=== PATIENT | male | born 1950 | race Caucasian/White ===

== ENCOUNTER 2020-10-22 18:45 | Emergency (ER) | payer MEDICARE, SELFPAY ==
--- NOTE | ~2020-10-22 | XR_ITS ---
EXAMINATION: XR chest 1V portable DATE: 10/22/2020 21:32 INDICATION: Cough. Midsternal and epigastric pain. TECHNIQUE: A single frontal view of the chest was obtained. COMPARISON: None. FINDINGS: Calcified lung nodules are consistent with old granulomatous disease. No pleural effusion o r pneumothorax. The heart size is normal. IMPRESSION: 1. No acute cardiopulmonary disease. Reviewed, dictated and finalized at location A.
[2020-10-22 19:21] VITALS: BP 140/96; PULSE 71; RESP 18; TEMP 36.8; O2SAT 95
--- NOTE | 2020-10-22 21:27 | ED.GENADULT ---
HPI - General Adult General Chief complaint: Upper Respiratory Infection Stated complaint: cold symptoms Time Seen by Provider: 10/22/20 20:55 History of Present Illness HPI narrative: Patient is a 70-year-old male who presents ER with sinus congestion and productive cough. Ongoing for 7 days. Vaccinated against Covid. Works at the [employer] and is around thousands of people a day. No loss of taste or smell. Reports night sweats. Has history of pneumonia in the past. No documented fevers or chills. Reports chest discomfort that occurs only with coughing. No pain with deep breath. Related Data Allergies Allergy/AdvReac Type Severity Reaction Status Date / Time NKDA Allergy Mild Uncoded 04/18/09 16:46 Review of Systems Review of Systems: All systems reviewed & are unremarkable except as noted in HPI and below Constitutional: Constitutional: Denies chills and Denies fever(s) Comments: Night sweats ENT: Reports nasal congestion and Reports sore throat Comments: Postnasal drip Cardiovascular: Cardiovascular: Reports chest pain (Only with coughing), Denies rapid heart rate and Denies radiating jaw, neck or arm pain Respiratory: Respiratory: Reports chest congestion, Reports cough, Reports dyspnea and Reports wheezing Gastrointestinal: Gastrointestinal: Denies abdominal pain, Denies nausea and Denies vomiting PMFSH Past Medical History Medical History (Updated 10/22/20 @ 22:54 by Geoff Barbosa MD) BPH (benign prostatic hyperplasia) Diabetes Hyperlipidemia Hypertension Surgical History Surgical History (Updated 10/22/20 @ 21:30 by Geoff Barbosa MD) History of orthopedic surgery Lower extremity repair Social History Social History (Updated 10/22/20 @ 21:31 by Geoff Barbosa MD) Smoking status: Never smoker Exam Narrative: GENERAL: Well-appearing, well-nourished, and in no acute distress. HEAD: Normocephalic, atraumatic. CHEST: Scant wheezing at the bases but otherwise clear to auscultation. No respiratory distress. HEART: Regular rate and rhythm. Normal peripheral pulses. ABDOMEN: Soft, nontender, nondistended. NEURO: Alert and oriented x3. PSYCH: Normal mood and affect. Course Course Emergency Course: Patient with mucous plugging causing wheezing. Discharged with albuterol. Will also prescribe some [id number] medications for sinus congestion. Patient may have RSV which is going through the community causing his congestion, he may also have seasonal allergies. Vital Signs Vital signs: Vital Signs Temperature 98.2 F 10/22/20 19:21 Pulse Rate 71 10/22/20 19:21 Respiratory Rate 18 10/22/20 19:21 Blood Pressure 140/96 H 10/22/20 19:21 Pulse Oximetry 95 10/22/20 19:21 Temperature 98.2 F 10/22/20 19:21 Pulse Rate 71 10/22/20 19:21 Respiratory Rate 18 10/22/20 19:21 Blood Pressure 140/96 H 10/22/20 19:21 Pulse Oximetry 95 10/22/20 19:21 Medical Decision Making Vital Signs Vital Signs: Vital Signs Temperature 98.2 F 10/22/20 19:21 Pulse Rate 71 10/22/20 19:21 Respiratory Rate 18 10/22/20 19:21 Blood Pressure 140/96 H 10/22/20 19:21 Pulse Oximetry 95 10/22/20 19:21 Temperature 98.2 F 10/22/20 19:21 Pulse Rate 71 10/22/20 19:21 Respiratory Rate 18 10/22/20 19:21 Blood Pressure 140/96 H 10/22/20 19:21 Pulse Oximetry 95 10/22/20 19:21 Lab Data Labs: Lab Results 10/22/20 Range/Units 22:22 SARS-CoV-2 IgG/IgM Ag?Rapid Negative (Negative) Imaging Data Radiologist's impression: ITS Impressions Chest X-Ray 10/22/20 21:34 IMPRESSION: 1. No acute cardiopulmonary disease. Discharge Plan Discharge Clinical Impression: Upper respiratory infection Patient Disposition: Home, Self-Care Condition: Stable Instructions: Cold Symptoms (ED) Additional Instructions: Your Covid swab was negative. Your chest x-ray did not show pneumonia. Take albuterol to help with wh
[2020-10-22 22:49] LABS: EDCOVIDSCREEN Negative (Negative)
== END 2020-10-22 23:05 | disposition home or self-care (01) ==
PROVIDERS: Emergency Provider Emergency Medicine; PCP Internal Medicine
DX: J06.9 Acute upper respiratory infection, unspecified (principal); E11.9 Type 2 diabetes mellitus without complications; E78.5 Hyperlipidemia, unspecified; I10 Essential (primary) hypertension; Z20.822 Contact with and (suspected) exposure to COVID-19
CPT/HCPCS: 36415; 71045; 87426; 99283; C9803

== ENCOUNTER 2024-09-14 20:34 | Emergency (ER) | payer MEDICARE, SELFPAY ==
[2024-09-14] VITALS (16 sets, daily range): BP systolic 107–129; BP diastolic 72–92; PULSE 70–92; RESP 13–22; TEMP 36.9; O2SAT 91–98
--- NOTE | ~2024-09-14 | CT_ITS ---
EXAMINATION: CT brain wo con DATE: 09/14/2024 21:23 INDICATION: Head injury post fall with right supraorbital hematoma TECHNIQUE: Computed tomography (CT) of the head was performed without intravenous contrast. Sagittal and coronal reconstructions were performed. The mA was adjusted according to patient size. Iterative reconstruction technique was employed. The dose-length product was 681.00 mGy-cm. COMPARISON: head CT dated FINDINGS: Anterior right frontal scalp hematoma. No fracture. No acute intracranial hemorrhage, acute infarctio n or abnormal extra axial fluid collection. 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 Ventricles are normal and symmetric. No mass/mass effect. The orbits, paranasal sinuses and mastoid air cells are normal. IMPRESSION: 1. No fracture or acute intracranial process. 2. 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 Reviewed, dictated and finalized at location A. IMPRESSION: 1. No fracture or acute intracranial process. 2. Small old lacunar infarcts at the anterior limbs of the bilateral internal c apsules and at the posterior right subinsular white matter.
--- NOTE | ~2024-09-14 | XR_ITS ---
EXAMINATION: XR chest 2V DATE: 09/14/2024 21:24 INDICATION: Syncope TECHNIQUE: PA and lateral views of the chest were obtained. COMPARISON: Chest radiograph dated 10/22/2020 FINDINGS: Calcified nodules in the left midlung zone consistent with old granulomatous disease. No other airspa ce opacities, pulmonary edema, pleural effusion or pneumothorax. The cardiomediastinal silhouette is normal. Moderate thoracic spondylosis. Chronic appearing compression fractures with 20% anterior vert ebral body height loss at T9 and 40% anterior vertebral body height loss at T12. IMPRESSION: 1. No acute cardiopulmonary disease. Reviewed, dictated and finalized at location A.
--- OUTSIDE RECORDS SUMMARY | 2024-09-14 20:36 | XMS_ITS | Data Portability ---
Author Organization [facility], [employer] Address [address] [address] Care Team Providers Care Water Resource Engineering Specialist Name Role Phone BILL PARKER Primary Care Provider [phone] Assessment Encounter Date Assessment Date Assessment LastModified by Organization Details LastModified Time 07/13/2023 07/13/2023 Patient presented for follow up. Studies ordered as below. Discussed plan with patient/careg iver, who expressed understanding . Follow up as noted below. Not available 07/13/2023 15:14:43 10/12/2023 10/12/2023 Patient presented for follow up. Studies ordered as below. Discussed plan with patient/careg iver, who expressed understanding . Follow up as noted below. Not available 10/12/2023 14:46:40 01/11/2024 01/11/2024 Patient presented for follow up. Studies ordered as below. Discussed plan with patient/careg iver, who expressed understanding . Follow up as noted below. Not available 01/11/2024 10:41:45 07/13/2024 07/13/2024 Patient presented for follow up. Studies ordered as below. Discussed plan with patient/careg iver, who expressed understanding . Follow up as noted below. Not available 07/13/2024 12:57:29 Plan of Treatment Reminders Order Date Submit Date Provider Last Modified By Organization Details Last Modified Time Details Appointments ESTABLISH ED PATIENT 15 2024 11:45A Rachell Parker MD Not available Not available Not available Lab lipid panel w/ direct LDL, serum 2024 025 [facility], [address], [place], [address], 07/20/2024 04:06:43 TSH, serum or plasma 2024 025 [facility], [address], [place], [address], 07/21/2024 12:53:54 vitamin D, 25-hydrox y, total, serum 2024 [facility], [address], [place], [address], 07/21/2024 12:53:55 magnesium , serum or plasma 2024 025 [facility], [address], [place], [address], 07/21/2024 12:53:52 CMP, serum or plasma 2024 025 [facility], [address] [place], [address], 07/20/2024 04:06:43 CBC w/ auto diff 2024 025 [facility], [address] [place], [address], 07/20/2024 04:06:43 vitamin B12, serum 2024 025 [facility], [address] [place], [address], 07/21/2024 12:53:52 hemoglobi n A1c, QN, blood 2024 025 [facility], [address], [place], [address], 07/20/2024 04:06:44 microalbu min/creat inine, mass ratio, urine 2024 [facility], [address], [place], [address], 07/21/2024 12:53:51 PSA, serum or plasma 2024 025 [facility], [address], [place], [address], 07/21/2024 12:53:53 drug screen, urine 2024 025 [facility], [address], [place], [address], 07/21/2024 12:53:56 lipid panel w/ direct LDL, serum 2023 024 [facility], [address], [place], [address], 01/18/2024 04:03:29 CMP, serum or plasma 2023 024 [facility], [address], [place], [address], 01/16/2024 21:08:38 CBC w/ auto diff 2023 024 [facility], [address], [place], [address], 01/16/2024 21:08:41 hemoglobi n A1c, QN, blood 2023 024 [facility], [address], [place], [address], 01/18/2024 04:03:29 C-peptide , serum 2023 024 [facility], [address], [place], [address], 01/11/2024 11:28:48 vitamin B12, serum 2023 024 [facility], [address], [place], [address], 01/16/2024 21:08:40 TSH, serum or plasma 2023 024 [facility], [address], [place], [address], 01/18/2024 04:03:29 vitamin D, 25-hydrox y, total, serum 2023 024 [facility], [address], [place], [address], 01/18/2024 04:03:30 drug screen, urine 2023 024 [facility], [address], [place], [address], 01/18/2024 04:03:29 hemoglobi n A1c, QN, blood 2023 024 [facility], [address], [place], [address], 10/19/2023 04:15:51 CMP, serum or plasma 2023 024 [facility], [address], [place], [address], 10/14/2023 11:14:01 lipid panel w/ direct LDL, serum 2023 024 [facility], [address], [place], [address], 07/20/2023 04:07:11 CMP, serum or plasma 2023 024 [facility], [address], [place], [address], 07/20/2023 22:51:47 CBC 2023 024 [facility], [address], [place], [address], 07/20/2023 04:07:11 hemoglobi n A1c, QN, blood 2023 024 [facility], [address], [place], [address], 07/21/2023 04:04:39 C-peptide , serum 2023 024 [facility], [address], [place], [address], 07/13/2023 19:15:27 drug screen, urine 2023 024 [facility], [address], [place], [address], 07/20/2023 04:07:11 magnesium , QN, serum or plasma 2023 024 [facility], [address], [place], [address], 04/13/2023 06:14:13 hemoglobi n A1c, QN, blood 2023 024 [facility], [address], [place], [address], 04/13/2023 06:14:13 CMP, serum or plasma 2023 024 [facility], [address], [place], [address], 04/13/2023 06:14:13 microalbu min/creat inine, mass ratio, urine 2023 024 [facility], [address], [place], [address], 04/13/2023 06:14:13 vitamin D, 25-hydrox y, total, serum 2023 024 [facility], [address], [place], [address], 04/13/2023 06:14:13 Referral None recorded. Procedures None recorded. Surgeries None recorded. Imaging XR, shoulder, 2 or more view 2023 [facility]), [address], [place], [address], 02/10/2024 13:42:05 US, bladder - pre and post voiding 2023 024 [facility] [address], [address], [place], [address], 03/09/2024 12:04:17 electroca rdiogram 2023 [facility], [address], [place], [address], 01/11/2024 13:54:35 US, groin 2023 024 [facility] [address], [address], [place], [address], 04/14/2023 11:26:37 XR, lumbosacr al spine, 2 or 3 view 2023 024 [facility]), [address], [address], [place], [address], 04/14/2023 20:51:09 Medication Orders finasteri de 5 mg tablet 2024 025 [facility] [place], [address], 07/13/2024 13:35:36 clotrimaz ole-betam ethasone 1 %-0.05 % topical cream 2024 025 [facility], [address] [place], [address], 07/13/2024 13:35:39 tamsulosi n 0.4 mg capsule 2023 024 [facility], [address] [facility], [place], [address], 01/11/2024 11:28:22 finasteri de 5 mg tablet 2023 024 [facility], [address] [facility], [place], [address], 10/12/2023 15:37:40 Xigduo XR 10 mg-1,000 mg tablet,ex tended release 2023 024 [facility], [address] [facility], [place], [address], 10/12/2023 15:37:39 hydrocodo ne 5 mg-acetam inophen 325 mg tablet 2023 024 [facility], [address] [facility], [place], [address], 03/29/2023 16:38:53 Zithromax Z-Ventura 250 mg tablet 2023 024 [facility], [address] [facility], [place], [address], 04/12/2023 21:05:23 azelastin e 137 mcg (0.1 %) nasal spray 2023 024 [facility], [address] [facility], [place], [address], 03/29/2023 16:38:49 Mucinex DM 30 mg-600 mg tablet,ex tended release 12 hr 2023 024 [facility], [address] [facility], [place], [address], 04/13/2023 09:03:31 tadalafil 20 mg tablet 2023 024 [facility], [address] [facility], [place], [address], 03/29/2023 16:38:54 Patient TargetsNo targets recorded. Patient Instructions Encounter Date Encounter Id Patient Instructions Last Modified By Organization Details Last Modified Time 03/29/2023 [id number] plantar fasciitis: care instructions mshenouda Not available 03/29/2023 16:38:41 plantar fasciitis: exercises mshenouda Not available 03/29/2023 16:38:42 managing your allergies: care instructions mshenouda Not available 03/29/2023 16:38:41 seasonal allergies: care instructions mshenouda Not available 03/29/2023 16:38:42 infection from tattoos: care instructions mshenouda Not available 03/29/2023 16:38:42 learning about healthy weight mshenouda Not available 03/29/2023 16:38:42 living will mshenouda Not available 06/2023 16:26:09 07/13/2023 [id number] learning about healthy weight mshenouda Not available 07/13/2023 16:05:12 01/11/2024 [id number] arthritis: care instructions mshenouda Not available 01/11/2024 11:28:23 learning about healthy weight mshenouda Not available 01/11/2024 11:28:22 07/13/2024 [id number] rash: care instructions mshenouda Not available 07/13/2024 13:35:28 infection from tattoos: care instructions mshenouda Not available 07/13/2024 13:35:28 learning about healthy weight mshenouda Not available 07/13/2024 13:35:28 living will mshenouda Not available 06/23 13:27:23 Reason for Referral None Reported. Results Created Date Observation Date Name Description Value Unit Range Abnormal Flag Note LastModifiedBy Organization Detail LastModifiedTime 03/29/19 24 03/29/2023 HEMOG LOBIN A1C hemoglobin A1C 6.9 % 4.8-5. 6 high CHIO L RANGE BASED ON ИРИНА COL 2 (DCCT /NGSP ): Non-D iabet ic: < 5.7% Pre-D iabet es: 5.7 - 6.4% Diabe ness: => 6.5% GLYCE MALIA CONTR OL: < 7.0% Not Available [facility] [address] [facility] [address], [place], [address], 03/30/2023 15:02:02 03/29/19 24 03/29/2023 HEMOG LOBIN A1C estimated average glucose 153 Not Available [facility] [address] [facility] [address], [place], [address], 03/30/2023 15:02:02 03/29/19 24 03/29/2023 COMPR EHENS GIOVANNA METAB OLIC PANEL sodium 144 mmol/ L 134-14 4 Not Available [facility] [address] [facility] [address], [place], [address], 03/30/2023 15:02:03 03/29/19 24 03/29/2023 COMPR EHENS GIOVANNA METAB OLIC PANEL potassium 4.4 mmol/ L 3.5-5. 2 Not Available [facility] [address] [facility] [address], [place], [address], 03/30/2023 15:02:03 03/29/19 24 03/29/2023 COMPR EHENS GIOVANNA METAB OLIC PANEL chloride 106 mmol/ L 97-108 Not Available [facility] [address] [facility] [address], [place], [address], 03/30/2023 15:02:03 03/29/19 24 03/29/2023 COMPR EHENS GIOVANNA METAB OLIC PANEL carbon dioxide (co2) 26.0 mmol/ L 18.0-2 9.0 Not Available [facility] [address] [facility] [address], [place], [address], 03/30/2023 15:02:03 03/29/19 24 03/29/2023 COMPR EHENS GIOVANNA METAB OLIC PANEL glucose 117 mg/dL 65-99 high Chio l Fasti ng: < 100 mg/dL Impai red Fasti n - 125 mg/dL Diagn ostic of Diabe ness: => 126 mg/dL [facility]abe ness [facility] i[facility] n, 2008 Not Available [facility] [address] [facility] [address], [place], [address], 03/30/2023 15:02:03 03/29/19 24 03/29/2023 COMPR EHENS GIOVANNA METAB OLIC PANEL urea nitrogen (BUN) 15 mg/dL 8-23 Not Available [facility] [address] [facility] [address], [place], [address], 03/30/2023 15:02:03 03/29/19 24 03/29/2023 COMPR EHENS GIOVANNA METAB OLIC PANEL creatinine 0.76 mg/dL 0.76-1 .27 Not Available [facility] [address] [facility] [address], [place], [address], 03/30/2023 15:02:03 03/29/19 24 03/29/2023 COMPR EHENS GIOVANNA METAB OLIC PANEL eGFR for nonafrican AM 101 mL/mi nute/ 1.73_ m2 >59 Not Available [facility] [address] [facility] [address], [place], [address], 03/30/2023 15:02:03 03/29/19 24 03/29/2023 COMPR EHENS GIOVANNA METAB OLIC PANEL eGFR for AM 123 mL/mi nute/ 1.73_ m2 >59 MDRD Study Equat ion: The calcu lated GFR is NOT appli cable for pedia tric (< 18 years old) and > 70 year old patie nts and patie nts that are NOT of stead [place] . Not Available [facility] [address] [facility] [address], [place], [address], 03/30/2023 15:02:03 03/29/19 24 03/29/2023 COMPR EHENS GIOVANNA METAB OLIC PANEL calcium 9.6 mg/dL 8.6-10 .2 Not Available [facility] [address] [facility] [address], [place], [address], 03/30/2023 15:02:03 03/29/19 24 03/29/2023 COMPR EHENS GIOVANNA METAB OLIC PANEL protein, total 6.7 gm/dL 6.4-8. 3 Not Available [facility] [address] [facility] [address], [place], [address], 03/30/2023 15:02:03 03/29/19 24 03/29/2023 COMPR EHENS GIOVANNA METAB OLIC PANEL albumin 4.4 gm/dL 3.5-5. 2 Not Available [facility] [address] [facility] [address], [place], [address], 03/30/2023 15:02:03 03/29/19 24 03/29/2023 COMPR EHENS GIOVANNA METAB OLIC PANEL bilirubin, total 0.30 mg/dL 0.00-1 .20 Not Available [facility] [address] [facility] [address], [place], [address], 03/30/2023 15:02:03 03/29/19 24 03/29/2023 COMPR EHENS GIOVANNA METAB OLIC PANEL alkaline phosphatase (ALP) 68 U/L 39-117 Not Available [facility] [address] [facility] [address], [place], [address], 03/30/2023 15:02:03 03/29/19 24 03/29/2023 COMPR EHENS GIOVANNA METAB OLIC PANEL aspartate aminotransfe rase (AST) 18 U/L 0-40 Not Available [facility] [address] [facility] [address], [place], [address], 03/30/2023 15:02:03 03/29/19 24 03/29/2023 COMPR EHENS GIOVANNA METAB OLIC PANEL alanine aminotransfe rase (ALT) 6 U/L 0-41 Not Available [facility] [address] [facility] [address], [place], [address], 03/30/2023 15:02:03 03/29/19 24 03/29/2023 COMPR EHENS GIOVANNA METAB OLIC PANEL A/G ratio (calculated) 1.9 ratio 1.0-2. 7 Not Available [facility] [address] [facility] [address], [place], [address], 03/30/2023 15:02:03 03/29/19 24 03/29/2023 COMPR EHENS GIOVANNA METAB OLIC PANEL globulin (calculated) 2.3 gm/dL 1.5-3. 8 Not Available [facility] [address] [facility] [address], [place], [address], 03/30/2023 15:02:03 03/29/19 24 03/29/2023 COMPR EHENS GIOVANNA METAB OLIC PANEL BUN/creatini ne ratio (calculated) 19.7 ratio 8.0-20 .0 Not Available [facility] [address] [facility] [address], [place], [address], 03/30/2023 15:02:03 03/29/19 24 03/29/2023 COMPR EHENS GIOVANNA METAB OLIC PANEL serum hemolysis index NORMAL index normal Not Available [facility] [address] [facility] [address], [place], [address], 03/30/2023 15:02:03 03/29/19 24 03/29/2023 MAGNE SIUM magnesium 2.1 mg/dL 1.6-2. 6 Not Available [facility] [address] [facility] [address], [place], [address], 03/30/2023 15:02:04 03/29/19 24 03/29/2023 VITAM IN D, 25-HY DROXY TOTAL vitamin D, total 33.2 NG/mL 30.0-1 00.0 The Vitam in D Assay formu latdottie n has been updat ed to offer direc t trace abili ty to ID-LC -MS/M S Refer ence Measu remen t Proce dure along with a reduc tion in bioti n inter feren ce. Defic ient: < 20 ng/mL Insuf ficie nt: 21 - 29 ng/mL Suffi cient : 30 - 100 ng/mL Poten tial Intox icati on: > 100 ng/mL Not Available [facility] [address] [facility] [address], [place], [address], 03/30/2023 15:02:04 03/29/19 24 03/29/2023 MICRO ALBUM IN:CR EATIN INE RATIO , RANDO M URINE microalbumin , urine 0.36 mcg/m L not applic able Not Available [facility] [address] [facility] [address], [place], [address], 03/30/2023 15:02:05 03/29/19 24 03/29/2023 MICRO ALBUM IN:CR EATIN INE RATIO , RANDO M URINE creatinine, urine 67.6 mg/dL not applic able Not Available [facility] [address] [facility] [address], [place], [address], 03/30/2023 15:02:05 03/29/19 24 03/29/2023 MICRO ALBUM IN:CR EATIN INE RATIO , RANDO M URINE microalbumin :creatinine ratio, random urine (calculated) 5.3 mg/gm _crea t. =< 30 Not Available [facility] [address] [facility] [address], [place], [address], 03/30/2023 15:02:05 07/14/19 24 07/14/2023 COMPR EHENS GIOVANNA DRUG PROFI LE A, URINE CONFI RMATI ON amphetamine NOT DETECT ED 250 Not Available [facility] [address] [facility] [address], [place], [address], 07/20/2023 22:51:45 07/14/19 24 07/14/2023 COMPR EHENS GIOVANNA DRUG PROFI LE A, URINE CONFI RMATI ON methamphetam ine NOT DETECT ED 250 Not Available [facility] [address] [facility] [address], [place], [address], 07/20/2023 22:51:45 07/14/19 24 07/14/2023 COMPR EHENS GIOVANNA DRUG PROFI LE A, URINE CONFI RMATI ON mda NOT DETECT ED 100 Not Available [facility] [address] [facility] [address], [place], [address], 07/20/2023 22:51:45 07/14/19 24 07/14/2023 COMPR EHENS GIOVANNA DRUG PROFI LE A, URINE CONFI RMATI ON MDMA NOT DETECT ED 100 Not Available [facility] [address] [facility] [address], [place], [address], 07/20/2023 22:51:45 07/14/19 24 07/14/2023 COMPR EHENS GIOVANNA DRUG PROFI LE A, URINE CONFI RMATI ON mdea NOT DETECT ED 100 Not Available [facility] [address] [facility] [address], [place], [address], 07/20/2023 22:51:45 07/14/19 24 07/14/2023 COMPR EHENS GIOVANNA DRUG PROFI LE A, URINE CONFI RMATI ON 7-aminoclona zepam NOT DETECT ED 100 Not Available [facility] [address] [facility] [address], [place], [address], 07/20/2023 22:51:45 07/14/19 24 07/14/2023 COMPR EHENS GIOVANNA DRUG PROFI LE A, URINE CONFI RMATI ON alprazolam NOT DETECT ED 100 Not Available [facility] [address] [facility] [address], [place], [address], 07/20/2023 22:51:45 07/14/19 24 07/14/2023 COMPR EHENS GIOVANNA DRUG PROFI LE A, URINE CONFI RMATI ON hydroxyalpra zolam NOT DETECT ED 100 Not Available [facility] [address] [facility] [address], [place], [address], 07/20/2023 22:51:45 07/14/19 24 07/14/2023 COMPR EHENS GIOVANNA DRUG PROFI LE A, URINE CONFI RMATI ON nordiazepam NOT DETECT ED 100 Not Available [facility] [address] [facility] [address], [place], [address], 07/20/2023 22:51:45 07/14/19 24 07/14/2023 COMPR EHENS GIOVANNA DRUG PROFI LE A, URINE CONFI RMATI ON temazepam NOT DETECT ED 100 Not Available [facility] [address] [facility] [address], [place], [address], 07/20/2023 22:51:45 07/14/19 24 07/14/2023 COMPR EHENS GIOVANNA DRUG PROFI LE A, URINE CONFI RMATI ON lorazepam NOT DETECT ED 100 Not Available [facility] [address] [facility] [address], [place], [address], 07/20/2023 22:51:45 07/14/19 24 07/14/2023 COMPR EHENS GIOVANNA DRUG PROFI LE A, URINE CONFI RMATI ON benzoylecgon ine NOT DETECT ED 200 Not Available [facility] [address] [facility] [address], [place], [address], 07/20/2023 22:51:45 07/14/19 24 07/14/2023 COMPR EHENS GIOVANNA DRUG PROFI LE A, URINE CONFI RMATI ON 6-monoacetyl morphine NOT DETECT ED 10 Not Available [facility] [address] [facility] [address], [place], [address], 07/20/2023 22:51:45 07/14/19 24 07/14/2023 COMPR EHENS GIOVANNA DRUG PROFI LE A, URINE CONFI RMATI ON amitriptylin e NOT DETECT ED 50 Not Available [facility] [address] [facility] [address], [place], [address], 07/20/2023 22:51:45 07/14/19 24 07/14/2023 COMPR EHENS GIOVANNA DRUG PROFI LE A, URINE CONFI RMATI ON cyclobenzapr ine NOT DETECT ED 50 Not Available [facility] [address] [place] [address] [address], [place], [address], 07/20/2023 22:51:45 07/14/19 24 07/14/2023 COMPR EHENS GIOVANNA DRUG PROFI LE A, URINE CONFI RMATI ON desipramine NOT DETECT ED 50 Not Available [facility] [address] [place] [address] [address], [place], [address], 07/20/2023 22:51:45 07/14/19 24 07/14/2023 COMPR EHENS GIOVANNA DRUG PROFI LE A, URINE CONFI RMATI ON diazepam NOT DETECT ED 100 Not Available [facility] [address] [place] [address] [address], [place], [address], 07/20/2023 22:51:45 07/14/19 24 07/14/2023 COMPR EHENS GIOVANNA DRUG PROFI LE A, URINE CONFI RMATI ON doxepin NOT DETECT ED 50 Not Available [facility] [address] [place] [address] [address], [place], [address], 07/20/2023 22:51:45 07/14/19 24 07/14/2023 COMPR EHENS GIOVANNA DRUG PROFI LE A, URINE CONFI RMATI ON imipramine NOT DETECT ED 50 Not Available [facility] [address] [place] [address] [address], [place], [address], 07/20/2023 22:51:45 07/14/19 24 07/14/2023 COMPR EHENS GIOVANNA DRUG PROFI LE A, URINE CONFI RMATI ON nortriptylin e NOT DETECT ED 100 Not Available [facility] [address] [place] [address] [address], [place], [address], 07/20/2023 22:51:45 07/14/19 24 07/14/2023 COMPR EHENS GIOVANNA DRUG PROFI LE A, URINE CONFI RMATI ON ritalinic acid NOT DETECT ED 100 Not Available [facility] [address] [facility] [address], [place], [address], 07/20/2023 22:51:45 07/14/19 24 07/14/2023 COMPR EHENS GIOVANNA DRUG PROFI LE A, URINE CONFI RMATI ON codeine NOT DETECT ED 100 Not Available [facility] [address] [place] [address] [address], [place], [address], 07/20/2023 22:51:45 07/14/19 24 07/14/2023 COMPR EHENS GIOVANNA DRUG PROFI LE A, URINE CONFI RMATI ON hydrocodone DETECT ED 100 Not Available [facility] [address] [place] [address] [address], [place], [address], 07/20/2023 22:51:45 07/14/19 24 07/14/2023 COMPR EHENS GIOVANNA DRUG PROFI LE A, URINE CONFI RMATI ON hydromorphon e NOT DETECT ED 100 abnormal Not Available [facility] [address] [place] [address] [address], [place], [address], 07/20/2023 22:51:45 07/14/19 24 07/14/2023 COMPR EHENS GIOVANNA DRUG PROFI LE A, URINE CONFI RMATI ON morphine NOT DETECT ED 100 Not Available [facility] [address] [facility] [address], [place], [address], 07/20/2023 22:51:45 07/14/19 24 07/14/2023 COMPR EHENS GIOVANNA DRUG PROFI LE A, URINE CONFI RMATI ON norhydrocodo ne DETECT ED 100 Not Available [facility] [address] [place] [address] [address], [place], [address], 07/20/2023 22:51:45 07/14/19 24 07/14/2023 COMPR EHENS GIOVANNA DRUG PROFI LE A, URINE CONFI RMATI ON noroxycodone NOT DETECT ED 100 Not Available [facility] [facility] [address] [facility] [address], [place], [address], 07/20/2023 22:51:45 07/14/19 24 07/14/2023 COMPR EHENS GIOVANNA DRUG PROFI LE A, URINE CONFI RMATI ON oxycodone NOT DETECT ED 100 Not Available [facility] [address] [place] [address] [address], [place], [address], 07/20/2023 22:51:45 07/14/19 24 07/14/2023 COMPR EHENS GIOVANNA DRUG PROFI LE A, URINE CONFI RMATI ON oxymorphone NOT DETECT ED 100 Not Available [facility] [address] [place] [address] [address], [place], [address], 07/20/2023 22:51:45 07/14/19 24 07/14/2023 COMPR EHENS GIOVANNA DRUG PROFI LE A, URINE CONFI RMATI ON buprenorphin e NOT DETECT ED 50 Not Available [facility] [address] [place] [address] [address], [place], [address], 07/20/2023 22:51:45 07/14/19 24 07/14/2023 COMPR EHENS GIOVANNA DRUG PROFI LE A, URINE CONFI RMATI ON norbuprenorp leisa NOT DETECT ED 100 Not Available [facility] [address] [place] [address] [address], [place], [address], 07/20/2023 22:51:45 07/14/19 24 07/14/2023 COMPR EHENS GIOVANNA DRUG PROFI LE A, URINE CONFI RMATI ON fentanyl NOT DETECT ED 10 Not Available [facility] [address] [place] [address] [address], [place], [address], 07/20/2023 22:51:45 07/14/19 24 07/14/2023 COMPR EHENS GIOVANNA DRUG PROFI LE A, URINE CONFI RMATI ON norfentanyl NOT DETECT ED 50 Not Available [facility] [address] [facility] [address], [place], [address], 07/20/2023 22:51:45 07/14/19 24 07/14/2023 COMPR EHENS GIOVANNA DRUG PROFI LE A, URINE CONFI RMATI ON methadone NOT DETECT ED 100 Not Available [facility] [address] [place] [address] [address], [place], [address], 07/20/2023 22:51:45 07/14/19 24 07/14/2023 COMPR EHENS GIOVANNA DRUG PROFI LE A, URINE CONFI RMATI ON EDDP NOT DETECT ED 50 Not Available [facility] [address] [place] [address] [address], [place], [address], 07/20/2023 22:51:45 07/14/19 24 07/14/2023 COMPR EHENS GIOVANNA DRUG PROFI LE A, URINE CONFI RMATI ON meperidine NOT DETECT ED 100 Not Available [facility] [address] [place] [address] [address], [place], [address], 07/20/2023 22:51:45 07/14/19 24 07/14/2023 COMPR EHENS GIOVANNA DRUG PROFI LE A, URINE CONFI RMATI ON normeperidin e NOT DETECT ED 100 Not Available [facility] [address] [place] [address] [address], [place], [address], 07/20/2023 22:51:45 07/14/19 24 07/14/2023 COMPR EHENS GIOVANNA DRUG PROFI LE A, URINE CONFI RMATI ON tramadol NOT DETECT ED 100 Not Available [facility] [address] [place] [address] [address], [place], [address], 07/20/2023 22:51:45 07/14/19 24 07/14/2023 COMPR EHENS GIOVANNA DRUG PROFI LE A, URINE CONFI RMATI ON O-desmethylt ramadol NOT DETECT ED 100 Not Available [facility] [address] [place] [address] [address], [place], [address], 07/20/2023 22:51:45 07/14/19 24 07/14/2023 COMPR EHENS GIOVANNA DRUG PROFI LE A, URINE CONFI RMATI ON tapentadol NOT DETECT ED 100 Not Available [facility] [address] [facility] [address], [place], [address], 07/20/2023 22:51:45 07/14/19 24 07/14/2023 COMPR EHENS GIOVANNA DRUG PROFI LE A, URINE CONFI RMATI ON naloxone NOT DETECT ED 100 Not Available [facility] [address] [facility] [address], [place], [address], 07/20/2023 22:51:45 07/14/19 24 07/14/2023 COMPR EHENS GIOVANNA DRUG PROFI LE A, URINE CONFI RMATI ON pregabalin NOT DETECT ED 100 Not Available [facility] [address] [facility] [address], [place], [address], 07/20/2023 22:51:45 07/14/19 24 07/14/2023 COMPR EHENS GIOVANNA DRUG PROFI LE A, URINE CONFI RMATI ON gabapentin NOT DETECT ED 500 Not Available [facility] [address] [facility] [address], [place], [address], 07/20/2023 22:51:45 07/14/19 24 07/14/2023 COMPR EHENS GIOVANNA DRUG PROFI LE A, URINE CONFI RMATI ON naltrexone NOT DETECT ED 100 Not Available [facility] [address] [facility] [address], [place], [address], 07/20/2023 22:51:45 07/14/19 24 07/14/2023 COMPR EHENS GIOVANNA DRUG PROFI LE A, URINE CONFI RMATI ON fluoxetine NOT DETECT ED 100 Not Available [facility] [address] [facility] [address], [place], [address], 07/20/2023 22:51:45 07/14/19 24 07/14/2023 COMPR EHENS GIOVANNA DRUG PROFI LE A, URINE CONFI RMATI ON sertraline NOT DETECT ED 100 Not Available [facility] [address] [facility] [address], [place], [address], 07/20/2023 22:51:45 07/14/19 24 07/14/2023 COMPR EHENS GIOVANNA DRUG PROFI LE A, URINE CONFI RMATI ON zolpidem NOT DETECT ED 100 Not Available [facility] [address] [facility] [address], [place], [address], 07/20/2023 22:51:45 07/14/19 24 07/14/2023 HEMOG LOBIN A1C hemoglobin A1C 7.1 % 4.8-5. 6 high CHIO L RANGE BASED ON ИРИНА COL 2 (DCCT /NGSP ): Non-D iabet ic: < 5.7% Pre-D iabet es: 5.7 - 6.4% Diabe ness: => 6.5% GLYCE MALIA CONTR OL: < 7.0% Not Available [facility] [address] [facility] [address], [place], [address], 07/20/2023 22:51:45 07/14/19 24 07/14/2023 HEMOG LOBIN A1C estimated average glucose 158 Not Available [facility] [address] [facility] [address], [place], [address], 07/20/2023 22:51:45 07/14/19 24 07/14/2023 *C-PE PTIDE C-peptide 3.6 NG/mL 1.1-4. 4 NOTE: REFER ENCE RANGE APPLI ES TO FASTI NG SAMPL E ONLY. Not Available [facility] [address] [facility] [address], [place], [address], 07/20/2023 22:51:46 07/14/19 24 07/14/2023 COMPR EHENS GIOVANNA METAB OLIC PANEL sodium 142 mmol/ L 134-14 4 Not Available [facility] [address] [facility] [address], [place], [address], 07/20/2023 22:51:47 07/14/19 24 07/14/2023 COMPR EHENS GIOVANNA METAB OLIC PANEL potassium 4.5 mmol/ L 3.5-5. 2 Not Available [facility] [address] [facility] [address], [place], [address], 07/20/2023 22:51:47 07/14/19 24 07/14/2023 COMPR EHENS GIOVANNA METAB OLIC PANEL chloride 106 mmol/ L 97-108 Not Available [facility] [address] [facility] [address], [place], [address], 07/20/2023 22:51:47 07/14/19 24 07/14/2023 COMPR EHENS GIOVANNA METAB OLIC PANEL carbon dioxide (co2) 24.0 mmol/ L 18.0-2 9.0 Not Available [facility] [address] [facility] [address], [place], [address], 07/20/2023 22:51:47 07/14/19 24 07/14/2023 COMPR EHENS GIOVANNA METAB OLIC PANEL glucose 147 mg/dL 65-99 high Chio l Fasti ng: < 100 mg/dL Impai red Fasti n - 125 mg/dL Diagn ostic of Diabe ness: => 126 mg/dL [facility] n[facility] i[facility] n, 2008 Not Available [facility] [address] [facility] [address], [place], [address], 07/20/2023 22:51:47 07/14/19 24 07/14/2023 COMPR EHENS GIOVANNA METAB OLIC PANEL urea nitrogen (BUN) 15 mg/dL 8-23 Not Available [facility] [address] [facility] [address], [place], [address], 07/20/2023 22:51:47 07/14/19 24 07/14/2023 COMPR EHENS GIOVANNA METAB OLIC PANEL creatinine 1.08 mg/dL 0.76-1 .27 Not Available [facility] [address], [place], [address], 07/20/2023 22:51:47 07/14/19 24 07/14/2023 COMPR EHENS GIOVANNA METAB OLIC PANEL eGFR for nonafrican AM 67 mL/mi nute/ 1.73_ m2 >59 Not Available [facility] [address], [place], [address], 07/20/2023 22:51:47 07/14/19 24 07/14/2023 COMPR EHENS GIOVANNA METAB OLIC PANEL eGFR for AM 82 mL/mi nute/ 1.73_ m2 >59 MDRD Study Equat ion: The calcu lated GFR is NOT appli cable for pedia tric (< 18 years old) and > 70 year old patie nts and patie nts that are NOT of [place] . Not Available [facility] [address], [place], [address], 07/20/2023 22:51:47 07/14/19 24 07/14/2023 COMPR EHENS GIOVANNA METAB OLIC PANEL calcium 9.0 mg/dL 8.6-10 .2 Not Available [facility] [address], [place], [address], 07/20/2023 22:51:47 07/14/19 24 07/14/2023 COMPR EHENS GIOVANNA METAB OLIC PANEL protein, total 6.7 gm/dL 6.4-8. 3 Not Available [facility] [address], [place], [address], 07/20/2023 22:51:47 07/14/19 24 07/14/2023 COMPR EHENS GIOVANNA METAB OLIC PANEL albumin 4.3 gm/dL 3.5-5. 2 Not Available [facility] [address] [facility] [address], [place], [address], 07/20/2023 22:51:47 07/14/19 24 07/14/2023 COMPR EHENS GIOVANNA METAB OLIC PANEL bilirubin, total 0.40 mg/dL 0.00-1 .20 Not Available [address], [place], [address], 07/20/2023 22:51:47 07/14/19 24 07/14/2023 COMPR EHENS GIOVANNA METAB OLIC PANEL alkaline phosphatase (ALP) 65 U/L 39-117 Not Available [facility] [address] [facility] [address], [place], [address], 07/20/2023 22:51:47 07/14/19 24 07/14/2023 COMPR EHENS GIOVANNA METAB OLIC PANEL aspartate aminotransfe rase (AST) 21 U/L 0-40 Not Available [facility] [address] [facility] [address], [place], [address], 07/20/2023 22:51:47 07/14/19 24 07/14/2023 COMPR EHENS GIOVANNA METAB OLIC PANEL alanine aminotransfe rase (ALT) 22 U/L 0-41 Not Available [address], [place], [address], 07/20/2023 22:51:47 07/14/19 24 07/14/2023 COMPR EHENS GIOVANNA METAB OLIC PANEL A/G ratio (calculated) 1.8 ratio 1.0-2. 7 Not Available [address], [place], [address], 07/20/2023 22:51:47 07/14/19 24 07/14/2023 COMPR EHENS GIOVANNA METAB OLIC PANEL globulin (calculated) 2.4 gm/dL 1.5-3. 8 Not Available [address], [place], [address], 07/20/2023 22:51:47 07/14/19 24 07/14/2023 COMPR EHENS GIOVANNA METAB OLIC PANEL BUN/creatini ne ratio (calculated) 13.9 ratio 8.0-20 .0 Not Available [facility] [address] [facility] [address], [place], [address], 07/20/2023 22:51:47 07/14/19 24 07/14/2023 COMPR EHENS GIOVANNA METAB OLIC PANEL serum hemolysis index NORMAL index normal Not Available [facility] [address] [facility] [address], [place], [address], 07/20/2023 22:51:47 07/14/19 24 07/14/2023 LIPID PANEL W/ CALC. LDL cholesterol, total 147 mg/dL 100-19 9 Not Available [facility] [address] [facility] [address], [place], [address], 07/20/2023 22:51:48 07/14/19 24 07/14/2023 LIPID PANEL W/ CALC. LDL HDL cholesterol 60 mg/dL =>40 Not Available [facility] [address] [facility] [address], [place], [address], 07/20/2023 22:51:48 07/14/19 24 07/14/2023 LIPID PANEL W/ CALC. LDL LDL cholesterol (calculated) 58 mg/dL 0-99 Not Available [facility] [address] [facility] [address], [place], [address], 07/20/2023 22:51:48 07/14/19 24 07/14/2023 LIPID PANEL W/ CALC. LDL triglyceride s 146 mg/dL 50-149 Not Available [facility] [address] [facility] [address], [place], [address], 07/20/2023 22:51:48 07/14/19 24 07/14/2023 LIPID PANEL W/ CALC. LDL chol/HDL ratio (calculated) 2.45 ratio 0.00-5 .00 Not Available [facility] [address], [place], [address], 07/20/2023 22:51:48 07/14/19 24 07/14/2023 LIPID PANEL W/ CALC. LDL VLDL cholesterol (calculated) 29 mg/dL 5-40 Not Available [facility] [address], [place], [address], 07/20/2023 22:51:48 07/14/19 24 07/14/2023 CBC WITH AUTO- DIFFE RENTI AL WBC 5.1 10*3/ uL 3.4-10 .8 Not Available [facility] [address] [facility] [address], [place], [address], 07/20/2023 22:51:49 07/14/19 24 07/14/2023 CBC WITH AUTO- DIFFE RENTI AL RBC 5.17 10*6/ uL 4.20-5 .80 Not Available [facility] [address] [facility] [address], [place], [address], 07/20/2023 22:51:49 07/14/19 24 07/14/2023 CBC WITH AUTO- DIFFE RENTI AL HGB 15.6 g/dL 12.6-1 7.7 Not Available [facility] [address] [facility] [address], [place], [address], 07/20/2023 22:51:49 07/14/19 24 07/14/2023 CBC WITH AUTO- DIFFE RENTI AL HCT 49.5 % 37.5-5 1.0 Not Available [facility] [address] [facility] [address], [place], [address], 07/20/2023 22:51:49 07/14/19 24 07/14/2023 CBC WITH AUTO- DIFFE RENTI AL MCV 96 fL 79-97 Not Available [facility] [address], [place], [address], 07/20/2023 22:51:49 07/14/19 24 07/14/2023 CBC WITH AUTO- DIFFE RENTI AL MCH 30.2 pg 26.6-3 3.0 Not Available [facility] [address] [facility], [place], [address], 07/20/2023 22:51:49 07/14/19 24 07/14/2023 CBC WITH AUTO- DIFFE RENTI AL MCHC 31.5 g/dL 31.5-3 5.7 Not Available [facility] [address], [place], [address], 07/20/2023 22:51:49 07/14/19 24 07/14/2023 CBC WITH AUTO- DIFFE RENTI AL RDW 14.7 % 11.5-1 4.5 high Not Available [facility] [address], [place], [address], 07/20/2023 22:51:49 07/14/19 24 07/14/2023 CBC WITH AUTO- DIFFE RENTI AL platelets 208 10*3/ uL 150-40 0 Not Available [facility] [address] [facility] [address], [place], [address], 07/20/2023 22:51:49 07/14/19 24 07/14/2023 CBC WITH AUTO- DIFFE RENTI AL MPV 10 fL 9-13 Not Available [facility] [address], [place], [address], 07/20/2023 22:51:49 07/14/19 24 07/14/2023 CBC WITH AUTO- DIFFE RENTI AL neutrophils 67.5 % 40.0-7 4.0 Not Available [facility] [address] [facility] [address] [facility] [address], [place], [address], 07/20/2023 22:51:49 07/14/19 24 07/14/2023 CBC WITH AUTO- DIFFE RENTI AL absolute neutrophils 3.44 10*3/ uL 1.40-7 .00 Not Available [facility] [address] [facility] [address], [place], [address], 07/20/2023 22:51:49 07/14/19 24 07/14/2023 CBC WITH AUTO- DIFFE RENTI AL lymphocytes 25.0 % 14.0-4 6.0 Not Available [facility] [address] [facility] [address], [place], [address], 07/20/2023 22:51:49 07/14/19 24 07/14/2023 CBC WITH AUTO- DIFFE RENTI AL absolute lymphocytes 1.27 10*3/ uL 0.70-3 .10 Not Available [facility] [address] [facility] [address], [place], [address], 07/20/2023 22:51:49 07/14/19 24 07/14/2023 CBC WITH AUTO- DIFFE RENTI AL monocytes 5.7 % 4.0-12 .0 Not Available [facility] [address] [facility] [address], [place], [address], 07/20/2023 22:51:49 07/14/19 24 07/14/2023 CBC WITH AUTO- DIFFE RENTI AL absolute monocytes 0.29 10*3/ uL 0.10-0 .90 Not Available [facility] [address] [facility] [address], [place], [address], 07/20/2023 22:51:49 07/14/19 24 07/14/2023 CBC WITH AUTO- DIFFE RENTI AL eosinophils 1.2 % 0.0-5. 0 Not Available [facility] [address] [facility] [address], [place], [address], 07/20/2023 22:51:49 05/22/20 24 07/14/2023 CBC WITH AUTO- DIFFE RENTI AL absolute eosinophils 0.06 10*3/ uL 0.00-0 .40 Not Available [facility] [address] [facility] [address], [place], [address], 07/20/2023 22:51:49 07/14/19 24 07/14/2023 CBC WITH AUTO- DIFFE RENTI AL basophils 0.6 % 0.0-3. 0 Not Available [facility] [address] [facility] [address], [place], [address], 07/20/2023 22:51:49 07/14/19 24 07/14/2023 CBC WITH AUTO- DIFFE RENTI AL absolute basophils 0.03 10*3/ uL 0.00-0 .20 Not Available [facility] [address] [facility] [address], [place], [address], 07/20/2023 22:51:49 07/14/19 24 07/14/2023 CBC WITH AUTO- DIFFE RENTI AL imm. gran. 0.0 % 0.0-2. 0 Not Available [facility] [address] [facility] [address], [place], [address], 07/20/2023 22:51:49 07/14/19 24 07/14/2023 CBC WITH AUTO- DIFFE RENTI AL abs. imm. gran. 0.00 10*3/ uL 0.00-0 .10 Not Available [facility] [address] [facility] [address], [place], [address], 07/20/2023 22:51:49 07/14/19 24 07/14/2023 URINE DRUG SCREE N, 6-DUONG EL W/ REFLE X TO CONF. A amphetamines NEGATI VE negati ve Amphe tamin e Cutof f=500 Not Available [facility] [address] [facility] [address], [place], [address], 07/20/2023 22:51:49 07/14/19 24 07/14/2023 URINE DRUG SCREE N, 6-DUONG EL W/ REFLE X TO CONF. A benzodiazepi rigo NEGATI VE negati ve Benzo diaze pines Cutof f=100 Not Available [facility] [address] [facility] [address], [place], [address], 07/20/2023 22:51:49 07/14/19 24 07/14/2023 URINE DRUG SCREE N, 6-DUONG EL W/ REFLE X TO CONF. A cocaine NEGATI VE negati ve Cocai ne Cutof f=300 Not Available [facility] [address] [facility] [address], [place], [address], 07/20/2023 22:51:49 07/14/19 24 07/14/2023 URINE DRUG SCREE N, 6-DUONG EL W/ REFLE X TO CONF. A opiates NEGATI VE negati ve Opiat es Cutof f=300 Not Available [facility] [address] [facility] [address], [place], [address], 07/20/2023 22:51:49 07/14/19 24 07/14/2023 URINE DRUG SCREE N, 6-DUONG EL W/ REFLE X TO CONF. A oxycodone NEGATI VE negati ve Oxyco done Cutof f=300 Not Available [facility] [address] [facility] [address], [place], [address], 07/20/2023 22:51:49 07/14/19 24 07/14/2023 URINE DRUG SCREE N, 6-DUONG EL W/ REFLE X TO CONF. A cannabinoid (THC) NEGATI VE negati ve Canna binoi d Cutof f=50 Not Available [facility] [address] [facility] [address], [place], [address], 07/20/2023 22:51:49 07/14/19 24 07/14/2023 URINE DRUG SCREE N, 6-DUONG EL W/ REFLE X TO CONF. A creatinine - uds urine 122.9 mg/dL >20.0 Not Available [facility] [address] [facility] [address], [place], [address], 07/20/2023 22:51:49 07/14/19 24 07/14/2023 URINE DRUG SCREE N, 6-DUONG EL W/ REFLE X TO CONF. A specific gravity (uds) 1.010 1.003- 1.035 Not Available [facility] [address] [place] [address] [address], [place], [address], 07/20/2023 22:51:49 07/14/19 24 07/14/2023 URINE DRUG SCREE N, 6-DUONG EL W/ REFLE X TO CONF. A pH (uds) 6.0 4.5-10 .9 Not Available [facility] [address] [place] [address] [address], [place], [address], 07/20/2023 22:51:49 07/14/19 24 07/14/2023 URINE DRUG SCREE N, 6-DUONG EL W/ REFLE X TO CONF. A amphetamines NEGATI VE negati ve Amphe tamin e Cutof f=500 Not Available [facility] [address] [facility] [address], [place], [address], 07/20/2023 22:51:49 07/14/19 24 07/14/2023 URINE DRUG SCREE N, 6-DUONG EL W/ REFLE X TO CONF. A benzodiazepi rigo NEGATI VE negati ve Benzo diaze pines Cutof f=100 Not Available [facility] [address] [place] [address] [address], [place], [address], 07/20/2023 22:51:49 07/14/19 24 07/14/2023 URINE DRUG SCREE N, 6-DUONG EL W/ REFLE X TO CONF. A cocaine NEGATI VE negati ve Cocai ne Cutof f=300 Not Available [facility] [address] [place] [address] [address], [place], [address], 07/20/2023 22:51:49 07/14/19 24 07/14/2023 URINE DRUG SCREE N, 6-DUONG EL W/ REFLE X TO CONF. A opiates NEGATI VE negati ve Opiat es Cutof f=300 Not Available [facility] [address] [facility] [address], [place], [address], 07/20/2023 22:51:49 07/14/19 24 07/14/2023 URINE DRUG SCREE N, 6-DUONG EL W/ REFLE X TO CONF. A oxycodone NEGATI VE negati ve Oxyco done Cutof f=300 Not Available [facility] [address] [facility] [address], [place], [address], 07/20/2023 22:51:49 07/14/19 24 07/14/2023 URINE DRUG SCREE N, 6-DUONG EL W/ REFLE X TO CONF. A cannabinoid (THC) NEGATI VE negati ve Canna binoi d Cutof f=50 Not Available [facility] [address] [facility] [address], [place], [address], 07/20/2023 22:51:49 07/14/19 24 07/14/2023 URINE DRUG SCREE N, 6-DUONG EL W/ REFLE X TO CONF. A creatinine - uds urine 122.9 mg/dL >20.0 Not Available [facility] [address] [facility] [address], [place], [address], 07/20/2023 22:51:49 07/14/19 24 07/14/2023 URINE DRUG SCREE N, 6-DUONG EL W/ REFLE X TO CONF. A specific gravity (uds) 1.010 1.003- 1.035 Not Available [facility] [address] [facility] [address], [place], [address], 07/20/2023 22:51:49 07/14/19 24 07/14/2023 URINE DRUG SCREE N, 6-DUONG EL W/ REFLE X TO CONF. A pH (uds) 6.0 4.5-10 .9 Not Available [facility] [address], [place], [address], 07/20/2023 22:51:49 10/12/19 24 10/12/2023 HEMOG LOBIN A1C hemoglobin A1C 6.8 % 4.8-5. 6 high CHIO L RANGE BASED ON ИРИНА COL 2 (DCCT /NGSP ): Non-D iabet ic: < 5.7% Pre-D iabet es: 5.7 - 6.4% Diabe ness: => 6.5% GLYCE MALIA CONTR OL: < 7.0% Not Available [facility] [address] [facility] [address], [place], [address], 10/14/2023 11:14:00 10/12/19 24 10/12/2023 HEMOG LOBIN A1C estimated average glucose 149 Not Available [facility] [address] [facility] [address], [place], [address], 10/14/2023 11:14:00 10/12/19 24 10/12/2023 COMPR EHENS GIOVANNA METAB OLIC PANEL sodium 141 mmol/ L 134-14 4 Not Available [facility] [address] [facility] [address], [place], [address], 10/14/2023 11:14:01 10/12/19 24 10/12/2023 COMPR EHENS GIOVANNA METAB OLIC PANEL potassium 4.2 mmol/ L 3.5-5. 2 Not Available [facility] [address] [facility] [address], [place], [address], 10/14/2023 11:14:01 10/12/19 24 10/12/2023 COMPR EHENS GIOVANNA METAB OLIC PANEL chloride 103 mmol/ L 97-108 Not Available [facility] [address] [facility] [address], [place], [address], 10/14/2023 11:14:01 10/12/19 24 10/12/2023 COMPR EHENS GIOVANNA METAB OLIC PANEL carbon dioxide (co2) 21.0 mmol/ L 18.0-2 9.0 Not Available [facility] [address] [facility] [address], [place], [address], 10/14/2023 11:14:01 10/12/19 24 10/12/2023 COMPR EHENS IGOVANNA METAB OLIC PANEL glucose 110 mg/dL 65-99 high Chio l Fasti ng: < 100 mg/dL Impai red Fasti n - 125 mg/dL Diagn ostic of Diabe ness: => 126 mg/dL [facility], 2007 Not Available [facility] Laboratory [address] [facility] [address], [place], [address], 10/14/2023 11:14:01 10/12/19 24 10/12/2023 COMPR EHENS GIOVANNA METAB OLIC PANEL urea nitrogen (BUN) 19 mg/dL 8-23 Not Available [facility] [address] [facility] [address], [place], [address], 10/14/2023 11:14:01 10/12/19 24 10/12/2023 COMPR EHENS GIOVANNA METAB OLIC PANEL creatinine 1.02 mg/dL 0.76-1 .27 Not Available [facility] [address] [facility] [address], [place], [address], 10/14/2023 11:14:01 10/12/19 24 10/12/2023 COMPR EHENS GIOVANNA METAB OLIC PANEL eGFR 79 mL/mi nute/ 1.73_ m2 >59 MDRD Study Equat ion: The calcu lated GFR is NOT appli cable for pedia tric (< 18 years old) and > 70 year old patie nts and patie nts that are NOT of stead [place] . Not Available [facility] [address] [facility] [address], [place], [address], 10/14/2023 11:14:01 10/12/19 24 10/12/2023 COMPR EHENS GIOVANNA METAB OLIC PANEL calcium 9.1 mg/dL 8.6-10 .2 Not Available [facility] [address], [place], [address], 10/14/2023 11:14:01 10/12/19 24 10/12/2023 COMPR EHENS GIOVANNA METAB OLIC PANEL protein, total 6.8 gm/dL 6.4-8. 3 Not Available [facility] [address], [place], [address], 10/14/2023 11:14:01 10/12/19 24 10/12/2023 COMPR EHENS GIOVANNA METAB OLIC PANEL albumin 4.6 gm/dL 3.5-5. 2 Not Available [facility] [address], [place], [address], 10/14/2023 11:14:01 10/12/19 24 10/12/2023 COMPR EHENS GIOVANNA METAB OLIC PANEL bilirubin, total 0.20 mg/dL 0.00-1 .20 Not Available [facility] [address] [facility] [address], [place], [address], 10/14/2023 11:14:01 10/12/19 24 10/12/2023 COMPR EHENS GIOVANNA METAB OLIC PANEL alkaline phosphatase (ALP) 72 U/L 39-117 Not Available [facility] [address] [facility] [address], [place], [address], 10/14/2023 11:14:01 10/12/19 24 10/12/2023 COMPR EHENS GIOVANNA METAB OLIC PANEL aspartate aminotransfe rase (AST) 23 U/L 0-40 Not Available [facility] [address] [facility] [address], [place], [address], 10/14/2023 11:14:01 10/12/19 24 10/12/2023 COMPR EHENS GIOVANNA METAB OLIC PANEL alanine aminotransfe rase (ALT) 21 U/L 0-[address] [facility] Laboratory [address] [facility] [address], [place], [address], 10/14/2023 11:14:01 10/12/19 24 10/12/2023 COMPR EHENS GIOVANNA METAB OLIC PANEL A/G ratio (calculated) 2.1 ratio 1.0-2. 7 Not Available [facility] [address] [facility] [address], [place], [address], 10/14/2023 11:14:01 10/12/19 24 10/12/2023 COMPR EHENS GIOVANNA METAB OLIC PANEL globulin (calculated) 2.2 gm/dL 1.5-3. 8 Not Available [facility] [address] [facility] [address], [place], [address], 10/14/2023 11:14:01 10/12/19 24 10/12/2023 COMPR EHENS GIOVANNA METAB OLIC PANEL BUN/creatini ne ratio (calculated) 18.6 ratio 8.0-20 .0 Not Available [facility] [address] [facility] [address], [place], [address], 10/14/2023 11:14:01 10/12/19 24 10/12/2023 COMPR EHENS GIOVANNA METAB OLIC PANEL serum hemolysis index NORMAL index normal Not Available [facility] [address] [facility] [address], [place], [address], 10/14/2023 11:14:01 01/11/20 24 01/11/2024 HEMOG LOBIN A1C hemoglobin A1C 7.0 % 4.8-5. 6 high CHIO L RANGE BASED ON ИРИНА COL 2 (DCCT /NGSP ): Non-D iabet ic: < 5.7% Pre-D iabet es: 5.7 - 6.4% Diabe ness: => 6.5% GLYCE MALIA CONTR OL: < 7.0% Not Available [facility] [address] [facility] [address], [place], [address], 01/16/2024 21:08:37 01/11/20 24 01/11/2024 HEMOG LOBIN A1C estimated average glucose 154 Not Available [facility] [address] [facility] [address], [place], [address], 01/16/2024 21:08:37 01/11/20 24 01/11/2024 *C-PE PTIDE C-peptide 4.0 NG/mL 1.1-4. 4 NOTE: REFER ENCE RANGE APPLI ES TO FASTI NG SAMPL E ONLY. Not Available [facility] [address] [facility] [address], [place], [address], 01/16/2024 21:08:38 01/11/20 24 01/11/2024 COMPR EHENS GIOVANNA METAB OLIC PANEL sodium 143 mmol/ L 134-14 4 Not Available [facility] [address] [facility] [address], [place], [address], 01/16/2024 21:08:38 01/11/20 24 01/11/2024 COMPR EHENS GIOVANNA METAB OLIC PANEL potassium 4.8 mmol/ L 3.5-5. 2 Not Available [facility] [address] [facility] [address], [place], [address], 01/16/2024 21:08:38 01/11/20 24 01/11/2024 COMPR EHENS GIOVANNA METAB OLIC PANEL chloride 105 mmol/ L 98-107 Not Available [facility] [address] [facility] [address], [place], [address], 01/16/2024 21:08:38 01/11/20 24 01/11/2024 COMPR EHENS GIOVANNA METAB OLIC PANEL carbon dioxide (co2) 27.0 mmol/ L 18.0-2 9.0 Not Available [facility] [address] [facility] [address], [place], [address], 01/16/2024 21:08:38 01/11/20 24 01/11/2024 COMPR EHENS GIOVANNA METAB OLIC PANEL glucose 136 mg/dL 65-99 high Chio l Fasti n - 99 mg/dL Impai red Fasti n - 125 mg/dL Diagn ostic of Diabe ness: => 126 mg/dL [facility]i can [facility]abe ness [facility] iatio n, 2007 Not Available [facility] [address] [facility] [address], [place], [address], 01/16/2024 21:08:38 01/11/20 24 01/11/2024 COMPR EHENS GIOVANNA METAB OLIC PANEL urea nitrogen (BUN) 22 mg/dL 8-23 Not Available [facility] [address] [facility] [address], [place], [address], 01/16/2024 21:08:38 01/11/20 24 01/11/2024 COMPR EHENS GIOVANNA METAB OLIC PANEL creatinine 0.90 mg/dL 0.76-1 .27 Not Available [facility] [address] [facility] [address], [place], [address], 01/16/2024 21:08:38 01/11/20 24 01/11/2024 COMPR EHENS GIOVANNA METAB OLIC PANEL eGFR 91 mL/mi nute/ 1.73_ m2 >59 MDRD Study Equat ion: The calcu lated GFR is NOT appli cable for pedia tric (< 18 years old) and > 70 year old patie nts and patie nts that are NOT of stead y state . Not Available [facility] [address] [facility] [address], [place], [address], 01/16/2024 21:08:38 01/11/20 24 01/11/2024 COMPR EHENS GIOVANNA METAB OLIC PANEL calcium 9.4 mg/dL 8.6-10 .2 Not Available [facility] [address] [facility] [address], [place], [address], 01/16/2024 21:08:38 01/11/20 24 01/11/2024 COMPR EHENS GIOVANNA METAB OLIC PANEL protein, total 6.9 gm/dL 6.4-8. 3 Not Available [facility] [address] [facility] [address], [place], [address], 01/16/2024 21:08:38 01/11/20 24 01/11/2024 COMPR EHENS GIOVANNA METAB OLIC PANEL albumin 4.4 gm/dL 3.5-5. 2 Not Available [facility] [address] [facility] [address], [place], [address], 01/16/2024 21:08:38 01/11/20 24 01/11/2024 COMPR EHENS GIOVANNA METAB OLIC PANEL bilirubin, total 0.40 mg/dL 0.00-1 .20 Not Available [facility] [address] [facility] [address], [place], [address], 01/16/2024 21:08:38 01/11/20 24 01/11/2024 COMPR EHENS GIOVANNA METAB OLIC PANEL alkaline phosphatase (ALP) 61 U/L 39-117 Not Available [facility] Laboratory [address] [facility] [address], [place], [address], 01/16/2024 21:08:38 01/11/20 24 01/11/2024 COMPR EHENS GIOVANNA METAB OLIC PANEL aspartate aminotransfe rase (AST) 17 U/L 0-[address] [facility] Laboratory [address] [facility] [address], [place], [address], 01/16/2024 21:08:38 01/11/20 24 01/11/2024 COMPR EHENS GIOVANNA METAB OLIC PANEL alanine aminotransfe rase (ALT) 15 U/L 0-[address] [facility] Laboratory [address] [facility] [address], [place], [address], 01/16/2024 21:08:38 01/11/20 24 01/11/2024 COMPR EHENS GIOVANNA METAB OLIC PANEL A/G ratio (calculated) 1.8 ratio 1.0-2. 7 Not Available [facility] [address] [facility] [address], [place], [address], 01/16/2024 21:08:38 01/11/20 24 01/11/2024 COMPR EHENS GIOVANNA METAB OLIC PANEL globulin (calculated) 2.5 gm/dL 1.5-3. 8 Not Available [facility] [address] [facility] [address], [place], [address], 01/16/2024 21:08:38 01/11/20 24 01/11/2024 COMPR EHENS GIOVANNA METAB OLIC PANEL BUN/creatini ne ratio (calculated) 24.4 ratio 8.0-20 .0 high Not Available [facility] [address] [facility] [address], [place], [address], 01/16/2024 21:08:38 01/11/20 24 01/11/2024 COMPR EHENS GIOVANNA METAB OLIC PANEL serum hemolysis index NORMAL index normal Not Available [facility] [address] [facility] [address], [place], [address], 01/16/2024 21:08:38 01/11/20 24 01/11/2024 LIPID PANEL W/ LDL BRITTNEE STERO L DIREC T cholesterol, total 171 mg/dL 100-19 9 Not Available [facility] [address] [facility] [address], [place], [address], 01/16/2024 21:08:39 01/11/20 24 01/11/2024 LIPID PANEL W/ LDL BRITTNEE STERO L DIREC T HDL cholesterol 57 mg/dL =>40 Not Available [facility] Laboratory [address] [facility] [address], [place], [address], 01/16/2024 21:08:39 01/11/20 24 01/11/2024 LIPID PANEL W/ LDL BRITTNEE STERO L DIREC T LDL cholesterol (direct) 90 mg/dL 0-99 Not Available [facility] [address], [place], [address], 01/16/2024 21:08:39 01/11/20 24 01/11/2024 LIPID PANEL W/ LDL BRITTNEE STERO L DIREC T triglyceride s 145 mg/dL 50-149 Not Available [facility] [address], [place], [address], 01/16/2024 21:08:39 01/11/20 24 01/11/2024 LIPID PANEL W/ LDL BRITTNEE STERO L DIREC T VLDL cholesterol (calculated) 29 mg/dL 5-40 Not Available [facility] [address], [place], [address], 01/16/2024 21:08:39 01/11/20 24 01/11/2024 LIPID PANEL W/ LDL BRITTNEE STERO L DIREC T chol/HDL ratio (calculated) 3.00 ratio 0.00-5 .00 Not Available [facility] [address], [place], [address], 01/16/2024 21:08:39 01/11/20 24 01/11/2024 LIPID PANEL W/ LDL BRITTNEE STERO L DIREC T LDL/HDL ratio (calculated) 1.58 ratio 0.00-3 .60 LDL/H DL Ratio Male Femal e 1/2 Avg. Risk 1.0 1.5 Avg. Risk 3.6 3.2 2x Avg. Risk 6.2 5.0 3x Avg. Risk 8.0 6.1 Not Available [facility] [address], [place], [address], 01/16/2024 21:08:39 01/11/20 24 01/11/2024 THYRO ID-ST IM. HORMO NE (TSH) thyroid-stim . hormone (TSH) 1.48 uIU/m L 0.27-4 .20 Not Available [facility] [address] [facility] [address], [place], [address], 01/16/2024 21:08:40 01/11/20 24 01/11/2024 VITAM IN B12 vitamin B12 480 pg/mL 232-12 45 Not Available [facility] [address] [facility] [address], [place], [address], 01/16/2024 21:08:40 01/11/20 24 01/11/2024 VITAM IN D, 25-HY DROXY TOTAL vitamin D, total 25.2 NG/mL 30.0-1 00.0 low The Vitam in D Assay formu latdottie n has been updat ed to offer direc t trace abili ty to ID-LC -MS/M S Refer ence Measu remen t Proce dure along with a reduc tion in bioti n inter feren ce. Defic ient: < 20 ng/mL Insuf ficie nt: 21 - 29 ng/mL Suffi cient : 30 - 100 ng/mL Poten tial Intox icati on: > 100 ng/mL Not Available [facility] [address] [facility] [address], [place], [address], 01/16/2024 21:08:41 01/11/20 24 01/11/2024 CBC WITH AUTO- DIFFE RENTI AL WBC 5.7 10*3/ uL 3.4-10 .8 Not Available [facility] [address] [facility] [address], [place], [address], 01/16/2024 21:08:41 01/11/20 24 01/11/2024 CBC WITH AUTO- DIFFE RENTI AL RBC 5.25 10*6/ uL 4.20-5 .80 Not Available [facility] [address] [facility] [address], [place], [address], 01/16/2024 21:08:41 01/11/20 24 01/11/2024 CBC WITH AUTO- DIFFE RENTI AL HGB 15.7 g/dL 12.6-1 7.7 Not Available [facility] [address], [place], [address], 01/16/2024 21:08:41 01/11/20 24 01/11/2024 CBC WITH AUTO- DIFFE RENTI AL HCT 49.9 % 37.5-5 1.0 Not Available [facility] [address], [place], [address], 01/16/2024 21:08:41 01/11/20 24 01/11/2024 CBC WITH AUTO- DIFFE RENTI AL MCV 95 fL 79-97 Not Available [facility] [address] [facility] [address], [place], [address], 01/16/2024 21:08:41 01/11/20 24 01/11/2024 CBC WITH AUTO- DIFFE RENTI AL MCH 29.9 pg 26.6-3 3.0 Not Available [facility] [address], [place], [address], 01/16/2024 21:08:41 01/11/20 24 01/11/2024 CBC WITH AUTO- DIFFE RENTI AL MCHC 31.5 g/dL 31.5-3 5.7 Not Available [facility] [address], [place], [address], 01/16/2024 21:08:41 01/11/20 24 01/11/2024 CBC WITH AUTO- DIFFE RENTI AL RDW 14.7 % 11.5-1 4.5 high Not Available [facility] [address], [place], [address], 01/16/2024 21:08:41 01/11/20 24 01/11/2024 CBC WITH AUTO- DIFFE RENTI AL platelets 222 10*3/ uL 150-40 0 Not Available [facility] [address] [facility] [address], [place], [address], 01/16/2024 21:08:41 01/11/20 24 01/11/2024 CBC WITH AUTO- DIFFE RENTI AL MPV 10 fL 9-13 Not Available [facility] [address] [facility] [address], [place], [address], 01/16/2024 21:08:41 01/11/2001/11/2024 CBC WITH AUTO- DIFFE RENTI AL neutrophils 67.3 % 40.0-7 4.0 Not Available [facility] [address] [facility] [address], [place], [address], 01/16/2024 21:08:41 01/11/20 24 01/11/2024 CBC WITH AUTO- DIFFE RENTI AL absolute neutrophils 3.85 10*3/ uL 1.40-7 .00 Not Available [facility] [address] [facility] [address], [place], [address], 01/16/2024 21:08:41 01/11/20 24 01/11/2024 CBC WITH AUTO- DIFFE RENTI AL lymphocytes 23.1 % 14.0-4 6.0 Not Available [facility] [address] [facility] [address], [place], [address], 01/16/2024 21:08:41 01/11/20 24 01/11/2024 CBC WITH AUTO- DIFFE RENTI AL absolute lymphocytes 1.32 10*3/ uL 0.70-3 .10 Not Available [facility] [address] [facility] [address], [place], [address], 01/16/2024 21:08:41 01/11/20 24 01/11/2024 CBC WITH AUTO- DIFFE RENTI AL monocytes 7.0 % 4.0-12 .0 Not Available [facility] [address] [facility] [address], [place], [address], 01/16/2024 21:08:41 01/11/20 24 01/11/2024 CBC WITH AUTO- DIFFE RENTI AL absolute monocytes 0.40 10*3/ uL 0.10-0 .90 Not Available [facility] [address] [facility] [address], [place], [address], 01/16/2024 21:08:41 01/11/20 24 01/11/2024 CBC WITH AUTO- DIFFE RENTI AL eosinophils 1.4 % 0.0-5. 0 Not Available [facility] [address] [facility] [address], [place], [address], 01/16/2024 21:08:41 01/11/20 24 01/11/2024 CBC WITH AUTO- DIFFE RENTI AL absolute eosinophils 0.08 10*3/ uL 0.00-0 .40 Not Available [facility] [address] [facility] [address], [place], [address], 01/16/2024 21:08:41 01/11/20 24 01/11/2024 CBC WITH AUTO- DIFFE RENTI AL basophils 0.9 % 0.0-3. 0 Not Available [facility] [address] [facility] [address], [place], [address], 01/16/2024 21:08:41 01/11/20 24 01/11/2024 CBC WITH AUTO- DIFFE RENTI AL absolute basophils 0.05 10*3/ uL 0.00-0 .20 Not Available [facility] [address] [facility] [address], [place], [address], 01/16/2024 21:08:41 01/11/20 24 01/11/2024 CBC WITH AUTO- DIFFE RENTI AL imm. gran. 0.3 % 0.0-2. 0 Not Available [facility] [address] [facility] [address], [place], [address], 01/16/2024 21:08:41 01/11/20 24 01/11/2024 CBC WITH AUTO- DIFFE RENTI AL abs. imm. gran. 0.02 10*3/ uL 0.00-0 .10 Not Available [facility] [address] [facility] [address], [place], [address], 01/16/2024 21:08:41 01/11/20 24 01/11/2024 URINE DRUG SCREE N, 6-DUONG EL amphetamines NEGATI VE negati ve Amphe tamin e Cutof f=500 Not Available [facility] [address] [facility] [address], [place], [address], 01/16/2024 21:08:42 01/11/20 24 01/11/2024 URINE DRUG SCREE N, 6-DUONG EL benzodiazepi rigo NEGATI VE negati ve Benzo diaze pines Cutof f=100 Not Available [facility] [address] [facility] [address], [place], [address], 01/16/2024 21:08:42 01/11/20 24 01/11/2024 URINE DRUG SCREE N, 6-DUONG EL cocaine NEGATI VE negati ve Cocai ne Cutof f=300 Not Available [facility] [address] [facility] [address], [place], [address], 01/16/2024 21:08:42 01/11/20 24 01/11/2024 URINE DRUG SCREE N, 6-DUONG EL opiates POSITI VE negati ve abnormal Opiat es Cutof f=300 Not Available [facility] [address] [facility] [address], [place], [address], 01/16/2024 21:08:42 01/11/20 24 01/11/2024 URINE DRUG SCREE N, 6-DUONG EL oxycodone NEGATI VE negati ve Oxyco done Cutof f=300 Not Available [facility] [address] [facility] [address], [place], [address], 01/16/2024 21:08:42 01/11/20 24 01/11/2024 URINE DRUG SCREE N, 6-DUONG EL cannabinoid (THC) NEGATI VE negati ve Canna binoi d Cutof f=50 Not Available [facility] [address] [facility] [address], [place], [address], 01/16/2024 21:08:42 01/11/20 24 01/11/2024 URINE DRUG SCREE N, 6-DUONG EL creatinine - uds urine 84.0 mg/dL >20.0 Not Available [facility] [address] [facility] [address], [place], [address], 01/16/2024 21:08:42 01/11/20 24 01/11/2024 URINE DRUG SCREE N, 6-DUONG EL pH (uds) 6.0 4.5-10 .9 Not Available [facility] [address] [facility] [address], [place], [address], 01/16/2024 21:08:42 01/11/20 24 01/11/2024 URINE DRUG SCREE N, 6-DUONG EL specific gravity (uds) 1.020 1.003- 1.035 Not Available [facility] [address] [place] [address] [address], [place], [address], 01/16/2024 21:08:42 01/11/20 24 01/11/2024 URINE DRUG SCREE N, 6-DUONG EL amphetamines NEGATI VE negati ve Amphe tamin e Cutof f=500 Not Available [facility] [address] [facility] [address], [place], [address], 01/16/2024 21:08:42 01/11/20 24 01/11/2024 URINE DRUG SCREE N, 6-DUONG EL benzodiazepi rigo NEGATI VE negati ve Benzo diaze pines Cutof f=100 Not Available [facility] [address] [facility] [address], [place], [address], 01/16/2024 21:08:42 01/11/20 24 01/11/2024 URINE DRUG SCREE N, 6-DUONG EL cocaine NEGATI VE negati ve Cocai ne Cutof f=300 Not Available [facility] [address] [facility] [address], [place], [address], 01/16/2024 21:08:42 01/11/20 24 01/11/2024 URINE DRUG SCREE N, 6-DUONG EL opiates POSITI VE negati ve abnormal Opiat es Cutof f=300 Not Available [facility] [address] [facility] [address], [place], [address], 01/16/2024 21:08:42 01/11/20 24 01/11/2024 URINE DRUG SCREE N, 6-DUONG EL oxycodone NEGATI VE negati ve Oxyco done Cutof f=300 Not Available [facility] [address] [facility] [address], [place], [address], 01/16/2024 21:08:42 01/11/2001/11/2024 URINE DRUG SCREE N, 6-DUONG EL cannabinoid (THC) NEGATI VE negati ve Canna binoi d Cutof f=50 Not Available [facility] [address] [facility] [address], [place], [address], 01/16/2024 21:08:42 01/11/20 24 01/11/2024 URINE DRUG SCREE N, 6-DUONG EL creatinine - uds urine 84.0 mg/dL >20.0 Not Available [facility] [address] [facility] [address], [place], [address], 01/16/2024 21:08:42 01/11/20 24 01/11/2024 URINE DRUG SCREE N, 6-DUONG EL pH (uds) 6.0 4.5-10 .9 Not Available [facility] [address], [place], [address], 01/16/2024 21:08:42 01/11/2001/11/2024 URINE DRUG SCREE N, 6-DUONG EL specific gravity (uds) 1.020 1.003- 1.035 Not Available [facility] [address], [place], [address], 01/16/2024 21:08:42 07/20/1907/20/2024 LIPID PANEL , STAND CONNIE cholesterol, total 144 mg/dL <200 normal Not Available [address], [address], 07/21/2024 12:53:50 07/20/19 25 07/20/2024 LIPID PANEL , STAND CONNIE HDL cholesterol 57 mg/dL > or = 40 normal Not Available [address], [address], 07/21/2024 12:53:50 07/20/19 25 07/20/2024 LIPID PANEL , STAND CONNIE triglyceride s 153 mg/dL <150 high Not Available [address], [address], 07/21/2024 12:53:50 07/20/19 25 07/20/2024 LIPID PANEL , STAND CONNIE LDL-choleste rol 63 mg/dL _(stevie c) normal Refer ence range : <100 Ferny able range <100 mg/dL for prima ry preve ntion ; <70 mg/dL for patie nts with CHD or diabe tic patie nts with > or = 2 CHD risk facto rs. LDL-C is now calcu lated using the Naima n-Hop kins calcu latio n, which is a valid ated novel metho d provi ding brett r accur acy than the Fried carlito equat ion in the estim ation of LDL-C . Namia palomino SS et al. MAGUE. 2013; 310(1 9): 2061- 2068 (http ://ed ucati on.Twila hurley [employer]. com/f aq/FA Q164) Not Available [address], [address], 07/21/2024 12:53:50 07/20/19 25 07/20/2024 LIPID PANEL , STAND CONNIE chol/HDLC ratio 2.5 (calc ) <5.0 normal Not Available [address], [address], 07/21/2024 12:53:50 07/20/1907/20/2024 LIPID PANEL , STAND CONNIE non HDL cholesterol 87 mg/dL _(stevie c) <130 normal For patie nts with diabe ness plus 1 major ASCVD risk facto r, treat ing to a non-H DL-C goal of <100 mg/dL (LDL- C of <70 mg/dL ) is consi dered a thera peuti c optio n. Not Available [address], [address], 07/21/2024 12:53:50 07/20/1907/20/2024 ALBUM IN, RANDO M URINE W/CRE ATINI NE creatinine, random urine 67 mg/dL 20-320 normal Not Available [address], [address], 07/21/2024 12:53:51 07/20/19 25 07/20/2024 ALBUM IN, RANDO M URINE W/CRE ATINI NE albumin, urine 0.3 mg/dL see note: normal Refer ence Range : Refer ence Range Not estab lishe d Not Available [address], [address], 07/21/2024 12:53:51 07/20/19 25 07/20/2024 ALBUM IN, RANDO M URINE W/CRE ATINI NE albumin/crea tinine ratio, random urine 4 mg/g_ creat <30 normal The ADA defin es abnor malit ies in album in excre tion as follo ws: Album inuri a Categ ory Resul t (mg/g creat inine ) Chio l to Mildl y incre ased <30 Moder ately incre ased 30-29 9 Sever marlene incre ased > OR = 300 The ADA recom mends that at least two of three speci mens colle cted withi n a 3-6 month perio d be abnor mal befor e consi erica g a patie nt to be withi n a diagn ostic categ ory. Not Available [facility] [address] [place], [address], 07/21/2024 12:53:51 07/20/1907/20/2024 MAGNE SIUM magnesium 2.2 mg/dL 1.5-2. 5 normal Not Available [facility] [address] [place], [address], 07/21/2024 12:53:52 07/20/1907/20/2024 VITAM IN B12 vitamin B12 346 pg/mL 200-11 00 normal Pleas e Note: Altho ugh the refer ence range for vitam in B12 is 200-1 100 pg/mL , it has been repor arleth that betwe en 5 and 10% of patie nts with value s betwe en 200 and 400 pg/mL may exper ience neuro psych iatri c and hemat ologi c abnor malit ies due to occul t B12 defic iency ; less than 1% of patie nts with value s above 400 pg/mL will have sympt oms. Not Available [facility] [address] [place], [address], 07/21/2024 12:53:52 07/20/1907/20/2024 PSA, TOTAL PSA, total 0.26 NG/mL < or = 4.00 normal The total PSA value from this assay syste m is stand ardiz ed again st the WHO stand connie. The test resul t will be appro ximat marlene 20% lower when claudia red to the equim olar- stand ardiz ed total PSA (Jerry man Coult er). Claudia rison of seria l PSA resul ts shoul d be inter prete d with this fact in mind. This test was perfo rmed using the Sieme ns chemi lumin escen t metho d. Value s obtai sukh from diffe rent assay metho ds canno t be used inter ramon eably . PSA level s, regar dless of value , shoul d not be inter prete d as absol dorita evide nce of the prese nce or absen ce of disea se. Not Available [facility] [address] [place], [address], 07/21/2024 12:53:53 07/20/19 25 07/20/2024 TSH TSH 0.94 mIU/L 0.40-4 .50 normal Not Available [facility] [address] [place], [address], 07/21/2024 12:53:54 07/20/19 25 07/20/2024 VITAM IN D,25- OH,TO CAMI,I A vitamin D,25-oh,tota l,ia 34 NG/mL 30-100 normal Vitam in D Statu s 25-OH Vitam in D: Defic iency : <20 ng/mL Insuf ficie ncy: 20 - 29 ng/mL Optim al: > or = 30 ng/mL For 25-OH Vitam in D testi ng on patie nts on D2-vergara pplem entat ion and patie nts for whom quant itati on of D2 and D3 fract ions is requi red, the [facility] Assur eD(TM ) 25-OH VIT D, (D2,D 3), LC/MS /MS is recom abdi d: order code 70108 (hilda ents >2yrs ). See Note 1 Note 1 For addit ional infor brook graf e refer to http: //sowmya Calixto gnary ics.c om/fa q/FAQ 199 (This link is being provi ded for infor joel kumar/ educa lexi l purpo ses only. ) Not Available [facility] [address] [address] [place], [address], 07/21/2024 12:53:55 07/20/1907/20/2024 HEMOG LOBIN A1C hemoglobin A1C 6.8 %_of_ total _HGB <5.7 high For someo ne witho ut known diabe ness, a hemog lobin A1c value of 6.5% or great er indic ates that they may have diabe ness and this shoul d be confi rmed with a follo w-up test. For someo ne with known diabe ness, a value <7% indic ates that their diabe ness is well contr olled and a value great er than or equal to 7% indic ates subop timal contr ol. A1c targe ts shoul d be indiv idual ized based on durat ion of diabe ness, age, comor bid condi tions , and other consi derat ions. Curre ntly, no conse nsus exist s efraín redmond use of hemog lobin A1c for diagn osis of diabe ness for child karma. Not Available [facility] [address] [address] [place], [address], 07/21/2024 12:53:55 07/20/1907/20/2024 DRUG MONIT OR, PANEL 5, SCREE N, URINE amphetamines NEGATI VE NG/mL <500 See Note A See Note A Not Available [facility] [address] [place] [address] [place], [address], 07/21/2024 12:53:56 07/20/1907/20/2024 DRUG MONIT OR, PANEL 5, SCREE N, URINE barbiturates NEGATI VE NG/mL <300 See Note A See Note A Not Available [facility] [address] [address] [place], [address], 07/21/2024 12:53:56 07/20/1907/20/2024 DRUG MONIT OR, PANEL 5, SCREE N, URINE benzodiazepi rigo NEGATI VE NG/mL <100 See Note A See Note A Not Available [facility] [address] [address], [place], [address], 07/21/2024 12:53:56 07/20/1907/20/2024 DRUG MONIT OR, PANEL 5, SCREE N, URINE cocaine metabolite NEGATI VE NG/mL <150 See Note A See Note A Not Available [facility] [address] [address] [address], [place], [address], 07/21/2024 12:53:56 07/20/1907/20/2024 DRUG MONIT OR, PANEL 5, SCREE N, URINE marijuana metabolite NEGATI VE NG/mL <20 See Note A See Note A Not Available [facility] [address] [address], [place], [address], 07/21/2024 12:53:56 07/20/1907/20/2024 DRUG MONIT OR, PANEL 5, SCREE N, URINE methadone metabolite NEGATI VE NG/mL <100 See Note A See Note A Not Available [facility] [address] [address], [place], [address], 07/21/2024 12:53:56 07/20/1907/20/2024 DRUG MONIT OR, PANEL 5, SCREE N, URINE opiates POSITI VE NG/mL <100 abnormal See Note A See Note A Not Available [facility] [address] [address], [place], [address], 07/21/2024 12:53:56 07/20/1907/20/2024 DRUG MONIT OR, PANEL 5, SCREE N, URINE oxycodone NEGATI VE NG/mL <100 See Note A See Note A Not Available [facility] [address] [address], [place], [address], 07/21/2024 12:53:56 07/20/19 25 07/20/2024 DRUG MONIT OR, PANEL 5, SCREE N, URINE creatinine 67.1 mg/dL > or = 20.0 Not Available [facility] [address] [address] [place], [address], 07/21/2024 12:53:56 07/20/19 25 07/20/2024 DRUG MONIT OR, PANEL 5, SCREE N, URINE pH 7.2 4.5-9. 0 Not Available [facility] [address] [address] [place], [address], 07/21/2024 12:53:56 07/20/19 25 07/20/2024 DRUG MONIT OR, PANEL 5, SCREE N, URINE oxidant NEGATI VE mcg/m L <200 Not Available [facility] [address] [address] [address], [place], [address], 07/21/2024 12:53:56 07/20/1907/20/2024 DRUG MONIT ORING TEMPL ATE notes and comments This drug testi ng is for medic al treat ment only. Abena sis was perfo rmed as non-f orens ic testi ng and these resul ts shoul d be used only by [facility] to rende r diagn osis or treat ment, or to monit or progr ess of medic al condi tions . Note A: The resul ts are presu mptiv e; based only on screkrystle meza metho ds, and they have not been confi rmed by a defin itive metho d. [facility] Pro[facility] ders needi ng Inter preta tion gerson tance , pleas e conta ct us at 1.877 .40.R XTOX (1.87 [phone] ) M-F, 8am to 10pm EST Not Available [facility] [address] [address] [address], [place], [address], 07/21/2024 12:53:56 04/14/19 24 04/13/2023 US, groin No observ ation record ed. [facility] [address], [place], [address], 10/14/2023 20:04:29 04/14/19 XR, lumbo sacra l spine , 2 or 3 view No observ ation record ed. JUAN CARLOS [facility]) [address], [place], [address], 10/14/2023 20:04:29 01/11/20 24 01/11/2024 elect rocar diogr am No observ ation record ed. [facility], [facility] [address], [place], [address], 07/13/2024 13:23:21 01/11/20 24 01/11/2024 elect rocar diogr am No observ ation record ed. [facility], [facility] [address], [place], [address], 07/13/2024 13:23:21 02/10/20 24 02/10/2024 XR, shoul tyrone, 2 or more view No observ ation record ed. [facility] [address], [place], [address], 07/13/2024 13:23:21 03/09/19 25 03/09/2024 US, bladd er No observ ation record ed. [facility] [address], [place], [address], 07/13/2024 13:23:21 Result Notes None recorded. 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 Radha rodriguez, [facility] 6 13:06:02 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 Radha rodriguez, [facility] 6 13:06:14 Body mass index 25-29 - overweigh t 965459686 Active 2015 Bill Parker MD [address], [place], [address], [facility] 8 22:31:39 Tattoo of skin 852029416435 Active 2017 Bill Parker MD [address], [place], [address], [facility] 8 13:23:06 Benign prostatic hyperplas ia without outflow obstructi on 864993728 Active 2018 Bill Parker MD [address], [place], [address], [facility] 9 16:48:58 Mixed hyperlipi demia 769751062 Active 2018 Bill Parker MD [address], [place], [address], [facility] 9 16:49:26 Osteoarth ritis 703029364 Active 2019 Bill Parker MD [address], [place], [address], [facility] 0 11:49:03 Long-term current use of opiate analgesic drug 468259765558 108 Active 2019 Bill Parker MD [address], [place], [address], [facility] 0 11:07:36 Vitamin D deficienc y 80497919 Active 2020 Bill Parker MD [address], [place], [address], [facility] 1 19:36:27 Plantar fasciitis 787229745 Active 2020 Bill Parker MD [address], [place], [address], [facility] 1 10:39:47 Mixed anxiety and depressiv e disorder 103167316 Active 2020 Bill Parker MD [address], [place], [address], [facility] 1 10:39:48 Hypomagne semia 622076166 Active 2021 Bill Parker MD [address], [place], [address], [facility] 2 15:16:33 Long-term drug therapy Active 2021 Bill Parker MD [address], [place], [address], [facility] 2 15:16:47 Primary erectile dysfuncti on 199961235 Active 2022 Bill Parker MD [address], [place], [address], [facility] 3 10:26:04 Problem Notes None recorded. Procedures Surgical History Date Name Laterality Status Provider Name and Address Organization Details Recorded Time 5 Diabetic Foot Exam completed Bill Parker MD [address], [place], [address], [facility] 07/13/2024 13:31:03 4 Diabetic Foot Exam completed Bill Parker MD [address], [place], [address], [facility] 01/11/2024 11:25:23 4 Diabetic Foot Exam completed Bill Parker MD [address], [place], [address], [facility] 10/12/2023 15:34:12 4 Diabetic Foot Exam completed Bill Parker MD [address], [place], [address], [facility] 07/13/2023 16:04:31 4 Diabetic Foot Exam completed Bill Parker MD [address], [place], [address], [facility] 03/29/2023 16:31:36 3 Diabetic Foot Exam completed Bill Parker MD [address], [place], [address], [facility] 12/28/2022 16:02:37 3 Diabetic Foot Exam completed Bill Parker MD [address], [place], [address], [facility] 09/17/2022 10:12:49 3 Diabetic Foot Exam completed Bill Parker MD [address], [place], [address], [facility] 06/18/2022 10:38:40 3 Diabetic Foot Exam completed Bill Parker MD [address], [place], [address], [facility] 03/12/2022 10:32:33 2 Diabetic Foot Exam completed Bill Parker MD [address], [place], [address], [facility] 12/04/2021 15:18:07 2 Diabetic Foot Exam completed Bill Parker MD [address], [place], [address], [facility] 08/06/2021 15:46:30 2 Diabetic Foot Exam completed Bill Parker MD [address], [place], [address], [facility] 04/28/2021 17:06:18 1 Diabetic Foot Exam completed Bill Parker MD [address], [place], [address], [facility] 01/03/2021 10:41:54 1 Diabetic Foot Exam completed Bill Parker MD [address], [place], [address], [facility] 10/03/2020 10:19:39 1 Diabetic Foot Exam completed Bill Parker MD [address], [place], [address], [facility] 07/03/2020 09:20:02 1 Diabetic Foot Exam completed Bill Parker MD [address], [place], [address], [facility] 03/28/2020 11:09:59 0 Diabetic Foot Exam completed Bill Parker MD [address], [place], [address], [facility] 12/28/2019 11:10:51 0 Diabetic Foot Exam completed Bill Parker MD [address], [place], [address], [facility] 09/12/2019 11:42:23 0 Diabetic Foot Exam completed Bill Parker MD [address], [place], [address], [facility] 06/07/2019 16:13:38 0 Diabetic Foot Exam completed Bill Parker MD [address], [place], [address], [facility] 03/08/2019 17:09:46 9 Diabetic Foot Exam completed Bill Parker MD [address], [place], [address], [facility] 12/06/2018 17:01:01 9 Diabetic Foot Exam completed Bill Parker MD [address], [place], [address], [facility] 08/23/2018 17:14:55 9 Colonoscopy completed Bill Parker MD [address], [place], [address], [facility] 07/13/2018 12:50:50 9 Diabetic Foot Exam completed Bill Parker MD [address], [place], [address], [facility] 05/24/2018 17:46:47 9 Diabetic Foot Exam completed Bill Parker MD [address], [place], [address], [facility] 02/23/2018 17:30:36 8 Diabetic Foot Exam completed Bill Parker MD [address], [place], [address], [facility] 11/23/2017 13:20:52 9 Colonoscopy completed Radha Stephens [facility] 07/16/2015 12:56:13 Imaging Results None recorded. Procedure Notes None recorded. Medical Equipment None Reported. Allergies Allergen ID Allergen Name Allergen Category Reaction Reaction Severity Criticality Documentation Date Start Date Code Code System Note Provider Name and Address Organization Details Recorded Time 1562 Claritin- D medicatio n Not available Not available Not available 07/16/2015 10737 6 RxNorm Verónicasa Rosy rodriguez [facility] 6 15:56:36 03493 Claritin- D medicatio n Not available Not available Not available 07/13/2024 10871 6 RxNorm Not Available juan carlos - External Data Service - prod 5 11:47:09 6862 Farxiga medicatio n dizziness Not available Not available 06/01/2017 76218 72 RxNorm Bill Parker MD [address], [place], [address], [facility] 9 17:15:09 7470 buspirone medicatio n dizziness Not available Not available 11/23/2017 1827 RxMarcelino Parker MD [address], [place], [address], [facility] 8 13:13:26 Medications Name Sig Start Date Stop Date Status Note LastModified by Organization Details LastModified Time pioglitazon e 15 mg tablet TAKE 1 TABLET BY MOUTH ONCE DAILY IN THE MORNING active Not Available Not Available No t Available metformin 500 mg tablet TAKE 1 TABLET BY MOUTH ONCE DAILY WITH SUPPER 07/19 completed Not Available Not Available Not Available doxycycline hyclate 100 mg capsule TAKE 1 CAPSULE BY MOUTH TWICE DAILY 05/20 completed Not Available Not Available Not Available atorvastati n 20 mg tablet TAKE 1 TABLET BY MOUTH ONCE DAILY 07/03 completed Not Available Not Available Not Available sildenafil 50 mg tablet Take 1 tablet every day by oral route as needed. 03/29 completed Not Available Not Available Not Available cetirizine 10 mg tablet TAKE 1 TABLET BY MOUTH ONCE DAILY active Not Available Not Available No t Available atorvastati n 10 mg tablet TAKE ONE TABLET BY MOUTH ONCE DAILY AT BEDTIME 05/04 completed Not Available Not Available Not Available azithromyci n 250 mg tablet TAKE 2 TABLETS BY MOUTH ON DAY 1, AND THEN TAKE 1 TABLET BY MOUTH ONCE A DAY ON DAY 2 THROUGH DAY 5 04/12 completed Not Available Not Available Not Available cephalexin 250 mg capsule TAKE 1 CAPSULE BY MOUTH EVERY 6 HOURS FOR 10 DAYS 09/03 completed Not Available Not Available Not Available hydrocodone 5 mg-acetamin ophen 325 mg tablet TAKE 1 TABLET BY MOUTH EVERY 8 HOURS NEEDED active Not Available Not Available No t Available prednisone 20 mg tablet TAKE 1 TABLET BY MOUTH ONCE DAILY 07/19 completed Not Available Not Available Not Available Mobic 7.5 mg tablet Take 1 tablet every day by oral route as needed. 10/14 completed Not Available Not Available Not Available meclizine 12.5 mg tablet Take 1 tablet 3 times a day by oral route. 11/23 completed Not Available Not Available Not Available amlodipine 2.5 mg tablet 10/14 completed Not Available Not Available Not Available amlodipine 5 mg tablet TAKE 1 TABLET BY MOUTH ONCE DAILY active Not Available Not Available No t Available aspirin 81 mg tablet,gabo yed release TAKE 1 TABLET BY MOUTH ONCE DAILY active Not Available Not Available No t Available citalopram 20 mg tablet TAKE 1 TABLET BY MOUTH ONCE DAILY AT BEDTIME active Not Available Not Available No t Available tamsulosin 0.4 mg capsule TAKE 1 CAPSULE BY MOUTH ONCE DAILY active Not Available Not Available No t Available SETVIToBioGreen Teck Ultra Test strips USE 1 STRIP TO CHECK GLUCOSE ONCE DAILY active Not Available Not Available No t Available candesartan 16 mg-hydrochl orothiazide 12.5 mg tablet Take 1 tablet by mouth once daily active Not Available Not Available No t Available benzonatate 100 mg capsule TAKE 1 CAPSULE BY MOUTH THREE TIMES DAILY NEEDED 07/12 completed Not Available Not Available Not Available buspirone 10 mg tablet Take 1 tablet 3 times a day by oral route as needed. 11/23 completed Not Available Not Available Not Available clotrimazol e-betametha sone 1 %-0.05 % topical cream APPLY TO THE AFFECTED AND SURROUNDI NG AREA(S) OF SKIN TWICE DAILY IN THE MORNING AND THE EVENING FOR TWO WEEKS active Not Available Not Available No t Available magnesium 250 mg tablet Take 1 tablet every day by oral route. 2020 active Not Available Not Available Not Avai lable azelastine 137 mcg (0.1 %) nasal spray USE 2 SPRAY(S) IN EACH NOSTRIL TWICE DAILY active Not Available Not Available No t Available albuterol sulfate HFA 90 mcg/actuati on aerosol inhaler INHALE 4 PUFFS BY MOUTH 4 TIMES DAILY NEEDED active Not Available Not Available No t Available SSD 1 % topical cream APPLY A 1/16 INCH (1.5 MM) THICK LAYER TO ENTIRE BURN AREA BY TOPICALRO DORITA 2 TIMES PER DAY 09/11 completed Not Available Not Available Not Available losartan 50 mg-hydrochl orothiazide 12.5 mg tablet TAKE 1 TABLET BY MOUTH IN THE MORNING 05/24 completed Not Available Not Available Not Available pioglitazon e 30 mg tablet TAKE 1 TABLET BY MOUTH ONCE DAILY active Not Available Not Available No t Available fluticasone propionate 50 mcg/actuati on nasal spray,suspe nsion USE 1 SPRAY(S) IN EACH NOSTRIL TWICE DAILY 07/12 completed Not Available Not Available Not Available metformin ER 500 mg tablet,exte nded release 24 hr TAKE 2 TABLETS BY MOUTH TWICE DAILY active Not Available Not Available No t Available finasteride 5 mg tablet Take 1 tablet by mouth once daily 2024 active Not Available Not Available Not Avai lable verapamil ER 240 mg 24 hr capsule,ext ended release Take 1 capsule by mouth once daily 2024 active Not Available Not Available Not Avai lable alprazolam ER 0.5 mg tablet,exte nded release 24 hr TAKE ONE TABLET BY MOUTH AT BEDTIME 04/16 completed Not Available Not Available Not Available rosuvastati n 20 mg tablet Take 1 tablet by mouth once daily 2024 active Not Available Not Available Not Avai lable tadalafil 20 mg tablet TAKE 1 TABLET BY MOUTH ONCE DAILY NEEDED active Not Available Not Available No t Available Mucinex DM 30 mg-600 mg tablet,exte nded release 12 hr Take 1 tablet every 12 hours by oral route. 04/12 completed Not Available Not Available Not Available Boostrix Tdap 2.5 Lf unit-8 mcg-5 Lf/0.5 mL intramuscul ar syringe 06/29 completed Not Available Not Available Not Available sildenafil (pulmonary hypertensio n) 20 mg tablet TAKE TWO TABLETS BY MOUTH ONCE DAILY ONE-HALF HOUR BEFORE NEEDED 03/29 completed Not Available Not Available Not Available Zostavax (PF) 19,400 unit/0.65 mL subcutaneou s suspension 01/14 completed Not Available Not Available Not Available Vitamin D3 125 mcg (5,000 unit) tablet Take 1 tablet every day by oral route. 2022 active Not Available Not Available Not Avai lable AndroGel 20.25 mg/1.25 gram per pump act. (1.62 %) transdermal gel 10/14 completed Not Available Not Available Not Available Farxiga 10 mg tablet Take 1 tablet every day by oral route. 2024 active Not Available Not Available Not Avai lable Farxiga 5 mg tablet TAKE 1 TABLET BY MOUTH ONCE DAILY IN THE MORNING 11/16 completed Not Available Not Available Not Available Jardiance 10 mg tablet Take 1 tablet every day by oral route in the morning. 11/23 completed Not Available Not Available Not Available Xigduo XR 5 mg-1,000 mg tablet,exte nded release TAKE 1 TABLET BY MOUTH ONCE DAILY IN THE MORNING 04/30 completed Not Available Not Available Not Available Xigduo XR 10 mg-1,000 mg tablet,exte nded release TAKE 1 BY MOUTH ONCE DAILY IN THE MORNING active Not Available Not Available No t Available Afluria (PF) 45 mcg(15 mcg x 3)/0.5 mL intramuscul ar syringe 01/14 completed Not Available Not Available Not Available Flucelvax Quad (PF) 60 mcg (15 mcg x 4)/0.5 mL IM syringe 02/25 completed Not Available Not Available Not Available Shingrix (PF) 50 mcg/0.5 mL intramuscul ar suspension, kit 11/19 completed Not Available Not Available Not Available OneTouch Ultra Blue Test Strip USE 1 STRIP TO CHECK GLUCOSE TWICE DAILY active Not Available Not Available No t Available OneTouch Delica Plus Lancet 33 gauge USE 1 TO CHECK GLUCOSE TWICE DAILY active Not Available Not Available No t Available Fluzone High-Dose (PF) 180 mcg/0.5 mL intramuscul ar syringe PHARMACIS T ADMINISTE RED IMMUNIZAT ION ADMINISTE RED AT TIME OF DISPENSIN G 08/16 completed Not Available Not Available Not Available Ubrelvy 50 mg tablet Take 1 tablet every day by oral route as needed for 30 days. 2020 active Not Available Not Available Not Avai lable Fluzone High-Dose Quad (PF) 240 mcg/0.7 mL IM syringe PHARMACIS T ADMINISTE RED IMMUNIZAT ION ADMINISTE RED AT TIME OF DISPENSIN G 11/19 completed Not Available Not Available Not Available Vitals Date Recorded Heart rate Systolic And Diastolic Provider Name and Address Organization Details Last Updated DateTime 03/29/2023 84 /min 131/76 mm[Hg] Bill Parker MD [address], [place], [address], [facility] 03/29/2023 16:28:06 Date Recorded Body height Body mass index (BMI) Body weight Body temperature Respiratory rate Provider Name and Address Organization Details Last Updated DateTime 4 182.88 cm 27.9 kg/m2 77484.0 3 g 98 [degF] 16 /min Martha Earl [facility] 4 15:43:33 Date Recorded Body height Body mass index (BMI) Body weight Body temperature Respiratory rate Heart rate Systolic And Diastolic Provider Name and Address Organization Details Last Updated DateTime 4 182.88 cm 27.8 kg/m2 12785.4 4 g 97.6 [degF] 16 /min 90 /min 119/71 mm[Hg] Martha Earl [facility] 4 15:17:41 Date Recorded Body height Body mass index (BMI) Body weight Body temperature Respiratory rate Heart rate Systolic And Diastolic Provider Name and Address Organization Details Last Updated DateTime 5 182.88 cm 27.1 kg/m2 05738.4 7 g 97.6 [degF] 16 /min 85 /min 108/62 mm[Hg] Martha Earl [facility] 5 13:00:00 Date Recorded Heart rate Provider Name an d Address Organization Details Last Updated DateTime 10/12/2023 87 /min Bill Parker MD [address], [place], [address], [facility] 10/12/2023 15:29:01 Date Recorded Body height Body mass index (BMI) Body weight Body temperature Respiratory rate Systolic And Diastolic Provider Name and Address Organization Details Last Updated DateTime 4 182.88 cm 27.4 kg/m2 28295.6 6 g 98.7 [degF] 16 /min 106/77 mm[Hg] Mratha Earl [facility] 4 14:56:37 Date Recorded Body height Body temperature Heart rate Respiratory rate Body mass index (BMI) Body weight Systolic And Diastolic Provider Name and Address Organization Details Last Updated DateTime 4 182.88 cm 97.6 [degF] 88 /min 16 /min 27.3 kg/m2 55744.0 7 g 114/72 mm[Hg] Martha Earl [facility] 4 10:42:55 Social History Question Answer Notes LastModified by Organizat ion Details LastModified Time Tobacco Smoking Status Never Smoker Radha Stephens jennifer [facility] 07/16/2015 12:55:43 Do You Have An Advance Directive? No Information n ot available 12/04/2021 What Is Your Level Of Caffeine Consumption? Occasional Information not available 12/04/2021 In The 14 Days Before Symptom Onset, Have You Had Close Contact With A Laboratory-confirm ed COVID-19 While That Case Was Ill? No Information n ot available 12/04/2021 In The 14 Days Before Symptom Onset, Have You Had Close Contact With A Person Who Is Under Investigation For COVID-19 While That Person Was Ill? No Information not available 12/04/2021 Have You Been To An Area Known To Be High Risk For COVID-19? No Information not available 12/04/2021 Live Alone Or With Others? With Others Information not available 12/04/2021 Marital Status Informatio n not available 12/04/2021 What Was The Date Of Your Most Recent Tobacco Screening? 04/28/2021 Information not available 12/04/2021 Performs Monthly Self-breast Exam? No Information no t available 12/04/2021 Seat Belts Used Routinely Yes Information not available 12/04/2021 Smoke Alarm In Home Yes Information not available 12/04/2021 Do You Use Sunscreen Routinely? No Information not available 12/04/2021 Sex: Unknown Functional Status Question Answer Note LastModified by Organization D etails LastModified Time What is your level of alcohol consumption? None Information not available 07/16/2015 Mental Status None recorded. Family History Relationship Description Onset Age of this Age Resolved Age Notes LastModified by Organization Details LastModified Time Father Coronary arterioscler osis [email or web address] Not available 06/23 11:46:49 Father Diabetes mellitus Not available 2015 13:04:47 Father Alzheimer's disease [email or web address] Not available 06/23 11:46:49 Mother Diabetes mellitus [email or web address] Not available 2015 13:04:47 Medical History Condition Response Coronary Artery Disease N Other N Gout N Blood Diseases N Kidney Stones N Hyperthyroidism N Blood Transfusion N Breast Cancer N Lung Disease N Hypothyroidism N Depression N COPD N Defects or Inherited Disease N Developmental or Behavioral Disorders N Breast Problem N Difficulty Swallowing N Anesthesia Complications N Anxiety Disorder N Meniere's disease N Muscle, Joint, or Bone Problems N Obesity N Vision or Eye Problems N Arthritis N Infertility N Polyps N Mental Disorder N Cancer N Varicosities N Stroke N Endometriosis N Bladder or Kidney Problems N High Cholesterol N Liver Disease N Headaches N Fibromyalgia N Kidney Disease N Allergies/Hayfever N Heart Problems N Ear or Hearing Problems N Hospitalizations N Thyroid Problems N GI Problems N ADD/ADHD N Eating Disorder N Skin Problems N Anemia N MRSA exposure N Constipation N Mental Illness N Diabetes N Ovarian Cancer N Bedwetting N Seizures/Epilepsy N Tuberculosis N AIDS/HIV N Congestive Heart Failure (CHF) N Eczema N Abuse/Domestic Violence N Diverticulitis N Asthma N Reflux/GERD N Hepatitis N Heart Disease N Pulmonary Embolism N Chronic Ear Infections N Pre-Eclampsia N Hypertension N Chicken Pox N Autism Spectrum Disorder (ASD) N Osteoporosis N Thrombophilias N Immunizations Vaccine Type Date Status Note Provider Nam e and Address Organization Details Recorded Time Influenza, split virus, quadrivalent, preservative 7 completed Miriam Herran null, [facility] 12/04/2021 14:20:32 Influenza, split virus, quadrivalent, preservative 8 completed Miriam Herran null, [facility] 12/04/2021 14:20:32 Pneumococcal conjugate PCV 13 8 completed Miriam Herran null, [facility] 12/04/2021 14:20:32 Pneumococcal conjugate PCV 13 9 completed Miriam Herran null, [facility] 12/04/2021 14:20:32 Influenza, split virus, quadrivalent, preservative 9 completed Miriam Herran null, [facility] 12/04/2021 14:20:32 zoster, unspecified formulation 0 completed Miriam Herran null, [facility] 12/04/2021 14:20:32 Influenza, split virus, quadrivalent, preservative 0 completed Miriam Herran null, [facility] 12/04/2021 14:20:32 zoster live 6 completed Bill Parker MD [address], [place], [address], [facility] 10/15/2015 16:32:46 SARS-COV-2 (COVID-19) vaccine, UNSPECIFIED 1 completed Miriam Herran null, [facility] 12/04/2021 14:20:32 Influenza, split virus, quadrivalent, preservative 6 completed Miriam Herran null, [facility] 12/04/2021 14:20:32 Influenza, high-dose, quadrivalent, PF 1 completed Miriam Herran null, [facility] 12/04/2021 14:20:32 COVID-19 vaccine, vector-nr, rS-Ad26, PF, 0.5 mL 1 completed Miriam Herran null, [facility] 12/04/2021 14:20:32 COVID-19, mRNA, LNP-S, PF, 30 mcg/0.3 mL dose 2 completed Miriam Herran null, [facility] 12/04/2021 14:20:32 COVID-19, mRNA, LNP-S, bivalent, PF, 30 mcg/0.3 mL dose 2 completed Miriam Herran null, [facility] 12/04/2021 14:20:32 Influenza, high-dose, trivalent, PF 2 completed Miriam Herran null, [facility] 12/04/2021 14:20:32 RSV, recombinant, protein subunit RSVpreF, adjuvant reconstituted, 0.5 mL, PF 3 completed Mimi Benjamint null, [facility] 12/14/2022 10:02:05 Influenza, adjuvanted, quadrivalent, PF 3 completed Mimi Benjamint null, [facility] 12/14/2022 10:06:28 Influenza, high-dose, quadrivalent, PF 4 completed Jaye Orozco null, [facility] 12/06/2023 19:00:48 influenza, unspecified formulation 4 completed Bill Parker MD [address], [place], [address], [facility] 01/11/2024 11:20:12 Td(adult) unspecified formulation 9 completed Miriam Herran null, [facility] 12/04/2021 14:20:32 Influenza, split virus, quadrivalent, preservative 5 completed Miriam Herran null, [facility] 12/04/2021 14:20:32 pneumococcal polysaccharide PPV23 4 completed Miriam Herran null, [facility] 12/04/2021 14:20:32 Past Encounters Encounter ID Performer Location Encounter Start Date Encounter Closed Date Diagnosis/Indication Diagnosis SNOMED-CT Code Diagnosis ICD10 Code Diagnosis Note [id number] [facility], [facility] [address] [place] [address] 07/16/2015 16:26:04 07/16/2015 17:35:43 Diabetes mellitus 80100021 E11.9 Hyperlipidemia 04163038 E78.5 Coronary arteriosclerosis 33985670 I25.10 Primary te sticular failure 471976845 E29.1 Depressive disorder 3548 9007 F32.9 Benign hypertension 1072 5009 I10 Screening for malignant neoplasm of colon 163353648 Z12.11 Viral screening 32432813 4 Z11.59 Active or passive immunization 891417604 Z23 Osteoarthritis 591211187 M19.90 Benign pro static hyperplasia without outflow obstruction 343796564 N40.0 Cramp in lower limb 4499 29600 R25.2 [id number] Bill Parker MD [employer], [facility] [address] [place] [address] 10/15/2015 15:27:12 10/15/2015 16:42:17 Renewal of prescription 546043730 Z76.0 Benign hypertension 1072 5009 I10 Coronary arteriosclerosis 60026755 I25.10 Hyperlipidemia 92531713 E78.5 Diabetes mellitus 771761 09 E11.9 Benign pro static hyperplasia without outflow obstruction 862377783 N40.0 Hearing loss 90740644 H9 1.93 Depressive disorder 3548 9007 F32.9 Secondary erectile dysfunction 189947224 N52.8 Viral screening 73011998 4 Z11.59 [id number] Bill Parker MD [facility] [employer] [employer], [facility] [address] [place] [address] 01/15/2016 14:16:33 01/15/2016 15:09:45 Depressive disorder 16288178 F32.9 Benign hypertension 1072 5009 I10 Coronary arteriosclerosis 12019395 I25.10 Hyperlipidemia 81541569 E78.5 Osteoarthritis 893782504 M19.90 Diabetes mellitus 298572 09 E11.9 Benign pro static hyperplasia without outflow obstruction 649515242 N40.0 [id number] Bill Parker MD [employer] [employer], [facility] [address] [place] [address] 04/16/2016 14:39:14 04/16/2016 15:32:51 Benign hypertension 04028262 I10 Depressive disorder 3548 9007 F32.9 Osteoarthritis 063690508 M19.90 Diabetes mellitus 898518 09 E11.9 Secondary erectile dysfunction 315107965 N52.8 [id number] Li Issa, [facility] [employer], [facility] [address] [place] [address] 06/09/2016 11:26:24 06/09/2016 12:47:01 Diarrhea 91656812 R19.7 Hyperlipidemia 47997345 E78.5 [id number] Bill Parker MD [employer] [facility] [employer], [facility] [address] [place] [address] 07/09/2016 14:45:09 07/09/2016 15:21:10 Benign hypertension 02407868 I10 good control under currnet meds Coronary arteriosclerosis 64832528 I25.10 -ve stress test 07/2015 Diabetes mellitus 353083 09 E11.9 last A1c 05/2016 @ goal Hyperlipidemia 85499501 E78.5 last LDL 10/16/15 @ goal [id number] Bill Parker MD [employer] [facility], [facility] [address] [place] [address] 10/09/2016 10:41:50 10/09/2016 11:21:41 Benign hypertension 93771197 I10 good control under currnet meds Coronary arteriosclerosis 50674663 I25.10 -ve stress test 07/2015 Diabetes mellitus 227925 09 E11.9 last A1c 05/2016 @ goal Hyperlipidemia 67147236 E78.5 last LDL 10/16/15 @ goal Screening for malignant neoplasm of colon 422724766 Z12.11 C scope 2008 , good till 2018 Cramp in lower limb 4499 62989 R25.2 [id number] Bill Parker MD [employer] [employer], [facility] [address] [place] [address] 01/11/2017 10:39:07 01/11/2017 11:11:42 Benign hypertension 38760380 I10 good control under current meds Coronary arteriosclerosis 12527666 I25.10 Diabetes mellitus 850948 09 E11.9 last A1c 6.3. 01/04/17 Hyperlipidemia 81400719 E78.5 last LDL 01/04/17 above goal @ 89 , gal is 70 , will increase atorva to 20 Ankle brac hial pressure index test declined 283495104 Z53.20 Active or passive immunization 718266093 Z23 [id number] FRANKY DANIELS APN [employer] [facility] [employer], [facility] [address] [place] [address] 03/08/2017 12:32:11 03/08/2017 13:10:38 Cough 86594083 R05 Hyperlipidemia 46107952 E78.5 Wheezing 91666311 R06.2 93% o2 Diarrhea 28796290 R19.7 Dysplastic nevus of skin 742942503 D22.9 Diabetes mellitus 007058 09 E11.9 [id number] Bill Parker MD [employer] [employer] [facility], [facility] [address] [place] [address] 05/04/2017 12:05:10 05/04/2017 12:56:55 Benign hypertension 10040231 I10 good control under current meds Coronary arteriosclerosis 06995052 I25.10 Diabetes mellitus 450064 09 E11.9 last A1c 6.3. 01/04/17 Hyperlipidemia 11853473 E78.5 Screening for malignant neoplasm of colon 652198139 Z12.11 C scope 2008 , good till 2018 [id number] Bill Parker MD [employer] [facility] [employer], [facility] [address] [place] [address] 05/19/2017 13:34:02 05/19/2017 14:39:06 Benign paroxysmal positional vertigo 879533100 H81.10 no driving till goneRTC 2-3 days if not gone Electrocar diogram abnormal 755294928 R94.31 Cramp in lower limb 4499 08746 R25.2 Headache 88908512 R51 Benign hypertension 1072 5009 I10 good control under current meds [id number] Bill Parker MD [employer] [employer] [facility] [employer], [facility] [address] [place] [address] 08/23/2017 13:44:10 08/23/2017 14:38:10 Burn of hand 21047473 T23.131A Benign hypertension 1072 5009 I10 good control under current meds Coronary arteriosclerosis 44281544 I25.10 Hyperlipidemia 56614491 E78.5 Diabetes mellitus 465143 09 E11.9 Depressive disorder 3548 9007 F32.9 Screening for malignant neoplasm of colon 115591147 Z12.11 C scope 2008 , till 2018 [id number] Bill Parker MD [employer] [facility], [facility] [address] [place] [address] 11/23/2017 12:24:22 11/23/2017 13:33:25 Adult health examination 569977901 Z00.01 Benign hypertension 1072 5009 I10 good control under current meds Depressive disorder 3548 9007 F32.9 Coronary arteriosclerosis 91454686 I25.10 no CP, just have stress test last month Migraine 76029929 G43.90 9 stable , no need for rescue meds Hyperlipidemia 99971203 E78.5 Diabetes mellitus 806283 09 E11.9 per pt had ophth eval 2018 Sinusitis 17906249 J32.9 Tattoo of skin 703337025 1 02 L81.8 last hep C -ve 2016 Screening for malignant neoplasm of colon 954030978 Z12.11 C scope 2008 , good till 2018 Active or passive immunization 099540367 Z23 Screening for malignant neoplasm of prostate 557168189 Z12.5 [id number] Bill Parker MD [employer], [facility] [address] [place] [address] 02/23/2018 16:46:30 02/23/2018 17:37:25 Pain of right elbow joint 2725353714 8597078 M25.521 Benign hypertension 1072 5009 I10 good control under current meds Coronary arteriosclerosis 59764263 I25.10 no CP, just have stress test last month Diabetes mellitus 672466 09 E11.9 per pt had ophth eval 2018 Hyperlipidemia 58203699 E78.5 Screening for malignant neoplasm of colon 017659531 Z12.11 C scope 2008 , good till 2018 [id number] Bill Parker MD [employer] [address] [place] [address] 05/24/2018 16:47:55 05/24/2018 17:52:47 Benign hypertension 57620644 I10 good control under current meds Coronary arteriosclerosis 44273044 I25.10 no CP, just have stress test last month Hyperlipidemia 94216534 E78.5 last LDL 11/24/17 Diabetes mellitus 105824 09 E11.9 per pt had ophth eval 2018last MICHAEL 11/24/17 Screening for malignant neoplasm of colon 528934984 Z12.11 C scope 2008 , good till 2018 Active or passive immunization 816801884 Z23 [id number] Bill Parker MD [employer], [facility] [address] [place] [address] 08/23/2018 16:33:29 08/23/2018 17:17:24 Benign hypertension 14408038 I10 good control under current meds Diabetes mellitus 839458 09 E11.9 per pt had ophth eval 2018last MICHAEL 11/24/17 Osteoarthritis 335604610 M19.90 fair control with low dose opiate Benign pro static hyperplasia without outflow obstruction 992539692 N40.0 Long-term current use of opiate analgesic drug 4881511101 35912 Z79.891 Screening for malignant neoplasm of colon 365560498 Z12.11 C scope 2018 , good till 2028 Mixed hyperlipidemia 267 267955 E78.2 [id number] Bill Parker MD [employer], [facility] [address] [place] [address] 12/06/2018 16:01:41 12/06/2018 17:07:09 Adult health examination 478085296 Z00.01 Benign hypertension 1072 5009 I10 good control under current meds Mixed hyperlipidemia 267 835727 E78.2 last LDL 09/23/18 Depressive disorder 3548 9007 F32.9 no SI , No HI Coronary arteriosclerosis 29635315 I25.10 no CP, just had EKG last week 2 CARDIOLOGY Migraine 95098408 G43.90 9 stable , no need for rescue meds Diabetes mellitus 044881 09 E11.9 per pt had ophth eval 2018last MICHAEL 11/24/17 Benign pro static hyperplasia without outflow obstruction 933582316 N40.0 Body mass index 25-29 - overweight 671292399 Z68.27 Active or passive immunization 763378592 Z23 Osteoarthritis 880883560 M19.90 fair control with low dose opiate [id number] Bill Parker MD [employer], [employer] [address] [place] [address] 03/08/2019 16:13:34 03/08/2019 17:19:24 Benign hypertension 14800345 I10 good control under current meds Coronary arteriosclerosis 64173374 I25.10 Diabetes mellitus 529857 09 E11.9 per pt had ophth eval 02/2019last MICHAEL 11/24/17 Mixed hyperlipidemia 267 845523 E78.2 last LDL 09/23/18 Long-term current use of opiate analgesic drug 7233206437 83006 Z79.891 Screening for malignant neoplasm of colon 894363220 Z12.11 C scope 2018 , good till 2028 Active or passive immunization 125126183 Z23 [id number] iBll Parker MD [employer] [address] [place] [address] 06/07/2019 15:37:16 06/07/2019 16:19:32 Benign hypertension 17399933 I10 good control under current meds Coronary arteriosclerosis 32909621 I25.10 Diabetes mellitus 785923 09 E11.9 per pt had ophth eval 02/2019last MICHAEL 11/24/17 Mixed hyperlipidemia 267 784731 E78.2 last LDL 09/23/18 Osteoarthritis 583243628 M19.90 fair control with low dose opiate Screening for malignant neoplasm of colon 169075491 Z12.11 C scope 2018 , good till 2028 Active or passive immunization 785799290 Z23 per pt had flu shot 11/2018 [id number] Bill Parker MD [employer] [facility], [facility] [address] [place] [address] 09/12/2019 10:52:32 09/12/2019 11:58:38 Benign hypertension 78338459 I10 good control under current medslast EKG 07/11/19 Coronary arteriosclerosis 60215866 I25.10 No CPsees cardiology on reg basis Diabetes mellitus 656735 09 E11.9 per pt had ophth eval 02/2019last MICHAEL 12/20/18 Migraine 97065817 G43.90 9 stable , no need for rescue meds Mixed hyperlipidemia 267 878815 E78.2 last LDL 07/04/19 Benign pro static hyperplasia without outflow obstruction 106973983 N40.0 Body mass index 25-29 - overweight 280882166 Z68.27 education Screening for malignant neoplasm of colon 149899729 Z12.11 C scope 2018 , good till 2028 Active or passive immunization 456812527 Z23 per pt had flu shot 11/2018 Osteoarthritis 716749260 M19.90 fair control with low dose opiatewill need a letter for need to site every hour to 5-10 min 2ry to NADEGE ji [id number] Bill Parker MD [facility] [employer], [facility] [address] [place] [address] 12/28/2019 10:07:59 12/28/2019 11:23:39 Adult health examination 678628520 Z00.01 Diabetes mellitus 911102 09 E11.9 per pt had ophth eval 02/2019last MICHAEL 12/20/18 Benign hypertension 1072 5009 I10 good control under current medslast EKG 07/11/19 Benign pro static hyperplasia without outflow obstruction 579044313 N40.0 asymptomat ic Body mass index 25-29 - overweight 257775174 Z68.27 education Coronary arteriosclerosis 05033336 I25.10 No CPsees cardiology on reg basis Migraine 35333382 G43.90 9 stable , no need for rescue meds Mixed hyperlipidemia 267 220134 E78.2 last LDL 07/04/19 Osteoarthritis 427138872 M19.90 fair control with low dose opiatewill need a letter for need to site every hour to 5-10 min 2ry to NADEGE L spine Tattoo of skin 372061841 1 02 L81.8 last hep C -ve 2015 Depressive disorder 3548 9007 F32.9 no SI , No HI Long-term current use of opiate analgesic drug 7032443300 27742 Z79.891 educationn o red flags Screening for malignant neoplasm of colon 802873959 Z12.11 C scope 2018 , good till 2028 Active or passive immunization 978228271 Z23 per pt had flu shot 10/2019 [id number] Bill Parker MD [employer], [facility] [address] [place] [address] 03/28/2020 10:38:28 03/28/2020 11:15:22 Benign hypertension 40003332 I10 good control under current medslast EKG 07/11/19 \BP 2 weeks Body mass index 25-29 - overweight 357827264 Z68.27 education Coronary arteriosclerosis 58221975 I25.10 No CPsees cardiology on reg basis Diabetes mellitus 683393 09 E11.9 per pt had ophth eval 02/2019last MICHAEL 01/22/20 Migraine 09927939 G43.90 9 stable , no need for rescue meds Mixed hyperlipidemia 267 306912 E78.2 last LDL 01/22/20 Screening for malignant neoplasm of colon 171193348 Z12.11 C scope 2018 , good till 2028 Active or passive immunization 982882488 Z23 per pt had flu shot 10/2019 Benign pro static hyperplasia without outflow obstruction 679724796 N40.0 asymptomat ic [id number] Bill Parker MD [employer] [facility], [facility] [address] [place] [address] 07/03/2020 08:34:30 07/03/2020 09:37:54 Diabetes mellitus 64607082 E11.9 per pt had ophth eval 02/2020 last MICHAEL 01/22/20 last A1c 05/07/20 Coronary arteriosclerosis 69331047 I25.10 No CPsees cardiology on reg basis Benign hypertension 1072 5009 I10 good control under current medslast EKG 07/11/19 \BP 2 weeks Body mass index 25-29 - overweight 663748835 Z68.27 education Migraine 54702379 G43.90 9 stable , no need for rescue meds Mixed hyperlipidemia 267 372191 E78.2 last LDL 01/22/20 Screening for malignant neoplasm of colon 376474319 Z12.11 C scope 2018 , good till 2028 Active or passive immunization 823774038 Z23 up to date Cramp in lower limb 4499 18583 R25.2 [id number] Bill Parker MD [employer], [employer] [address] [place] [address] 10/03/2020 09:40:51 10/03/2020 10:31:50 Benign hypertension 13385830 I10 good control under current medslast EKG 07/11/19 \BP 2 weeks Body mass index 25-29 - overweight 506057192 Z68.27 educationl ost 8 LBs on diet and exercise Coronary arteriosclerosis 35766953 I25.10 No CPsees cardiology on reg basis Diabetes mellitus 879549 09 E11.9 per pt had ophth eval 02/2020 last MICHAEL 01/22/20 last A1c 05/07/20 Long-term current use of opiate analgesic drug 9369939200 32061 Z79.891 educationn o red flags Migraine 93574691 G43.90 9 stable , no need for rescue meds Mixed hyperlipidemia 267 678858 E78.2 last LDL 01/22/20 Vitamin D deficiency 347 59364 E55.9 Cramp in lower limb 4499 69472 R25.2 cardiology is doing LUCAS Screening for malignant neoplasm of colon 045442883 Z12.11 C scope 2018 , good till 2028 Active or passive immunization 509742321 Z23 up to date [id number] Bill Parker MD [employer], [employer] [address] [place] [address] 01/03/2021 09:51:02 01/03/2021 11:01:17 Adult health examination 872215143 Z00.01 Benign hypertension 1072 5009 I10 good control under current medslast EKG 07/11/19 \BP 2 weeks Body mass index 25-29 - overweight 237721380 Z68.27 educationd iet and exercise Coronary arteriosclerosis 85234172 I25.10 No CPsees cardiology on reg basis Diabetes mellitus 805521 09 E11.9 per pt had ophth eval 10/2020 last MICHAEL 01/22/20 last A1c 10/03/20 Long-term current use of opiate analgesic drug 8363377158 93975 Z79.891 educationn o red flags Migraine 18107612 G43.90 9 stable , no need for rescue meds Mixed hyperlipidemia 267 202411 E78.2 last LDL 10/03/20 Osteoarthritis 934054832 M19.90 fair control with low dose opiatewill need a letter for need to site every hour to 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 Tattoo of skin 668985087 1 02 L81.8 last hep C -ve 2016 Vitamin D deficiency 347 97234 E55.9 last Level 10/03/20 Plantar fasciitis 230778 003 M72.2 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 No SI , No HI Screening for malignant neoplasm of colon 952098131 Z12.11 C scope 2018 , good till 2028 Active or passive immunization 214825477 Z23 up to date [id number] Bill Parker MD [employer] [employer] [address] [place] [address] 04/28/2021 16:22:19 04/28/2021 17:12:30 Benign hypertension 15705248 I10 good control under current medslast EKG 01/03/21BP 2 weeks Body mass index 25-29 - overweight 374501973 Z68.27 educationd iet and exercise Coronary arteriosclerosis 31842251 I25.10 No CPsees cardiology on reg basis Diabetes mellitus 549861 09 E11.9 per pt had ophth eval 10/2020 last MICHAEL 01/03/21 last A1c 10/03/20 Long-term current use of opiate analgesic drug 7908556116 93873 Z79.891 educationn o red flags Mixed anxi ety and depressive disorder 391425249 F41.8 No SI , No HI Mixed hyperlipidemia 267 275039 E78.2 last LDL 10/03/20 Osteoarthritis 674370978 M19.90 fair control with low dose opiatewill need a letter for need to site every hour to 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 Vitamin D deficiency 347 31860 E55.9 last Level 10/03/20 Screening for malignant neoplasm of colon 183948821 Z12.11 C scope 2018 , good till 2028 Active or passive immunization 275334195 Z23 up to date [id number] Bill Parker MD [facility], [facility] [address] [place] [address] 08/06/2021 14:37:10 08/06/2021 15:57:38 Benign hypertension 89825819 I10 good control under current medslast EKG 01/03/21BP 2 weeks Body mass index 25-29 - overweight 133066010 Z68.27 educationl ost 9 LBs diet and exercise Coronary arteriosclerosis 01716420 I25.10 No CPsees cardiology on reg basis Diabetes mellitus 715681 09 E11.9 per pt had ophth eval 10/2020 last MICHAEL 01/03/21 last A1c 04/29/21 Long-term current use of opiate analgesic drug 6971220890 65098 Z79.891 educationn o red flags Migraine 20731325 G43.90 9 stable , no need for rescue meds Mixed anxi ety and depressive disorder 184008674 F41.8 No SI , No HI Mixed hyperlipidemia 267 064319 E78.2 last LDL 10/03/20 Plantar fasciitis 013809 003 M72.2 better Vitamin D deficiency 347 76093 E55.9 last Level 10/03/20 Screening for malignant neoplasm of colon 424435678 Z12.11 C scope 2018 , good till 2028 Benign pro static hyperplasia without outflow obstruction 154840400 N40.0 asymptomat ic [id number] Bill Parker MD [facility], [facility] [address] [place] [address] 12/04/2021 14:20:15 12/04/2021 15:30:17 Diabetes mellitus 14217971 E11.9 per pt had ophth eval 10/2020 last MICHAEL 01/03/21 last A1c 04/29/21 Coronary arteriosclerosis 66885972 I25.10 No CPsees cardiology on reg basis Body mass index 25-29 - overweight 663585888 Z68.27 educationd iet and exercise Benign hypertension 1072 5009 I10 good control under current medslast EKG 07/29/21BP 2 weeks Mixed anxi ety and depressive disorder 162067117 F41.8 No SI , No HI Mixed hyperlipidemia 267 088916 E78.2 last LDL 04/29/21 Vitamin D deficiency 347 16984 E55.9 last Level 10/03/20 Cramp in lower limb 4499 27462 R25.2 cardiology is doing LUCAS Hypomagnesemia 017205682 E83.42 Long-term drug therapy 965351326 Z79.899 Screening for malignant neoplasm of colon 153064359 Z12.11 C scope 2018 , good till 2028 Active or passive immunization 107978794 Z23 up to date [id number] Bill Parker MD [facility], [facility] [address] [place] [address] 03/12/2022 09:39:50 03/12/2022 10:40:02 Adult health examination 697882017 Z00.01 Benign hypertension 1072 5009 I10 good control under current medslast EKG 07/29/21BP 2 weeks Benign pro static hyperplasia without outflow obstruction 066624364 N40.0 asymptomat ic Body mass index 25-29 - overweight 148612850 Z68.27 educationd iet and exercise Coronary arteriosclerosis 98583487 I25.10 No CPsees cardiology on reg basis Diabetes mellitus 865407 09 E11.9 per pt had ophth eval 12/04/21 last MICHAEL 01/03/21 last A1c 12/08/21 Hypomagnesemia 646709096 E83.42 last level Long-term current use of opiate analgesic drug 1790980955 09070 Z79.891 educationn o red flags Long-term drug therapy 151840473 Z79.899 metformin 12/08/21 Migraine 81914268 G43.90 9 stable , no need for rescue meds Mixed anxi ety and depressive disorder 107825712 F41.8 No SI , No HI Mixed hyperlipidemia 267 231953 E78.2 last LDL 12/08/21 Osteoarthritis 884790717 M19.90 fair control with low dose opiatewill need a letter for need to site every hour to 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 Tattoo of skin 111418629 1 02 L81.8 last hep C -ve 2016 Vitamin D deficiency 347 01940 E55.9 last Level 10/03/20 Plantar fasciitis 788875 003 M72.2 better Primary er ectile dysfunction 789297497 N52.9 Screening for malignant neoplasm of colon 874130692 Z12.11 C scope 2018 , good till 2028 Active or passive immunization 132562175 Z23 up to date Advance di rective discussed with patient 496467866 Z71.89 education [id number] Bill Parker MD [facility], [facility] [address] [facility] [address] [place] [address] 06/18/2022 10:00:08 06/18/2022 11:06:41 Benign hypertension 81397198 I10 good control under current medslast EKG 07/29/21BP 2 weeks Body mass index 25-29 - overweight 993635680 Z68.27 educationd iet and exercise Diabetes mellitus 067633 09 E11.9 per pt had ophth eval 12/04/21 last MICHAEL 01/03/21 last A1c 12/08/21 Long-term current use of opiate analgesic drug 5033707492 15482 Z79.891 educationn o red flags Mixed anxi ety and depressive disorder 030988392 F41.8 No SI , No HI Mixed hyperlipidemia 267 102881 E78.2 last LDL 12/08/21 Chronic low back pain 27 0669646 M54.50 need letter for work Screening for malignant neoplasm of colon 700204697 Z12.11 C scope 2018 , good till 2028 Active or passive immunization 710965288 Z23 up to date Atypical chest pain 1025 59110 R07.89 [id number] Bill Parker MD [facility] [address] [place] [address] 09/17/2022 08:39:57 09/17/2022 10:26:05 Benign hypertension 13496962 I10 good control under current medslast EKG 07/29/21BP 2 weeks Body mass index 25-29 - overweight 973845975 Z68.27 educationd iet and exercise Diabetes mellitus 847971 09 E11.9 per pt had ophth eval 12/04/21 last MICHAEL 03/12/22 last A1c 12/08/21 Mixed hyperlipidemia 267 350360 E78.2 last LDL 06/18/22 Vitamin D deficiency 347 46390 E55.9 last Level 10/03/20 Screening for malignant neoplasm of colon 373509811 Z12.11 C scope 2018 , good till 2028 Active or passive immunization 095225919 Z23 up to date Osteoarthritis 802409715 M19.90 fair control with low dose opiatewill need a letter for need to site every hour to 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 [id number] Bill Parker MD [facility] [address] [place] [address] 12/28/2022 15:32:00 12/28/2022 16:20:44 Benign hypertension 06911783 I10 good control under current medslast EKG 09/08/22BP 2 weeks Body mass index 25-29 - overweight 363528216 Z68.27 educationd iet and exercise Diabetes mellitus 462854 09 E11.9 per pt had ophth eval 09/2022 last MICHAEL 03/12/22 last A1c 12/08/21 Long-term current use of opiate analgesic drug 0028526543 58438 Z79.891 educationn o red flags Long-term drug therapy 259563049 Z79.899 metformin 12/08/21 Migraine 14116784 G43.90 9 stable , no need for rescue meds Mixed hyperlipidemia 267 472701 E78.2 last LDL 06/18/22 Fatigue 12170310 R53.83 Screening for malignant neoplasm of colon 798334637 Z12.11 C scope 2018 , good till 2028 Active or passive immunization 991084840 Z23 up to date [id number] Bill Parker MD [facility] [employer] [facility], [facility] [address] [place] [address] 03/29/2023 15:20:00 03/29/2023 16:44:31 Adult health examination 655903583 Z00.01 Benign hypertension 1072 5009 I10 good control under current medslast EKG 09/08/22BP 2 weeks Benign pro static hyperplasia without outflow obstruction 285403644 N40.0 asymptomat ic Body mass index 25-29 - overweight 378693213 Z68.27 educationd iet and exercise Coronary arteriosclerosis 68955409 I25.10 No CPsees cardiology on reg basis Diabetes mellitus 327796 09 E11.9 per pt had ophth eval 09/2022 last MICHAEL 03/12/22 last A1c 12/08/21 Hypomagnesemia 242186794 E83.42 last level 12/08/21 Long-term current use of opiate analgesic drug 8554678668 65066 Z79.891 educationn o red flags Long-term drug therapy 993301464 Z79.899 metformin 12/29/22 Primary er ectile dysfunction 077146695 N52.9 Osteoarthritis 237628669 M19.90 fair control with low dose opiatewill need a letter for need to site every hour to 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 Inguinal pain 266358764 R10.2 Allergic r hinitis caused by pollen 49195845 J30.1 Migraine 92558673 G43.90 9 stable , no need for rescue meds Mixed anxi ety and depressive disorder 791021048 F41.8 No SI , No HI Mixed hyperlipidemia 267 975648 E78.2 last LDL 12/29/22 Plantar fasciitis 064600 003 M72.2 better Tattoo of skin 304534087 1 02 L81.8 last hep C -ve 2016 Vitamin D deficiency 347 03676 E55.9 last Level 10/03/20 Screening for malignant neoplasm of colon 367321078 Z12.11 C scope 2018 , good till 2028 Active or passive immunization 987537903 Z23 up to date Advance di rective discussed with patient 532709479 Z71.89 education [id number] Bill Parker MD [facility] [facility], [facility] [address] [place] [address] 07/13/2023 14:44:02 07/13/2023 16:16:44 Benign hypertension 75972035 I10 good control under current medslast EKG 09/08/22BP 2 weeks Coronary arteriosclerosis 17985083 I25.10 No CPsees cardiology on reg basis Diabetes mellitus 348199 09 E11.9 per pt had ophth eval 09/2022 last MICHAEL 03/29/23 last A1c 03/29/23 Long-term current use of opiate analgesic drug 2435535220 81749 Z79.891 educationn o red flags Mixed anxi ety and depressive disorder 484237415 F41.8 No SI , No HI Mixed hyperlipidemia 267 093419 E78.2 last LDL 12/29/22 Screening for malignant neoplasm of colon 341019966 Z12.11 C scope 2018 , good till 2028 Active or passive immunization 185970883 Z23 up to date Body mass index 25-29 - overweight 748474021 Z68.27 educationd iet and exercise [id number] Bill Parker MD [facility] [employer], [facility] [address] [place] [address] 10/12/2023 14:21:33 10/12/2023 15:42:05 Long-term current use of opiate analgesic drug 8442323963 57650 Z79.891 educationn o red flags Benign pro static hyperplasia without outflow obstruction 734489072 N40.0 asymptomat ic Diabetes mellitus 433674 09 E11.9 per pt had ophth eval 09/2023 last MICHAEL 03/29/23 last A1c 07/14/23 Coronary arteriosclerosis 43643601 I25.10 No CPsees cardiology on reg basis Benign hypertension 1072 5009 I10 good control under current medslast EKG 09/08/22BP 2 weeks Screening for malignant neoplasm of colon 477043740 Z12.11 C scope 2018 , good till 2028 Active or passive immunization 712466420 Z23 up to date [id number] Bill Parker MD [employer], [facility] [address] [place] [address] 01/11/2024 09:58:33 01/11/2024 11:42:35 Benign hypertension 03962432 I10 good control under current medslast EKG 09/08/22BP 2 weeks Body mass index 25-29 - overweight 189087946 Z68.27 educationd iet and exercise Diabetes mellitus 046732 09 E11.9 per pt had ophth eval 09/2023 last MICHAEL 03/29/23 last A1c 07/14/23 Coronary arteriosclerosis 23504173 I25.10 No CPsees cardiology on reg basis Long-term current use of opiate analgesic drug 4174563262 96258 Z79.891 educationn o red flags Long-term drug therapy 719242836 Z79.899 metformin 12/29/22 Mixed anxi ety and depressive disorder 117833197 F41.8 No SI , No HI Mixed hyperlipidemia 267 067341 E78.2 last LDL 07/14/23 Osteoarthritis 875704086 M19.90 fair control with low dose opiatewill need a letter for need to site every hour to 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 Vitamin D deficiency 347 74171 E55.9 last Level 10/03/20 Screening for malignant neoplasm of colon 838759000 Z12.11 C scope 2018 , good till 2028 Active or passive immunization 878150230 Z23 up to date Benign pro static hyperplasia without outflow obstruction 143440065 N40.0 asymptomat ic [id number] Bill Parker MD [employer], [facility] [address] [place] [address] 07/13/2024 11:46:33 07/13/2024 13:38:26 Adult health examination 659535768 Z00.01 Benign hypertension 1072 5009 I10 good control under current medslast EKG 01/11/24BP 2 weeks Coronary arteriosclerosis 96637708 I25.10 No CPsees cardiology on reg basis Mixed hyperlipidemia 267 617242 E78.2 last LDL 01/01/24 Body mass index 25-29 - overweight 441653776 Z68.27 educationd iet and exercise Diabetes mellitus 294775 09 E11.9 per pt had ophth eval 09/2023 last MICHAEL 03/29/23 last A1c 07/14/23 Benign pro static hyperplasia without outflow obstruction 174955442 N40.0 asymptomat ic Osteoarthritis 041461058 M19.90 fair control with low dose opiatewill need a letter for need to site every hour to 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 Hypomagnesemia 825866571 E83.42 last level 12/08/21 Vitamin D deficiency 347 83640 E55.9 last Level 10/03/20 Long-term current use of opiate analgesic drug 6489362862 75189 Z79.891 educationn o red flags Mixed anxi ety and depressive disorder 049980691 F41.8 No SI , No HI Long-term drug therapy 204419422 Z79.899 metformin 12/29/22 Primary er ectile dysfunction 209217514 N52.9 stable with OTC Migraine 33479787 G43.90 9 stable , no need for rescue meds Tattoo of skin 744016534 1 02 L81.8 last hep C -ve 2016 Eruption 281912229 R21 Screening for malignant neoplasm of colon 466037471 Z12.11 C scope 2018 , good till 2028 Immunization due 1560634 08 Z23 up to date Counseling 924295056 Z71 .89 education Screening for malignant neoplasm of prostate 373809541 Z12.5 Health Concerns Section Related Observation LastModified by Organization Detai ls LastModified Time None Recorded Concern Status LastModified by Organization Details LastModified Time None Recorded Advance Directives Directive N: Payers Insurance Date Sequence Insurance Name Policy Number Policy Godo Covered Member ID Good Member ID Guarantor Name 08/23/2017 1 [place] [id number] Cornelia leung [id number] Jorge Edouard 05/22/2024 2 cube19 INSURANCE [employer] (MEDICARE SUPPLEMENT) PLAN G Jorge Edouard [id number] Jorge Edouadr 05/22/2024 2 [facility] (MEDICARE SUPPLEMENT) Jorge Edouard 07/10/2024 1 [place] Jorge Edouard [id number] Jorge Edouard 05/22/2024 2 [place] Jorge Edouard [id number] Jorge Edouard 05/22/2024 1 [place] [employer] - [employer]WAY X (PPO) [id number] Jorge Edouard [id number] Jorge Edouard 04/16/2016 1 *SELF PAY* De nnis Johnny Edouard Notes Date Note Type Note Provider Name and Address Organization Details Recorded Time 03/29/2023 text/html Medicare Annual Wellness VisitReported by PatientSocial/Behavior al HistoryFor diet and nutrition, patient reportshealthy diet. For fracture risk, patient reportsno history of fractures,no recent explained fracture,no sudden unexplained fractures, andno previous musculoskeletal injuries. For physical activity, patient reportsexercises on a regular basis,recent increase in physical activity,good physical condition, anddiscussed exercise habits.Mental Status:For depression risk, patient reportsnever feels sad, empty, or tearful,no loss of interest in activities,no significant changes in weight,no sleep disturbances or insomnia,no agitation,no loss of energy,no feelings of worthlessness or guilt,no thoughts of suicide,no history of depression, andno history of mood disorders. For orientation, patient reportsno disorientation to time,no disorientation to date, andno disorientation to place. For concentration and memory, patient reportsno decreased concentrating ability,no memory lapses or loss, anddoes not forget words. For speech/motor difficulties, patient reportsno speech difficulties,no difficulty expressing formulated concepts,no difficulty with fine manipulative tasks,no difficulty writing/copying,no slowed reaction time, anddoes not knock things over when trying to pick them up.Functional AbilityFor hearing, patient reportsno loss of hearing. For vision, patient reportsno vision problems. For activities of daily living, patient reportsable to bathe with limited or no assistance,able to contol urination and bowels,able to dress with limited or no assistance,able to feed self with limited or no assistance,able to get out of chair or bed with limited or no assistance,able to groom with limited or no assistance, andable to toilet with limited or no assistance. For instrumental activities of daily living, patient reportsable to do house work with limited or no assistance,able to grocery shop with limited or no assistance,able to manage medications with limited or no assistance,able to manage money with limited or no assistance,able to prepare meals with limited or no assistance, andable to use the phone with limited or no assistance. For falls risk assessment, patient reportsno frequent falls while walking,no fall in the past year,no fall since last visit, andno dizziness/vertigo. For home safety, patient reportsuse of seatbeltsandno vision or hearing loss while driving. Hypertension F/UReported by PatientHPIFor medications, patient reportstaking medications as directedandno side effects from medication. For lifestyle, patient reportsregular exercise,limiting/avoi ding salt, andcompliant with low salt diet. For associated symptoms, patient reportsno dizziness,no lightheadedness,no chest pain,no shortness of breath,no palpitations,no edema,no calf pain with exertion, andno headache. Rt groin pain on and off , weeksRt thigh burning sensationURI infection , 3-4 weeks Bill Parker MD [address], [place], [address], [facility] 03/29/2023 16:40:05 07/13/2023 text/html Hypertension F/UReported by PatientHPIFor medications, patient reportstaking medications as directedandno side effects from medication. For lifestyle, patient reportsregular exercise,limiting/avoi ding salt, andcompliant with low salt diet. For associated symptoms, patient reportsno dizziness,no lightheadedness,no chest pain,no shortness of breath,no palpitations,no edema,no calf pain with exertion, andno headache. back pain is a lot better Bill Parker MD [address], [place], [address], [facility] 07/13/2023 16:08:32 10/12/2023 text/html Hypertension F/UReported by PatientIFor medications, patient reportstaking medications as directedandno side effects from medication. For lifestyle, patient reportsregular exercise,limiting/avoi ding salt, andcompliant with low salt diet. For associated symptoms, patient reportsno dizziness,no lightheadedness,no chest pain,no shortness of breath,no palpitations,no edema,no calf pain with exertion, andno headache. Bill Parker MD [address] [facility] [address], [place], [address], [facility] 10/12/2023 15:37:59 01/11/2024 text/html Hypertension F/UReported by PatientHPIFor medications, patient reportstaking medications as directedandno side effects from medication. For lifestyle, patient reportsregular exercise,limiting/avoi ding salt, andcompliant with low salt diet. For associated symptoms, patient reportsno dizziness,no lightheadedness,no chest pain,no shortness of breath,no palpitations,no edema,no calf pain with exertion, andno headache. Bill Parker MD [address] [facility] [address], [place], [address], [facility] 01/11/2024 11:29:36 07/13/2024 text/html Medicare Annual Wellness VisitReported by PatientSocial/Behavior al HistoryFor diet and nutrition, patient reportshealthy diet. For fracture risk, patient reportsno history of fractures,no recent explained fracture,no sudden unexplained fractures, andno previous musculoskeletal injuries. For physical activity, patient reportsexercises on a regular basis,recent increase in physical activity,good physical condition, anddiscussed exercise habits.Mental Status:For depression risk, patient reportsnever feels sad, empty, or tearful,no loss of interest in activities,no significant changes in weight,no sleep disturbances or insomnia,no agitation,no loss of energy,no feelings of worthlessness or guilt,no thoughts of suicide,no history of depression, andno history of mood disorders. For orientation, patient reportsno disorientation to time,no disorientation to date, andno disorientation to place. For concentration and memory, patient reportsno decreased concentrating ability,no memory lapses or loss, anddoes not forget words. For speech/motor difficulties, patient reportsno speech difficulties,no difficulty expressing formulated concepts,no difficulty with fine manipulative tasks,no difficulty writing/copying,no slowed reaction time, anddoes not knock things over when trying to pick them up.Functional AbilityFor hearing, patient reportsno loss of hearing. For vision, patient reportsno vision problems. For activities of daily living, patient reportsable to bathe with limited or no assistance,able to contol urination and bowels,able to dress with limited or no assistance,able to feed self with limited or no assistance,able to get out of chair or bed with limited or no assistance,able to groom with limited or no assistance, andable to toilet with limited or no assistance. For instrumental activities of daily living, patient reportsable to do house work with limited or no assistance,able to grocery shop with limited or no assistance,able to manage medications with limited or no assistance,able to manage money with limited or no assistance,able to prepare meals with limited or no assistance, andable to use the phone with limited or no assistance. For falls risk assessment, patient reportsno frequent falls while walking,no fall in the past year,no fall since last visit, andno dizziness/vertigo. For home safety, patient reportsuse of seatbeltsandno vision or hearing loss while driving. Hypertension F/UReported by PatientHPIFor medications, patient reportstaking medications as directedandno side effects from medication. For lifestyle, patient reportsregular exercise,limiting/avoi ding salt, andcompliant with low salt diet. For associated symptoms, patient reportsno dizziness,no lightheadedness,no chest pain,no shortness of breath,no palpitations,no edema,no calf pain with exertion, andno headache. Bill Parker MD [address] [place] [address] [address], [place], [address], [facility] 07/13/2024 13:35:52
--- OUTSIDE RECORDS SUMMARY | 2024-09-14 20:37 | XMS_ITS | Clinical Summary ---
Author Organization [facility] Address [address] [place] [id number] Care Team Providers Care [employer] Manager Name Role Phone Ronald Mccarthy MD Primary Care Provider [phone] Social History Tobacco Use Types Packs/Day Years Used Date Smoking Tobacco: Never Assessed Sex and Gender Information Value Date Recorded Sex Assigned at Not on file Legal Sex Male 7:45 PM CDT Gender Identity Not on file Sexual Orientation Not on file Last Filed Vital Signs Vital Sign Reading Time Taken Comments Blood Pressure 122/88 05/18/2012 1:44 PM CDT Pulse - - Temperature - - Respiratory Rate - - Oxygen Saturation - - Inhaled Oxygen Concentration - - Weight 97.5 kg (215 lb) 05/18/2012 1:44 PM CDT Height 182.9 cm (6') 05/18/2012 1:44 PM CDT Body Mass Index 29.16 05/18/2012 1:44 PM CDT Plan of Treatment Health Maintenance Due Date Last Done Comments Colorectal Cancer Screening Colonoscopy (10 Years) 1952 Hepatitis C 1970 DTaP, Tdap and Td Vaccines ( 1 - Tdap) 09/16/1971 Pneumococcal Vaccine: 50+ Ye ars (1 of 1 - PCV) 2002 Zoster Vaccines (1 of 2) 2002 COVID-19 Vaccine ( - 2023-2 5 season) 2023 RSV Immunization or 60+ Years (1 - 1-dose 75+ series) 09/16/2027 Meningococcal B Vaccine Aged Out No l onger eligible based on patient's age to complete this topic Meningococcal Vaccine Aged Out No ricardo theo eligible based on patient's age to complete this topic RSV Immunizations Under 20 Months Aged Out No longer eligible based on patient's age to complete this topic Care Teams Automotive Center Manager Relationship Specialty Start Date End Date Ronald Mccarthy MD PCP - General 04/01/11
--- OUTSIDE RECORDS SUMMARY | 2024-09-14 20:37 | XMS_ITS | Data Portability ---
Author Organization [place] - [facility] OFFICE Address [address] [place] [address] Care Team Providers Care Insurance Claims Representative Name Role Phone BILL PARKER Primary Care Provider Assessment Encounter Date Assessment Date Assessment LastModified by Organization Details LastModified Time 01/12/2023 01/12/2023 Patient Examined by CHRISTI Reynolds, Also Documentation reviewed and approved by supervising physician arron Not available 01/12/2023 12:42:02 07/13/2023 07/13/2023 Patient Examined by CHRISTI Reynolds, Also Documentation reviewed and approved by supervising physician petey Not available 07/11/2023 15:52:16 Plan of Treatment Reminders Order Date Submit Date Provider Last Modified By Organization Details Last Modified Time Details Appointments ESTABLISH ED PATIENT DETAILED 2025 10:00A M Renny Freeman i, MD Not available Not available Not available Lab None recorded. Referral None recorded. Procedures None recorded. Surgeries None recorded. Imaging None recorded. Medication Orders None recorded. Patient TargetsNo targets recorded. Patient Instructions Encounter Date Encounter Id Patient Instructions Last Modified By Organization Details Last Modified Time 07/07/2022 [id number] Exercise advised Low cholesterol diet advised Low sodium diet advised. [email or web address] Not available 07/07/2022 11:12:55 01/12/2023 [id number] Low cholesterol diet advised Low sodium diet advised. [email or web address] Not available 01/12/2023 12:44:45 07/13/2023 [id number] Low cholesterol diet advised Low sodium diet advised. [email or web address] Not available 07/13/2023 10:52:17 Reason for Referral None Reported. Results Created Date Observation Date Name Description Value Unit Range Abnormal Flag Note LastModifiedBy Organization Detail LastModifiedTime 07/09/19 23 07/07/2022 elect rocar diogr am No observ ation record ed. [email or web address] Not Available 2022 14:10:13 09/20/19 23 09/08/2022 exerc ise stres s echoc ardio gram No observ ation record ed. [email or web address] Not Available 2022 13:24:02 01/22/20 23 01/12/2023 elect rocar diogr am No observ ation record ed. [email or web address] Not Available 2022 13:13:32 07/20/19 24 07/13/2023 elect rocar diogr am No observ ation record ed. [email or web address] Not Available 11:07:42 09/11/19 24 08/31/2023 US, carot id arter y No observ ation record ed. [email or web address] Not Available 2023 02:44:06 02/05/20 24 02/05/2024 elect rocar diogr am No observ ation record ed. [email or web address] Not Available 2023 14:27:08 03/29/19 25 03/18/2024 exerc ise stres s test No observ ation record ed. [email or web address] Not Available 2024 09:38:49 04/19/19 25 03/31/2024 event monit or No observ ation record ed. [email or web address] Not Available 2024 09:22:36 08/03/19 25 07/27/2024 elect rocar diogr am No observ ation record ed. [email or web address] Not Available 2024 08:09:22 Result Notes None recorded. 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 Kade [place] [facility] 3 09:08:53 Migraine 33400251 Active Braun [place] - [facility] 3 09:08:54 Coronary arterioscle rosis 46612334 Active Braun [place] - [facility] 3 09:08:54 Body mass index 25-29 - overweight 505918469 Active 2015 Braun [place] - [facility] 3 09:08:53 Diabetes mellitus 62763635 Active 2015 Braun [place] [facility] 2 11:22:16 Essential hypertensio n 52512461 Active 2015 Braun [place] [facility] 3 09:08:54 Hyperlipide irena 60892359 Active 2015 Kade [place] - [facility] 2 11:22:20 Chest pain 38032258 Active 2015 Kade [place] [facility] 3 09:08:53 Dyspnea on exertion 98752162 Active 2017 Braun [place] - [facility] 3 09:08:54 Sinus tachycardia 94433344 Active 2017 Braun [place] [facility] 3 09:08:53 Tattoo of skin 795986367901 Active 2017 Braun [place] - [facility] 3 09:08:53 Benign prostatic hyperplasia without outflow obstruction 125174313 Active 2018 Braun [place] [facility] 3 09:08:53 Mixed hyperlipide irena 970098470 Active 2018 Braun [place] [facility] 3 09:08:53 Intermitten t claudicatio n 27793893 Active 2019 Braun [place] [facility] 3 09:08:54 Osteoarthri tis 150097332 Active 2019 Braun [place] - [facility] 3 09:08:54 Long-term current use of opiate analgesic drug 7614834366210 08 Active 2019 Braun [facility], [place] - [facility] 3 09:08:54 Vitamin D deficiency 05614929 Active 2020 [facility] [place] [facility] 3 09:08:53 Plantar fasciitis 609053569 Active 2020 [place], [place] - [facility] 3 09:08:53 Mixed anxiety and depressive disorder 627167312 Active 2020 Braun [facility] [place] [facility] 3 09:08:53 Hypomagnese irena 243583166 Active 2021 [facility], [place] - [facility] 3 09:08:53 Primary erectile dysfunction 697260636 Active 2022 [facility] 3 09:08:54 Notes:Some problems listed i n Documents: #[id number], #[id number] could not be added to this patient's chart. Please review these documents and add these problems to the patient's chart manually as needed. Problem Notes None recorded. Procedures Surgical History Date Name Laterality Status Provider Name and Address Organization Details Recorded Time Unlisted px femur/knee completed Funmilayo Bustillo [facility] 08/09/2015 11:09:52 Imaging Results None recorded. Procedure Notes None recorded. Medical Equipment None Reported. Allergies Allergen ID Allergen Name Allergen Category Reaction Reaction Severity Criticality Documentation Date Start Date Code Code System Note Provider Name and Address Organization Details Recorded Time 97989 buspirone medicatio n dizziness Not available Not available 10/22/2022 1827 RxNorm Kade Mcdowell [facility], [place] - [facility] 3 09:08:37 67635 Claritin- D medicatio n Not available Not available Not available 10/22/2022 85491 6 RxNorm Braun [facility] - [facility] 3 09:08:37 05734 Farxiga medicatio n dizziness Not available Not available 10/22/2022 63083 72 RxNorm [facility] [place] [facility] 3 09:08:37 Medications Name Sig Start Date Stop Date Status Note LastModified by Organization Details LastModified Time pioglitazo ne 15 mg tablet TAKE 1 TABLET BY MOUTH ONCE DAILY IN THE MORNING 02/04 completed Not Available Not Available Not Available metformin 500 mg tablet TAKE 1 TABLET BY MOUTH ONCE DAILY WITH SUPPER 12/22 completed Not Available Not Available Not Available doxycyclin e hyclate 100 mg capsule TAKE 1 CAPSULE BY MOUTH TWICE DAILY 02/04 completed Not Available Not Available Not Available atorvastat in 20 mg tablet TAKE 1 TABLET BY MOUTH ONCE DAILY 07/29 completed Not Available Not Available Not Available sildenafil 50 mg tablet Take 1 tablet every day by oral route as needed. 2022 active Not Available Not Available Not Avai lable cetirizine 10 mg tablet TAKE 1 TABLET BY MOUTH ONCE DAILY active Not Available Not Available No t Available atorvastat in 10 mg tablet TAKE ONE TABLET BY MOUTH ONCE DAILY AT BEDTIME 10/20 completed Not Available Not Available Not Available azithromyc in 250 mg tablet TAKE 2 TABLETS BY MOUTH ON DAY 1, AND THEN TAKE 1 TABLET BY MOUTH ONCE A DAY ON DAY 2 THROUGH DAY 5 02/04 completed Not Available Not Available Not Available cephalexin 250 mg capsule TAKE 1 CAPSULE BY MOUTH EVERY 6 HOURS FOR 10 DAYS 02/02 completed Not Available Not Available Not Available hydrocodon e 5 mg-acetami nophen 325 mg tablet TAKE 1 TABLET BY MOUTH EVERY 8 HOURS NEEDED active Not Available Not Available No t Available prednisone 20 mg tablet TAKE 1 TABLET BY MOUTH ONCE DAILY 02/04 completed Not Available Not Available Not Available [...] Available No t Available aspirin 81 mg tablet,del ayed release TAKE 1 TABLET BY MOUTH ONCE DAILY active Not Available Not Available No t Available citalopram 20 mg tablet TAKE 1 TABLET BY MOUTH ONCE DAILY AT BEDTIME active Not Available Not Available No t Available tamsulosin 0.4 mg capsule TAKE 1 CAPSULE BY MOUTH ONCE DAILY active Not Available Not Available No t Available OneTouch Ultra Test strips USE 1 STRIP TO CHECK GLUCOSE ONCE DAILY active Not Available Not Available No t Available candesarta n 16 mg-hydroch lorothiazi de 12.5 mg tablet TAKE 1 TABLET BY MOUTH ONCE DAILY active Not Available Not Available No t Available benzonatat e 100 mg capsule TAKE 1 CAPSULE BY MOUTH THREE TIMES DAILY NEEDED 02/04 completed Not Available Not Available Not Available buspirone 10 mg tablet Take 1 tablet 3 times a day by oral route as needed. 11/23 completed Not Available Not Available Not Available clotrimazo le-betamet hasone 1 %-0.05 % topical cream APPLY TO THE AFFECTED AND SURROUND ING AREA(S) OF SKIN TWICE DAILY IN THE [...] No t Available albuterol sulfate HFA 90 mcg/actuat ion aerosol inhaler INHALE 4 PUFFS BY MOUTH 4 TIMES DAILY NEEDED 02/04 completed Not Available Not Available Not Available SSD 1 % topical cream APPLY A 1/16 INCH (1.5 MM) THICK LAYER TO ENTIRE BURN AREA BY TOPICALR OUTE 2 TIMES PER DAY 09/11 completed Not Available Not Available Not Available losartan 50 mg-hydroch lorothiazi de 12.5 mg tablet TAKE 1 TABLET BY MOUTH IN THE MORNING 05/31 completed No longer take it 9 :[place] Not Available Not Available Not Available pioglitazo ne 30 mg tablet TAKE 1 TABLET BY MOUTH ONCE DAILY active Not Available Not Available No t Available fluticason e propionate 50 mcg/actuat ion nasal spray,susp ension USE 1 SPRAY(S) IN EACH NOSTRIL TWICE DAILY active Not Available Not Available No t Available metformin ER 500 mg tablet,ext ended release 24 hr TAKE 2 TABLETS BY MOUTH TWICE DAILY active Not Available Not Available No t Available finasterid e 5 mg tablet TAKE 1 TABLET BY MOUTH ONCE DAILY active Not Available Not Available No t Available verapamil ER 240 mg 24 hr capsule,ex tended release TAKE 1 CAPSULE BY MOUTH ONCE DAILY active Not Available Not Available No t Available alprazolam ER 0.5 mg tablet,ext ended release 24 hr TAKE ONE TABLET BY MOUTH AT BEDTIME 10/20 completed Not Available Not Available Not Available rosuvastat in 20 mg tablet TAKE 1 TABLET BY MOUTH ONCE DAILY active Not Available Not Available No t Available tadalafil 20 mg tablet TAKE 1 TABLET BY MOUTH ONCE DAILY NEEDED active Not Available Not Available No t Available Boostrix Tdap 2.5 Lf unit-8 mcg-5 Lf/0.5 mL intramuscu lar syringe 08/06 completed Not Available Not Available Not Available sildenafil (pulmonary hypertensi on) 20 mg tablet TAKE TWO TABLETS BY MOUTH ONCE DAILY ONE-HALF HOUR BEFORE NEEDED active Not Available Not Available No t Available Aspir-81 1 tab BID 05/31 completed Not Available Not Available Not Available Cialis PRN, 1 tablet 08/06 completed No longer take it 9 :[place] Not Available Not Available Not Available Zostavax (PF) 19,400 unit/0.65 mL subcutaneo us suspension 10/20 completed Not Available Not Available Not Available Vitamin D3 125 mcg (5,000 unit) tablet Take 1 tablet every day by oral route. 2022 active Not Available Not Available Not Avai lable AndroGel 20.25 mg/1.25 gram per pump act. (1.62 %) transderma l gel 10/20 completed Not Available Not Available Not Available Farxiga 5 mg tablet TAKE 1 TABLET BY MOUTH ONCE DAILY IN THE MORNING 11/16 completed Not Available Not Available Not Available Jardiance 10 mg tablet Take 1 tablet every day by oral route in the morning. 11/23 completed Not Available Not Available Not Available Xigduo XR 5 mg-1,000 mg tablet,ext ended release TAKE 1 TABLET BY MOUTH ONCE DAILY IN THE MORNING 04/30 completed Not Available Not Available Not Available Xigduo XR 10 mg-1,000 mg tablet,ext ended release TAKE 1 TABLET BY MOUTH ONCE DAILY IN THE MORNING active Not Available Not Available No t Available Afluria (PF) 45 mcg(15 mcg x 3)/0.5 mL intramuscu lar syringe 01/14 completed Not Available Not Available Not Available Flucelvax Quad [id number] (PF) 60 mcg (15 mcg x 4)/0.5 mL IM syringe 02/25 completed Not Available Not Available Not Available Shingrix (PF) 50 mcg/0.5 mL intramuscu lar suspension , kit 08/06 completed pt does not know 020 Not Available Not Available Not Available OneTouch Ultra Blue Test Strip USE 1 STRIP TO CHECK GLUCOSE TWICE DAILY 12/22 completed Not Available Not Available Not Available OneTouch Delica Plus Lancet 33 gauge USE 1 TO CHECK GLUCOSE TWICE DAILY active Not Available Not Available No t Available Fluzone High-Dose (PF) 180 mcg/0.5 mL intramuscu lar syringe PHARMACI ST ADMINIST ERED IMMUNIZA TION ADMINIST ERED AT TIME OF DISPENSI NG 08/16 completed Not Available Not Available Not Available Ubrelvy 50 mg tablet Take 1 tablet every day by oral route as needed for 30 days. 02/04 completed Not Available Not Available Not Available Fluzone High-Dose Quad (PF) 240 mcg/0.7 mL IM syringe PHARMACI ST ADMINIST ERED IMMUNIZA TION ADMINIST ERED AT TIME OF DISPENSI NG 11/19 completed Not Available Not Available Not Available Vitals Date Recorded Body height Body mass index (BMI) Body weight Heart rate Oxygen saturation Oxygen saturation in Arterial blood by Pulse oximetry Systolic And Diastolic Provider Name and Address Organization Details Last Updated DateTime 3 182.88 cm 28.5 kg/m2 44673.6 8 g 78 /min 93 % 93 % 122/72 mm[Hg] DAVID BRONSON [facility] 3 10:56:53 Date Recorded Body height Body mass index (BMI) Body weight Heart rate Oxygen saturation Oxygen saturation in Arterial blood by Pulse oximetry Systolic And Diastolic Provider Name and Address Organization Details Last Updated DateTime 4 182.88 cm 27.8 kg/m2 22270.1 5 g 90 /min 91 % 91 % 135/91 mm[Hg] Lisset Krishnamurthy [facility] 4 10:21:56 Date Recorded Body height Body mass index (BMI) Body weight Heart rate Respiratory rate Oxygen saturation Oxygen saturation in Arterial blood by Pulse oximetry Systolic And Diastolic Provider Name and Address Organization Details Last Updated DateTime 5 182.88 cm 26 kg/m2 36730.7 4 g 107 /min 18 /min 96 % 96 % 116/62 mm[Hg] Espinoza Dorantes [facility] 5 18:21:49 Date Recorded Body height Body mass index (BMI) Body weight Heart rate Respiratory rate Oxygen saturation Oxygen saturation in Arterial blood by Pulse oximetry Systolic And Diastolic Provider Name and Address Organization Details Last Updated DateTime 3 182.88 cm 28.2 kg/m2 75907.2 1 g 61 /min 16 /min 97 % 97 % 132/80 mm[Hg] Espinoza Dorantes [facility] 3 12:18:35 Date Recorded Body height Body mass index (BMI) Body weight Heart rate Oxygen saturation Oxygen saturation in Arterial blood by Pulse oximetry Systolic And Diastolic Provider Name and Address Organization Details Last Updated DateTime 4 182.88 cm 27.8 kg/m2 72462.4 4 g 82 /min 98 % 98 % 122/78 mm[Hg] Bette Tolbert [facility] 4 11:41:01 Social History Question Answer Notes LastModified by Organizat ion Details LastModified Time What Is Your Relationship Status? [email or web address] Information not available 10/22/2022 Sex: Unknown Functional Status None recorded. Mental Status None recorded. Family History Relationship Description Onset Age of this Age Resolved Age Notes LastModified by Organization Details LastModified Time Father Heart disease [email or web address] Not available 2015 11:10:10 Father Myocardial infarction [email or web address] Not available 08/08 11:10:24 Father Diabetes mellitus [email or web address] Not available 2015 11:10:46 Father Coronary arterioscler osis [email or web address] Not available 2022 09:10:09 Father Alzheimer's disease [email or web address] Not available 2022 09:10:27 Mother Diabetes mellitus [email or web address] Not available 2015 11:10:46 Medical History Condition Response Diabetes Y Hyperlipidemia Y Arrhythmia Y Hypertension Y Immunizations Vaccine Type Date Status Note Provider Nam e and Address Organization Details Recorded Time Influenza, split virus, quadrivalent, preservative 6 completed Espinoza Dorantes [facility] 07/27/2024 18:22:12 Influenza, split virus, quadrivalent, preservative 0 completed [facility] 10/22/2022 09:09:00 Influenza, split virus, quadrivalent, preservative 7 completed Braun [facility] 10/22/2022 09:09:00 Influenza, split virus, quadrivalent, preservative 9 completed Braun [facility] 10/22/2022 09:09:00 Influenza, split virus, quadrivalent, preservative 8 completed Braun [facility] 10/22/2022 09:09:00 Influenza, split virus, quadrivalent, preservative 5 completed Braun [facility] 10/22/2022 09:09:00 zoster, unspecified formulation 0 completed Braun [facility] 10/22/2022 09:09:00 Influenza, high-dose, quadrivalent, PF 1 [facility] 18:22:12 COVID-19, mRNA, LNP-S, PF, 30 mcg/0.3 mL dose 2 completed [facility] 18:22:12 SARS-COV-2 (COVID-19) vaccine, UNSPECIFIED 1 completed Kade Mcdowell [facility] 10/22/2022 09:09:00 COVID-19 vaccine, vector-nr, rS-Ad26, PF, 0.5 mL 1 [facility]24 18:22:12 COVID-19 vaccine, vector-nr, rS-Ad26, PF, 0.5 mL 1 completed Kade [facility] 10/22/2022 09:09:00 COVID-19, mRNA, LNP-S, bivalent, PF, 30 mcg/0.3 mL dose 2 completed Espinoza rodriguez, [facility] 07/27/2024 18:22:12 pneumococcal polysaccharide PPV23 4 completed Kade Mcdowell null, [facility] 10/22/2022 09:09:00 Td(adult) unspecified formulation 9 completed Kade Mato null, [facility] 10/22/2022 09:09:00 Pneumococcal conjugate PCV 13 9 completed Kade Mcdowell null, [facility] 10/22/2022 09:09:00 Pneumococcal conjugate PCV 13 8 completed Kade Mcdowell null, [facility] 10/22/2022 09:09:00 zoster live 6 completed Kade rodriguez, [facility] 10/22/2022 09:09:00 Influenza, high-dose, trivalent, PF 2 completed Espinoza rodriguez [facility] 07/27/2024 18:22:12 Influenza, high-dose, quadrivalent, PF 4 completed Espinoza rodriguez, [facility] 07/27/2024 18:22:12 Influenza, adjuvanted, quadrivalent, PF 3 completed Espinoza rodriguez [facility] 07/27/2024 18:22:12 RSV, recombinant, protein subunit RSVpreF, adjuvant reconstituted, 0.5 mL, PF 3 completed Espinoza rodriguez [facility] 07/27/2024 18:22:12 influenza, unspecified formulation 4 completed Espinoza rodriguez, [facility] 07/27/2024 18:22:12 Past Encounters Encounter ID Performer Location Encounter Start Date Encounter Closed Date Diagnosis/Indication Diagnosis SNOMED-CT Code Diagnosis ICD10 Code Diagnosis Note [id number] MD Mindy Mendes Office [address] [place] [address] [place] [address] 08/09/2015 10:48:11 08/12/2015 17:08:32 Hyperlipidemia 89997579 E78.5 Continue statinGoal LDL <100 Essential hypertension 10463303 I10 Controlled continue on current meds. Chest pain 80778331 R07. 9 atypical however he has multiple risk factors for CADcontinu e on asa and HTN and HLP controlEch o done at PCP, will obtain results.St ress test for evaluation of ischemia and risk stratifica tion. [id number] Ezio Nicholson MD [facility] [address] [place] [address] 08/21/2015 11:02:21 08/21/2015 11:55:13 Essential hypertension 67726430 I10 Controlled continue on current meds. Hyperlipidemia 12579413 E78.5 Continue on statinGoal LDL ,100 as he is diabetic. Chest pain 21716690 R07. 9 Atypical and currently resolvedSt ress test was negative with normal LV systolic function and average exercise tolerance. Continue risk factors modificati on for prevention .Continue on asa daily. [id number] Josh Rowley MD [facility] [address] [place] [address] 10/20/2017 15:22:31 02/28/2018 17:16:00 Chest pain 30585758 R07.9 Atypical and currently resolved. Stress test 2015 was negative with normal LV systolic function and average exercise tolerance. Continue risk factors modificati on for prevention . Continue on asa daily. Essential hypertension 02928457 I10 Patient's blood pressure is not well-contr olled on present medical therapy. Patient is tolerating , without difficulty , the current medication s. I have not made changes to the current regimen. Patient is advised to maintain a blood pressure diary. Patient was advised to eat a low-sodium diet (2 grams sodium or less daily). Hyperlipidemia 85998076 E78.5 Needs to keep LDL less than 70, and HDL more than 40 Will get lipid profile results from PCP. On Atorvastat in 20 mg Diabetes mellitus 468899 09 E11.59 Discussed importance of tight glycemic control to minimize cardiovasc ular disease progressio n. Diet-contr olled. Dyspnea on exertion 6084 5006 R06.09 Reports new dyspnea on exertion cutting grass in heat with associated dizziness. Patient presents with new exertional dyspnea which can be an anginal equivalent . Given the history, exam findings and high cardiac risk factors, I feel additional investigat ion is warranted. I have made arrangemen ts in the near future for an exercise stress echocardio gram to evaluate for any ischemia, structural heart disease, or exercise induced arrythmia. The procedure was discussed with the patient, and risks, benefits, and alternativ e options were explained. Appropriat e labwork has been performed recently, therefore I have not made arrangemen ts for further testing: obtain FLP, TSH, BMP, Mg per PCP. I have asked the patient to curtail exercise and activities until our investigat ion is complete. I have made the following adjustment s to the present medical regimen. Sinus tachycardia 596935 01 R00.0 Under stress recently. Monitor BP and HR at home. Consider TSH if not done recently per PCP. [id number] Renny Zayas MD [facility] [place] [address] 11/23/2017 15:53:21 11/23/2017 16:45:14 Chest pain 63927326 R07.9 Atypical and currently resolved. Stress test 2016 was negative with normal LV systolic function and average exercise tolerance. Continue risk factors modificati on for prevention . Continue on asa daily. Had negative stress echo on 11/04/17. Essential hypertension 47953605 I10 Well controlled . Blood pressure readings show mostly well controlled readings and some elevated between 150-177/73 -90 Hyperlipidemia 96759865 E78.5 Needs to keep LDL less than 70, and HDL more than 40 11/23/17 Getting his FLP drawn tomorrow. On Atorvastat in 20 mg Diabetes mellitus 762656 09 E11.59 Discussed importance of tight glycemic control to minimize cardiovasc ular disease progressio n. Diet-contr olled. Sinus tachycardia 691468 01 R00.0 Under stress recently. Monitor BP and HR at home. Consider TSH if not done recently per PCP. Dyspnea on exertion 6084 5006 R06.09 11/04/17 Negative stress echo. Continues to have dyspnea on exertion. Patient exercises regularly. [id number] Renny Zayas MD [facility] [place] [address] 05/31/2018 14:01:31 05/31/2018 15:22:45 Essential hypertension 86966106 I10 Blood pressure is well controlled Hyperlipidemia 78928416 E78.5 Needs to keep LDL less than 70, and HDL more than 40 11/24/2017 TG 109,TC 140,HDL 46,LDL 72 On Atorvastat in 20 mg Diabetes mellitus 971282 E11.59 Discussed importance of tight glycemic control to minimize cardiovasc ular disease progressio n. Diet-contr olled. Intermitte nt claudication 15776311 I73.9 Will get arterial doppler, to evaluate severity of peripheral vascular disease [id number] Renny Zayas MD [facility] [place] [address] 12/02/2018 09:48:31 12/05/2018 14:40:28 Essential hypertension 74282686 I10 Blood pressure is well controlled Hyperlipidemia 89389425 E78.5 Needs to keep LDL less than 70, and HDL more than 40 11/24/2017 TG 109,TC 140,HDL 46,LDL 72 On Atorvastat in 20 mg Diabetes mellitus 722923 E11.59 Discussed importance of tight glycemic control to minimize cardiovasc ular disease progressio n. Diet-contr olled. Intermitte nt claudication 87046995 I73.9 Symptoms resolved. Consider peripheral angiogram if symptoms persist or worsen. Arterial doppler 08/16/2018 Moderate peripheral arterial disease of the right lower extremity. 36949 Renny Zayas MD [facility] [address] [place] [address] 06/02/2019 10:11:41 06/07/2019 13:59:54 Dyspnea on exertion 85210524 R06.09 Stable.10/23 05/09 Negative stress echo. Diabetes mellitus 065992 E11.59 Treatment and evaluation by primary care doctor. Discussed importance of adequate glycemic control to minimize cardiovasc ular disease progressio n. A1C goal of < 7% for type 2 DM Essential hypertension 14078759 I10 Blood pressure is well controlled Hyperlipidemia 91373970 E78.5 Needs to keep LDL less than 70, and HDL more than 40 11/24/2017 TG 109,TC 140,HDL 46,LDL 72 On Atorvastat in 20 mg Intermitte nt claudication 17214423 I73.9 Symptoms resolved. Consider peripheral angiogram if symptoms persist or worsen. Arterial doppler 08/16/2018 Moderate peripheral arterial disease of the right lower extremity. 76108 Renny Zayas MD [facility] [address] [place] [address] 07/11/2019 16:12:27 07/12/2019 19:04:21 Essential hypertension 44349682 I10 Blood pressure is well controlled Hyperlipidemia 93482040 E78.5 Needs to keep LDL less than 70, and HDL more than 40 11/24/2017 TG 109,TC 140,HDL 46,LDL 72 On Atorvastat in 20 mg Diabetes mellitus 992185 E11.59 Discussed importance of tight glycemic control to minimize cardiovasc ular disease progressio n. Diet-contr olled. Intermitte nt claudication 18629974 I73.9 Symptoms resolved. Consider peripheral angiogram if become symptomsti c. Arterial doppler 08/16/2018 Moderate peripheral arterial disease of the right lower extremity. 68348 Alejandra Odell MD [facility] [address] [place] [address] 08/06/2020 09:09:53 08/06/2020 09:48:26 Essential hypertension 17322086 I10 Well controlled on current regimen Hyperlipidemia 65739072 E78.5 Needs to keep LDL less than 70, and HDL more than 40. 11/24/2017 LDL 72 Continue atorvastat in 20 mg Will get fasting lipids for follow-up Diabetes mellitus 113467 09 E11.59 Treatment and evaluation by primary care doctor. Discussed importance of adequate glycemic control to minimize cardiovasc ular disease progressio n, A1C goal of < 7% for type 2 DM. Intermitte nt claudication 53930752 I73.9 Will repeat arterial duplex given persistent symptoms LUCAS 08/16/2018 : Moderate peripheral arterial disease of the right lower extremity. [id number] Renny Zayas MD [facility] [address] [place] [address] 07/29/2021 08:34:48 07/29/2021 09:49:46 Essential hypertension 92656089 I10 Well controlled on current regimen Hyperlipidemia 83781803 E78.5 Needs to keep LDL less than 70, and HDL more than 40. 11/24/2017 LDL 72 Continue atorvastat in 20 mg Will get fasting lipids for follow-up Diabetes mellitus 774143 E11.59 Treatment and evaluation by primary care doctor. Discussed importance of adequate glycemic control to minimize cardiovasc ular disease progressio n, A1C goal of < 7% for type 2 DM. Intermitte nt claudication 86626303 I73.9 Resolved Will get arterial DUPLEX, to evaluate severity of peripheral vascular disease [id number] Renny Zayas MD [facility] [address] [place] [address] 07/07/2022 10:35:51 07/07/2022 12:05:43 Essential hypertension 25534410 I10 Well controlled on current regimen Hyperlipidemia 88111352 E78.5 Needs to keep LDL less than 70, and HDL more than 40. 11/24/2017 LDL 72 Continue atorvastat in 20 mg Will get fasting lipids for follow-up Diabetes mellitus 600367 E11.59 Treatment and evaluation by primary care doctor. Discussed importance of adequate glycemic control to minimize cardiovasc ular disease progressio n, A1C goal of < 7% for type 2 DM. Intermitte nt claudication 28319263 I73.9 Resolved Will get arterial DUPLEX, to evaluate severity of peripheral vascular disease Atypical chest pain 1025 26639 R07.89 Treadmill Myoview Stress test, has high [place] Risk score. Has Known CAD, or CAD risk equivalent . To look for any ischemia. 29548 Renny Zayas MD [facility] [address] [place] [address] 01/12/2023 12:02:02 01/12/2023 12:49:15 Essential hypertension 24802225 I10 Well controlled on current regimen Hyperlipidemia 46287221 E78.5 Needs to keep LDL less than 70, and HDL more than 40. 11/24/2017 LDL 72 Continue atorvastat in 20 mg Will get fasting lipids for follow-up Diabetes mellitus 142669 E11.59 Treatment and evaluation by primary care doctor. Discussed importance of adequate glycemic control to minimize cardiovasc ular disease progressio n, A1C goal of < 7% for type 2 DM. Intermitte nt claudication 18014944 I73.9 Resolved Will get arterial DUPLEX, to evaluate severity of peripheral vascular disease Dyspnea on exertion 6084 5006 R06.09 Stable.Neg ative stress echo. 2022 [id number] Renny Zayas MD [facility] [address] [place] [address] 07/13/2023 10:05:24 07/13/2023 11:00:12 Essential hypertension 36307661 I10 Well controlled on current regimen Hyperlipidemia 50500961 E78.5 Needs to keep LDL less than 70, and HDL more than 40.*Last LDL was 72 done on 03/2023 .Pt takes rosuvastat in 20 mg. Will get fasting lipids for follow-up Diabetes mellitus 567115 E11.59 Treatment and evaluation by primary care doctor. Discussed importance of adequate glycemic control to minimize cardiovasc ular disease progressio n, A1C goal of < 7% for type 2 DM. Intermitte nt claudication 20008845 I73.9 Resolved Will get arterial DUPLEX, to evaluate severity of peripheral vascular disease Dyspnea on exertion 6084 5006 R06.09 Stable.Neg ative stress echo. 2022 Carotid bruit 245818379 R09.89 will do [place] [id number] Renny Zayas MD [facility] [address] [place] [address] 02/05/2024 10:44:35 02/05/2024 12:22:42 Essential hypertension 82827639 I10 Well controlled on current regimen Hyperlipidemia 72467106 E78.5 Needs to keep LDL less than 70, and HDL more than 40.*Last LDL was 72 done on 03/2023 .Pt takes rosuvastat in 20 mg. Will get fasting lipids for follow-up Diabetes mellitus 960877 E11.59 Treatment and evaluation by primary care doctor. Discussed importance of adequate glycemic control to minimize cardiovasc ular disease progressio n, A1C goal of < 7% for type 2 DM. Intermitte nt claudication 10690182 I73.9 Resolved Dyspnea on exertion 6084 5006 R06.09 and left arm pain, Could be angina equivalent .Treadmill Myoview Stress test, has high [place] Risk score. Has Known CAD, or CAD risk equivalent . To look for any ischemia. Carotid bruit 410015376 R09.89 Mild disease, Maximal medical treatment [id number] Renny Zayas MD [facility] [address] [place] [address] 07/27/2024 18:09:48 07/27/2024 18:44:29 Essential hypertension 94572928 I10 Well controlled on current regimen Hyperlipidemia 99880958 E78.5 Needs to keep LDL less than 70, and HDL more than 40.*Last LDL was 58 done on 03/2024 .Pt takes rosuvastat in 20 mg. Will get fasting lipids for follow-up Diabetes mellitus 559610 09 E11.59 Treatment and evaluation by primary care doctor. Discussed importance of adequate glycemic control to minimize cardiovasc ular disease progressio n, A1C goal of < 7% for type 2 DM. Intermitte nt claudication 22249369 I73.9 Resolved Will get arterial DUPLEX, to evaluate severity of peripheral vascular disease Dyspnea on exertion 6084 5006 R06.09 and left arm pain, Could be angina equivalent .Treadmill Myoview Stress test, has high [place] Risk score. Has Known CAD, or CAD risk equivalent . To look for any ischemia. Carotid bruit 100166744 R09.89 Mild disease, Maximal medical treatment Health Concerns Section Related Observation LastModified by Organization Detai ls LastModified Time None Recorded Concern Status LastModified by Organization Details LastModified Time None Recorded Advance Directives Directive None Recorded Payers Insurance Date Sequence Insurance Name Policy Number Policy Good Covered Member ID Good Member ID Guarantor Name 07/24/2024 1 [place] Jorge Edouard [id number] Jorge Edouard 07/27/2024 2 [place] [id number] Cornelia leung [id number] Jorge Edouard 02/05/2024 2 [place] Edouard [id number] Jorge Edouard 07/27/2024 2 [employer] (MEDICARE SUPPLEMENT) Jorge Edouard [id number] Jorge Johnny Javan 09/29/2017 1 [place] [id number] Cornelia leung [id number] Jorge Edouard Notes Date Note Type Note Provider Name and Address Organization Details Recorded Time 07/07/2022 text/html 07/07/22CC : Cardiac follow up, chest [id number] white man with hypertension, hyperlipidemia, and DM is here for 1 year follow-up. He was last seen in the clinic on 07/29/21, since then he had chest pain last monthHe denies ER visits and hospitalizations since he was last seen. Denies chest pain.Denies shortness of breath at rest. Has mild dyspnea on exertion.No orthopnea. No PNDs.Denies heart palpitations.Denies dizziness. Denies syncope or near syncope.No ankle or leg edema.No major bleeding events.No reported side effects from medications. Taking medications as prescribed with no missed doses.Denies snoring, daytime somnolence and AM headache.*Last LDL was 72 done on 11/23/17.Pt takes rosuvastatin 20 mg. Previously:He was last seen in the clinic on 08/06/20, since then he is doing well. He denied any chest pain or dyspnea on exertion. He is still working and very active. His DM is under control with his primary along cholesterol. His lipid level done and managed by primary and he is taking crestor 20 mg daily. He reports worsening right leg cramps when laying in bed at night. 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 Results from this visit, or from the past:07/10/18 EKG- Sinus tachycardia. Poor R progression in chest leads. Non-specific inverted T-waves inferolateral leads. Non-specific ST- depression, inferolateral leads. Non-specific ST depression, anterior leads. EKG 05/31/18 : Non-specific Flat T waves , inferior leads. EKG 10/20/17 : Sinus tachycaradia Inferior myocardial infaraction Inverted T waves anterior leads LUCAS 09/29/17: Normal ankle brachial index. No significant lower extremity peripheral arterial disease detected. SE 10/04/17 : Negative stress Echo Had negative stress test done in 08/15/15 with EF 55%. ECHO done in 08/08/15 showed normal LV systolic function, EF 55-60%, trace mitral regurgitation, Trace Tricuspid regurgitation. ECHO 11/16/13 : There is trace mitral regurgitation. There is race tricuspid regurgitation. The left ventricle is normal in size.Arterial doppler 08/16/2018 Moderate peripheral arterial disease of the right lower extremity. Renny Zayas MD [address] [place], [address], [place] - [facility] 07/07/2022 11:13:15 01/12/2023 text/html 01/12/23CC : Cardiac follow up dyspnea on [id number] white man with hypertension, hyperlipidemia, and DM is here for 6 month follow-up with SE results. He was last seen in the clinic on 07/07/22, since then he is doing well. He denied chest pain or dyspnea on exertion. *Last LDL was 72 done on 11/23/17.Pt takes rosuvastatin 20 mg. He denies ER visits and hospitalizations since he was last seen. Denies chest pain.Denies shortness of breath at rest. Has mild dyspnea on exertion.No orthopnea. No PNDs.Denies heart palpitations.Denies dizziness. Denies syncope or near syncope.No ankle or leg edema.No major bleeding events.No reported side effects from medications. Taking medications as prescribed with no missed doses.Denies snoring, daytime somnolence and AM headache.*Last LDL was 72 done on 11/23/17.Pt takes rosuvastatin 20 mg. *He had negative SE on 09/08/22 with Mild exercise impairment. Previously:He had chest pain. He is still working and very active. His DM is under control with his primary along cholesterol. His lipid level done and managed by primary and he is taking crestor 20 mg daily. He reports worsening right leg cramps when laying in bed at night. 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 Results from this visit, or from the past:07/10/18 EKG- Sinus tachycardia. Poor R progression in chest leads. Non-specific inverted T-waves inferolateral leads. Non-specific ST- depression, inferolateral leads. Non-specific ST depression, anterior leads. EKG 05/31/18 : Non-specific Flat T waves , inferior leads. EKG 10/20/17 : Sinus tachycaradia Inferior myocardial infaraction Inverted T waves anterior leads LUCAS 09/29/17: Normal ankle brachial index. No significant lower extremity peripheral arterial disease detected. SE 10/04/17 : Negative stress Echo Had negative stress test done in 08/15/15 with EF 55%. ECHO done in 08/08/15 showed normal LV systolic function, EF 55-60%, trace mitral regurgitation, Trace Tricuspid regurgitation. ECHO 11/16/13 : There is trace mitral regurgitation. There is race tricuspid regurgitation. The left ventricle is normal in size.Arterial doppler 08/16/2018 Moderate peripheral arterial disease of the right lower extremity. JHOAN rodriguez, [place] - [facility] 01/12/2023 12:45:07 07/13/2023 text/html 07/13/23CC : Cardiac follow up dyspnea on [id number] white man with hypertension, hyperlipidemia, and DM is here for 6 month follow-up. He was last seen in the clinic on 01/12/23, since then he is doing well. He denied chest pain or dyspnea on exertion. *Last LDL was 72 done on 03/2023 .Pt takes rosuvastatin 20 mg.He denies ER visits and hospitalizations since he was last seen. Today reports:no ccDenies chest pain.Denies shortness of breath at rest. Has mild dyspnea on exertion.No orthopnea. No PNDs.Denies heart palpitations.Denies dizziness. Denies syncope or near syncope.No ankle or leg edema.No major bleeding events.No reported side effects from medications. Taking medications as prescribed with no missed doses.Denies snoring, daytime somnolence and AM headache.*Last LDL was 72 done on 11/23/17.Pt takes rosuvastatin 20 mg. Previously:*He had negative SE on 09/08/22 with Mild exercise impairment. Previously:He had chest pain.He is still working and very active. His DM is under control with his primary along cholesterol. His lipid level done and managed by primary and he is taking crestor 20 mg daily. He reports worsening right leg cramps when laying in bed at night. 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 Results from this visit, or from the past:07/10/18 EKG- Sinus tachycardia. Poor R progression in chest leads. Non-specific inverted T-waves inferolateral leads. Non-specific ST- depression, inferolateral leads. Non-specific ST depression, anterior leads. EKG 05/31/18 : Non-specific Flat T waves , inferior leads. EKG 10/20/17 : Sinus tachycaradia Inferior myocardial infaraction Inverted T waves anterior leads LUCAS 09/29/17: Normal ankle brachial index. No significant lower extremity peripheral arterial disease detected. SE 10/04/17 : Negative stress Echo Had negative stress test done in 08/15/15 with EF 55%. ECHO done in 08/08/15 showed normal LV systolic function, EF 55-60%, trace mitral regurgitation, Trace Tricuspid regurgitation. ECHO 11/16/13 : There is trace mitral regurgitation. There is race tricuspid regurgitation. The left ventricle is normal in size.Arterial doppler 08/16/2018 Moderate peripheral arterial disease of the right lower extremity. JHOAN rodriguez [place] - [facility] 07/13/2023 10:53:02 02/05/2024 text/html 02/03/24CC : Cardiac follow up, left arm [id number] white man with hypertension, hyperlipidemia, and DM is here for follow-up with labs and Carotid US results. He was last seen in the clinic on 07/13/23, since then he had left arm pain, and DizzinessHe denies ER visits and hospitalizations since he was last seen. Today reports:Denies chest pain.Denies shortness of breath at rest. Has mild dyspnea on exertion.No orthopnea. No PNDs.Denies heart palpitations. Denies syncope or near syncope.No ankle or leg edema.No major bleeding events.No reported side effects from medications. Taking medications as prescribed with no missed doses.Denies snoring, daytime somnolence and AM headache.*Last LDL was 58 done on 10/12/23.Pt takes rosuvastatin 20 mg. 10/12/23: HgbA1C 6.808: NA 141, K 4.2, CL 103, CO2 21.0, GLU 110, BUN 19, Cr 1.02, eGFR 79, AST 23, ALT : WBC 5.1, Hgb 15.6, Hct 49.5, RBC 5.17, PLT 98966: TC 147, HDL 60, LDL 58, TR 146 *Had Carotid US on 08/31/23 showed Antegrade flow noted in both vertebral arteries. Mild bilateral internal carotid artery stenosis with less than 50% diameter stenosis. Previously:*He had negative SE on 09/08/22 with Mild exercise impairment. Results from this visit, or from the past:07/10/18 EKG- Sinus tachycardia. Poor R progression in chest leads. Non-specific inverted T-waves inferolateral leads. Non-specific ST- depression, inferolateral leads. Non-specific ST depression, anterior leads. EKG 05/31/18 : Non-specific Flat T waves , inferior leads. EKG 10/20/17 : Sinus tachycaradia Inferior myocardial infaraction Inverted T waves anterior leads LUCAS 09/29/17: Normal ankle brachial index. No significant lower extremity peripheral arterial disease detected. SE 10/04/17 : Negative stress Echo Had negative stress test done in 08/15/15 with EF 55%. ECHO done in 08/08/15 showed normal LV systolic function, EF 55-60%, trace mitral regurgitation, Trace Tricuspid regurgitation. ECHO 11/16/13 : There is trace mitral regurgitation. There is race tricuspid regurgitation. The left ventricle is normal in size.Arterial doppler 08/16/2018 Moderate peripheral arterial disease of the right lower extremity. Libertad rodriguez, [place] - [facility] 07/25/2024 16:09:52 07/27/2024 text/html *Will get fasting lipids, Will get arterial EXKBTF40/05/25CC : Cardiac follow [id number] white man with hypertension, hyperlipidemia, and DM is here for follow-up with event monitor and stress test results. He was last seen in the clinic on 02/05/24, since then he had left arm pain, and DizzinessHe denies ER visits and hospitalizations since he was last seen. Today reports:Denies chest pain.Denies shortness of breath at rest. Has mild dyspnea on exertion.No orthopnea. No PNDs.Denies heart palpitations. Denies syncope or near syncope.No ankle or leg edema.No major bleeding events.No reported side effects from medications. Taking medications as prescribed with no missed doses.Denies snoring, daytime somnolence and AM headache.*Last LDL was 53 done on 07/20/24.Pt takes rosuvastatin 20 mg. 07/20/24LIPID: TC 144, HDL 57, TR 153, LDL 53.HgbA1C - 6.8TSH - 0.94Vit D - 34 *Had 14 day event monitor on 03/31/24 showed Paroxysmal A-fib. *Had Negative stress test on 03/18/24 with Normal LV systolic function. Exercise tolerance: Average. LVEF: 60%. Previously:*EKG 02/05/24: Sinus rhythm, P; normal, QRS; normal, ST-T; minor mid-precordial ST-T changes probably aspecific change, small negative T in V3 V4, with flat or low negative T in V5, conclusion: ECG without significant abnormalities. *Had Carotid US on 08/31/23 showed Antegrade flow noted in both vertebral arteries. Mild bilateral internal carotid artery stenosis with less than 50% diameter stenosis. Results from this visit, or from the past:07/10/18 EKG- Sinus tachycardia. Poor R progression in chest leads. Non-specific inverted T-waves inferolateral leads. Non-specific ST- depression, inferolateral leads. Non-specific ST depression, anterior leads. EKG 05/31/18 : Non-specific Flat T waves , inferior leads. EKG 10/20/17 : Sinus tachycaradia Inferior myocardial infaraction Inverted T waves anterior leads LUCAS 09/29/17: Normal ankle brachial index. No significant lower extremity peripheral arterial disease detected. SE 10/04/17 : Negative stress Echo Had negative stress test done in 08/15/15 with EF 55%. ECHO done in 08/08/15 showed normal LV systolic function, EF 55-60%, trace mitral regurgitation, Trace Tricuspid regurgitation. ECHO 11/16/13 : There is trace mitral regurgitation. There is race tricuspid regurgitation. The left ventricle is normal in size.Arterial doppler 08/16/2018 Moderate peripheral arterial disease of the right lower extremity. Renny Zayas MD [address] [facility], [place], [address], [facility] - [facility] 07/27/2024 18:40:48
--- OUTSIDE RECORDS SUMMARY | 2024-09-14 20:37 | XMS_ITS | Clinical Summary ---
Author Organization [facility] Address [address] [place] [address] Phone Care Team Providers Care Skein Washer Name Role Phone Unavailable Primary Care Provider Unavailabl e Social History Tobacco Use Types Packs/Day Years Used Date Smoking Tobacco: Never Assessed Sex and Gender Information Value Date Recorded Sex Assigned at Not on file Legal Sex Male 9:13 PM CDT Gender Identity Not on file Sexual Orientation Not on file Plan of Treatment Health Maintenance Due Date Last Done Comments Hepatitis C Virus (HCV) Screening 1950 Cologuard 1997 Colonoscopy 1997 Colorectal Cancer Screening 1997 Immunochemical Fecal Occult Blood 1997 Pneumococcal Immunization (50+ years) (2 of 2 - PPSV23) 05/25/2019 05/24/2018, 11/22/2017 Zoster Immunization (2 of 2) 01/10/2020 11/15/2019 SARS-COV-2 Immunization ( - season) 2023 12/20/2020, 06/21/2020 Influenza Immunization (#1) 10/23/202410/24, 11/22/2017, 01/10/2017, Additional history exists Respiratory Syncytial Virus (RSV) Immunization (Adult) (1 - 1-dose 75+ series) 09/16/2027 DTaP/Tdap/Td Immunization Discontinued 05/24/2018 Pneumococcal Immunization Combined Discontinued 05/24/2018, 11/22/2017 TdaP Immunization Completed 05/24/2018 Hepatitis B Immunization Aged Out No longer eligible based on patient's age to complete this topic Human Papillomavirus (HPV) Immunization Aged Out No longer eligible based on patient's age to complete this topic Meningococcal Immunization (ACWY) Aged Out No longer eligible based on patient's age to complete this topic Rotavirus Immunization Aged Out No lo nger eligible based on patient's age to complete this topic
--- NOTE | 2024-09-14 20:58 | ECG_ITS ---
Test Date: 2024-09-14 21:09:45 Measurements Intervals [place] Rate: 72 P: 8 MS: 187 QRS: 1 QRSD: 88 T: -8 QT: 371 QTc: 406 Interpretive Statements SINUS RHYTHM INFERIOR MYOCARDIAL INFARCTION , OF INDETERMINATE AGE [40+ ms Q WAVE AND/OR ST/T ABNORMALITY IN II/aVF] No previous ECG available for comparison Electronically Signed On 09-16-2024 18:23:31 CDT by Sam You M.D.
--- NOTE | 2024-09-14 21:07 | ED.HEATRA ---
HPI - Head Injury General Chief complaint: Head Injury Stated complaint: Fall-head injury Time Seen by Provider: 09/14/24 20:56 Source: patient Mode of arrival: ambulatory Limitations: no limitations History of Present Illness HPI Narrative: 73-year-old otherwise healthy male presenting after fall with head injury. He was working out in the hot sun, poured some ice cold water over his face, said he immediately saw ?white?, got dizzy and fell over. Struck his head on the ground. Has a hematoma over his forehead. His friends helped him up right away and since then he has had no complaints. Says his forehead where the hematoma is hurts as a 1/10 but otherwise he feels well. No blood thinners Related Data Allergies Allergy/AdvReac Type Severity Reaction Status Date / Time No Known Allergies Allergy Verified 09/14/24 20:47 Review of Systems Review of Systems: All systems reviewed & are unremarkable except as noted in HPI and below (HPI) PMFSH Past Medical History Medical History BPH (benign prostatic hyperplasia) Hyperlipidemia Hypertension Diabetes Surgical History Surgical History History of orthopedic surgery Lower extremity repair Social History Social History Smoking status: Never smoker Exam Narrative: Constitutional: Generally well appearing, no acute distress Head: 4 x 4 hematoma over right forehead with small abrasion over the nasal bridge. Eyes: Pupils equal, round, and reactive to light. Neck: Supple, no tracheal deviation, no JVD. ENMT: Mucous membranes moist. No nasal septal hematoma Cardiovascular: S1, S2 auscultated. No murmurs, rubs, or gallops. No S3/S4. Normal Distal pulses. No peripheral edema. Respiratory: Lung sounds equal. No wheezes, rales, or rhonchi. Gastrointestinal: Abdomen was soft and non-tender. Non-distended. No rebound or guarding. Genitourinary: Deferred Musculoskeletal: Normal muscle tone and bulk. No obvious deformities or tenderness over extremities. Skin: No rashes. Neurological: Strength 5/5 in extremities. Cranial nerves I-XII grossly intact. Distal sensation intact. Mental Status: Awake, alert and oriented x3. Follows commands Course Vital Signs Vital signs: Vital Signs Temperature 36.9 C 09/14/24 20:44 Pulse Rate 92 09/14/24 20:44 Respiratory Rate 20 09/14/24 20:44 Blood Pressure 119/92 H 09/14/24 20:44 Pulse Oximetry 97 09/14/24 20:44 Temperature 36.9 C 09/14/24 20:44 Pulse Rate 86 09/14/24 21:04 Respiratory Rate 16 09/14/24 21:04 Blood Pressure 107/72 09/14/24 21:04 Pulse Oximetry 91 09/14/24 21:04 MDM - Head Injury MDM Narrative Medical decision making narrative: Patient presenting after playing ice cold water on his head, having a syncopal episode and striking his head on the ground. Based on his history, it sounds likely vasovagal however can not fully rule out cardiac cause. Not on blood thinners. He does have moderate size hematoma over the forehead. Otherwise no other injuries notable. Obtaining CT head, cardiac workup to further evaluate. EKG obtained at 8:19 p.m. shows sinus rhythm. Normal intervals. Computer's reading is inferior myocardial infarction of indeterminate age, see any obvious ST changes consistent with acute ischemia. Impression: No STEMI Patient feeling well. CT head, chest x-ray, labs are unremarkable. Still awaiting troponin however pending a normal troponin, will be discharged home at this point. Patient comfortable with all this. Pt feeling improved and would like to go home at this point. Return precautions were given to the patient include any new or worsening symptoms or development of and not limited to any chest pain, shortness of breath, lightheadedness, abdominal pain, fevers, chills. Patient understands and agrees. They are to follow-up with her PCP. All questions were answered. I reviewed and interpreted the patient's vital signs, pulse oximetry, residential monitor, history, allergies, and labs and imaging workup. Lab Data 09/14/24 21:06 09/14/24 21:06 Labs: Lab Results 09/14/24 Range/Units 21:06 WBC 7.9 (4.5-10.0) K/mm3 RBC 5.15 (4.6-6.20) M/mm3 Hgb 15.3 (14.0-18.0) g/dL Hct 47.0 (42.0-52.0) % MCV 91.3 (80-100) fl MCH 29.7 (26-34) pg MCHC 32.6 (32-36) g/dl RDW 14.2 (11.5-14.5) % Plt Count 211 (150-375) k/mm3 MPV 9.2 (7.4-10.4) fl Immature Gran % (Auto) 0.3 (0-0.5) % Neut % (Auto) 81.6 H (45.5-73.1) % Lymph % (Auto) 11.1 L (18.3-44.2) % Knox % (Auto) 6.3 (2.6-8.5) % Eos % (Auto) 0.1 (0-4.4) % Baso % (Auto) 0.6 (0.2-1.2) % Lymph # (Auto) 0.88 L (0.9-3.2) K/mm3 [place] # (Auto) 0.5 (0.1-0.6) K/mm3 Eos # (Auto) 0.0 (0-0.3) K/mm3 Baso # (Auto) 0.1 (0.0-0.1) K/mm3 Abs Immat Gran (auto) 0.02 (0.00-0.031) K/mm3 Absolute Neuts (auto) 6.5 (1.3-6.7) K/mm3 Absolute Nucleated RBC 0.000 (0.0-0.012) K/mm3 Nucleated RBC % 0.0 (0.0-0.2) % Sodium 137 (137-145) mmol/L Potassium 4.5 (3.4-5.0) mmol/L Chloride 102 (98-107) mmol/L Carbon Dioxide 25 (22-30) mmol/L Anion Gap 10 (4-12) mmol/L BUN 24 H (9-20) mg/dL Creatinine 1.11 (0.7-1.3) mg/dL Estim Creat Clear Calc 60 ml/min Estimated GFR > 60 (59 - ) Glucose 151 H (65-110) mg/dL Calcium 9.6 (8.4-10.2) mg/dL Total Bilirubin 0.3 (0.2-1.3) mg/dL AST 30 (17-59) U/L ALT 23 (6-50) U/L Alkaline Phosphatase 63 (38-126) U/L Troponin I Pending Total Protein 7.4 (6.3-8.2) g/dL Albumin 4.5 (3.5-5.1) g/dL Discharge Plan Discharge Clinical Impression: Syncope, vasovagal Closed head injury Qualifiers: Encounter type: initial encounter Qualified Code(s): S09.90XA - Unspecified injury of head, initial encounter Patient Disposition: Home Condition: Stable Instructions: Antibiotic Form, Syncope (ED), Concussion (ED) Patient Language: Romanian Prescriptions: No Action Zyrtec 10 mg capsule 10 mg PO DAILY Qty: 7 0RF albuterol sulfate 90 mcg/actuation HFA aerosol inhaler 4 puff inhalation QID PRN (Reason: shortness of breath or wheezing) Qty: 8.5 0RF fluticasone propionate [Flonase Allergy Relief] 50 mcg/actuation spray,suspension 1 spray intranasal BID Qty: 16 0RF Rx Instructions: administer into each nostril Follow-up/Referrals: Shari,MD Ronald [Primary Care Provider] - Time of Disposition: 22:14
[2024-09-14 21:11] LABS: Hematocrit 47.0 % (42.0-52.0); Hemoglobin 15.3 g/dL (14.0-18.0); Immature Granulocyte Percent A 0.3 % (0-0.5); Lymphocytes Absolute Auto 0.88 K/mm3 (0.9-3.2); Mean Corpuscular HGB Conc 32.6 g/dl (32-36); Mean Corpuscular Hemoglobin 29.7 pg (26-34); Mean Corpuscular Volume 91.3 fl (80-100); Nucleated Red Blood Cells Absolute Auto 0.000 K/mm3 (0.0-0.012); Nucleated Red Blood Cells Perc 0.0 % (0.0-0.2); Platelet Count Result 211 k/mm3 (150-375); Red Blood Count 5.15 M/mm3 (4.6-6.20); White Blood Count 7.9 K/mm3 (4.5-10.0)
--- OUTSIDE RECORDS SUMMARY | 2024-09-14 21:14 | XMS_ITS | Clinical Summary ---
Author Organization [facility] Address [address] [place] [address] Phone Care Team Providers Care Freelance Director Name Role Phone Unavailable Primary Care Provider [...]
--- OUTSIDE RECORDS SUMMARY | 2024-09-14 21:14 | XMS_ITS | Clinical Summary ---
Author Organization [facility] Address [address] [place] [id number] Care Team Providers Care Telegraph Lineman Name Role Phone Ronald Mccarthy MD Primary Care Provider [phone] Social History Tobacco Use Types Packs/Day Years [...] age to complete this topic Care Teams Telegraph Lineman Relationship Specialty Start Date End Date Ronald Mccarthy MD PCP - General 04/01/11
[2024-09-14 21:39] LABS: Alanine Aminotransferase 23 U/L (6-50); Albumin Level 4.5 g/dL (3.5-5.1); Alkaline Phosphatase 63 U/L (38-126); Anion Gap 10 mmol/L (4-12); Aspartate Amino Transferase 30 U/L (17-59); Bilirubin,Total 0.3 mg/dL (0.2-1.3); Blood Urea Nitrogen 24 mg/dL (9-20); Calcium 9.6 mg/dL (8.4-10.2); Carbon Dioxide 25 mmol/L (22-30); Chloride 102 mmol/L (98-107); Estimated CRCL calculation 60 ml/min; Estimated Glomerular Filt Rate > 60; Glucose 151 mg/dL (65-110); Potassium 4.5 mmol/L (3.4-5.0); Sodium 137 mmol/L (137-145); Total Protein 7.4 g/dL (6.3-8.2)
[2024-09-14 22:26] LABS: Troponin I < 0.012 ng/mL (0.000-0.034)
[2024-09-15 00:03] VITALS: BP 110/75; PULSE 78; RESP 22; O2SAT 94
== END 2024-09-15 00:24 | disposition home or self-care (01) ==
PROVIDERS: Emergency Provider Emergency Medicine; PCP Internal Medicine
DX: S00.83XA Contusion of other part of head, initial encounter (principal); R55 Syncope and collapse; I10 Essential (primary) hypertension; E78.5 Hyperlipidemia, unspecified; E11.9 Type 2 diabetes mellitus without complications; N40.0 Benign prostatic hyperplasia without lower urinary tract symptoms; R94.31 Abnormal electrocardiogram [ECG] [EKG]; W18.39XA Other fall on same level, initial encounter
CPT/HCPCS: 36415; 70450; 71046; 80053; 84484; 85025; 93005; 99284

== ENCOUNTER 2024-12-03 05:42 | Emergency (ER) | payer MEDICARE, SELFPAY ==
[2024-12-03] VITALS (11 sets, daily range): BP systolic 137–173; BP diastolic 82–100; PULSE 77–90; RESP 17–26; TEMP 37.6; O2SAT 91–96
--- NOTE | 2024-12-03 | ECG_ITS ---
Test Date: 2024-12-03 07:25:24 Measurements Intervals [place] Rate: 81 P: 15 OR: 178 QRS: -2 QRSD: 97 T: -6 QT: 355 QTc: 413 Interpretive Statements SINUS RHYTHM WITH OCCASIONAL VENTRICULAR PREMATURE COMPLEXES INFERIOR INFARCT, AGE INDETERMINATE ABNORMAL ECG Compared to ECG 12/03/2024 07:06:38 NO SIGNIFICANT CHANGE Electronically Signed On 12-03-2024 16:53:59 CDT by Neel Fowler D.O.
--- NOTE | ~2024-12-03 | XR_ITS ---
Examination: XR wrist RT min 3V, XR elbow RT min 3V, XR wrist LT min 3V Clinical History: injury Comparison: None Technique: 3 views right wrist, 3 views left wrist, 3 views right elbow Findings/impression: Right elbow: 1. No fracture or dislocation. Right wrist: 1. No fracture or dislocation. Left wrist: 1. No fracture or dislocation. 2. Lucent focus scaphoid with benign features. Reviewed, dictated and finalized at location R.
--- NOTE | ~2024-12-03 | CT_ITS ---
CT CHEST WITH CONTRAST CLINICAL HISTORY: blunt chest trauma . COMPARISON: Chest x-ray 09/14/2024 TECHNIQUE: Helical CT performed from thoracic inlet to upper abdomen Coronal, sagittal reformats IV contrast information not listed in PACS CT images acquired with automatic exposure control for dose reduction DLP: 371 mGy-cm FINDINGS: Lungs/Pleura: Elevated right hemidiaphragm, associated basilar atelectasis. Thoracic Aorta: No dissection. No aneurysm. Pulmonary arteries: Normal caliber. Heart: Small pericardial fluid. Enlarged Tracheobronchial tree: Patent. Nodes: No enlarged nodes. Bones: No acute bony abnormality. Chronic compression deformity T12. Soft tissues: Prominent nodule right thyroid lobe or posterior to right thyroid lobe. Visualized upper abdomen: Colonic diverticula. Hepatic steatosis. IMPRESSION: 1. Small pericardial fluid. 2. Otherwise no acute cardiopulmonary abnormality. 3. Prominent nodule along right lobe of thyroid. Recommend thyroid ultrasound. Reviewed, dictated and finalized at location R.
--- OUTSIDE RECORDS SUMMARY | 2024-12-03 05:45 | XMS_ITS | Clinical Summary ---
Author Organization [facility] Address [address] [place] [id number] Care Team Providers Care Rn Appeals Name Role Phone Ronald Mccarthy MD Primary Care Provider [phone] Social History Tobacco Use Types Packs/Day Years [...] Vaccines (1 of 2) 2002 COVID-19 Vaccine (1 - 2023-2 5 season) 2024 Influenza Adult (#1) 2024 RSV Immunization or 60+ Years (1 - [...] age to complete this topic Care Teams Rn Appeals Relationship Specialty Start Date End Date Ronald Mccarthy MD PCP - General 04/01/11
--- OUTSIDE RECORDS SUMMARY | 2024-12-03 05:45 | XMS_ITS | Clinical Summary ---
Author Organization [facility] Address [address] [place] [address] Phone Care Team Providers Care Dewaxer Name Role Phone Ronald Mccarthy MD Primary Care Provider [phone] Allergies No known active allergies Medications candesartan-hyd roCHLOROthiazid e (ATACAND HCT) 16-12.5 mg Tablet Take 1 Tablet by mouth daily. 10/02/2024 Active citalopram (CeleXA) 20 mg tablet Take 20 mg by mouth daily at bedtime. 08/18/2024 Active Xigduo XR 10-1,000 mg tablet, IR & ER, biphasic 24hr Take 1 Tablet by mouth daily in the morning. 10/16/2024 Active HYDROcodone-lorin taminophen (NORCO) 5-325 mg tablet Take 1 Tablet by mouth 3 times daily. 09/27/2024 Active metFORMIN (GLUCOPHAGE XR) 500 mg Extended Release 24 hour tablet Take 500 mg by mouth daily with breakfast. 10/13/2024 Active rosuvastatin (CRESTOR) 20 mg tablet Take 20 mg by mouth daily at bedtime. 09/07/2024 Active tamsulosin (FLOMAX) 0.4 mg capsule Take 1 Capsule by mouth daily. 09/01/2024 Active verapamiL (VERELAN) 240 mg Sustained Release 24 hour capsule Take 1 Capsule by mouth daily. 09/10/2024 Active amLODIPine (NORVASC) 5 mg tablet Take 1 Tablet by mouth daily. 08/18/2024 Active aspirin (LAURENCE CHEWABLE) 81 mg Tablet, Chewable Take 1 Tablet (81 mg) by mouth daily with breakfast. 10/22/2024 Active Active Problems Problem Noted Date Diagnosed Date Syncope 10/21/2024 HLD (hyperlipidemia) 10/21/2024 HTN (hypertension), benign 10/21/2024 BPH (benign prostatic hyperplasia) 10/21/2024 Infarction of right basal ganglia 10/21/2024 Type 2 diabetes mellitus, wi thout long-term current use of insulin 10/21/2024 Chronic back pain 10/21/2024 MDD (major depressive disorder) 10/21/2024 Encounters Date Type Department Care Team Description 11/21/2024 External Device Data [facility] ABSTRACTION Provider, Abstract 11/21/2024 External Device Data [facility] ABSTRACTION Provider, Abstract 10/25/2024 External Device Data [facility] ABSTRACTION Provider, Abstract 10/24/2024 External Device Data [facility] ABSTRACTION Provider, Abstract 10/24/2024 External Device Data ST[facility] ABSTRACTION Provider, Abstract 10/20/2024 7:05 PM CDT - 10/22/2024 2:57 PM CDT Hospital Encounter [facility] [address] [place] [address] Harman Iqbal, MD Lizett Roldan Ahmer, DO Weitzel, MD Anna Richardson, Joshua Turner MD Syncope Discharge Disposition: Home or Self Care 10/20/2024 Travel from Last 3 Months Social History Tobacco Use Types Packs/Day Years Used Date Smoking Tobacco: Never Tobacco Cessation:Counseling Given: Not Answered Alcohol Use Standard Drinks/Week Comments Not Currently 0 (1 standard drink = 0.6 oz pur e alcohol) Feeling Safe Answer Date Recorded Are you in a relationship wi th someone who hurts you emotionally and/or physically? No 10/20/2024 Food Insecurity Answer Date Recorded Patient needs follow up regardin 10/21/2024 Transportation Needs Answer Date Record ed Patient needs follow up regardin 10/21/2024 Utility Needs Answer Date Recorded Patient needs follow up regardin 10/21/2024 Sex and Gender Information Value Date Recorded Sex Assigned at Not on file Legal Sex Male 7:05 PM CDT Gender Identity Not on file Sexual Orientation Not on file Last Filed Vital Signs Vital Sign Reading Time Taken Comments Blood Pressure 136/89 10/22/2024 1:54 PM CDT Pulse 77 10/22/2024 1:54 PM CDT Temperature 36.9 C (98.5 F) 10/22/2024 4:25 AM CDT Respiratory Rate 16 10/22/2024 1:54 PM CDT Oxygen Saturation 95% 10/22/2024 1:54 PM CDT Inhaled Oxygen Concentration - - Weight 84.3 kg (185 lb 14.4 oz) 10/21/2024 1:15 AM CDT Height 182.9 cm (6') 10/21/2024 1:15 AM CDT Body Mass Index 25.21 10/21/2024 1:15 AM CDT Plan of Treatment Health Maintenance Due Date Last Done Comments DIABETES ANNUAL FOOT EXAM 1970 DIABETES ANNUAL RETINAL EXAM 1970 DIABETES MICROALBUMIN ANNUAL SCREEN 1970 LDL CHOLESTEROL ANNUAL 1970 DTAP/TDAP/TD VACCINES (1 - Tdap) 09/16/1971 PNEUMOCOCCAL VACCINE 50+ YEARS (1 of 2 - PCV) 09/15/18 74 COLORECTAL SCREENING 1997 Colorectal Cancer Screening 1997 FIT-DNA Q 3 years 1997 FIT/FOBT Q 1 year 1997 Flex Sig/CT Colonography Q 5 years 1997 ZOSTER VACCINE (1 of 2) 2002 RSV VACCINE (60+ or ) (1 - Risk 60-74 years 1-dose series) 2012 INFLUENZA VACCINE (#1) 2024 DIABETES HBA1C Q 6 MONTHS 04/21/2025 10/20/2024 Procedures Procedure Name Priority Date/Time Associated Diagnosis Comments CARDIAC EVENT MONITOR Routine 11/20/2024 5:00 AM CDT TELEMETRY REPORT 10/23/2024 2:21 PM CDT ECHOCARDIOGRAM W/ CONTRAST AGENT Pending Discharge 10/22/2024 11:41 AM CDT POC GLUCOSE Routine 10/22/2024 11:30 AM CDT NM MYOCARD PERF IMAG SPECT MULT Routine 10/22/2024 10:30 AM CDT HM EJECTION FRACTION Routine 10/22/2024 10:30 AM CDT NM PHARMACOLOGICAL STRESS TEST Routine 10/22/2024 9:26 AM CDT POC GLUCOSE Routine 10/22/2024 4:27 AM CDT BASIC METABOLIC PANEL Routine 10/22/2024 2:01 AM CDT CBC WITH DIFFERENTIAL Routine 10/22/2024 2:01 AM CDT POC GLUCOSE Routine 10/21/2024 10:10 PM CDT POC GLUCOSE Routine 10/21/2024 5:04 PM CDT POC GLUCOSE Routine 10/21/2024 12:35 PM CDT POC GLUCOSE Routine 10/21/2024 9:00 AM CDT BASIC METABOLIC PANEL Stat 10/21/2024 1:50 AM CDT CBC WITH DIFFERENTIAL Stat 10/21/2024 1:50 AM CDT TROPONIN 6 HR, 5TH GEN Timed Study 1:50 AM CDT POC GLUCOSE Routine 10/21/2024 1:24 AM CDT CTA HEAD AND NECK W AND/OR WO CONTRAST Stat 10/20/2024 10:18 PM CDT XR CHEST PA OR AP 1 VW Stat 9:37 PM CDT C-REACTIVE PROTEIN Stat 10/20/2024 9: 18 PM CDT MAGNESIUM LEVEL Stat 10/20/2024 9:18 PM CDT BRAIN NATRIURETIC PEPTIDE, BNP OR PROBNP Stat 10/20/2024 9:18 PM CDT TROPONIN 2 HR, 5TH GEN Timed Study 9:18 PM CDT EKG 12-LEAD Stat 10/20/2024 8:16 PM CDT POC CREATININE Stat 10/20/2024 7:53 PM CDT HEMOGLOBIN A1C Stat 10/20/2024 7:41 PM CDT TSH Stat 10/20/2024 7:41 PM CDT MAGNESIUM LEVEL Stat 10/20/2024 7:41 PM CDT TROPONIN BASELINE, 5TH GEN Stat 10/20/2024 7:41 PM CDT COMPREHENSIVE METABOLIC PANEL Stat 10/20/2024 7:41 PM CDT CBC WITH DIFFERENTIAL Stat 10/20/2024 7:41 PM CDT from Last 3 Months Results * CARDIAC EVENT MONITOR (11/20/2024 5:00 AM CDT) 11/20/2024 5:00 AM CDT Narrative INTERFACE SYSTEM - 11/23/2024 4:31 PM CDT [address] [address] Test Date: 2024-11-20 Pat Name: JORGE EDOUARD Department: Room: [facility] 1 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: M 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 [employer] Database: : 1950 Requested By: SIMONA Garcia Order Number: [id number] Reading MD: Demar Villagomez Interpretive Statements Patient was monitored for 4 weeks The only patient triggered event was baseline transmission showing sinus rhythm without ectopy There were no atrial fibrillation events, pauses, or advanced AV block Electronically Signed On 11-23-2024 16:31:21 CDT by Demar Villagomez Procedure Note Demar Villagomez MD - 11/23/[address] [address] Test Date: 2024-11-20 Pat Name: JORGE EDOUARD Department: Room: 5078 1 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: M 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[employer] Database: : 1950 Requested By: SIMONA Garcia Order Number: [id number] Eli MD: Demar Villagomez Interpretive Statements Patient was monitored for 4 weeks The only patient triggered event was baseline transmission showing sinus rhythm without ectopy There were no atrial fibrillation events, pauses, or advanced AV block Electronically Signed On 11-23-2024 16:31:21 CDT by Demar Villagomez us Joshua Castillo MD CARDIAC SERVICES ORDERABLES Fin al Result INTERFACE SYSTEM Refer to clinic/hospital department * TELEMETRY REPORT (10/23/2024 2:21 PM CDT) us Provider Scanning ECG ORDERABLES Final Result * ECHOCARDIOGRAM W/ CONTRAST AGENT (10/22/2024 11:41 AM CDT) EJECTION FRACTION 66 INTERFACE SYSTEM 10/22/2024 10:5 7 AM CDT Narrative INTERFACE SYSTEM - 10/22/2024 1:28 PM CDT [address] [address] [email or web address] Transthoracic Echocardiogram Patient: Jorge Edouard Study ID: ECHO COMPLETE - Gender: M : 1950 Age: 74 Race: CAU Height 182.9cm Study Date: 10/22/2024 Weight: 84.3kg Access. #: [id number] BP: *Referring Physician:* Joshua Castillo *Ordering Physician:* Joshua Castillo pastry finisher: Nurse: Indications: Syncope. STUDY CONCLUSIONS: SUMMARY: - Left ventricle: The cavity size was normal. Wall thickness was normal. Global systolic function is vigorous. The estimated ejection fraction is 65-70%. For Epic reporting: the left ventricular ejection fraction is 66% . Left ventricular diastolic function parameters are normal. - Right ventricle: The cavity size is normal. Systolic function is normal. - Left atrium: The atrium is normal in size. - Pulmonary arteries: Systolic pressure could not be accurately estimated. - Pericardium: There is no pericardial effusion. - No significant valvular abnormalities. Cardiac Anatomy: LEFT VENTRICLE: The cavity size was normal. Wall thickness was normal. Global systolic function is vigorous. The estimated ejection fraction is 65-70%. For Epic reporting: the left ventricular ejection fraction is 66% . Wall motion is normal; there are no regional wall motion abnormalities. Left ventricular diastolic function parameters are normal. AORTIC VALVE: Structurally normal valve. Trileaflet. No significant regurgitation. The mean systolic gradient is 2mm Hg. The peak systolic gradient is 5mm Hg. The LVOT to aortic valve VTI ratio is 0.82. The valve area is 3.1cm^2. The ratio of LVOT to aortic valve peak velocity is 0.69. AORTA: Aortic root: The root is normal-sized. MITRAL VALVE: Structurally normal valve. No significant regurgitation. The mean diastolic gradient is 1mm Hg. The peak diastolic gradient is 2mm Hg. LEFT ATRIUM: The atrium is normal in size. RIGHT VENTRICLE: The cavity size is normal. Systolic function is normal. PULMONIC VALVE: Structurally normal valve. No significant regurgitation. TRICUSPID VALVE: Structurally normal valve. No significant regurgitation. PULMONARY ARTERY: Systolic pressure could not be accurately estimated. RIGHT ATRIUM: The atrium was normal in size. SYSTEMIC VEINS: Inferior vena cava: The IVC is normal-sized. PERICARDIUM: There is no pericardial effusion. Measurements Left ventricle Value Ref IVS, ED, LAX (H) 1.2 cm 0.6 - 1.0 BRODY, LAX (L) 2.9 cm 4.2 - 5.8 BRODY/bsa, LAX (L) 1.4 cm/m^2 2.2 - 3.0 BRODY, LAX chord (N) 4.7 cm 4.2 - 5.8 ESD, LAX chord (N) 2.9 cm 2.5 - 4.0 BRODY/bsa, LAX chord (N) 2.3 cm/m^2 2.2 - 3.0 ESD/bsa, LAX chord (N) 1.4 cm/m^2 1.3 - 2.1 FS, LAX chord (N) 38 % 25 - 43 IVS, ED (H) 1.2 cm 0.6 - 1.0 PW, ED (H) 1.1 cm 0.6 - 1.0 EDV, 2-p (N) 128 ml 62 - 150 ESV, 2-p (N) 42 ml 21 - 61 EF, 2-p (N) 67 % 52 - 72 SV, 2-p 86 ml --------- SV/bsa, 2-p 41.4 ml/m^2 --------- E', lat patel, TDI (N) 10.6 cm/sec >=10.0 E/e', lat patel, TDI (N) 7 <=13 E', med patel, TDI (L) 6.0 cm/sec >=7.0 E/e', med patel, TDI 12 --------- E', avg, TDI 8.3 cm/sec --------- E/e', avg, TDI (N) 9 <=14 LVOT Value Ref Diam, S 2.2 cm --------- Area 3.8 cm^2 --------- Peak autumn, S 0.8 m/sec --------- VTI, S 18.9 cm --------- Right ventricle Value Ref BRODY minor ax, A4C base (H) 4.9 cm 2.5 - 4.1 BRODY minor ax, A4C mid (H) 4.1 cm 1.9 - 3.5 TAPSE, MM (N) 2.7 cm >=1.7 S' lateral (N) 17.3 cm/sec >=9.5 Left atrium Value Ref SI dim, A4C 6.1 cm --------- Area ES, A4C (H) 24 cm^2 <=20 Area/bsa ES, A4C 11.5 cm^2/m^2 --------- SI dim, A2C 5.4 cm --------- SI dim, shorter 5.4 cm --------- Vol, ES, 1-p A2C (N) 54 ml 18 - 58 Vol/bsa, ES, 1-p A2C (N) 26 ml/m^2 11 - 43 Vol, ES, 2-p 66 ml --------- Vol/bsa, ES, 2-p (N) 32 ml/m^2 16 - 34 Right atrium Value Ref SI dim, ES, A4C (H) 5.5 cm 3.4 - 5.3 SI dim/bsa, ES, A4C (N) 2.6 cm/m^2 1.8 - 3.0 Area, ES, A4C (H) 20 cm^2 10 - 18 Vol, ES, 1-p A4C 57 ml --------- Vol/bsa, ES, 1-p A4C (N) 28 ml/m^2 11 - 39 Aortic valve Value Ref Peak v, S 1.2 m/sec --------- Mean v, S 0.71 m/sec --------- VTI, S 23.1 cm --------- Mean grad, S 2 mm Hg --------- Peak grad, S 5 mm Hg --------- LVOT/AV, VTI ratio 0.82 --------- SAROJ, VTI 3.1 cm^2 --------- SAROJ/bsa, VTI 1.5 cm^2/m^2 --------- LVOT/AV, Vpeak ratio 0.69 --------- SAROJ, Vmax 2.6 cm^2 --------- SAROJ/bsa, Vmax 1.28 cm^2/m^2 --------- Mitral valve Value Ref Mean v, D 0.4 m/sec --------- Peak E 0.72 m/sec --------- Peak A 0.81 m/sec --------- Decel time 190 ms --------- Mean grad, D 1 mm Hg --------- Peak grad, D 2 mm Hg --------- Peak E/A ratio 0.9 --------- A-VTI 23.7 cm --------- Pulmonic valve Value Ref Peak v, S 0.93 m/sec --------- Peak grad, S 3 mm Hg --------- Aortic root Value Ref Root diam, 3.8 cm --------- Ascending aorta Value Ref AAo AP diam, S 3.6 cm --------- AAo AP diam/bsa, S 1.7 cm/m^2 --------- Legend: (L) and (H) demar values outside specified reference range. (N) johnson values inside specified reference range. Procedure data: Procedure information: A transthoracic echocardiogram was performed. Scanning was performed from the parasternal, apical, and subcostal acoustic windows. Intravenous contrast (Definity) was administered. Transthoracic echocardiogram. Complete 2D, complete spectral Doppler, and color Doppler. Birthdate: Patient birthdate: 1950. Age: Patient is 74year(s) old. Sex: gender: male. Height: 182.9cm. 72in. Weight: 84.3kg. 185.9lb. Body mass index: 25.2kg/m^2. Body surface area: 2.07m^2. Study date: Study date: 10/22/2024. Study time: 10:57 AM. Prepared and Electronically Authenticated Remington Bustillo [id number] Procedure Note Remington Bustillo MD - 10/22/[address] [address] [email or web address] Transthoracic Echocardiogram Patient: Jorge Edouard Study ID: ECHO COMPLETE - Gender: M : 1950 Age: 74 Race: CAU Height 182.9cm Study Date: 10/22/2024 Weight: 84.3kg Access. #: [id number] BP: *Referring Physician:Joshua Dhillon *Ordering Physician:Joshua Dhillon pastry finisher: Nurse: Indications: Syncope. STUDY CONCLUSIONS: SUMMARY: - Left ventricle: The cavity size was normal. Wall thickness was normal. Global systolic function is vigorous. The estimated ejection fractionis 65-70%. For Epic reporting: the left ventricular ejection fraction is66% . Left ventricular diastolic function parameters are normal. - Right ventricle: The cavity size is normal. Systolic function isnormal. - Left atrium: The atrium is normal in size. - Pulmonary arteries: Systolic pressure could not be accuratelyestimated. - Pericardium: There is no pericardial effusion. - No significant valvular abnormalities. Cardiac Anatomy: LEFT VENTRICLE: The cavity size was normal. Wall thickness was normal.Global systolic function is vigorous. The estimated ejection fraction is 65-70%.For Epic reporting: the left ventricular ejection fraction is 66% . Wallmotion is normal; there are no regional wall motion abnormalities. Leftventricular diastolic function parameters are normal. AORTIC VALVE: Structurally normal valve. Trileaflet. No significant regurgitation. The mean systolic gradient is 2mm Hg. The peak systolic gradient is 5mm Hg. The LVOT to aortic valve VTI ratio is 0.82. The valvearea is 3.1cm^2. The ratio of LVOT to aortic valve peak velocity is 0.69. AORTA: Aortic root: The root is normal-sized. MITRAL VALVE: Structurally normal valve. No significantregurgitation. The mean diastolic gradient is 1mm Hg. The peak diastolic gradient is 2mmHg. LEFT ATRIUM: The atrium is normal in size. RIGHT VENTRICLE: The cavity size is normal. Systolic function isnormal. PULMONIC VALVE: Structurally normal valve. No significantregurgitation. TRICUSPID VALVE: Structurally normal valve. No significantregurgitation. PULMONARY ARTERY: Systolic pressure could not be accurately estimated. RIGHT ATRIUM: The atrium was normal in size. SYSTEMIC VEINS: Inferior vena cava: The IVC is normal-sized. PERICARDIUM: There is no pericardial effusion. Measurements Left ventricle Value Ref IVS, ED, LAX (H) 1.2 cm 0.6 - 1.0 BRODY, LAX (L) 2.9 cm 4.2 - 5.8 BRODY/bsa, LAX (L) 1.4 cm/m^2 2.2 - 3.0 BRODY, LAX chord (N) 4.7 cm 4.2 - 5.8 ESD, LAX chord (N) 2.9 cm 2.5 - 4.0 BRODY/bsa, LAX chord (N) 2.3 cm/m^2 2.2 - 3.0 ESD/bsa, LAX chord (N) 1.4 cm/m^2 1.3 - 2.1 FS, LAX chord (N) 38 % 25 - 43 IVS, ED (H) 1.2 cm 0.6 - 1.0 PW, ED (H) 1.1 cm 0.6 - 1.0 EDV, 2-p (N) 128 ml 62 - 150 ESV, 2-p (N) 42 ml 21 - 61 EF, 2-p (N) 67 % 52 - 72 SV, 2-p 86 ml --------- SV/bsa, 2-p 41.4 ml/m^2 --------- E', lat patel, TDI (N) 10.6 cm/sec >=10.0 E/e', lat patel, TDI (N) 7 <=13 E', med patel, TDI (L) 6.0 cm/sec >=7.0 E/e', med patel, TDI 12 --------- E', avg, TDI 8.3 cm/sec --------- E/e', avg, TDI (N) 9 <=14 LVOT Value Ref Diam, S 2.2 cm --------- Area 3.8 cm^2 --------- Peak autumn, S 0.8 m/sec --------- VTI, S 18.9 cm --------- Right ventricle Value Ref BRODY minor ax, A4C base (H) 4.9 cm 2.5 - 4.1 BRODY minor ax, A4C mid (H) 4.1 cm 1.9 - 3.5 TAPSE, MM (N) 2.7 cm >=1.7 S' lateral (N) 17.3 cm/sec >=9.5 Left atrium Value Ref SI dim, A4C 6.1 cm --------- Area ES, A4C (H) 24 cm^2 <=20 Area/bsa ES, A4C 11.5 cm^2/m^2 --------- SI dim, A2C 5.4 cm --------- SI dim, shorter 5.4 cm --------- Vol, ES, 1-p A2C (N) 54 ml 18 - 58 Vol/bsa, ES, 1-p A2C (N) 26 ml/m^2 11 - 43 Vol, ES, 2-p 66 ml --------- Vol/bsa, ES, 2-p (N) 32 ml/m^2 16 - 34 Right atrium Value Ref SI dim, ES, A4C (H) 5.5 cm 3.4 - 5.3 SI dim/bsa, ES, A4C (N) 2.6 cm/m^2 1.8 - 3.0 Area, ES, A4C (H) 20 cm^2 10 - 18 Vol, ES, 1-p A4C 57 ml --------- Vol/bsa, ES, 1-p A4C (N) 28 ml/m^2 11 - 39 Aortic valve Value Ref Peak v, S 1.2 m/sec --------- Mean v, S 0.71 m/sec --------- VTI, S 23.1 cm --------- Mean grad, S 2 mm Hg --------- Peak grad, S 5 mm Hg --------- LVOT/AV, VTI ratio 0.82 --------- SAROJ, VTI 3.1 cm^2 --------- SAROJ/bsa, VTI 1.5 cm^2/m^2 --------- LVOT/AV, Vpeak ratio 0.69 --------- SAROJ, Vmax 2.6 cm^2 --------- SAROJ/bsa, Vmax 1.28 cm^2/m^2 --------- Mitral valve Value Ref Mean v, D 0.4 m/sec --------- Peak E 0.72 m/sec --------- Peak A 0.81 m/sec --------- Decel time 190 ms --------- Mean grad, D 1 mm Hg --------- Peak grad, D 2 mm Hg --------- Peak E/A ratio 0.9 --------- A-VTI 23.7 cm --------- Pulmonic valve Value Ref Peak v, S 0.93 m/sec --------- Peak grad, S 3 mm Hg --------- Aortic root Value Ref Root diam, 3.8 cm --------- Ascending aorta Value Ref AAo AP diam, S 3.6 cm --------- AAo AP diam/bsa, S 1.7 cm/m^2 --------- Legend: (L) and (H) demar values outside specified reference range. (N) johnson values inside specified reference range. Procedure data: Procedure information: A transthoracic echocardiogram was performed.Scanning was performed from the parasternal, apical, and subcostal acousticwindows. Intravenous contrast (Definity) was administered. Transthoracic echocardiogram. Complete 2D, complete spectral Doppler, and colorDoppler. Birthdate: Patient birthdate: 1950. Age: Patient is 74year(s)old. Sex: gender: male. Height: 182.9cm. 72in. Weight: 84.3kg.185.9lb. Body mass index: 25.2kg/m^2. Body surface area: 2.07m^2. Studydate: Study date: 10/22/2024. Study time: 10:57 AM. Prepared andElectronically Authenticated Remington Bustillo [id number] us Joshua Castillo MD US ORDERABLES Final Result INTERFACE SYSTEM Refer to clinic/hospital department * (ABNORMAL) POC GLUCOSE (10/22/2024 11:30 AM CDT) Only the most recent of7 resultswithin the time period is included. GLUCOSE POC 101(H) 74 - 99 mg/dL 10/22/2024 11:30 AM CDT [facility] Gen9 [facility] SPECIMEN SOURCE, GLUCOSE POC Whole Blood 10/22/2024 11:30 AM CDT [facility]OR[facility] - [facility] Blood, whole 10/22/2024 11:3 0 AM CDT 10/22/2024 11:38 AM CDT us Joshua Castillo MD POINT OF CARE TESTING Final Res ult [facility]OR[facility] CLIA# [id number] [address] [place] [address] * NM MYOCARD PERF IMAG SPECT MULT (10/22/2024 10:30 AM CDT) 10/22/2024 10:3 1 AM CDT Impressions INTERFACE SYSTEM - 10/22/2024 11:55 AM CDT IMPRESSION: 1) Stress EKG response was negative for ischemia. 2) The overall quality of the study is good. 3) The myocardial perfusion scan is normal. There is no evidence of ischemia or infarction. There is no transient ischemic dilation. 4) Left ventricular size is normal with normal left ventricular systolic function, and a calculated ejection fraction of 61%. 5) No previous study was available for comparison. Recommendations: Clinical correlation is recommended. Narrative INTERFACE SYSTEM - 10/22/2024 11:55 AM CDT Procedure Type: One Day Myoview Regadenoson Pharmacologic Stress Test Date of Procedure: 10/22/2024 10:30 AM Clinical Indication: This 74 years old Male with a clinical history of type 2 diabetes and dyslipidemia is undergoing an evaluation for coronary artery disease via a pharmacologic stress test due to recurrent syncope and abnormal EKG. Height: 6 feet 0 inches; Weight: 185 pounds Medications:See List Pharmacologic Stress Procedure: The patient performed a pharmacologic stress test using 0.4 mg regadenoson IVP over 10 seconds with low level exercise. The heart rate was 78 bpm at baseline and increased to 110 bpm. The blood pressure was 136/89 mmHg at baseline and 138/84 mmHg during infusion, demonstrating a normal response to regadenoson. The patient felt headache during the procedure. EKG: The baseline electrocardiogram showed sinus rhythm with age indeterminant inferior IA and nonspecific T wave abnormality. The stress electrocardiogram showed no ischemic changes. The electrocardiogram changes show a non-ischemic response to regadenoson. Nuclear Imaging Protocol: Myocardial perfusion imaging was performed at rest approximately 30 minutes following the intravenous injection of 6.186 mCi TC99m Myoview. Immediately after regadenoson infusion, the patient was injected intravenously with 20.837 mCi TC99m Myoview. Gated post - stress tomographic imaging was performed approximately 60 minutes later in same manner. SPECT reconstruction was performed in the short, vertical long and horizontal axis views in both resting and gated image sets. Post-stress prone images were also obtained in the short, vertical long, and horizontal axis views. Findings: The overall quality of the study is good. Rotating planar images reveal no motion artifact. The left ventricular size is normal. Post-stress prone SPECT myocardial perfusion images reveals normal perfusion in all regions. The rest images reveal no reversibility. Gated SPECT imaging demonstrates normal wall motion in all regions, and a calculated left ventricular ejection fraction estimated to be 61%. TID ratio 1.10. Procedure Note Remington Bustillo MD - 10/22/2024 Procedure Type: One Day Myoview Regadenoson Pharmacologic Stress Test Date of Procedure: 10/22/2024 10:30 AM Clinical Indication: This 74 years old Male with a clinical history of type 2 diabetes and dyslipidemia is undergoing an evaluation for coronary artery disease via a pharmacologic stress test due to recurrent syncope and abnormal EKG. Height: 6 feet 0 inches; Weight: 185 pounds Medications:See List Pharmacologic Stress Procedure: The patient performed a pharmacologic stress test using 0.4 mg regadenoson IVP over 10 seconds with low level exercise. The heart rate was 78 bpm at baseline and increased to 110 bpm. The blood pressure was 136/89 mmHg at baseline and 138/84 mmHg during infusion, demonstrating a normal response to regadenoson. The patient felt headache during the procedure. EKG: The baseline electrocardiogram showed sinus rhythm with age indeterminant inferior IA and nonspecific T wave abnormality. The stress electrocardiogram showed no ischemic changes. The electrocardiogram changes show a non-ischemic response to regadenoson. Nuclear Imaging Protocol: Myocardial perfusion imaging was performed at rest approximately 30 minutes following the intravenous injection of 6.186 mCi TC99m Myoview. Immediately after regadenoson infusion, the patient was injected intravenously with 20.837 mCi TC99m Myoview. Gated post - stress tomographic imaging was performed approximately 60 minutes later in same manner. SPECT reconstruction was performed in the short, vertical long and horizontal axis views in both resting and gated image sets. Post-stress prone images were also obtained in the short, vertical long, and horizontal axis views. Findings: The overall quality of the study is good. Rotating planar images reveal no motion artifact. The left ventricular size is normal. Post-stress prone SPECT myocardial perfusion images reveals normal perfusion in all regions. The rest images reveal no reversibility. Gated SPECT imaging demonstrates normal wall motion in all regions, and a calculated left ventricular ejection fraction estimated to be 61%. TID ratio 1.10. IMPRESSION: 1) Stress EKG response was negative for ischemia. 2) The overall quality of the study is good. 3) The myocardial perfusion scan is normal. There is no evidence of ischemia or infarction. There is no transient ischemic dilation. 4) Left ventricular size is normal with normal left ventricular systolic function, and a calculated ejection fraction of 61%. 5) No previous study was available for comparison. Recommendations: Clinical correlation is recommended. Remington SHAH ORDERABLES Final Result INTERFACE SYSTEM Refer to clinic/hospital department * HM EJECTION FRACTION (10/22/2024 10:30 AM CDT) Pathologist [facility] EJECTION FRACTION 61 50 - 65 % [facility] Provider HEALTH MAINTENANCE Final Res ult * NM PHARMACOLOGICAL STRESS TEST (10/22/2024 9:26 AM CDT) Narrative 10/22/2024 9:26 AM CDT Order information only. Exam was auto-finalized. Remington SHAH ORDERABLES Final Result * CBC WITH DIFFERENTIAL (10/22/2024 2:01 AM CDT) Only the most recent of3 resultswithin the time period is included. Pathologist [facility] WBC 6.2 4.0 - 9.8 K/uL 10/22/2024 2:57 AM CDT [facility]ORY SERVICES [facility] RBC 4.56 4.50 - 5.40 M/uL 10/22/2024 2:57 AM CDT [facility] HEMOGLOBIN 13.6 13.6 - 16.5 g/dL 10/22/2024 2:57 AM CDT [facility] HEMATOCRIT 41.9 40.0 - 48.0 % 10/22/2024 2:57 AM CDT [facility] MCV 91.9 82.0 - 99.0 fL 10/22/2024 2:57 AM CDT [facility] MCH 29.8 27.2 - 32.6 pg 10/22/2024 2:57 AM CDT [facility] [place] MCHC 32.5 31.5 - 35.5 g/dL 10/22/2024 2:57 AM CDT [facility] - [facility] [place] RDW 14.0 11.5 - 14.5 % 10/22/2024 2:57 AM CDT [facility] - [facility] RDW-STDEV 47.4 37.1 - 48.7 fL 10/22/2024 2:57 AM CDT [facility] - [facility] [place] PLATELETS 180 140 - 350 K/uL 10/22/2024 2:57 AM CDT [facility] MPV 9.7 9.3 - 12.4 fL 10/22/2024 2:57 AM CDT [facility] [place] NEUTROPHILS 60 % 10/22/2024 2:57 AM CDT [facility] - [facility] [place] LYMPHOCYTES 28 % 10/22/2024 2:57 AM CDT [facility] MONOCYTES 9 % 10/22/2024 2:57 AM CDT [facility] EOSINOPHILS 2 % 10/22/2024 2:57 AM CDT [facility] BASOPHILS 1 % 10/22/2024 2:57 AM CDT [facility] IMMATURE GRANULOCYTES 0 % 10/22/2024 2:57 AM CDT [facility] NEUTROPHIL ABSOLUTE 3.72 1.90 - 7.00 K/uL 10/22/2024 2:57 AM CDT [facility] - [facility] [place] LYMPHOCYTE ABSOLUTE 1.75 0.70 - 4.50 K/uL 10/22/2024 2:57 AM CDT [facility] MONOCYTE ABSOLUTE 0.55 0.10 - 1.30 K/uL 10/22/2024 2:57 AM CDT [facility] EOSINOPHIL ABSOLUTE 0.12 0.00 - 0.70 K/uL 10/22/2024 2:57 AM CDT [facility] BASOPHILS ABSOLUTE 0.04 0.00 - 0.20 K/uL 10/22/2024 2:57 AM CDT [facility] IMMATURE GRANULOCYTES ABSOLUTE 0.02 0.00 - 0.03 K/uL 10/22/2024 2:57 AM CDT [facility] Blood Venipuncture / Unknown 10/22/2024 2:01 AM CDT 10/22/2024 2:38 AM CDT us Juan Solis MD HEMATOLOGY ORDERABLES Final Resu lt [facility] - [facility]# [id number] [address] [facility] [place] [address] * (ABNORMAL) BASIC METABOLIC PANEL (10/22/2024 2:01 AM CDT) Only the most recent of2 resultswithin the time period is included. SODIUM 140 136 - 145 mmol/L 10/22/2024 3:14 AM CDT [facility] POTASSIUM 4.1 3.5 - 5.0 mmol/L 10/22/2024 3:14 AM CDT [facility] CHLORIDE 105 98 - 107 mmol/L 10/22/2024 3:14 AM CDT [facility] CO2 26 22 - 29 mmol/L 10/22/2024 3:14 AM CDT [facility] CALCIUM 8.7 8.6 - 10.2 mg/dL 10/22/2024 3:14 AM CDT [facility] BUN 14 8 - 23 mg/dL 10/22/2024 3:14 AM CDT [facility] CREATININE 0.91 0.67 - 1.17 mg/dL 10/22/2024 3:14 AM CDT [facility] Comment:The GFR result is no t clinically significant on patients <18 or >70 years of age. GLUCOSE 111(H) 74 - 99 mg/dL 10/22/2024 3:14 AM T [facility] GFR >60 mL/min/1.7 3 sq meter 10/22/2024 3:14 AM T [facility] Comment:eGFR calculated with 2020 CKD-EPI equation. Vegetarian diet, extremely high or low muscle mass, and may affect results. Cystatin C with Glomerular Filtration Rate is a suitable alternative for these patients. ANION GAP 9 8 - 16 mmol/L 10/22/2024 3:14 AM T [facility] Blood Venipuncture / Unknown 10/22/2024 2:01 AM CDT 10/22/2024 2:38 AM CDT Juan Solis MD CHEMISTRY ORDERABLES Final Resul t [facility] Gen9 [facility]# [id number] [address] [facility] [address] * TROPONIN 6 HR, 5TH GEN (10/21/2024 1:50 AM CDT) TROPONIN T, 6 HR 5TH GEN 9 <=15 ng/L 10/21/2024 3:00 AM CDT [facility] Gen[facility] DELTA 6HR TROPONIN T 3 See Interp. 10/21/2024 3:00 AM CDT [facility] Blood Venipuncture / Unknown 10/21/2024 1:50 AM CDT 10/21/2024 2:20 AM CDT Narrative [facility] LAB[facility] - 10/21/2024 3:00 AM CDT Troponin Detectable but normal range. Delta indeterminate. Simona Hammer Jr., MD CHEMISTRY ORDERABLES Final Result [facility] LABORATORY SERVICES [facility]# [id number] [place] [address] * CTA HEAD AND NECK W AND/OR WO CONTRAST (10/20/2024 10:18 PM CDT) Anatomical Region Laterality Modality Head Computed Tomogra phy 10/20/2024 10:0 8 PM CDT Impressions 10/20/2024 10:33 PM CDT IMPRESSION: Head: 1. No acute intracranial hemorrhage. 2. Mild volume loss and mild to moderate chronic small vessel disease. Right basal ganglia lacunar infarct. CTA of the head: 1. No acute major branch vessel occlusion. No aneurysm about the [place]. CTA of the neck: 1. No hemodynamically significant ICA stenosis. Tortuosity of the carotid vessels. 2. Vertebral arteries are codominant. 3. Please see additional incidental findings noted above. DICTATION LOCATION: Location 1 - [facility] The examination was performed with the adjustment of mA according to the patient size and/or the use of Iterative Reconstruction Technique. Narrative 10/20/2024 10:33 PM CDT EXAM: CTA HEAD AND NECK W AND/OR WO CONTRAST DATE: 10/20/2024 10:18 PM CLINICAL INDICATION: Syncope. Head injury. TECHNIQUE: Multiple contiguous axial CT images were obtained from the base of the skull to the vertex before the administration of intravenous contrast material. Multiple contiguous axial images were obtained from the upper thoracic spine to the vertex during the administration of intravenous contrast material. Imaging post-processing equivalent to maximum intensity projection images of the intracranial and extracranial carotid and vertebrobasilar system were obtained. 3-D reconstructions were created by the technologist. IV CONTRAST: 100 mL Isovue 300 COMPARISON: None FINDINGS: CT head: There is prominence of the ventricles and subarachnoid spaces consistent with mild volume loss. Low-attenuation areas are identified throughout the hemispheric white matter consistent with mild to moderate nonspecific white matter disease. No acute intracranial hemorrhage or extra-axial fluid collection is identified. Right basal ganglia lacunar infarct. There is no midline shift or mass effect. The basal cisterns are patent. No displaced calvarial fracture is identified. The visualized portions of the globes and orbits appear normal. Mild diffuse sinus mucosal disease. The visualized mastoid air cells are clear. CTA of Head: The distal internal carotid arteries are normal in appearance. The right A1 segment is diffusely small in caliber. This is likely on a congenital basis. The anterior and middle cerebral arteries are otherwise patent. The region of the anterior communicating artery is unremarkable. The vertebral arteries are codominant. Tortuosity of the vertebrobasilar junction. The basilar artery is patent. The posterior cerebral arteries are patent. The major dural venous sinuses are patent. CTA of the neck: The origins of the arch vessels are widely patent. Tortuosity of the arch vessels with a shared origin of the left common carotid and brachiocephalic arteries. The bilateral common carotid arteries are normal in caliber. Tortuosity of the ICA vessels. The internal carotid arteries are patent without high-grade stenosis according to NASCET criteria. The vertebral arteries are codominant. No high-grade stenosis in the vertebral arteries throughout their cervical course. INCIDENTAL FINDINGS: Mild diffuse sinus mucosal disease. Heterogeneous and nodular thyroid. Heterogeneously enhancing right thyroid nodule measuring up to 2.7 cm. Follow-up thyroid ultrasound recommended if not recently performed. Dependent atelectasis in the lung apices. Procedure Note Sundar Liu MD - 10/20/2024 EXAM: CTA HEAD AND NECK W AND/OR WO CONTRAST DATE: 10/20/2024 10:18 PM CLINICAL INDICATION: Syncope. Head injury. TECHNIQUE: Multiple contiguous axial CT images were obtained from the base of the skull to the vertex before the administration of intravenous contrast material. Multiple contiguous axial images were obtained from the upper thoracic spine to the vertex during the administration of intravenous contrast material. Imaging post-processing equivalent to maximum intensity projection images of the intracranial and extracranial carotid and vertebrobasilar system were obtained. 3-D reconstructions were created by the technologist. IV CONTRAST: 100 mL Isovue 300 COMPARISON: None FINDINGS: CT head: There is prominence of the ventricles and subarachnoid spaces consistent with mild volume loss. Low-attenuation areas are identified throughout the hemispheric white matter consistent with mild to moderate nonspecific white matter disease. No acute intracranial hemorrhage or extra-axial fluid collection is identified. Right basal ganglia lacunar infarct. There is no midline shift or mass effect. The basal cisterns are patent. No displaced calvarial fracture is identified. The visualized portions of the globes and orbits appear normal. Mild diffuse sinus mucosal disease. The visualized mastoid air cells are clear. CTA of Head: The distal internal carotid arteries are normal in appearance. The right A1 segment is diffusely small in caliber. This is likely on a congenital basis. The anterior and middle cerebral arteries are otherwise patent. The region of the anterior communicating artery is unremarkable. The vertebral arteries are codominant. Tortuosity of the vertebrobasilar junction. The basilar artery is patent. The posterior cerebral arteries are patent. The major dural venous sinuses are patent. CTA of the neck: The origins of the arch vessels are widely patent. Tortuosity of the arch vessels with a shared origin of the left common carotid and brachiocephalic arteries. The bilateral common carotid arteries are normal in caliber. Tortuosity of the ICA vessels. The internal carotid arteries are patent without high-grade stenosis according to NASCET criteria. The vertebral arteries are codominant. No high-grade stenosis in the vertebral arteries throughout their cervical course. INCIDENTAL FINDINGS: Mild diffuse sinus mucosal disease. Heterogeneous and nodular thyroid. Heterogeneously enhancing right thyroid nodule measuring up to 2.7 cm. Follow-up thyroid ultrasound recommended if not recently performed. Dependent atelectasis in the lung apices. IMPRESSION: Head: 1. No acute intracranial hemorrhage. 2. Mild volume loss and mild to moderate chronic small vessel disease. Right basal ganglia lacunar infarct. CTA of the head: 1. No acute major branch vessel occlusion. No aneurysm about the [place] of [place]. CTA of the neck: 1. No hemodynamically significant ICA stenosis. Tortuosity of the carotid vessels. 2. Vertebral arteries are codominant. 3. Please see additional incidental findings noted above. DICTATION LOCATION: Location 1 - [facility] The examination was performed with the adjustment of mA according to the patient size and/or the use of Iterative Reconstruction Technique. us Simona Hammer Jr., MD CT ORDERABLES Final Resu lt * XR CHEST PA OR AP 1 VW (10/20/2024 9:37 PM CDT) Anatomical Region Laterality Modality Chest Computed Radiogr aphy 10/20/2024 9:37 PM CDT Impressions 10/20/2024 9:42 PM CDT IMPRESSION: 1. Decreased depth of inspiration and associated findings as described. Patchy bibasilar opacities which may reflect atelectasis or airspace disease. DICTATION LOCATION: Location 1 [facility] Narrative 10/20/2024 9:42 PM CDT EXAM: XR CHEST PA OR AP 1 VW DATE: 10/20/2024 9:37 PM CLINICAL INDICATION: Syncope COMPARISON: None FINDINGS: Limited depth of inspiration causes the cardiac silhouette and pulmonary vasculature to appear prominent. Patchy bibasilar opacities. No pneumothorax is seen. INCIDENTAL FINDINGS: None. Procedure Note Sundar Liu MD - 10/20/2024 EXAM: XR CHEST PA OR AP 1 VW DATE: 10/20/2024 9:37 PM CLINICAL INDICATION: Syncope COMPARISON: None FINDINGS: Limited depth of inspiration causes the cardiac silhouette and pulmonary vasculature to appear prominent. Patchy bibasilar opacities. No pneumothorax is seen. INCIDENTAL FINDINGS: None. IMPRESSION: 1. Decreased depth of inspiration and associated findings as described. Patchy bibasilar opacities which may reflect atelectasis or airspace disease. DICTATION LOCATION: Location 1 - [facility] Simona Hammer Jr., MD DIAGNOSTIC IMAGING ORDERAB LES Final Result * TROPONIN 2 HR, 5TH GEN (10/20/2024 9:18 PM CDT) TROPONIN T, 2 HR 5TH GEN 8 <=15 ng/L 10/20/2024 9:59 PM CDT [facility] DELTA 2HR TROPONIN T 2 See Interp. 10/20/2024 9:59 PM CDT [facility] Blood Venipuncture / Unknown 10/20/2024 9:18 PM CDT 10/20/2024 9:25 PM CDT [facility] LABORATORY [facility] - 10/20/2024 9:59 PM CDT Troponin Detectable but normal range. Delta not changing. Simona Hammer Jr., MD CHEMISTRY ORDERABLES Final Result Performing Organization Address [facility] de Phone Number [facility]# [id number] [address] [place] [address] * C-REACTIVE PROTEIN (10/20/2024 9:18 PM CDT) CRP <3.0 <5.0 mg/L 10/21/2024 1:19 AM CDT [facility] Blood Venipuncture / Unknown 10/20/2024 9:18 PM CDT 10/20/2024 9:25 PM CDT us Juan Solis MD CHEMISTRY ORDERABLES Final Resul t Performing Organization Address [facility] de Phone Number [facility] CLIA# [id number] [address] [place] [address] * (ABNORMAL) BRAIN NATRIURETIC PEPTIDE, BNP OR PROBNP (10/20/2024 9:18 PM CDT) PROBNP, N TERMINAL 145(H) <124 pg/mL 10/21/2024 1:19 AM CDT [facility] Comment: INTERPRETIVE COMMENT based on diagnosis: Diagnostic NT pro-BNP cutoffs for Heart Failure in the absence of renal failure is suggested for the following ranges <75 years: <125 pg/mL >=75 years: <450 pg/mL Exclusionary rule out cut-point for Acute Decompensated Heart Failure(ADHF) All ages: <300 pg/mL Diagnostic NT pro-BNP cutoffs for Acute Decompensated Heart Failure(ADHF) in the absence of renal failure is suggested for the following ages <50 years: > 450 pg/mL 50-75 years: > 900 pg/mL >75 years: >1800 pg/mL Blood Venipuncture / Unknown 10/20/2024 9:18 PM CDT 10/20/2024 9:25 PM CDT us Juan Solis MD CHEMISTRY ORDERABLES Final Resul t Performing Organization Address [facility]/ZIP Co de Phone Number [facility] Gen9 [facility]# [id number] [address] [facility] [place] [address] * MAGNESIUM LEVEL (10/20/2024 9:18 PM CDT) Only the most recent of2 resultswithin the time period is included. MAGNESIUM 2.1 1.6 - 2.4 mg/dL 10/21/2024 1:19 AM CDT [facility] Blood Venipuncture / Unknown 10/20/2024 9:18 PM CDT 10/20/2024 9:25 PM CDT us Juan Solis MD CHEMISTRY ORDERABLES Final Resul t Performing Organization Address [facility] Co de Phone Number [facility] Gen9 [facility]# [id number] [address] [place] [address] * EKG 12-LEAD (10/20/2024 8:16 PM CDT) 10/20/2024 8:16 PM CDT Narrative INTERFACE SYSTEM - 10/21/2024 6:27 AM CDT [address] [address] Test Date: 2024-10-20 Pat Name: JORGE EDOUARD Department: 37 Room: [facility] 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 [employer]: [id number] : 1950 Requested By: SIMONA Garcia Order Number: [id number] Reading MD: Fabien Rodriguez Measurements Intervals [place] Rate: 70 P: 3 FL: 175 QRS: 15 QRSD: 99 T: -17 QT: 420 QTc: 454 Interpretive Statements Sinus rhythm Inferior infarct, age indeterminate No previous ECG available for comparison Electronically Signed On 10-21-2024 6:27:25 CDT by Fabien Rodriguez Procedure Note Provider, Historical - 10/21/[address] [place] [address] Test Date: 2024-10-20 Pat Name: JORGE EDOUARD Department: 37 Room: 5078 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 [employer] Database: [id number] : 1950 Requested By: SIMONA Garcia Order Number: [id number] Reading MD: Fabien Rodriguez Measurements Intervals [place] Rate: 70 P: 3 FL: 175 QRS: 15 QRSD: 99 T: -17 QT: 420 QTc: 454 Interpretive Statements Sinus rhythm Inferior infarct, age indeterminate No previous ECG available for comparison Electronically Signed On 10-21-2024 6:27:25 CDT by Fabien Rodriguez us Simona Hammer Jr., MD ECG ORDERABLES Final Resu lt INTERFACE SYSTEM Refer to clinic/hospital department * POC CREATININE (10/20/2024 7:53 PM CDT) CREATININE POC 1.00 0.70 - 1.20 mg/dL 10/20/2024 7:53 PM CDT [facility] LAB[facility]ATORY [facility] Comment:The GFR result is no t clinically significant on patients <18 or >70 years of age. GFR POC >60 mL/min/1.7 3 sq meter 10/20/2024 7:53 PM CDT [facility] LAB[facility] Comment:eGFR calculated with 2020 CKD-EPI equation. Vegetarian diet, extremely high or low muscle mass, and may affect results. Cystatin C with Glomerular Filtration Rate is a suitable alternative for these patients. Blood, whole 10/20/2024 7:53 PM CDT 10/20/2024 7:57 PM CDT us Simona Hammer Jr., MD POINT OF CARE TESTING Carmen l Result Performing Organization Address [facility] Co de Phone Number [facility] Gen9 [facility] CLIA# [id number] [address] [place] [address] * TROPONIN BASELINE, 5TH GEN (10/20/2024 7:41 PM CDT) TROPONIN T, BASELINE 5TH GEN 6 <=15 ng/L 10/20/2024 9:00 PM CDT [facility] LAB[facility] Blood Venipuncture / Unknown 10/20/2024 7:41 PM CDT 10/20/2024 7:45 PM CDT Narrative [facility] LAB[facility]ORY [facility] - 10/20/2024 9:00 PM CDT Troponin Detectable but normal range. Simona Hammer Jr., MD CHEMISTRY ORDERABLES Final Result Performing Organization Address City/[facility] Hospital/ZIP Co de Phone Number [facility] CLIA# [id number] [address] [place] [address] * TSH (10/20/2024 7:41 PM CDT) [facility] TSH 1.26 0.27 - 4.20 uIU/mL 10/20/2024 9:00 PM CDT [facility] LAB[facility]ORY [facility] Blood Venipuncture / Unknown 10/20/2024 7:41 PM CDT 10/20/2024 7:45 PM CDT Simona Hammer Jr., MD CHEMISTRY ORDERABLES Final Result Performing Organization Address City/[facility]/ZIP Co de Phone Number [facility]# [id number] [address] [place] [address] * (ABNORMAL) HEMOGLOBIN A1C (10/20/2024 7:41 PM CDT) [facility] HEMOGLOBIN A1C 6.1(H) <5.7 % 10/21/2024 1:20 AM CDT [facility] LABORATORY [facility] EST. AVG GLUCOSE, A1C 128 mg/dL 10/21/2024 1:20 AM CDT [facility] LAB[facility]ATORY [facility] Blood Venipuncture / Unknown 10/20/2024 7:41 PM CDT 10/20/2024 7:45 PM CDT Narrative [facility] LABORATORY SERVICES - [facility] - 10/21/2024 1:20 AM CDT HGB A1C INTERPRETATION NORMAL: <5.7% PRE-DIABETES: 5.7 - 6.4% DIABETES: 6.5% OR GREATER us Juan Solis MD CHEMISTRY ORDERABLES Final Resul t [facility] LABORATORY SERVICES [facility] CLIA# [id number] 5 [facility] [place] [address] * (ABNORMAL) COMPREHENSIVE METABOLIC PANEL (10/20/2024 7:41 PM CDT) Pathologist [facility] SODIUM 138 136 - 145 mmol/L 10/20/2024 9:01 PM CDT [facility] LABORATORY SERVICES [facility] POTASSIUM 4.1 3.5 - 5.0 mmol/L 10/20/2024 9:01 PM CDT [facility] LABORATORY SERVICES [facility] Comment:Hemolysis present. R esult may be falsely elevated. CHLORIDE 103 98 - 107 mmol/L 10/20/2024 9:01 PM CDT [facility] LABORATORY SERVICES [facility] CO2 22 22 - 29 mmol/L 10/20/2024 9:01 PM CDT [facility] LABORATORY SERVICES [facility] CALCIUM 8.8 8.6 - 10.2 mg/dL 10/20/2024 9:01 PM CDT [facility] LABORATORY SERVICES [facility] BUN 16 8 - 23 mg/dL 10/20/2024 9:01 PM T [facility] LABORATORY SERVICES [facility] CREATININE 0.87 0.67 - 1.17 mg/dL 10/20/2024 9:01 PM CDT [facility] LABORATORY SERVICES [facility] Comment:The GFR result is no t clinically significant on patients <18 or >70 years of age. GLUCOSE 132(H) 74 - 99 mg/dL 10/20/2024 9:01 PM CDT [facility] LABORATORY SERVICES [facility] TOTAL PROTEIN 6.4(L) 6.7 - 8.6 g/dL 10/20/2024 9:01 PM CDT [facility] ALBUMIN 4.1 3.5 - 5.2 g/dL 10/20/2024 9:01 PM CDT [facility] BILIRUBIN TOTAL 0.4 0.0 - 1.1 mg/dL 10/20/2024 9:01 PM [facility] ALKALINE PHOSPHATASE 54 40 - 129 U/L 10/20/2024 9:01 PM [facility] AST 10/20/2024 9:01 PM [facility] Comment:Test cannot be perfo rmed. Sample hemolysis interference above limits. Redraw if indicated. ALT 18 <42 U/L 10/20/2024 9:01 PM [facility] [facility] GFR >60 mL/min/1.7 3 sq meter 10/20/2024 9:01 PM [facility] Comment:eGFR calculated with 2020 CKD-EPI equation. Vegetarian diet, extremely high or low muscle mass, and may affect results. Cystatin C with Glomerular Filtration Rate is a suitable alternative for these patients. ANION GAP 13 8 - 16 mmol/L 10/20/2024 9:01 PM [facility] Blood Venipuncture / Unknown 10/20/2024 7:41 PM CDT 10/20/2024 7:45 PM CDT Narrative [facility] - 10/20/2024 9:01 PM CDT Samples containing indocyanine green cause interferences on Total and/or Direct Bilirubin and must not be measured. Simona Hammer Jr., MD CHEMISTRY ORDERABLES Final Result [facility] [id number] [address] [facility] [place] [id number] from Last 3 Months Insurance MEDICARE PART A AND B RX [id number] Medicare Part D Advance Directives For more information, please contact: [phone] * Full Code (Latest Code Status on File) Date Activated Date Inactivated Comments 10/21/2024 12:21 AM 10/22/2024 4:57 PM Care Teams Dewaxer Relationship Specialty Start Date End Date Ronald Mccarthy MD [address] [place] [id number] PCP - General Internal Medicine 10/21/24
--- OUTSIDE RECORDS SUMMARY | 2024-12-03 05:45 | XMS_ITS | Clinical Summary ---
Author Organization [facility] Address [address] [place] [address] Phone Care Team Providers Care Community Service Worker Name Role Phone Unavailable Primary Care Provider [...] Immunization (50+ years) (2 of 2 - PCV20 or PCV21) 05/25/2019 05/24/2018, 11/22/2017 Zoster Immunization (2 of 2) 01/10/2020 11/15/2019 Influenza Immunization (#1) 10/23/202410/24, 11/22/2017, 01/10/2017, Additional history exists SARS-COV-2 Immunization ( - season) 2024 12/20/2020, 06/21/2020 Respiratory Syncytial Virus (RSV) Immunization (Adult) (1 [...]
--- OUTSIDE RECORDS SUMMARY | 2024-12-03 05:45 | XMS_ITS | Data Portability ---
Author Organization [facility], [employer] Address [address] [address] Care Team Providers Care Life Skills Educator Name Role Phone BILL PARKER Primary Care Provider [phone] Assessment Encounter Date Assessment Date Assessment LastModified by Organization Details LastModified Time 10/12/2023 10/12/2023 Patient presented for follow up. Studies ordered as below. Discussed plan with patient/caregi deborah, who expressed understanding. Follow up as noted below. Not available 10/12/2023 14:46:40 01/11/2024 01/11/2024 Patient presented for follow up. Studies ordered as below. Discussed plan with patient/healthsource saginawi deborah, who expressed understanding. Follow up as noted below. Not available 01/11/2024 10:41:45 07/13/2024 07/13/2024 Patient presented for follow up. Studies ordered as below. Discussed plan with patient/caregi deborah, who expressed understanding. Follow up as noted below. Not available 07/13/2024 12:57:29 10/13/2024 10/13/2024 Patient presented for follow up. Studies ordered as below. Discussed plan with patient/caregi deborah, who expressed understanding. Follow up as noted below. Not available 10/13/2024 13:02:09 10/30/2024 10/30/2024 Patient presented for follow up. Studies ordered as below. Discussed plan with patient/caregi deborah, who expressed understanding. Follow up as noted below. Patient presented to office today for a follow up visit for a previous hospital visit that occurred on Patient presented to hospital for: Patient s condition is improved since discharge; patient denies any new problems since discharge. Medications were reviewed and any necessary updates and renewals were made. Discussed potential side effects of medications. Patient is compliant with medications. Counseling was done on care goals and ways to prevent future hospitalizatio ns. Emphasized preventive health measures and educated patient to help reduce health risks and promote healthy living. Scheduled follow-up appointment for to review health status and care plan and instructed patient whom to contact in case of emergency. Further treatment per orders below. [email or web address] Not available 10/30/2024 10:37:43 Plan of Treatment Reminders Order Date Submit Date Provider Last Modified By Organization Details Last Modified Time Details Appointments ESTABLISH ED PATIENT 15 2024 11:30A M Bill Parker MD Not available Not available Not available Lab CMP, serum or plasma 2024 025 [facility], [address], [place], [address], 10/27/2024 00:41:07 CBC w/ auto diff 2024 025 [facility], [address] [facility] [address], [place], [address], 10/27/2024 00:41:07 hemoglobi n A1c, QN, blood - after 10/20/242024 025 [facility], [address], [place], [address], 10/20/2024 04:06:17 lipid panel w/ direct LDL, serum 2024 025 [facility], [address], [place], [address], 07/20/2024 04:06:43 TSH, serum or plasma 2024 025 [facility], [address], [place], [address], 07/21/2024 12:53:54 vitamin D, 25-hydrox y, total, serum 2024 025 [facility], [address] [facility] [address] [facility], [place], [address], 07/21/2024 12:53:55 magnesium , serum or plasma 2024 025 [facility], [address], [place], [address], 07/21/2024 12:53:52 CMP, serum or plasma 2024 [facility], [address], [place], [address], 07/20/2024 04:06:43 CBC w/ auto diff 2024 [facility], [address] [facility] [address], [place], [address], 07/20/2024 04:06:43 vitamin B12, serum 2024 [facility], [address] [facility] [address], [place], [address], 07/21/2024 12:53:52 hemoglobi n A1c, QN, blood 2024 [facility], [address] [facility] [address], [place], [address], 07/20/2024 04:06:44 microalbu min/creat inine, mass ratio, urine 2024 [facility], [address], [place], [address], 07/21/2024 12:53:51 PSA, serum or plasma 2024 025 [facility], [address] [facility], [place], [address], 07/21/2024 12:53:53 drug screen, urine 2024 [facility], [address], [place], [address], 07/21/2024 12:53:56 lipid panel w/ direct LDL, serum 2023 024 [facility], [address], [place], [address], 01/18/2024 04:03:29 CMP, serum or plasma 2023 024 [facility], [address], [place], [address], 01/16/2024 21:08:38 CBC w/ auto diff 2023 024 [facility], [address], [place], [address], 01/16/2024 21:08:41 hemoglobi n A1c, QN, blood 2023 024 [facility], [address], [place], [address], 01/18/2024 04:03:29 C-peptide , serum 2023 024 [facility], [address] [facility], [place], [address], 01/11/2024 11:28:48 vitamin B12, serum 2023 024 [facility], [address], [place], [address], 01/16/2024 21:08:40 TSH, serum or plasma 2023 024 [facility], [address], [place], [address], 01/18/2024 04:03:29 vitamin D, 25-hydrox y, total, serum 2023 024 [facility], [address], [place], [address], 01/18/2024 04:03:30 drug screen, urine 2023 024 [facility], [address] [facility] [address] [facility], [place], [address], 01/18/2024 04:03:29 hemoglobi n A1c, QN, blood 2023 024 [facility], [address] [facility], [place], [address], 10/19/2023 04:15:51 CMP, serum or plasma 2023 024 [facility], [address] [facility], [place], [address], 10/14/2023 11:14:01 Referral cardiolog ist referral 2024 025 JUAN CARLOS Zayas MD, [address] [place], [address], 11/27/2024 04:03:42 Procedures None recorded. Surgeries None recorded. Imaging US, thyroid 2024 025 [facility] ([facility]), [address], [address], [place], [address], 11/06/2024 04:05:00 US, duplex, carotid artery 2024 025 [facility], [address] [facility] [address], [place], [address], 10/15/2024 12:03:52 XR, shoulder, 2 or more view 2023 024 [facility] ([facility]), [address], [address], [place], [address], 02/10/2024 13:42:05 US, bladder - pre and post voiding 2023 024 [facility] ([facility]), [address], [place], [address], 03/09/2024 12:04:17 electroca rdiogram 2023 024 [facility], [address] [facility] , [address], [place], [address], 01/11/2024 13:54:35 Medication Orders tamsulosi n 0.4 mg capsule [address] [facility] [place], [address], 10/30/2024 10:38:19 losartan 25 mg tablet 2024 025 [facility] [address], [address] [place], [address], 10/30/2024 10:37:52 amlodipin e 2.5 mg tablet [address] [facility] [address], [address] [place], [address], 10/30/2024 14:08:57 Xigduo XR 10 mg-1,000 mg tablet,ex tended release 2024 025 [facility] [address], [address] [place], [address], 10/13/2024 13:39:02 metformin ER 500 mg tablet,ex tended release 24 hr 2024 025 [facility] [address], [address] [place], [address], 10/13/2024 13:39:03 finasteri de 5 mg tablet [address] [facility] [address] [place], [address], 10/30/2024 10:34:04 clotrimaz ole-betam ethasone 1 %-0.05 % topical cream 2024 025 [facility] [address] [place], [address], 07/13/2024 13:35:39 tamsulosi n 0.4 mg capsule [address] [facility] [address], [address] [place], [address], 01/11/2024 11:28:22 finasteri de 5 mg tablet [address] [facility] [address], [address] [place], [address], 10/30/2024 10:34:04 Xigduo XR 10 mg-1,000 mg tablet,ex tended release 2023 024 [facility] [address], [address] [place], [address], 10/12/2023 15:37:39 Patient TargetsNo targets recorded. Patient Instructions Encounter Date Encounter Id Patient Instructions Last Modified By Organization Details Last Modified Time 01/11/2024 [id number] arthritis: care instructions [email or web address] Not available 01/11/2024 11:28:23 learning about healthy weight mshenouda Not available 01/11/2024 11:28:22 07/13/2024 [id number] rash: care instructions mshenouda Not available 07/13/2024 13:35:28 infection from tattoos: care instructions mshenouda Not available 07/13/2024 13:35:28 learning about healthy weight mshenouda Not available 07/13/2024 13:35:28 living will mshenouda Not available 06/23 13:27:23 10/13/2024 [id number] learning about healthy weight [email or web address] Not available 10/13/2024 13:35:54 10/30/2024 [id number] thyroid nodules: care instructions [email or web address] Not available 10/30/2024 10:37:46 fainting: care instructions [email or web address] Not available 10/30/2024 10:37:46 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 6 high CHIO L RANGE BASED ON ИРИНА COL 2 (DCCT /NGSP ): Non-D iabet ic: < 5.7% Pre-D iabet es: 5.7 - 6.4% Diabe ness: => 6.5% GLYCE MALIA CONTR OL: < 7.0% Not Available [facility] [address], [place], [address], 10/14/2023 11:14:00 10/12/19 24 10/12/2023 HEMOG LOBIN A1C estimated average glucose 149 Not Available [facility] [address], [place], [address], 10/14/2023 11:14:00 10/12/19 24 10/12/2023 COMPR EHENS GIOVANNA METAB OLIC PANEL sodium 141 mmol/ L 134-14 4 Not Available [facility] [address], [place], [address], 10/14/2023 11:14:01 10/12/19 24 10/12/2023 COMPR EHENS GIOVANNA METAB OLIC PANEL potassium 4.2 mmol/ L 3.5-5. 2 Not Available [facility] [address], [place], [address], 10/14/2023 11:14:01 10/12/19 24 10/12/2023 COMPR EHENS GIOVANNA METAB OLIC PANEL chloride 103 mmol/ L 97-108 Not Available [facility] [address], [place], [address], 10/14/2023 11:14:01 10/12/19 24 10/12/2023 COMPR EHENS GIOVANNA METAB OLIC PANEL carbon dioxide (co2) 21.0 mmol/ L 18.0-2 9.0 Not Available [facility] [address], [place], [address], 10/14/2023 11:14:01 10/12/19 24 10/12/2023 COMPR EHENS GIOVANNA METAB OLIC PANEL glucose 110 mg/dL 65-99 high Chio l Fasti ng: < 100 mg/dL Impai red Fasti n - 125 mg/dL Diagn ostic of Diabe ness: => 126 mg/dL Ameri can Diabe ness Assoc iatio n, 2007 Not Available [facility] [address], [place], [address], 10/14/2023 11:14:01 10/12/19 24 10/12/2023 COMPR EHENS GIOVANNA METAB OLIC PANEL urea nitrogen (BUN) 19 mg/dL 8-23 Not Available [facility] [address], [place], [address], 10/14/2023 11:14:01 10/12/19 24 10/12/2023 COMPR EHENS GIOVANNA METAB OLIC PANEL creatinine 1.02 mg/dL 0.76-1 .27 Not Available [facility] [address], [place], [address], 10/14/2023 11:14:01 10/12/19 24 10/12/2023 COMPR EHENS GIOVANNA METAB OLIC PANEL eGFR 79 mL/mi nute/ 1.73_ m2 >59 MDRD Study Equat ion: The calcu lated GFR is NOT appli cable for pedia tric (< 18 years old) and > 70 year old patie nts and patie nts that are NOT of stead y state . Not Available [facility] [address], [place], [address], 10/14/2023 11:14:01 10/12/19 24 10/12/2023 COMPR EHENS GIOVANNA METAB OLIC PANEL calcium 9.1 mg/dL 8.6-10 .2 Not Available [facility] [address], [place], [address], 10/14/2023 11:14:01 10/12/19 24 10/12/2023 COMPR EHENS GIOVANNA METAB OLIC PANEL protein, total 6.8 gm/dL 6.4-8. 3 Not Available [facility] [address], [place], [address], 10/14/2023 11:14:01 10/12/19 24 10/12/2023 COMPR EHENS GIOVANNA METAB OLIC PANEL albumin 4.6 gm/dL 3.5-5. 2 Not Available [facility] [address] [facility] [address], [place], [address], 10/14/2023 11:14:01 10/12/19 24 10/12/2023 COMPR EHENS GIOVANNA METAB OLIC PANEL bilirubin, total 0.20 mg/dL 0.00-1 .20 Not Available [facility] [address] [facility] [address], [place], [address], 10/14/2023 11:14:01 10/12/19 24 10/12/2023 COMPR EHENS GIOVANNA METAB OLIC PANEL alkaline phosphatase (ALP) 72 U/L 39-117 Not Available [facility] [address], [place], [address], 10/14/2023 11:14:01 10/12/19 24 10/12/2023 COMPR EHENS GIOVANNA METAB OLIC PANEL aspartate aminotransfe rase (AST) 23 U/L 0-40 Not Available [facility] [address], [place], [address], 10/14/2023 11:14:01 10/12/19 24 10/12/2023 COMPR EHENS GIOVANNA METAB OLIC PANEL alanine aminotransfe rase (ALT) 21 U/L 0-41 Not Available [facility] [address] [facility] [address], [place], [address], 10/14/2023 11:14:01 10/12/19 24 10/12/2023 COMPR EHENS GIOVANNA METAB OLIC PANEL A/G ratio (calculated) 2.1 ratio 1.0-2. 7 Not Available [facility] [address] [facility] [address], [place], [address], 10/14/2023 11:14:01 10/12/19 24 10/12/2023 COMPR EHENS GIOVANNA METAB OLIC PANEL globulin (calculated) 2.2 gm/dL 1.5-3. 8 Not Available [facility] [address] [facility] [address] [facility] [address], [place], [address], 10/14/2023 11:14:01 10/12/19 24 10/12/2023 COMPR EHENS GIOVANNA METAB OLIC PANEL BUN/creatini ne ratio (calculated) 18.6 ratio 8.0-20 .0 Not Available [facility] [address] [facility] [address], [place], [address], 10/14/2023 11:14:01 10/12/19 24 10/12/2023 COMPR EHENS GIOVANNA METAB OLIC PANEL serum hemolysis index NORMAL index normal Not Available [facility] [address], [place], [address], 10/14/2023 11:14:01 01/11/20 24 01/11/2024 HEMOG LOBIN A1C hemoglobin A1C 7.0 % 4.8-5. 6 high CHIO L RANGE BASED ON ИРИНА COL 2 (DCCT /NGSP ): Non-D iabet ic: < 5.7% Pre-D iabet es: 5.7 - 6.4% Diabe ness: => 6.5% GLYCE MALIA CONTR OL: < 7.0% Not Available [facility] [address], [place], [address], 01/16/2024 21:08:37 01/11/20 24 01/11/2024 HEMOG LOBIN A1C estimated average glucose 154 Not Available [facility] [address], [place], [address], 01/16/2024 21:08:37 01/11/20 24 01/11/2024 *C-PE PTIDE C-peptide 4.0 NG/mL 1.1-4. 4 NOTE: REFER ENCE RANGE APPLI ES TO FASTI NG SAMPL E ONLY. Not Available [facility] [address], [place], [address], 01/16/2024 21:08:38 01/11/20 24 01/11/2024 COMPR EHENS GIOVANNA METAB OLIC PANEL sodium 143 mmol/ L 134-14 4 Not Available [facility] [address], [place], [address], 01/16/2024 21:08:38 01/11/20 24 01/11/2024 COMPR EHENS GIOVANNA METAB OLIC PANEL potassium 4.8 mmol/ L 3.5-5. 2 Not Available [facility] [address] [facility] [address], [place], [address], 01/16/2024 21:08:38 01/11/20 24 01/11/2024 COMPR EHENS GIOVANNA METAB OLIC PANEL chloride 105 mmol/ L 98-107 Not Available [facility] [address] [facility] [address], [place], [address], 01/16/2024 21:08:38 01/11/20 24 01/11/2024 COMPR EHENS GIOVANNA METAB OLIC PANEL carbon dioxide (co2) 27.0 mmol/ L 18.0-2 9.0 Not Available [facility] [address] [facility] [address], [place], [address], 01/16/2024 21:08:38 01/11/20 24 01/11/2024 COMPR EHENS GIOVANNA METAB OLIC PANEL glucose 136 mg/dL 65-99 high Chio l Fasti n - 99 mg/dL Impai red Fasti n - 125 mg/dL Diagn ostic of Diabe ness: => 126 mg/dL Ameri can Diabe ness Assoc iatio n, 2007 Not Available [facility] [address] [facility] [address], [place], [address], 01/16/2024 21:08:38 01/11/20 24 01/11/2024 COMPR EHENS GIOVANNA METAB OLIC PANEL urea nitrogen (BUN) 22 mg/dL 8-23 Not Available [facility] [address], [place], [address], 01/16/2024 21:08:38 01/11/20 24 01/11/2024 COMPR EHENS GIOVANNA METAB OLIC PANEL creatinine 0.90 mg/dL 0.76-1 .27 Not Available [facility] [address] [facility] [address], [place], [address], 01/16/2024 21:08:38 01/11/20 24 01/11/2024 COMPR EHENS GIOVANNA METAB OLIC PANEL eGFR 91 mL/mi nute/ 1.73_ m2 >59 MDRD Study Equat ion: The calcu lated GFR is NOT appli cable for pedia tric (< 18 years old) and > 70 year old patie nts and patie nts that are NOT of stead y state . Not Available [facility] [address] [facility] [address], [place], [address], 01/16/2024 21:08:38 01/11/20 24 01/11/2024 COMPR EHENS GIOVANNA METAB OLIC PANEL calcium 9.4 mg/dL 8.6-10 .2 Not Available [facility] [address] [facility] [address], [place], [address], 01/16/2024 21:08:38 01/11/20 24 01/11/2024 COMPR EHENS GIOVANNA METAB OLIC PANEL protein, total 6.9 gm/dL 6.4-8. 3 Not Available [facility] [address] [facility] [address], [place], [address], 01/16/2024 21:08:38 01/11/20 24 01/11/2024 COMPR EHENS GIOVANNA METAB OLIC PANEL albumin 4.4 gm/dL 3.5-5. 2 Not Available [facility] [address] [facility] [address] [facility] [address], [place], [address], 01/16/2024 21:08:38 01/11/20 24 01/11/2024 COMPR EHENS GIOVANNA METAB OLIC PANEL bilirubin, total 0.40 mg/dL 0.00-1 .20 Not Available [facility] [address] [facility] [address], [place], [address], 01/16/2024 21:08:38 01/11/20 24 01/11/2024 COMPR EHENS GIOVANNA METAB OLIC PANEL alkaline phosphatase (ALP) 61 U/L 39-117 Not Available [facility] [address] [facility] [address] [facility] [address], [place], [address], 01/16/2024 21:08:38 01/11/20 24 01/11/2024 COMPR EHENS GIOVANNA METAB OLIC PANEL aspartate aminotransfe rase (AST) 17 U/L 0-40 Not Available [facility] [address] [facility] [address] [facility] [address], [place], [address], 01/16/2024 21:08:38 01/11/20 24 01/11/2024 COMPR EHENS GIOVANNA METAB OLIC PANEL alanine aminotransfe rase (ALT) 15 U/L 0-41 Not Available [facility] [address] [facility] [address], [place], [address], 01/16/2024 21:08:38 01/11/20 24 01/11/2024 COMPR EHENS GIOVANNA METAB OLIC PANEL A/G ratio (calculated) 1.8 ratio 1.0-2. 7 Not Available [facility] [address] [facility] [address], [place], [address], 01/16/2024 21:08:38 01/11/20 24 01/11/2024 COMPR EHENS GIOVANNA METAB OLIC PANEL globulin (calculated) 2.5 gm/dL 1.5-3. 8 Not Available [facility] [address] [facility] [address], [place], [address], 01/16/2024 21:08:38 01/11/20 24 01/11/2024 COMPR EHENS GIOVANNA METAB OLIC PANEL BUN/creatini ne ratio (calculated) 24.4 ratio 8.0-20 .0 high Not Available [facility] [address] [facility] [address], [place], [address], 01/16/2024 21:08:38 01/11/20 24 01/11/2024 COMPR EHENS GIOVANNA METAB OLIC PANEL serum hemolysis index NORMAL index normal Not Available [facility] [address] [facility] [address], [place], [address], 01/16/2024 21:08:38 01/11/20 24 01/11/2024 LIPID PANEL W/ LDL BRITTNEE STERO L DIREC T cholesterol, total 171 mg/dL 100-19 9 Not Available [facility] [address] [facility] [address], [place], [address], 01/16/2024 21:08:39 01/11/20 24 01/11/2024 LIPID PANEL W/ LDL BRITTNEE STERO L DIREC T HDL cholesterol 57 mg/dL =>40 Not Available [facility] [address] [facility] [address], [place], [address], 01/16/2024 21:08:39 01/11/20 24 01/11/2024 LIPID PANEL W/ LDL BRITTNEE STERO L DIREC T LDL cholesterol (direct) 90 mg/dL 0-99 Not Available [facility] [address], [place], [address], 01/16/2024 21:08:39 01/11/20 24 01/11/2024 LIPID PANEL W/ LDL BRITTNEE STERO L DIREC T triglyceride s 145 mg/dL 50-149 Not Available [facility] [address] [facility] [address], [place], [address], 01/16/2024 21:08:39 01/11/20 24 01/11/2024 LIPID PANEL W/ LDL BRITTNEE STERO L DIREC T VLDL cholesterol (calculated) 29 mg/dL 5-40 Not Available [facility] [address] [facility] [address], [place], [address], 01/16/2024 21:08:39 01/11/20 24 01/11/2024 LIPID PANEL W/ LDL BRITTNEE STERO L DIREC T chol/HDL ratio (calculated) 3.00 ratio 0.00-5 .00 Not Available [facility] [address] [facility] [address], [place], [address], 01/16/2024 21:08:39 01/11/20 24 01/11/2024 LIPID PANEL W/ LDL BRITTNEE STERO L DIREC T LDL/HDL ratio (calculated) 1.58 ratio 0.00-3 .60 LDL/H DL Ratio Male Femal e 1/2 Avg. Risk 1.0 1.5 Avg. Risk 3.6 3.2 2x Avg. Risk 6.2 5.0 3x Avg. Risk 8.0 6.1 Not Available [facility] [address] [facility] [address], [place], [address], 01/16/2024 21:08:39 01/11/20 24 01/11/2024 THYRO ID-ST IM. HORMO NE (TSH) thyroid-stim . hormone (TSH) 1.48 uIU/m L 0.27-4 .20 Not Available [facility] [address], [place], [address], 01/16/2024 21:08:40 01/11/20 24 01/11/2024 VITAM IN B12 vitamin B12 480 pg/mL 232-12 45 Not Available [facility] [address] [facility] [address], [place], [address], 01/16/2024 21:08:40 01/11/20 24 01/11/2024 VITAM IN D, 25-HY DROXY TOTAL vitamin D, total 25.2 NG/mL 30.0-1 00.0 low The Vitam in D Assay donnau richard n has been updat ed to offer direc t trace abili ty to ID-LC -MS/M S Refer ence Measu remen t Proce dure along with a reduc tion in bioti n inter feren ce. Defic ient: < 20 ng/mL Insuf ficie nt: 21 - 29 ng/mL Suffi cient : 30 - 100 ng/mL Poten tial Intox icati on: > 100 ng/mL Not Available [facility] [address] [facility] [address], [place], [address], 01/16/2024 21:08:41 01/11/20 24 01/11/2024 CBC WITH AUTO- DIFFE RENTI AL WBC 5.7 10*3/ uL 3.4-10 .8 Not Available [facility] [address] [facility] [address], [place], [address], 01/16/2024 21:08:41 01/11/20 24 01/11/2024 CBC WITH AUTO- DIFFE RENTI AL RBC 5.25 10*6/ uL 4.20-5 .80 Not Available [facility] [address] [facility] [address], [place], [address], 01/16/2024 21:08:41 11/19/20 24 01/11/2024 CBC WITH AUTO- DIFFE RENTI AL HGB 15.7 g/dL 12.6-1 7.7 Not Available [facility] [address], [place], [address], 01/16/2024 21:08:41 01/11/20 24 01/11/2024 CBC WITH AUTO- DIFFE RENTI AL HCT 49.9 % 37.5-5 1.0 Not Available [facility] [address], [place], [address], 01/16/2024 21:08:41 01/11/2001/11/2024 CBC WITH AUTO- DIFFE RENTI AL MCV 95 fL 79-97 Not Available [facility] [address], [place], [address], 01/16/2024 21:08:41 01/11/20 24 01/11/2024 CBC WITH AUTO- DIFFE RENTI AL MCH 29.9 pg 26.6-3 3.0 Not Available [facility] [address], [place], [address], 01/16/2024 21:08:41 01/11/20 24 01/11/2024 CBC WITH AUTO- DIFFE RENTI AL MCHC 31.5 g/dL 31.5-3 5.7 Not Available [facility] [address], [place], [address], 01/16/2024 21:08:41 01/11/2001/11/2024 CBC WITH AUTO- DIFFE RENTI AL RDW 14.7 % 11.5-1 4.5 high Not Available [facility] [address], [place], [address], 01/16/2024 21:08:41 01/11/20 24 01/11/2024 CBC WITH AUTO- DIFFE RENTI AL platelets 222 10*3/ uL 150-40 0 Not Available [facility] [address], [place], [address], 01/16/2024 21:08:41 01/11/20 24 01/11/2024 CBC WITH AUTO- DIFFE RENTI AL MPV 10 fL 9-13 Not Available [facility] [address] [facility] [address], [place], [address], 01/16/2024 21:08:41 01/11/20 24 01/11/2024 CBC WITH AUTO- DIFFE RENTI AL neutrophils 67.3 % 40.0-7 4.0 Not Available [facility] [address] [facility] [address], [place], [address], 01/16/2024 21:08:41 01/11/20 24 01/11/2024 CBC WITH AUTO- DIFFE RENTI AL absolute neutrophils 3.85 10*3/ uL 1.40-7 .00 Not Available [facility] [address], [place], [address], 01/16/2024 21:08:41 01/11/20 24 01/11/2024 CBC WITH AUTO- DIFFE RENTI AL lymphocytes 23.1 % 14.0-4 6.0 Not Available [facility] [address] [facility] [address], [place], [address], 01/16/2024 21:08:41 01/11/20 24 01/11/2024 CBC WITH AUTO- DIFFE RENTI AL absolute lymphocytes 1.32 10*3/ uL 0.70-3 .10 Not Available [facility] [address] [facility] [address], [place], [address], 01/16/2024 21:08:41 01/11/20 24 01/11/2024 CBC WITH AUTO- DIFFE RENTI AL monocytes 7.0 % 4.0-12 .0 Not Available [facility] [address] [facility] [address], [place], [address], 01/16/2024 21:08:41 01/11/20 24 01/11/2024 CBC WITH AUTO- DIFFE RENTI AL absolute monocytes 0.40 10*3/ uL 0.10-0 .90 Not Available [facility] [address] [facility] [address], [place], [address], 01/16/2024 21:08:41 01/11/2001/11/2024 CBC WITH AUTO- DIFFE RENTI AL eosinophils 1.4 % 0.0-5. 0 Not Available [facility] [address] [facility] [address], [place], [address], 01/16/2024 21:08:41 01/11/20 24 01/11/2024 CBC WITH AUTO- DIFFE RENTI AL absolute eosinophils 0.08 10*3/ uL 0.00-0 .40 Not Available [facility] [address] [facility] [address], [place], [address], 01/16/2024 21:08:41 01/11/20 24 01/11/2024 CBC WITH AUTO- DIFFE RENTI AL basophils 0.9 % 0.0-3. 0 Not Available [facility] [address] [facility] [address], [place], [address], 01/16/2024 21:08:41 01/11/20 24 01/11/2024 CBC WITH AUTO- DIFFE RENTI AL absolute basophils 0.05 10*3/ uL 0.00-0 .20 Not Available [facility] [address] [facility] [address], [place], [address], 01/16/2024 21:08:41 01/11/20 24 01/11/2024 CBC WITH AUTO- DIFFE RENTI AL imm. gran. 0.3 % 0.0-2. 0 Not Available [facility] [address] [facility] [address], [place], [address], 01/16/2024 21:08:41 01/11/20 24 01/11/2024 CBC WITH AUTO- DIFFE RENTI AL abs. imm. gran. 0.02 10*3/ uL 0.00-0 .10 Not Available [facility] [address], [place], [address], 01/16/2024 21:08:41 01/11/20 24 01/11/2024 URINE DRUG SCREE N, 6-DUONG EL amphetamines NEGATI VE negati ve Amphe tamin e Cutof f=500 Not Available [facility] [address] [facility] [address], [place], [address], 01/16/2024 21:08:42 01/11/20 24 01/11/2024 URINE DRUG SCREE N, 6-DUONG EL benzodiazepi rigo NEGATI VE negati ve Benzo diaze pines Cutof f=100 Not Available [facility] [address] [facility] [address], [place], [address], 01/16/2024 21:08:42 01/11/20 24 01/11/2024 URINE DRUG SCREE N, 6-DUONG EL cocaine NEGATI VE negati ve Cocai ne Cutof f=300 Not Available [facility] [address] [facility] [address], [place], [address], 01/16/2024 21:08:42 01/11/20 24 01/11/2024 URINE DRUG SCREE N, 6-DUONG EL opiates POSITI VE negati ve abnormal Opiat es Cutof f=300 Not Available [facility] [address] [facility] [address], [place], [address], 01/16/2024 21:08:42 01/11/20 24 01/11/2024 URINE DRUG SCREE N, 6-DUONG EL oxycodone NEGATI VE negati ve Oxyco done Cutof f=300 Not Available [facility] [address] [facility] [address], [place], [address], 01/16/2024 21:08:42 01/11/20 24 01/11/2024 URINE DRUG SCREE N, 6-DUONG EL cannabinoid (THC) NEGATI VE negati ve Canna binoi d Cutof f=50 Not Available [facility] [address] [facility] [address], [place], [address], 01/16/2024 21:08:42 01/11/20 24 01/11/2024 URINE DRUG SCREE N, 6-DUONG EL creatinine - uds urine 84.0 mg/dL >20.0 Not Available [facility] [address] [facility] [address], [place], [address], 01/16/2024 21:08:42 01/11/20 24 01/11/2024 URINE DRUG SCREE N, 6-DUONG EL pH (uds) 6.0 4.5-10 .9 Not Available [facility] [address] [facility] [address], [place], [address], 01/16/2024 21:08:42 01/11/20 24 01/11/2024 URINE DRUG SCREE N, 6-DUONG EL specific gravity (uds) 1.020 1.003- 1.035 Not Available [facility] [address] [facility] [address], [place], [address], 01/16/2024 21:08:42 01/11/20 24 01/11/2024 URINE DRUG SCREE N, 6-DUONG EL amphetamines NEGATI VE negati ve Amphe tamin e Cutof f=500 Not Available [facility] [address] [facility] [address], [place], [address], 01/16/2024 21:08:42 01/11/20 24 01/11/2024 URINE DRUG SCREE N, 6-DUONG EL benzodiazepi rigo NEGATI VE negati ve Benzo diaze pines Cutof f=100 Not Available [facility] [address] [facility] [address], [place], [address], 01/16/2024 21:08:42 01/11/20 24 01/11/2024 URINE DRUG SCREE N, 6-DUONG EL cocaine NEGATI VE negati ve Cocai ne Cutof f=300 Not Available [facility] [address] [facility] [address], [place], [address], 01/16/2024 21:08:42 01/11/20 24 01/11/2024 URINE DRUG SCREE N, 6-DUONG EL opiates POSITI VE negati ve abnormal Opiat es Cutof f=300 Not Available [facility] [address] [facility] [address], [place], [address], 01/16/2024 21:08:42 01/11/20 24 01/11/2024 URINE DRUG SCREE N, 6-DUONG EL oxycodone NEGATI VE negati ve Oxyco done Cutof f=300 Not Available [facility] [address] [facility] [address], [place], [address], 01/16/2024 21:08:42 01/11/20 24 01/11/2024 URINE DRUG SCREE N, 6-DUONG EL cannabinoid (THC) NEGATI VE negati ve Canna binoi d Cutof f=50 Not Available [facility] [address] [facility] [address], [place], [address], 01/16/2024 21:08:42 01/11/20 24 01/11/2024 URINE DRUG SCREE N, 6-DUONG EL creatinine - uds urine 84.0 mg/dL >20.0 Not Available [facility] [address] [facility] [address], [place], [address], 01/16/2024 21:08:42 01/11/20 24 01/11/2024 URINE DRUG SCREE N, 6-DUONG EL pH (uds) 6.0 4.5-10 .9 Not Available [facility] [address] [facility] [address], [place], [address], 01/16/2024 21:08:42 01/11/20 24 01/11/2024 URINE DRUG SCREE N, 6-DUONG EL specific gravity (uds) 1.020 1.003- 1.035 Not Available [facility] [address], [place], [address], 01/16/2024 21:08:42 07/20/19 25 07/20/2024 LIPID PANEL , STAND CONNIE cholesterol, total 144 mg/dL <200 normal Not Available [address], [address], 07/21/2024 12:53:50 07/20/19 25 07/20/2024 LIPID PANEL , STAND CONNIE HDL cholesterol 57 mg/dL > or = 40 normal Not Available [address], [address], 07/21/2024 12:53:50 07/20/19 25 07/20/2024 LIPID PANEL , STAND CONNIE triglyceride s 153 mg/dL <150 high Not Available [address], [address], 07/21/2024 12:53:50 07/20/19 25 07/20/2024 LIPID PANEL [...] lated using the Naima n-Hop kins calcu richard n, which is a valid ated novel metho d provi nyla mcgrathte r accur acy than the Fried carlito equat ion in the estim ation of LDL-C . Naima palomino SS et al. MAGUE. 2013; 310(1 9): 2061- 2068 (http ://ed ucati on.Qu Michel hurley [employer]. com/f aq/FA Q164) Not Available [address], [address], 07/21/2024 12:53:50 07/20/19 25 07/20/2024 LIPID PANEL , STAND CONNIE chol/HDLC ratio 2.5 (calc ) <5.0 normal Not Available [address], [address], 07/21/2024 12:53:50 07/20/19 25 07/20/2024 LIPID PANEL , STAND CONNIE non HDL cholesterol 87 mg/dL _(stevie c) <130 normal For patie nts with diabe ness plus 1 major ASCVD risk facto r, treat ing to a non-H DL-C goal of <100 mg/dL (LDL- C of <70 mg/dL ) is consi dered a thera peuti c optio n. Not Available [address], [address], 07/21/2024 12:53:50 07/20/19 25 07/20/2024 ALBUM IN, RANDO M URINE W/CRE ATINI NE creatinine, random urine 67 mg/dL 20-320 normal Not Available [address] [address] [place], [address], 07/21/2024 12:53:51 07/20/19 25 07/20/2024 ALBUM IN, RANDO M URINE W/CRE ATINI NE albumin, urine 0.3 mg/dL see note: normal Refer ence Range : Refer ence Range Not estab lishe d Not Available [address], [address], 07/21/2024 12:53:51 07/20/19 25 07/20/2024 ALBUM IN, [...] a diagn ostic categ ory. Not Available [facility] [address] [place], [address], 07/21/2024 12:53:51 07/20/1907/20/2024 MAGNE SIUM magnesium 2.2 mg/dL 1.5-2. 5 normal Not Available [facility] [address] [place], [address], 07/21/2024 12:53:52 07/20/1907/20/2024 VITAM IN B12 vitamin [...] pg/mL will have sympt oms. Not Available [facility] [address] [place], [address], 07/21/2024 12:53:52 07/20/1907/20/2024 PSA, TOTAL PSA, total [...] not be inter prete d as absol knik evide nce of the prese nce or absen ce of disea se. Not Available [facility] [address] [place], [address], 07/21/2024 12:53:53 07/20/1907/20/2024 TSH TSH 0.94 mIU/L 0.40-4 .50 normal Not Available [facility] [address] [place], [address], 07/21/2024 12:53:54 07/20/1907/20/2024 VITAM IN D,25- OH,TO CAMI,I A vitamin [...] /MS is recom abdi d: order code 85774 (hilda ents >2yrs ). See Note 1 Note 1 For addit ional infor brook graf e refer to http: //sowmya palomino.Que stDia gnost ics.c om/fa q/FAQ 199 (This link is being provi ded for infor matio nal/ educa lexi l purpo ses only. 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 Not Available [facility] [address], [place], [address], 07/21/2024 12:53:55 07/20/1907/20/2024 DRUG MONIT OR, PANEL 5, SCREE N, URINE amphetamines NEGATI VE NG/mL <500 See Note A See Note A Not Available [facility] [address], [place], [address], 07/21/2024 12:53:56 07/20/1907/20/2024 DRUG MONIT OR, PANEL 5, SCREE N, URINE barbiturates NEGATI VE NG/mL <300 See Note A See Note A Not Available [facility] [place] [address] [address] [place], [address], 07/21/2024 12:53:56 07/20/19 25 07/20/2024 DRUG MONIT OR, PANEL 5, SCREE N, URINE benzodiazepi rigo NEGATI VE NG/mL <100 See Note A See Note A Not Available [facility] [address], [place], [address], 07/21/2024 12:53:56 07/20/19 25 07/20/2024 DRUG MONIT OR, PANEL 5, SCREE N, URINE cocaine metabolite NEGATI VE NG/mL <150 See Note A See Note A Not Available [address], [place], [address], 07/21/2024 12:53:56 07/20/1907/20/2024 DRUG MONIT OR, PANEL 5, SCREE N, URINE marijuana metabolite NEGATI VE NG/mL <20 See Note A See Note A Not Available [facility] [address], [place], [address], 07/21/2024 12:53:56 07/20/1907/20/2024 DRUG MONIT OR, PANEL 5, SCREE N, URINE methadone metabolite NEGATI VE NG/mL <100 See Note A See Note A Not Available [facility] [address], [place], [address], 07/21/2024 12:53:56 07/20/1907/20/2024 DRUG MONIT OR, PANEL 5, SCREE N, URINE opiates POSITI VE NG/mL <100 abnormal See Note A See Note A Not Available [facility] [address], [place], [address], 07/21/2024 12:53:56 07/20/1907/20/2024 DRUG MONIT OR, PANEL 5, SCREE N, URINE oxycodone NEGATI VE NG/mL <100 See Note A See Note A Not Available [facility] [address], [place], [address], 07/21/2024 12:53:56 07/20/19 25 07/20/2024 DRUG MONIT OR, PANEL 5, SCREE N, URINE creatinine 67.1 mg/dL > or = 20.0 Not Available [facility] [place] [address] [place], [address], 07/21/2024 12:53:56 07/20/1907/20/2024 DRUG MONIT OR, PANEL 5, SCREE N, URINE pH 7.2 4.5-9. 0 Not Available [facility] [address], [place], [address], 07/21/2024 12:53:56 07/20/1907/20/2024 DRUG MONIT OR, PANEL 5, SCREE N, URINE oxidant NEGATI VE mcg/m L <200 Not Available [facility] [address] , [place], [address], 07/21/2024 12:53:56 07/20/1907/20/2024 DRUG MONIT ORING TEMPL ATE notes and comments This drug testi ng is for medic al treat ment only. Abena sis was perfo rmed as non-f orens ic testi ng and these resul ts shoul d be used only by healt hcare provi ders to rende r diagn osis or treat ment, or to monit or progr ess of medic al condi tions . Note A: The resul ts are presu mptiv e; based only on screkrystle meza metho ds, and they have not been confi rmed by a defin itive metho d. [facility] needi ng Inter preta tion gerson tance , pleas e conta ct us at 1.877 .40.R XTOX (1.87 [phone] .[phone] ) M-F, 8am to 10pm EST Not Available [facility] [address], [place], [address], 07/21/2024 12:53:56 10/21/1910/20/2024 Compr ehens giovanna metab olic 1999 panel - Serum or Plasm a sodium [moles/volum e] in serum or plasma 138 mmol/ L low: 136mmo l/Lhig h: 145mmo l/L Not Available Not Available 10/25/2024 15:16:05 10/21/19 25 10/20/2024 Compr ehens giovanna metab olic 1999 panel - Serum or Plasm a potassium [moles/volum e] in serum or plasma 4.1 mmol/ L low: 3.5mmo l/Lhig h: 5mmol/ L Hemol ysis prese nt. Resul t may be false ly eleva arleth. Not Available Not Available 10/25/2024 15:16:05 10/21/19 25 10/20/2024 Compr ehens giovanna metab olic 1999 panel - Serum or Plasm a chloride [moles/volum e] in serum or plasma 103 mmol/ L low: 98mmol /Lhigh : 107mmo l/L Not Available Not Available 10/25/2024 15:16:05 10/21/19 25 10/20/2024 Compr ehens giovanna metab olic 1999 panel - Serum or Plasm a carbon dioxide, total [moles/volum e] in serum or plasma 22 mmol/ L low: 22mmol /Lhigh : 29mmol /L Not Available Not Available 10/25/2024 15:16:05 10/21/1910/20/2024 Compr ehens giovanna metab olic 2000 panel - Serum or Plasm a calcium [mass/volume ] in serum or plasma 8.8 mg/dL low: 8.6mg/ dLhigh : 10.2mg /dL Not Available Not Available 10/25/2024 15:16:05 10/21/1910/20/2024 Compr ehens giovanna metab olic 1999 panel - Serum or Plasm a urea nitrogen [mass/volume ] in serum or plasma 16 mg/dL low: 8mg/dL high: 23mg/d L Not Available Not Available 10/25/2024 15:16:05 10/21/1910/20/2024 Compr ehens giovanna metab olic 2000 panel - Serum or Plasm a creatinine [mass/volume ] in serum or plasma 0.87 mg/dL low: 0.67mg /dLhig h: 1.17mg /dL The GFR resul t is not clini osiris signi fican t on patie nts <18 or >70 years of age. Not Available Not Available 10/25/2024 15:16:05 10/21/19 25 10/20/2024 [facility] panel - Serum or Plasm a glucose [mass/volume ] in serum or plasma 132 mg/dL low: 74mg/d Lhigh: 99mg/d L high Not Available Not Available 10/25/2024 15:16:05 10/21/19 25 10/20/2024 Compr ehens giovanna metab olic 1999 panel - Serum or Plasm a protein [mass/volume ] in serum or plasma 6.4 g/dL low: 6.7g/d Lhigh: 8.6g/d L low Not Available Not Available 10/25/2024 15:16:05 10/21/19 25 10/20/2024 Compr ehens giovanna metab olic 1999 panel - Serum or Plasm a albumin [mass/volume ] in serum or plasma 4.1 g/dL low: 3.5g/d Lhigh: 5.2g/d L Not Available Not Available 10/25/2024 15:16:05 10/21/1910/20/2024 [facility] 1999 panel - Serum or Plasm a bilirubin.to cami [mass/volume ] in serum or plasma 0.4 mg/dL low: 0mg/dL high: 1.1mg/ dL Not Available Not Available 10/25/2024 15:16:05 10/21/19 25 10/20/2024 [facility] 1999 panel - Serum or Plasm a alkaline phosphatase [enzymatic activity/vol ume] in serum or plasma 54 U/L low: 40U/Lh igh: 129U/L Not Available Not Available 10/25/2024 15:16:05 10/21/1910/20/2024 [facility] 2000 panel - Serum or Plasm a aspartate aminotransfe rase [enzymatic activity/vol ume] in serum or plasma Test canno t be perfo rmed. Sampl e hemol ysis inter feren ce above limit s. Redra w if indic ated. Not Available Not Available 10/25/2024 15:16:05 10/21/19 25 10/20/2024 [facility] 2000 panel - Serum or Plasm a alanine aminotransfe rase [enzymatic activity/vol ume] in blood 18 U/L high: 42U/L Not Available Not Available 10/25/2024 15:16:05 10/21/1910/20/2024 Compr ehens giovanna metab olic 2000 panel - Serum or Plasm a glomerular filtration rate [volume rate/area] in serum, plasma or blood by creatinine-b ased formula (CKD-epi 2020)/1.73 sq M text: mL/min /1.73 sq meter eGFR calcu lated with 2020 CKD-E PI equat ion. Veget susana diet, extre gonzalo high or low muscl e mass, and pregn alexx may affec t resul ts. Cysta tin C with Glome rular Filtr ation Rate is a suita ble alter nativ e for these patie nts. Not Available Not Available 10/25/2024 15:16:05 10/21/1910/20/2024 Compr ehens giovanna metab olic 2000 panel - Serum or Plasm a anion gap in serum or plasma by calculation 13 mmol/ L low: 8mmol/ Lhigh: 16mmol /L Not Available Not Available 10/25/2024 15:16:05 10/21/1910/20/2024 Compr ehens giovanna metab olic 2000 panel - Serum or Plasm a samples containing indocyanine green cause interference s on total and/or direct bilirubin and must not BE measured. SAMPLE S CONTAI JOHNNIE INDOCY ANINE GREEN CAUSE INTERF ERENCE S ON TOTAL AND/OR DIRECT BILIRU BIN AND MUST NOT BE MEASUR ED. Not Available Not Available 15:16:05 10/21/1910/20/2024 Compr ehens giovanna metab olic 2000 panel - Serum or Plasm a interpretati on and review of laboratory results ABNORM AL Not Available Not Available 15:16:05 10/21/1910/20/2024 CBC W Auto Diffe renti al panel - Blood leukocytes [#/volume] in blood 6.7 K/uL low: 4K/uLh igh: 9.8K/u L Not Available Not Available 10/25/2024 15:16:05 10/21/1910/20/2024 CBC W Auto Diffe renti al panel - Blood erythrocytes [#/volume] in blood by automated count 4.82 text: 4.50 - 5.40 M/uL Not Available Not Available 10/25/2024 15:16:05 10/21/1910/20/2024 CBC W Auto Diffe renti al panel - Blood hemoglobin [mass/volume ] in blood 14.5 g/dL low: 13.6g/ dLhigh : 16.5g/ dL Not Available Not Available 10/25/2024 15:16:05 10/21/1910/20/2024 CBC W Auto Diffe renti al panel - Blood hematocrit [volume fraction] of blood by automated count 44.3 % low: 40%hig h: 48% Not Available Not Available 10/25/2024 15:16:05 10/21/1910/20/2024 CBC W Auto Diffe renti al panel - Blood MCV [entitic mean volume] in red blood cells by automated count 91.9 fL low: 82fLhi gh: 99fL Not Available Not Available 10/25/2024 15:16:05 10/21/1910/20/2024 CBC W Auto Diffe renti al panel - Blood MCH [entitic mass] by automated count 30.1 pg low: 27.2pg high: 32.6pg Not Available Not Available 10/25/2024 15:16:05 10/21/1910/20/2024 CBC W Auto Diffe renti al panel - Blood MCHC [entitic mass/volume] in red blood cells by automated count 32.7 g/dL low: 31.5g/ dLhigh : 35.5g/ dL Not Available Not Available 10/25/2024 15:16:05 10/21/1910/20/2024 CBC W Auto Diffe renti al panel - Blood RDW 14.1 % low: 11.5%h igh: 14.5% Not Available Not Available 10/25/2024 15:16:05 10/21/1910/20/2024 CBC W Auto Diffe renti al panel - Blood RDW-stdev 47.6 fL low: 37.1fL high: 48.7fL Not Available Not Available 10/25/2024 15:16:05 10/21/1910/20/2024 CBC W Auto Diffe renti al panel - Blood platelets [#/volume] in blood by automated count 188 K/uL low: 140K/u Lhigh: 350K/u L Not Available Not Available 10/25/2024 15:16:05 10/21/1910/20/2024 CBC W Auto Diffe renti al panel - Blood platelet [entitic mean volume] in blood by automated count 9.6 fL low: 9.3fLh igh: 12.4fL Not Available Not Available 10/25/2024 15:16:05 10/21/1910/20/2024 CBC W Auto Diffe renti al panel - Blood neutrophils 77 % Not Available Not Av ailable 10/25/2024 15:16:05 10/21/1910/20/2024 CBC W Auto Diffe renti al panel - Blood lymphocytes/ leukocytes in blood by automated count 16 % Not Available Not Available 04/2024 15:16:05 10/21/19 25 10/20/2024 CBC W Auto Diffe renti al panel - Blood monocytes 6 % Not Available Not Avai lable 10/25/2024 15:16:05 10/21/19 25 10/20/2024 CBC W Auto Diffe renti al panel - Blood eosinophils 1 % Not Available Not Av ailable 10/25/2024 15:16:05 10/21/19 25 10/20/2024 CBC W Auto Diffe renti al panel - Blood basophils 1 % Not Available Not Avai lable 10/25/2024 15:16:05 10/21/19 25 10/20/2024 CBC W Auto Diffe renti al panel - Blood immature granulocytes 0 % Not Available Not Available 10/25/2024 15:16:05 10/21/19 25 10/20/2024 CBC W Auto Diffe renti al panel - Blood neutrophils [#/volume] in blood by automated count 5.14 K/uL low: 1.9K/u Lhigh: 7K/uL Not Available Not Available 10/25/2024 15:16:05 10/21/19 25 10/20/2024 CBC W Auto Diffe renti al panel - Blood lymphocytes [#/volume] in blood by automated count 1.07 K/uL low: 0.7K/u Lhigh: 4.5K/u L Not Available Not Available 10/25/2024 15:16:05 10/21/1910/20/2024 CBC W Auto Diffe renti al panel - Blood monocytes [#/volume] in blood by automated count 0.39 K/uL low: 0.1K/u Lhigh: 1.3K/u L Not Available Not Available 10/25/2024 15:16:05 10/21/1910/20/2024 CBC W Auto Diffe renti al panel - Blood eosinophils [#/volume] in blood by automated count 0.04 K/uL low: 0K/uLh igh: 0.7K/u L Not Available Not Available 10/25/2024 15:16:05 10/21/1910/20/2024 CBC W Auto Diffe renti al panel - Blood basophils [#/volume] in blood by automated count 0.04 K/uL low: 0K/uLh igh: 0.2K/u L Not Available Not Available 10/25/2024 15:16:05 10/21/1910/20/2024 CBC W Auto Diffe renti al panel - Blood immature granulocytes absolute 0.02 K/uL low: 0K/uLh igh: 0.03K/ uL Not Available Not Available 10/25/2024 15:16:05 10/22/1910/21/2024 Basic metab olic 1999 panel - Serum or Plasm a sodium [moles/volum e] in serum or plasma 139 mmol/ L low: 136mmo l/Lhig h: 145mmo l/L Not Available Not Available 10/25/2024 15:16:05 10/22/1910/21/2024 Basic metab olic 1999 panel - Serum or Plasm a potassium [moles/volum e] in serum or plasma 4.5 mmol/ L low: 3.5mmo l/Lhig h: 5mmol/ L Not Available Not Available 10/25/2024 15:16:05 10/22/1910/21/2024 Basic metab olic 1999 panel - Serum or Plasm a chloride [moles/volum e] in serum or plasma 100 mmol/ L low: 98mmol /Lhigh : 107mmo l/L Not Available Not Available 10/25/2024 15:16:05 10/22/1910/21/2024 Basic metab olic 1999 panel - Serum or Plasm a carbon dioxide, total [moles/volum e] in serum or plasma 25 mmol/ L low: 22mmol /Lhigh : 29mmol /L Not Available Not Available 10/25/2024 15:16:10/22/1910/21/2024 Basic metab olic 1999 panel - Serum or Plasm a calcium [mass/volume ] in serum or plasma 8.9 mg/dL low: 8.6mg/ dLhigh : 10.2mg /dL Not Available Not Available 10/25/2024 15:16:10/22/1910/21/2024 Basic metab olic 1999 panel - Serum or Plasm a urea nitrogen [mass/volume ] in serum or plasma 16 mg/dL low: 8mg/dL high: 23mg/d L Not Available Not Available 10/25/2024 15:16:10/22/1910/21/2024 Basic metab olic 1999 panel - Serum or Plasm a creatinine [mass/volume ] in serum or plasma 0.9 mg/dL low: 0.67mg /dLhig h: 1.17mg /dL The GFR resul t is not clini osiris hughi saul t on patie nts <18 or >70 years of age. Not Available Not Available 10/25/2024 15:16:10/22/1910/21/2024 Basic metab olic 1999 panel - Serum or Plasm a glucose [mass/volume ] in serum or plasma 147 mg/dL low: 74mg/d Lhigh: 99mg/d L high Not Available Not Available 10/25/2024 15:16:05 10/22/1910/21/2024 Basic metab olic 2000 panel - Serum or Plasm a glomerular filtration rate [volume rate/area] in serum, plasma or blood by creatinine-b ased formula (CKD-epi 2020)/1.73 sq M text: mL/min /1.73 sq meter eGFR calcu lated with 2020 CKD-E PI equat ion. Veget susana diet, extre gonzalo high or low muscl e mass, and pregn alexx may affec t resul ts. Cysta tin C with Glome rular Filtr ation Rate is a suita ble alter nativ e for these patie nts. Not Available Not Available 10/25/2024 15:16:05 10/22/1910/21/2024 Basic metab olic 2000 panel - Serum or Plasm a anion gap in serum or plasma by calculation 14 mmol/ L low: 8mmol/ Lhigh: 16mmol /L Not Available Not Available 10/25/2024 15:16:05 10/22/1910/21/2024 Basic metab olic 2000 panel - Serum or Plasm a interpretati on and review of laboratory results ABNORM AL Not Available Not Available 15:16:05 10/22/1910/21/2024 CBC W Auto Diffe rensteven al panel - Blood leukocytes [#/volume] in blood 8 K/uL low: 4K/uLh igh: 9.8K/u L Not Available Not Available 10/25/2024 15:16:05 10/22/1910/21/2024 CBC W Auto Diffe dennis al panel - Blood erythrocytes [#/volume] in blood by automated count 4.88 text: 4.50 - 5.40 M/uL Not Available Not Available 10/25/2024 15:16:05 10/22/1910/21/2024 CBC W Auto Diffe dennis al panel - Blood hemoglobin [mass/volume ] in blood 14.7 g/dL low: 13.6g/ dLhigh : 16.5g/ dL Not Available Not Available 10/25/2024 15:16:05 10/22/1910/21/2024 CBC W Auto Diffe dennis al panel - Blood hematocrit [volume fraction] of blood by automated count 44.4 % low: 40%hig h: 48% Not Available Not Available 10/25/2024 15:16:05 10/22/1910/21/2024 CBC W Auto Diffe dennis al panel - Blood MCV [entitic mean volume] in red blood cells by automated count 91 fL low: 82fLhi gh: 99fL Not Available Not Available 10/25/2024 15:16:05 10/22/1910/21/2024 CBC W Auto Diffe renti al panel - Blood MCH [entitic mass] by automated count 30.1 pg low: 27.2pg high: 32.6pg Not Available Not Available 10/25/2024 15:16:05 10/22/1910/21/2024 CBC W Auto Diffe renti al panel - Blood MCHC [entitic mass/volume] in red blood cells by automated count 33.1 g/dL low: 31.5g/ dLhigh : 35.5g/ dL Not Available Not Available 10/25/2024 15:16:05 10/22/1910/21/2024 CBC W Auto Diffe renti al panel - Blood RDW 14.1 % low: 11.5%h igh: 14.5% Not Available Not Available 10/25/2024 15:16:10/22/1910/21/2024 CBC W Auto Diffe renti al panel - Blood RDW-stdev 47.3 fL low: 37.1fL high: 48.7fL Not Available Not Available 10/25/2024 15:16:05 10/22/1910/21/2024 CBC W Auto Diffe renti al panel - Blood platelets [#/volume] in blood by automated count 216 K/uL low: 140K/u Lhigh: 350K/u L Not Available Not Available 10/25/2024 15:16:05 10/22/1910/21/2024 CBC W Auto Diffe renti al panel - Blood platelet [entitic mean volume] in blood by automated count 9.6 fL low: 9.3fLh igh: 12.4fL Not Available Not Available 10/25/2024 15:16:05 10/22/1910/21/2024 CBC W Auto Diffe renti al panel - Blood neutrophils 79 % Not Available Not Av ailable 10/25/2024 15:16:10/22/1910/21/2024 CBC W Auto Diffe renti al panel - Blood lymphocytes/ leukocytes in blood by automated count 14 % Not Available Not Available 04/2024 15:16:05 10/22/19 25 10/21/2024 CBC W Auto Diffe renti al panel - Blood monocytes 6 % Not Available Not Avai lable 10/25/2024 15:16:10/22/19 25 10/21/2024 CBC W Auto Diffe renti al panel - Blood eosinophils 0 % Not Available Not Av ailable 10/25/2024 15:16:10/22/1910/21/2024 CBC W Auto Diffe renti al panel - Blood basophils 1 % Not Available Not Avai lable 10/25/2024 15:16:10/22/19 25 10/21/2024 CBC W Auto Diffe renti al panel - Blood immature granulocytes 0 % Not Available Not Available 10/25/2024 15:16:10/22/1910/21/2024 CBC W Auto Diffe renti al panel - Blood neutrophils [#/volume] in blood by automated count 6.35 K/uL low: 1.9K/u Lhigh: 7K/uL Not Available Not Available 10/25/2024 15:16:10/22/1910/21/2024 CBC W Auto Diffe renti al panel - Blood lymphocytes [#/volume] in blood by automated count 1.11 K/uL low: 0.7K/u Lhigh: 4.5K/u L Not Available Not Available 10/25/2024 15:16:10/22/1910/21/2024 CBC W Auto Diffe renti al panel - Blood monocytes [#/volume] in blood by automated count 0.5 K/uL low: 0.1K/u Lhigh: 1.3K/u L Not Available Not Available 10/25/2024 15:16:10/22/1910/21/2024 CBC W Auto Diffe renti al panel - Blood eosinophils [#/volume] in blood by automated count 0.01 K/uL low: 0K/uLh igh: 0.7K/u L Not Available Not Available 10/25/2024 15:16:10/22/1910/21/2024 CBC W Auto Diffe renti al panel - Blood basophils [#/volume] in blood by automated count 0.04 K/uL low: 0K/uLh igh: 0.2K/u L Not Available Not Available 10/25/2024 15:16:10/22/1910/21/2024 CBC W Auto Diffe renti al panel - Blood immature granulocytes absolute 0.02 K/uL low: 0K/uLh igh: 0.03K/ uL Not Available Not Available 10/25/2024 15:16:05 10/23/19 25 10/22/2024 [facility] 1999 panel - Serum or Plasm a sodium [moles/volum e] in serum or plasma 140 mmol/ L low: 136mmo l/Lhig h: 145mmo l/L Not Available Not Available 10/25/2024 15:16:05 10/23/19 25 10/22/2024 [facility] 1999 panel - Serum or Plasm a potassium [moles/volum e] in serum or plasma 4.1 mmol/ L low: 3.5mmo l/Lhig h: 5mmol/ L Not Available Not Available 10/25/2024 15:16:05 10/23/19 25 10/22/2024 [facility] 1999 panel - Serum or Plasm a chloride [moles/volum e] in serum or plasma 105 mmol/ L low: 98mmol /Lhigh : 107mmo l/L Not Available Not Available 10/25/2024 15:16:05 10/23/19 25 10/22/2024 [facility] 1999 panel - Serum or Plasm a carbon dioxide, total [moles/volum e] in serum or plasma 26 mmol/ L low: 22mmol /Lhigh : 29mmol /L Not Available Not Available 10/25/2024 15:16:05 10/23/1910/22/2024 [facility] 1999 panel - Serum or Plasm a calcium [mass/volume ] in serum or plasma 8.7 mg/dL low: 8.6mg/ dLhigh : 10.2mg /dL Not Available Not Available 10/25/2024 15:16:10/23/1910/22/2024 [facility] 1999 panel - Serum or Plasm a urea nitrogen [mass/volume ] in serum or plasma 14 mg/dL low: 8mg/dL high: 23mg/d L Not Available Not Available 10/25/2024 15:16:05 10/23/19 25 10/22/2024 [facility] 1999 panel - Serum or Plasm a creatinine [mass/volume ] in serum or plasma 0.91 mg/dL low: 0.67mg /dLhig h: 1.17mg /dL The GFR resul t is not clini osiris signi ficsalina t on patie nts <18 or >70 years of age. Not Available Not Available 10/25/2024 15:16:05 10/23/19 25 10/22/2024 Basic metab olic 2000 panel - Serum or Plasm a glucose [mass/volume ] in serum or plasma 111 mg/dL low: 74mg/d Lhigh: 99mg/d L high Not Available Not Available 10/25/2024 15:16:05 10/23/19 25 10/22/2024 Basic metab olic 2000 panel - Serum or Plasm a glomerular filtration rate [volume rate/area] in serum, plasma or blood by creatinine-b ased formula (CKD-epi 2020)/1.73 sq M text: mL/min /1.73 sq meter eGFR calcu lated with 2020 CKD-E PI equat ion. Veget susana diet, extre gonzalo high or low muscl e mass, and pregn alexx may affec t resul ts. Cysta tin C with Glome rular Filtr ation Rate is a suita ble alter nativ e for these patie nts. Not Available Not Available 10/25/2024 15:16:05 10/23/1910/22/2024 Basic metab olic 2000 panel - Serum or Plasm a anion gap in serum or plasma by calculation 9 mmol/ L low: 8mmol/ Lhigh: 16mmol /L Not Available Not Available 10/25/2024 15:16:05 10/23/1910/22/2024 Basic metab olic 2000 panel - Serum or Plasm a interpretati on and review of laboratory results ABNORM AL Not Available Not Available 15:16:05 10/23/1910/22/2024 CBC W Auto Diffe renti al panel - Blood leukocytes [#/volume] in blood 6.2 K/uL low: 4K/uLh igh: 9.8K/u L Not Available Not Available 10/25/2024 15:16:05 10/23/19 25 10/22/2024 CBC W Auto Diffe renti al panel - Blood erythrocytes [#/volume] in blood by automated count 4.56 text: 4.50 - 5.40 M/uL Not Available Not Available 10/25/2024 15:16:05 10/23/1910/22/2024 CBC W Auto Diffe renti al panel - Blood hemoglobin [mass/volume ] in blood 13.6 g/dL low: 13.6g/ dLhigh : 16.5g/ dL Not Available Not Available 10/25/2024 15:16:10/23/1910/22/2024 CBC W Auto Diffe renti al panel - Blood hematocrit [volume fraction] of blood by automated count 41.9 % low: 40%hig h: 48% Not Available Not Available 10/25/2024 15:16:10/23/1910/22/2024 CBC W Auto Diffe renti al panel - Blood MCV [entitic mean volume] in red blood cells by automated count 91.9 fL low: 82fLhi gh: 99fL Not Available Not Available 10/25/2024 15:16:05 10/23/1910/22/2024 CBC W Auto Diffe dennis al panel - Blood MCH [entitic mass] by automated count 29.8 pg low: 27.2pg high: 32.6pg Not Available Not Available 10/25/2024 15:16:10/23/1910/22/2024 CBC W Auto Diffe karmati al panel - Blood MCHC [entitic mass/volume] in red blood cells by automated count 32.5 g/dL low: 31.5g/ dLhigh : 35.5g/ dL Not Available Not Available 10/25/2024 15:16:05 10/23/1910/22/2024 CBC W Auto Diffe karmati al panel - Blood RDW 14 % low: 11.5%h igh: 14.5% Not Available Not Available 10/25/2024 15:16:10/23/1910/22/2024 CBC W Auto Diffe renti al panel - Blood RDW-stdev 47.4 fL low: 37.1fL high: 48.7fL Not Available Not Available 10/25/2024 15:16:05 10/23/1910/22/2024 CBC W Auto Diffe renti al panel - Blood platelets [#/volume] in blood by automated count 180 K/uL low: 140K/u Lhigh: 350K/u L Not Available Not Available 10/25/2024 15:16:05 10/23/1910/22/2024 CBC W Auto Diffe renti al panel - Blood platelet [entitic mean volume] in blood by automated count 9.7 fL low: 9.3fLh igh: 12.4fL Not Available Not Available 10/25/2024 15:16:05 10/23/19 25 10/22/2024 CBC W Auto Diffe renti al panel - Blood neutrophils 60 % Not Available Not Av ailable 10/25/2024 15:16:05 10/23/1910/22/2024 CBC W Auto Diffe renti al panel - Blood lymphocytes/ leukocytes in blood by automated count 28 % Not Available Not Available 04/2024 15:16:05 10/23/19 25 10/22/2024 CBC W Auto Diffe renti al panel - Blood monocytes 9 % Not Available Not Avai lable 10/25/2024 15:16:05 10/23/19 25 10/22/2024 CBC W Auto Diffe renti al panel - Blood eosinophils 2 % Not Available Not Av ailable 10/25/2024 15:16:05 10/23/19 25 10/22/2024 CBC W Auto Diffe renti al panel - Blood basophils 1 % Not Available Not Avai lable 10/25/2024 15:16:05 10/23/19 25 10/22/2024 CBC W Auto Diffe renti al panel - Blood immature granulocytes 0 % Not Available Not Available 10/25/2024 15:16:05 10/23/1910/22/2024 CBC W Auto Diffe renti al panel - Blood neutrophils [#/volume] in blood by automated count 3.72 K/uL low: 1.9K/u Lhigh: 7K/uL Not Available Not Available 10/25/2024 15:16:05 10/23/19 25 10/22/2024 CBC W Auto Diffe renti al panel - Blood lymphocytes [#/volume] in blood by automated count 1.75 K/uL low: 0.7K/u Lhigh: 4.5K/u L Not Available Not Available 10/25/2024 15:16:10/23/1910/22/2024 CBC W Auto Diffe renti al panel - Blood monocytes [#/volume] in blood by automated count 0.55 K/uL low: 0.1K/u Lhigh: 1.3K/u L Not Available Not Available 10/25/2024 15:16:10/23/1910/22/2024 CBC W Auto Diffe renti al panel - Blood eosinophils [#/volume] in blood by automated count 0.12 K/uL low: 0K/uLh igh: 0.7K/u L Not Available Not Available 10/25/2024 15:16:10/23/1910/22/2024 CBC W Auto Diffe renti al panel - Blood basophils [#/volume] in blood by automated count 0.04 K/uL low: 0K/uLh igh: 0.2K/u L Not Available Not Available 10/25/2024 15:16:10/23/1910/22/2024 CBC W Auto Diffe renti al panel - Blood immature granulocytes absolute 0.02 K/uL low: 0K/uLh igh: 0.03K/ uL Not Available Not Available 10/25/2024 15:16:10/26/1910/25/2024 HEMOG LOBIN A1C hemoglobin A1C 6.2 % 4.8-5. 6 high CHIO L RANGE BASED ON ИРИНА COL 2 (DCCT /NGSP ): Non-D iabet ic: < 5.7% Pre-D iabet es: 5.7 - 6.4% Diabe ness: => 6.5% GLYCE MALIA CONTR OL: < 7.0% Not Available [facility] [address], [place], [address], 10/27/2024 00:41:06 10/26/1910/25/2024 HEMOG LOBIN A1C estimated average glucose 130 Not Available [facility] [address], [place], [address], 10/27/2024 00:41:06 10/26/1910/25/2024 CBC WITH AUTO- DIFFE RENTI AL WBC 6.2 10*3/ uL 3.4-10 .8 Not Available [facility] [address] [facility] [address], [place], [address], 10/27/2024 00:41:06 10/26/1910/25/2024 CBC WITH AUTO- DIFFE RENTI AL RBC 5.14 10*6/ uL 4.20-5 .80 Not Available [facility] [address] [facility] [address], [place], [address], 10/27/2024 00:41:06 10/26/1910/25/2024 CBC WITH AUTO- DIFFE RENTI AL HGB 15.4 g/dL 12.6-1 7.7 Not Available [facility] [address] [facility] [address], [place], [address], 10/27/2024 00:41:06 10/26/1910/25/2024 CBC WITH AUTO- DIFFE RENTI AL HCT 48.0 % 37.5-5 1.0 Not Available [facility] [address] [facility] [address], [place], [address], 10/27/2024 00:41:06 10/26/1910/25/2024 CBC WITH AUTO- DIFFE RENTI AL MCV 93 fL 79-97 Not Available [facility] [address] [facility] [address], [place], [address], 10/27/2024 00:41:06 10/26/1910/25/2024 CBC WITH AUTO- DIFFE RENTI AL MCH 30.0 pg 26.6-3 3.0 Not Available [facility] [address] [facility] [address], [place], [address], 10/27/2024 00:41:06 10/26/1910/25/2024 CBC WITH AUTO- DIFFE RENTI AL MCHC 32.1 g/dL 31.5-3 5.7 Not Available [facility] [address] [facility] [address] [address], [place], [address], 10/27/2024 00:41:06 10/26/19 25 10/25/2024 CBC WITH AUTO- DIFFE RENTI AL RDW 14.7 % 11.5-1 4.5 high Not Available [facility] [address], [place], [address], 10/27/2024 00:41:06 10/26/19 25 10/25/2024 CBC WITH AUTO- DIFFE RENTI AL platelets 239 10*3/ uL 150-40 0 Not Available [facility] [address], [place], [address], 10/27/2024 00:41:06 10/26/19 25 10/25/2024 CBC WITH AUTO- DIFFE RENTI AL MPV 11 fL 9-13 Not Available [facility] [address], [place], [address], 10/27/2024 00:41:06 10/26/19 25 10/25/2024 CBC WITH AUTO- DIFFE RENTI AL neutrophils 69.8 % 40.0-7 4.0 Not Available [facility] [address], [place], [address], 10/27/2024 00:41:06 10/26/1910/25/2024 CBC WITH AUTO- DIFFE RENTI AL absolute neutrophils 4.35 10*3/ uL 1.40-7 .00 Not Available [facility] [address], [place], [address], 10/27/2024 00:41:06 10/26/19 25 10/25/2024 CBC WITH AUTO- DIFFE RENTI AL lymphocytes 20.5 % 14.0-4 6.0 Not Available [facility] [address] [facility] [address], [place], [address], 10/27/2024 00:41:06 10/26/1910/25/2024 CBC WITH AUTO- DIFFE RENTI AL absolute lymphocytes 1.28 10*3/ uL 0.70-3 .10 Not Available [facility] [address] [facility] [address], [place], [address], 10/27/2024 00:41:06 10/26/1910/25/2024 CBC WITH AUTO- DIFFE RENTI AL monocytes 7.1 % 4.0-12 .0 Not Available [facility] [address] [facility] [address], [place], [address], 10/27/2024 00:41:06 10/26/1910/25/2024 CBC WITH AUTO- DIFFE RENTI AL absolute monocytes 0.44 10*3/ uL 0.10-0 .90 Not Available [facility] [address] [facility] [address], [place], [address], 10/27/2024 00:41:06 10/26/1910/25/2024 CBC WITH AUTO- DIFFE RENTI AL eosinophils 1.8 % 0.0-5. 0 Not Available [place] [address] [facility] [address], [place], [address], 10/27/2024 00:41:06 10/26/1910/25/2024 CBC WITH AUTO- DIFFE RENTI AL absolute eosinophils 0.11 10*3/ uL 0.00-0 .40 Not Available [facility] [address] [place] [address] [address], [place], [address], 10/27/2024 00:41:06 10/26/1910/25/2024 CBC WITH AUTO- DIFFE RENTI AL basophils 0.5 % 0.0-3. 0 Not Available [facility] [address] [facility] [address], [place], [address], 10/27/2024 00:41:06 10/26/19 25 10/25/2024 CBC WITH AUTO- DIFFE RENTI AL absolute basophils 0.03 10*3/ uL 0.00-0 .20 Not Available [facility] [address] [facility] [address], [place], [address], 10/27/2024 00:41:06 10/26/1910/25/2024 CBC WITH AUTO- DIFFE RENTI AL imm. gran. 0.3 % 0.0-2. 0 Not Available [facility] [address] [facility] [address], [place], [address], 10/27/2024 00:41:06 10/26/1910/25/2024 CBC WITH AUTO- DIFFE RENTI AL abs. imm. gran. 0.02 10*3/ uL 0.00-0 .10 Not Available [facility] [address] [facility] [address], [place], [address], 10/27/2024 00:41:06 10/26/1910/25/2024 COMPR EHENS GIOVANNA METAB OLIC PANEL sodium 144 mmol/ L 134-14 4 Not Available [facility] [address] [facility] [address], [place], [address], 10/27/2024 00:41:07 10/26/1910/25/2024 COMPR EHENS GIOVANNA METAB OLIC PANEL potassium 4.5 mmol/ L 3.5-5. 2 Not Available [facility] [address] [facility] [address], [place], [address], 10/27/2024 00:41:07 10/26/1910/25/2024 COMPR EHENS GIOVANNA METAB OLIC PANEL chloride 99 mmol/ L 98-107 Not Available [place] [address] [facility] [address], [place], [address], 10/27/2024 00:41:07 10/26/1916 1110/25/2024 COMPR EHENS GIOVANNA METAB OLIC PANEL carbon dioxide (co2) 21.0 mmol/ L 18.0-2 9.0 Not Available [facility] [address] [facility] [address], [place], [address], 10/27/2024 00:41:07 10/26/19 25 10/25/2024 COMPR EHENS GIOVANNA METAB OLIC PANEL glucose 122 mg/dL 65-99 high Chio l Fasti n - 99 mg/dL Impai red Fasti n - 125 mg/dL Diagn ostic of Diabe ness: => 126 mg/dL [facility] n[facility] n, 2007 Not Available [facility] [address] [facility] [address], [place], [address], 10/27/2024 00:41:07 10/26/1910/25/2024 COMPR EHENS GIOVANNA METAB OLIC PANEL urea nitrogen (BUN) 20 mg/dL 8-23 Not Available [facility] [address] [facility] [address], [place], [address], 10/27/2024 00:41:07 10/26/1910/25/2024 COMPR EHENS GIOVANNA METAB OLIC PANEL creatinine 0.83 mg/dL 0.76-1 .27 Not Available [facility] [address] [facility] [address], [place], [address], 10/27/2024 00:41:07 10/26/1910/25/2024 COMPR EHENS GIOVANNA METAB OLIC PANEL eGFR 93 mL/mi nute/ 1.73_ m2 >59 MDRD Study Equat ion: The calcu lated GFR is NOT appli cable for pedia tric (< 18 years old) and > 70 year old patie nts and patie nts that are NOT of stead [place] state . Not Available [facility] [address] [facility] [address], [place], [address], 10/27/2024 00:41:07 10/26/19 25 10/25/2024 COMPR EHENS GIOVANNA METAB OLIC PANEL calcium 9.3 mg/dL 8.6-10 .2 Not Available [facility] [address] [facility] [address], [place], [address], 10/27/2024 00:41:07 10/26/19 25 10/25/2024 COMPR EHENS GIOVANNA METAB OLIC PANEL protein, total 6.3 gm/dL 6.4-8. 3 low Not Available [facility] [address] [facility] [address], [place], [address], 10/27/2024 00:41:07 10/26/1910/25/2024 COMPR EHENS GIOVANNA METAB OLIC PANEL albumin 4.3 gm/dL 3.5-5. 2 Not Available [facility] [address] [facility] [address], [place], [address], 10/27/2024 00:41:07 10/26/1910/25/2024 COMPR EHENS GIOVANNA METAB OLIC PANEL bilirubin, total 0.30 mg/dL 0.00-1 .20 Not Available [facility] [address] [facility] [address], [place], [address], 10/27/2024 00:41:07 10/26/19 25 10/25/2024 COMPR EHENS GIOVANNA METAB OLIC PANEL alkaline phosphatase (ALP) 65 U/L 39-117 Not Available [facility] [address] [facility] [address], [place], [address], 10/27/2024 00:41:07 10/26/19 25 10/25/2024 COMPR EHENS GIOVANNA METAB OLIC PANEL aspartate aminotransfe rase (AST) 20 U/L 0-40 Not Available [facility] [address] [facility] [address], [place], [address], 10/27/2024 00:41:07 10/26/19 25 10/25/2024 COMPR EHENS GIOVANNA METAB OLIC PANEL alanine aminotransfe rase (ALT) 21 U/L 0-41 Not Available [facility] [address] [facility] [address], [place], [address], 10/27/2024 00:41:07 10/26/19 25 10/25/2024 COMPR EHENS GIOVANNA METAB OLIC PANEL A/G ratio (calculated) 2.2 ratio 1.0-2. 7 Not Available [facility] [address] [facility] [address], [place], [address], 10/27/2024 00:41:07 10/26/19 25 10/25/2024 COMPR EHENS GIOVANNA METAB OLIC PANEL globulin (calculated) 2.0 gm/dL 1.5-3. 8 Not Available [facility] [address] [facility] [address] [facility] [address], [place], [address], 10/27/2024 00:41:07 10/26/19 25 10/25/2024 COMPR EHENS GIOVANNA METAB OLIC PANEL BUN/creatini ne ratio (calculated) 24.1 ratio 8.0-20 .0 high Not Available [facility] [address] [facility] [address] [facility] [address], [place], [address], 10/27/2024 00:41:07 10/26/19 25 10/25/2024 COMPR EHENS GIOVANNA METAB OLIC PANEL serum index hemolysis NORMAL index normal Not Available [facility] [address] [facility] [address], [place], [address], 10/27/2024 00:41:07 01/11/20 24 01/11/2024 elect rocar diogr am No observ ation record ed. [facility], [facility] [id number] Re[address] By [facility] [address], [place], [address], 07/13/2024 13:23:21 01/11/20 24 01/11/2024 elect rocar diogr am No observ ation record ed. [address], [place], [address], 07/13/2024 13:23:21 02/10/20 24 02/10/2024 XR, shoul tyrone, 2 or more view No observ ation record ed. [facility] [address], [place], [address], 07/13/2024 13:23:21 03/09/19 25 03/09/2024 US, bladd er No observ ation record ed. [facility] [address], [place], [address], 07/13/2024 13:23:21 09/16/19 25 09/14/2024 CT, head + brain , w/o contr ast No observ ation record ed. [facility] [address], [place], [address], 10/13/2024 13:26:07 10/14/19 25 10/13/2024 US, duple x, carot id arter y No observ ation record ed. [address], [place], [address], 10/30/2024 10:13:12 11/28/19 25 11/02/2024 US, duple x, carot id arter y No observ ation record ed. JUAN CARLOS [address], [place], [address], 11/28/2024 08:12:29 Result Notes None recorded. Problems Name Problem SNOMED Code Status Onset Date Resolution Date Notes Provider Name and Address Organization Details Recorded Time Coronary arterios clerosis 29434300 Active Radha rodriguez [facility] 6 13:05:07 Diabetes mellitus 60222540 Active Radha rodriguez [facility] 6 13:05:28 Benign hyperten gloria 78990991 Active Radha rodriguez, [facility] 6 13:05:36 Hyperlip idemia 27532664 Completed 03/08/2019 Bill Parker MD [address], [place], [address] , [facility] 0 17:10:21 Migraine 04479455 Active Radha rodriguez, [facility] 6 13:05:52 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 Radha rodriguez, [facility] 6 13:06:02 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 Radha rodriguez, [facility] 6 13:06:14 Body mass index 25-29 - overweig ht 529445766 Active 2015 MD Ze Rios[address], [place], [address] , [facility] 8 22:31:39 Tattoo of skin 81338635561 2 Active 2017 Bill Parker MD [address], [place], [address] , [facility] 8 13:23:06 Benign prostati c hyperpla yazan without outflow obstruct ion 967360689 Active 2018 MD Ze Rios[address], [place], [address] , [facility] 9 16:48:58 Mixed hyperlip idemia 697387513 Active 2018 MD Ze Rios[address], [place], [address] , [facility] 9 16:49:26 Osteoart hritis 904861889 Active 2019 Bill Parker MD [address], [place], [address] , [facility] 0 11:49:03 Long-ter m current use of opiate analgesi c drug 89953056105 4108 Active 2019 Bill Parker MD [address], [place], [address] , [facility] 0 11:07:36 Vitamin D deficien cy 60271243 Active 2020 MD Ze Rios[address], [place], [address] , [facility] 1 19:36:27 Plantar fasciiti s 844640382 Active 2020 MD Ze Rios [address], [place], [address] , [facility] 1 10:39:47 Mixed anxiety and depressi ve disorder 700218648 Active 2020 MD Ze Rios [address], [place], [address] , [facility] 1 10:39:48 Hypomagn esemia 981926798 Active 2021 MD Ze Rios [address], [place], [address] , [facility] 2 15:16:33 Long-ter m drug therapy Active 2021 MD Agustin Rios [address], [place], [address] , [facility] 2 15:16:47 Primary erectile dysfunct ion 765086770 Active 2022 MD Agustin Rios [address], [place], [address] , [facility] 3 10:26:04 Thyroid nodule 568181056 Active 2024 from D/C summery 09/2024 MD Agustin Rios [address], [place], [address] , [facility] 10:16:34 Lacunar infarcti on 561775791 Active 2024 from D/C massiely 09/2024 MD Agustin Rios [address], [place], [address] , [facility] 10:17:03 Problem Notes None recorded. Procedures Surgical History Date Name Laterality Status Provider Name and Address Organization Details Recorded Time 10/14/19 25 Diabetic Foot Exam completed MD Agustin Rios [address], [place], [address], [facility] 10/13/2024 13:31:08 07/14/19 25 Diabetic Foot Exam completed MD Agustin Rios [address], [place], [address], [facility] 07/13/2024 13:31:03 01/11/20 24 Diabetic Foot Exam completed MD Agustin Rios [address], [place], [address], [facility] 01/11/2024 11:25:23 10/12/19 24 Diabetic Foot Exam completed MD Agustin Rios [address], [place], [address], [facility] 10/12/2023 15:34:12 07/13/19 24 Diabetic Foot Exam completed MD Agustin Rios [address], [place], [address], [facility] 07/13/2023 16:04:31 03/29/19 24 Diabetic Foot Exam completed MD Agustin R[address], [place], [address], [facility] 03/29/2023 16:31:36 12/29/19 23 Diabetic Foot Exam completed MD Agustin Rios [address], [place], [address], [facility] 12/28/2022 16:02:37 09/18/19 23 Diabetic Foot Exam completed MD Agustin Rios [address], [place], [address], [facility] 09/17/2022 10:12:49 06/19/19 23 Diabetic Foot Exam completed MD Agustin Rios [address], [place], [address], [facility] 06/18/2022 10:38:40 03/12/19 23 Diabetic Foot Exam completed MD Agustin Rios [address], [place], [address], [facility] 03/12/2022 10:32:33 12/05/19 22 Diabetic Foot Exam completed MD Agustin Rios [address], [place], [address], [facility] 12/04/2021 15:18:07 08/07/19 22 Diabetic Foot Exam completed MD Agustin Rios [address], [place], [address], [facility] 08/06/2021 15:46:30 04/29/19 22 Diabetic Foot Exam completed MD Agustin Rios [address], [place], [address], [facility] 04/28/2021 17:06:18 01/04/20 21 Diabetic Foot Exam completed MD Agustin Rios [address], [place], [address], [facility] 01/03/2021 10:41:54 10/04/19 21 Diabetic Foot Exam completed MD Agustin Rios [address], [place], [address], [facility] 10/03/2020 10:19:39 07/04/19 21 Diabetic Foot Exam completed MD Agustin Rios [address], [place], [address], [facility] 07/03/2020 09:20:02 03/28/19 21 Diabetic Foot Exam completed MD Agustin Rios [address], [place], [address], [facility] 03/28/2020 11:09:59 12/28/19 20 Diabetic Foot Exam completed MD Agustin Rios [address], [place], [address], [facility] 12/28/2019 11:10:51 09/12/19 20 Diabetic Foot Exam completed MD Agustin Rios [address], [place], [address], [facility] 09/12/2019 11:42:23 06/07/19 20 Diabetic Foot Exam completed MD Agustin Rios [address], [place], [address], [facility] 06/07/2019 16:13:38 03/08/19 20 Diabetic Foot Exam completed MD Agustin Rios [address], [place], [address], [facility] 03/08/2019 17:09:46 12/07/19 19 Diabetic Foot Exam completed MD Agustin Rios [address], [place], [address], [facility] 12/06/2018 17:01:01 08/24/19 19 Diabetic Foot Exam completed MD Agustin Rios [address], [place], [address], [facility] 08/23/2018 17:14:55 07/14/19 19 Colonoscopy completed MD Agustin Rios [address], [place], [address], [facility] 07/13/2018 12:50:50 05/25/19 19 Diabetic Foot Exam completed MD Agustin Rios [address], [place], [address], [facility] 05/24/2018 17:46:47 02/23/19 19 Diabetic Foot Exam completed MD Agustin Rios Replaced By [facility] [address], [place], [address], [facility] 02/23/2018 17:30:36 11/24/19 18 Diabetic Foot Exam completed MD Agustin Rios Replaced By [facility] [address], [place], [address], [facility] 11/23/2017 13:20:52 01/11/20 09 Colonoscopy completed Radha Stephens [facility] 07/16/2015 12:56:13 Imaging Results None recorded. Procedure Notes None recorded. Medical Equipment None Reported. Allergies Allergen ID Allergen Name Allergen Category Reaction Reaction Severity Criticality Documentation Date Start Date Code Code System Note Provider Name and Address Organization Details Recorded Time 1562 Claritin- D medicatio n Not available Not available Not available 07/16/2015 89057 6 RxNorm Verónicasa Gallegos [facility] 6 15:56:36 42908 Claritin- D medicatio n Not available Not available Not available 07/13/2024 35758 6 RxNorm Not Available juan carlos - External Data Service - prod 5 11:47:09 6862 Farxiga medicatio n dizziness Not available Not available 06/01/2017 64218 72 RxNorm MD Agustin Rios [facility] [address], [place], [address], [facility] 9 17:15:09 7470 buspirone medicatio n dizziness Not available Not available 11/23/2017 1827 RxNorm MD Agustin Rios Replaced By [facility] [address], [place], [address], [facility] 8 13:13:26 Medications Name Sig Start Date [...] TABLET BY MOUTH EVERY 8 HOURS NEEDED 2024 active Not Available Not Available Not Avai lable prednisone 20 mg tablet TAKE 1 TABLET [...] Available Not Available amlodipine 2.5 mg tablet TAKE 1 TABLET BY MOUTH ONCE DAILY active Not Available Not Available No t Available amlodipine 5 mg tablet TAKE 1 TABLET BY MOUTH ONCE DAILY 11/06 completed Not Available Not Available Not Available aspirin 81 mg tablet,gabo yed release TAKE 1 TABLET BY MOUTH ONCE DAILY active Not Available Not Available No t Available citalopram 20 mg tablet TAKE 1 TABLET BY MOUTH ONCE DAILY AT BEDTIME active Not Available Not Available No t Available tamsulosin 0.4 mg capsule Take 1 capsule by mouth once daily active Not Available Not Available No t Available OneTouch Ultra Test strips USE 1 STRIP TO CHECK GLUCOSE ONCE DAILY active Not Available Not Available No t Available candesartan 16 mg-hydrochl orothiazide 12.5 mg tablet TAKE 1 TABLET BY MOUTH ONCE DAILY 10/30 completed Not Available Not Available Not Available benzonatate 100 mg capsule TAKE 1 [...] SKIN TWICE DAILY IN THE MORNING AND EVENING FOR TWO WEEKS active Not Available Not Available No t Available losartan 25 mg tablet TAKE 1 TABLET BY MOUTH [...] LAYER TO ENTIRE BURN AREA BY TOPICALRO ALLEY 2 TIMES PER DAY 09/11 completed Not Available Not Available Not Available losartan 50 mg-hydrochl orothiazide 12.5 mg tablet TAKE 1 TABLET BY MOUTH IN THE MORNING 05/24 completed Not Available Not Available Not Available pioglitazon e 30 mg tablet TAKE 1 TABLET BY MOUTH ONCE DAILY 10/30 completed Not Available Not Available Not Available fluticasone propionate 50 mcg/actuati on nasal spray,suspe nsion USE 1 SPRAY(S) IN EACH NOSTRIL TWICE DAILY 07/12 completed Not Available Not Available Not Available metformin ER 500 mg tablet,exte nded release 24 hr TAKE 2 TABLETS BY MOUTH ONCE DAILY WITH SUPPER active Not Available Not Available No t Available finasteride 5 mg tablet Take 1 tablet by mouth once daily 10/30 completed Not Available Not Available Not Available verapamil ER 240 mg 24 hr capsule,ext ended release TAKE 1 CAPSULE BY MOUTH ONCE DAILY 10/30 completed Not Available Not Available Not Available alprazolam ER 0.5 mg tablet,exte nded release [...] 1 tablet every day by oral route. 10/30 completed Not Available Not Available Not Available [...] Available Not Available No t Available Afluria 6193-4581 (PF) 45 mcg(15 mcg x 3)/0.5 mL intramuscul ar syringe 01/14 completed Not Available Not Available Not Available Flucelvax Quad 0408-4330 (PF) 60 mcg (15 mcg x 4)/0.5 [...] Updated DateTime 5 182.88 cm 27.1 kg/m2 87939.4 7 g 97.6 [degF] 16 /min 85 /min 108/62 mm[Hg] Martha Earl [facility] 5 13:00:00 Date Recorded Heart rate Provider Name an d Address Organization Details Last Updated DateTime 10/12/2023 87 /min Bill Parker MD [address] [facility] [address], [place], [address], [facility] 10/12/2023 15:29:01 Date Recorded Body height Body mass index (BMI) Body weight Body temperature Respiratory rate Systolic And Diastolic Provider Name and Address Organization Details Last Updated DateTime 4 182.88 cm 27.4 kg/m2 21841.6 6 g 98.7 [degF] 16 /min 106/77 mm[Hg] Martha Rajat [facility] 4 14:56:37 Date Recorded Body height Body temperature Body mass index (BMI) Body weight Heart rate Respiratory rate Systolic And Diastolic Provider Name and Address Organization Details Last Updated DateTime 5 182.88 cm 97.5 [degF] 25.5 kg/m2 34556.3 7 g 96 /min 16 /min 122/78 mm[Hg] Martha Rajat [facility] 5 13:03:31 Date Recorded Systolic And Diastolic Provider Name and Address Organization Details Last Updated DateTime 10/30/2024 113/73 mm[Hg] Bill Parker MD [address], [place], [address], [facility] 10/30/2024 10:31:19 Date Recorded Body height Body temperature Body mass index (BMI) Body weight Respiratory rate Heart rate Provider Name and Address Organization Details Last Updated DateTime 5 182.88 cm 97.6 [degF] 26 kg/m2 12419.7 4 g 16 /min 75 /min Martha Rajat [facility] 5 10:08:48 Date Recorded Body height Body temperature Heart rate Respiratory rate Body mass index (BMI) Body weight Systolic And Diastolic Provider Name and Address Organization Details Last Updated DateTime 4 182.88 cm 97.6 [degF] 88 /min 16 /min 27.3 kg/m2 25642.0 7 g 114/72 mm[Hg] Martha Rajat [facility] 4 10:42:55 Social History Question Answer Notes LastModified by Organizat ion Details LastModified Time Tobacco Smoking Status Never Smoker Radha rodriguez [facility] 07/16/2015 12:55:43 Do You Have An Advance [...] is your level of alcohol consumption? None [email or web address] Information not available 07/16/2015 Mental Status None recorded. Family History Relationship Description Onset Age of this Age Resolved Age Notes LastModified by Organization Details LastModified Time Father Coronary arterioscler osis [email or web address] Not available 06/23 11:46:49 Father Diabetes mellitus [email or web address] Not available 2015 13:04:47 Father Alzheimer's disease [email or web address] Not available 06/23 11:46:49 Mother Diabetes mellitus [email or web address] Not available 2015 13:04:47 Medical History Condition Response Coronary Artery Disease N Gout N Other N Blood Diseases N Kidney Stones N Hyperthyroidism N Blood Transfusion N Breast Cancer N Depression N COPD N Lung Disease N Hypothyroidism N Developmental or Behavioral Disorders N Defects or Inherited Disease N Breast Problem N Difficulty Swallowing N Anesthesia Complications N Meniere's disease N Anxiety Disorder N Muscle, Joint, or Bone Problems N Obesity N Vision or Eye Problems N Arthritis N Polyps N Infertility N Mental Disorder N Cancer N Varicosities N Stroke N Endometriosis N Bladder or Kidney Problems N High Cholesterol N Liver Disease N Headaches N Fibromyalgia N Kidney Disease N Allergies/Hayfever N Heart Problems N Ear or Hearing Problems N Hospitalizations N Thyroid Problems N GI Problems N ADD/ADHD N Skin Problems N Eating Disorder N Anemia N MRSA exposure N Constipation N Mental Illness N Ovarian Cancer N Diabetes N Bedwetting N Seizures/Epilepsy N Tuberculosis N AIDS/HIV N Congestive Heart Failure (CHF) N Eczema N Diverticulitis N Abuse/Domestic Violence N Asthma N Reflux/GERD N Hepatitis N Heart Disease N Pulmonary Embolism N Chronic Ear Infections N Pre-Eclampsia N Hypertension N Chicken Pox N Autism Spectrum Disorder (ASD) N Osteoporosis N Thrombophilias N Immunizations Vaccine Type Date Status Note Provider Nam e and Address Organization Details Recorded Time Influenza, split virus, quadrivalent, preservative 7 completed Miriam Herran null, [facility] 12/04/2021 14:20:32 Influenza, split virus, quadrivalent, preservative 8 completed Miriam Herran null, [facility] 12/04/2021 14:20:32 Pneumococcal conjugate PCV 13 8 completed Miriam Herran null, [facility] 12/04/2021 14:20:32 Pneumococcal conjugate PCV 13 9 completed Miriam Herran null, [facility] 12/04/2021 14:20:32 Influenza, split virus, quadrivalent, preservative 9 completed Miriam Herran null, [facility] 12/04/2021 14:20:32 zoster, unspecified formulation 0 completed Miriam Herran null, [facility] 12/04/2021 14:20:32 Influenza, split virus, quadrivalent, preservative 0 completed Miriam Herran null, [facility] 12/04/2021 14:20:32 zoster live 6 completed Bill Parker MD [id number] By [facility] [address], [place], [address], [facility] 10/15/2015 16:32:46 SARS-COV-2 (COVID-19) vaccine, UNSPECIFIED 1 completed Miriam Herran null, [facility] 12/04/2021 14:20:32 Influenza, split virus, quadrivalent, preservative 6 completed Miriam Herran null, [facility] 12/04/2021 14:20:32 Influenza, high-dose, quadrivalent, PF 1 completed Miriam Herran null, [facility] 12/04/2021 14:20:32 COVID-19 vaccine, vector-nr, rS-Ad26, PF, 0.5 mL 1 completed Miriam Herran null, [facility] 12/04/2021 14:20:32 COVID-19, mRNA, LNP-S, PF, 30 mcg/0.3 mL dose 2 completed Miriam Herran null, [facility] 12/04/2021 14:20:32 COVID-19, mRNA, LNP-S, bivalent, PF, 30 mcg/0.3 mL dose 2 completed Miriam Herran null, [facility] 12/04/2021 14:20:32 Influenza, high-dose, trivalent, PF 2 completed Miriam Herran null, [facility] 12/04/2021 14:20:32 RSV, recombinant, protein subunit RSVpreF, adjuvant reconstituted, 0.5 mL, PF 3 completed Mimi Simpson null, [facility] 12/14/2022 10:02:05 Influenza, adjuvanted, quadrivalent, PF 3 completed Mimi Simpson null, [facility] 12/14/2022 10:06:28 Influenza, high-dose, quadrivalent, PF 4 completed Jaye Orozco null, [facility] 12/06/2023 19:00:48 influenza, unspecified formulation 4 completed Bill Parker MD [address], [place], [address], [facility] 01/11/2024 11:20:12 Td(adult) unspecified formulation 9 completed Miriam Herran null, [facility] 12/04/2021 14:20:32 Influenza, split virus, quadrivalent, preservative 5 completed Miriam Herran null, [facility] 12/04/2021 14:20:32 pneumococcal polysaccharide PPV23 4 completed Miriam Herran null, [facility] 12/04/2021 14:20:32 Past Encounters Encounter ID Performer Location Encounter Start Date Encounter Closed Date Diagnosis/Indication Diagnosis SNOMED-CT Code Diagnosis ICD10 Code Diagnosis IMO Codes Diagnosis Note [id number] Bill Parker MD [facility], [place] [id number] [facility] [address] [place] [address] 07/16/2015 16:26:04 07/16/2015 17:35:43 Diabetes mellitus 10537460 E11.9 Hyperlipidemia 31022410 E78.5 Coronary arteriosclerosis 93933767 I25.10 Primary te sticular failure 271263541 E29.1 Depressive disorder 3548 9007 F32.9 Benign hypertension 1072 5009 I10 Screening for malignant neoplasm of colon 824272625 Z12.11 Viral screening 72643453 4 Z11.59 Active or passive immunization 875297537 Z23 Osteoarthritis 755191579 M19.90 Benign pro static hyperplasia without outflow obstruction 537200675 N40.0 Cramp in lower limb 4499 71270 R25.2 [id number] Bill Parker MD [place] [employer] [facility], [place] [address] [facility] [address] [place] [address] 10/15/2015 15:27:12 10/15/2015 16:42:17 Renewal of prescription 385140566 Z76.0 Benign hypertension 1072 5009 I10 Coronary arteriosclerosis 97882333 I25.10 Hyperlipidemia 11887691 E78.5 Diabetes mellitus 907670 09 E11.9 Benign pro static hyperplasia without outflow obstruction 398793872 N40.0 Hearing loss 93618407 H9 1.93 Depressive disorder 3548 9007 F32.9 Secondary erectile dysfunction 073336525 N52.8 Viral screening 79636169 4 Z11.59 [id number] Bill Parker MD [place] [employer] [facility], [place] [address] [address] [place] [address] 01/15/2016 14:16:33 01/15/2016 15:09:45 Depressive disorder 97217182 F32.9 Benign hypertension 1072 5009 I10 Coronary arteriosclerosis 65611025 I25.10 Hyperlipidemia 81527668 E78.5 Osteoarthritis 596519286 M19.90 Diabetes mellitus 234470 09 E11.9 Benign pro static hyperplasia without outflow obstruction 294898087 N40.0 [id number] Bill Parker MD [facility], [place] [address] [address] [place] [address] 04/16/2016 14:39:14 04/16/2016 15:32:51 Benign hypertension 39183974 I10 Depressive disorder 3548 9007 F32.9 Osteoarthritis 622352067 M19.90 Diabetes mellitus 302977 09 E11.9 Secondary erectile dysfunction 215086043 N52.8 [id number] Li Issa, [facility] [employer] [facility], [place] [address] [address] [place] [address] 06/09/2016 11:26:24 06/09/2016 12:47:01 Diarrhea 78781561 R19.7 Hyperlipidemia 53320287 E78.5 [id number] Bill Parker MD [facility], [place] [address] [address] [place] [address] 07/09/2016 14:45:09 07/09/2016 15:21:10 Benign hypertension 21268729 I10 good control under currnet meds Coronary arteriosclerosis 04738252 I25.10 -ve stress test 07/2015 Diabetes mellitus 812681 09 E11.9 last A1c 05/2016 @ goal Hyperlipidemia 27854881 E78.5 last LDL 10/16/15 @ goal [id number] Bill Parker MD [facility], [place] [address] [address] [place] [address] 10/09/2016 10:41:50 10/09/2016 11:21:41 Benign hypertension 93966236 I10 good control under currnet meds Coronary arteriosclerosis 66275802 I25.10 -ve stress test 07/2015 Diabetes mellitus 253914 09 E11.9 last A1c 05/2016 @ goal Hyperlipidemia 19637766 E78.5 last LDL 10/16/15 @ goal Screening for malignant neoplasm of colon 927601496 Z12.11 C scope 2008 , good till 2018 Cramp in lower limb 4499 47256 R25.2 [id number] Bill Parker MD [facility], [place] [address] [address] [place] [address] 01/11/2017 10:39:07 01/11/2017 11:11:42 Benign hypertension 40988771 I10 good control under current meds Coronary arteriosclerosis 24571130 I25.10 Diabetes mellitus 544783 09 E11.9 last A1c 6.3. 01/04/17 Hyperlipidemia 92878412 E78.5 last LDL 01/04/17 above goal @ 89 , gal is 70 , will increase atorva to 20 Ankle brac hial pressure index test declined 947274751 Z53.20 Active or passive immunization 942538353 Z23 [id number] FRANKY DANIELS APN [facility], [place] [address] [address] [place] [address] 03/08/2017 12:32:11 03/08/2017 13:10:38 Cough 47212167 R05 Hyperlipidemia 05582604 E78.5 Wheezing 66926170 R06.2 93% o2 Diarrhea 27298552 R19.7 Dysplastic nevus of skin 267561066 D22.9 Diabetes mellitus 040385 09 E11.9 [id number] Bill Parker MD [facility], [place] [address] [address] [place] [address] 05/04/2017 12:05:10 05/04/2017 12:56:55 Benign hypertension 64992808 I10 good control under current meds Coronary arteriosclerosis 52841500 I25.10 Diabetes mellitus 601811 09 E11.9 last A1c 6.3. 01/04/17 Hyperlipidemia 26615738 E78.5 Screening for malignant neoplasm of colon 128391293 Z12.11 C scope 2008 , good till 2018 [id number] Bill Parker MD [facility], [place] [address] [address] [place] [address] 05/19/2017 13:34:02 05/19/2017 14:39:06 Benign paroxysmal positional vertigo 241983413 H81.10 no [address] till goneRTC 2-3 days if not gone Electrocar diogram abnormal 589075669 R94.31 Cramp in lower limb 4499 64961 R25.2 Headache 65665958 R51 Benign hypertension 1072 5009 I10 good control under current meds [id number] Bill Parker MD [place] [employer] [facility], [place] [id number] Replaced By [facility] [address] [place] [address] 08/23/2017 13:44:10 08/23/2017 14:38:10 Burn of hand 32693813 T23.131A Benign hypertension 1072 5009 I10 good control under current meds Coronary arteriosclerosis 23704753 I25.10 Hyperlipidemia 42324062 E78.5 Diabetes mellitus 129985 09 E11.9 Depressive disorder 3548 9007 F32.9 Screening for malignant neoplasm of colon 448781256 Z12.11 C scope 2008 , good till 2018 [id number] Bill Parker MD [place] [employer], [place] [address] [facility] ,[address] [place] [address] 11/23/2017 12:24:22 11/23/2017 13:33:25 Adult health examination 797457807 Z00.01 Benign hypertension 1072 5009 I10 good control under current meds Depressive disorder 3548 9007 F32.9 Coronary arteriosclerosis 93726849 I25.10 no CP, just have stress test last month Migraine 87206362 G43.90 9 stable , no need for rescue meds Hyperlipidemia 55221392 E78.5 Diabetes mellitus 068629 09 E11.9 per pt had ophth eval 2018 Sinusitis 16365173 J32.9 Tattoo of skin 456392169 1 02 L81.8 last hep C -ve 2016 Screening for malignant neoplasm of colon 509478753 Z12.11 C scope 2008 , good till 2018 Active or passive immunization 274727452 Z23 Screening for malignant neoplasm of prostate 454772290 Z12.5 [id number] Bill Parker MD [employer] [facility], [place] [address] Replaced By [facility] ,[address] [place] [address] 02/23/2018 16:46:30 02/23/2018 17:37:25 Pain of right elbow joint 6267154917 2531203 M25.521 Benign hypertension 1072 5009 I10 good control under current meds Coronary arteriosclerosis 18044674 I25.10 no CP, just have stress test last month Diabetes mellitus 975014 09 E11.9 per pt had ophth eval 2018 Hyperlipidemia 87738235 E78.5 Screening for malignant neoplasm of colon 250223151 Z12.11 C scope 2008 , good till 2018 [id number] Bill Parker MD [employer], [place] [address] [facility] [address] [place] [address] 05/24/2018 16:47:55 05/24/2018 17:52:47 Benign hypertension 75720741 I10 good control under current meds Coronary arteriosclerosis 59383120 I25.10 no CP, just have stress test last month Hyperlipidemia 54814305 E78.5 last LDL 11/24/17 Diabetes mellitus 234464 09 E11.9 per pt had ophth eval 2018last MICHAEL 11/24/17 Screening for malignant neoplasm of colon 051075797 Z12.11 C scope 2008 , good till 2018 Active or passive immunization 462174291 Z23 [id number] Bill Parker MD [place] [employer], [place] [address] [facility] [address] [place] [address] 08/23/2018 16:33:29 08/23/2018 17:17:24 Benign hypertension 95810980 I10 good control under current meds Diabetes mellitus 698252 09 E11.9 per pt had ophth eval 2018last MICHAEL 11/24/17 Osteoarthritis 010360061 M19.90 fair control with low dose opiate Benign pro static hyperplasia without outflow obstruction 667562855 N40.0 Long-term current use of opiate analgesic drug 3792998006 27818 Z79.891 Screening for malignant neoplasm of colon 224734169 Z12.11 C scope 2018 , good till 2028 Mixed hyperlipidemia 267 421745 E78.2 [id number] Bill Parker MD [employer] [facility], [place] [address] [facility] [address] [place] [address] 12/06/2018 16:01:41 12/06/2018 17:07:09 Adult health examination 603496584 Z00.01 Benign hypertension 1072 5009 I10 good control under current meds Mixed hyperlipidemia 267 902669 E78.2 last LDL 09/23/18 Depressive disorder 3548 9007 F32.9 no SI , No HI Coronary arteriosclerosis 99355329 I25.10 no CP, just had EKG last week 2 CARDIOLOGY Migraine 88594087 G43.90 9 stable , no need for rescue meds Diabetes mellitus 353954 09 E11.9 per pt had ophth eval 2018last MICHAEL 11/24/17 Benign pro static hyperplasia without outflow obstruction 024405958 N40.0 Body mass index 25-29 - overweight 031936457 Z68.27 Active or passive immunization 742059647 Z23 Osteoarthritis 438445823 M19.90 fair control with low dose opiate [id number] Bill Parker MD [facility] [facility] [address] [place] [address] 03/08/2019 16:13:34 03/08/2019 17:19:24 Benign hypertension 66705461 I10 good control under current meds Coronary arteriosclerosis 64104626 I25.10 Diabetes mellitus 798778 09 E11.9 per pt had ophth eval 02/2019last MICHAEL 11/24/17 Mixed hyperlipidemia 267 313634 E78.2 last LDL 09/23/18 Long-term current use of opiate analgesic drug 6700917100 83758 Z79.891 Screening for malignant neoplasm of colon 771368188 Z12.11 C scope 2018 , good till 2028 Active or passive immunization 967222226 Z23 [id number] Bill Parker MD [facility] [address] [place] [address] 06/07/2019 15:37:16 06/07/2019 16:19:32 Benign hypertension 25936792 I10 good control under current meds Coronary arteriosclerosis 22320439 I25.10 Diabetes mellitus 450305 09 E11.9 per pt had ophth eval 02/2019last MICHAEL 11/24/17 Mixed hyperlipidemia 267 723577 E78.2 last LDL 09/23/18 Osteoarthritis 506474740 M19.90 fair control with low dose opiate Screening for malignant neoplasm of colon 885589885 Z12.11 C scope 2018 , good till 2028 Active or passive immunization 681457183 Z23 per pt had flu shot 11/2018 [id number] Bill Parker MD [facility] Replaced By [facility] [address] [place] [address] 09/12/2019 10:52:32 09/12/2019 11:58:38 Benign hypertension 29598125 I10 good control under current medslast EKG 07/11/19 Coronary arteriosclerosis 42589092 I25.10 No CPsees cardiology on reg basis Diabetes mellitus 924150 09 E11.9 per pt had ophth eval 02/2019last MICHAEL 12/20/18 Migraine 80035240 G43.90 9 stable , no need for rescue meds Mixed hyperlipidemia 267 485808 E78.2 last LDL 07/04/19 Benign pro static hyperplasia without outflow obstruction 195413515 N40.0 Body mass index 25-29 - overweight 689554456 Z68.27 education Screening for malignant neoplasm of colon 888221873 Z12.11 C scope 2018 , good till 2028 Active or passive immunization 748793973 Z23 per pt had flu shot 11/2018 Osteoarthritis 270499286 M19.90 fair control with low dose opiatewill need a letter for need to site every hour to 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 [id number] Bill Parker MD [facility] [address] Replaced By [facility] [address] [place] [address] 12/28/2019 10:07:59 12/28/2019 11:23:39 Adult health examination 761053346 Z00.01 Diabetes mellitus 366210 09 E11.9 per pt had ophth eval 02/2019last MICHAEL 12/20/18 Benign hypertension 1072 5009 I10 good control under current medslast EKG 07/11/19 Benign pro static hyperplasia without outflow obstruction 066007887 N40.0 asymptomat ic Body mass index 25-29 - overweight 802473087 Z68.27 education Coronary arteriosclerosis 15709055 I25.10 No CPsees cardiology on reg basis Migraine 33704634 G43.90 9 stable , no need for rescue meds Mixed hyperlipidemia 267 881942 E78.2 last LDL 07/04/19 Osteoarthritis 007339722 M19.90 fair control with low dose opiatewill need a letter for need to site every hour to 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 Tattoo of skin 676792066 1 02 L81.8 last hep C -ve 2016 Depressive disorder 3548 9007 F32.9 no SI , No HI Long-term current use of opiate analgesic drug 1341959849 17641 Z79.891 educationn o red flags Screening for malignant neoplasm of colon 828569668 Z12.11 C scope 2018 , good till 2028 Active or passive immunization 093779906 Z23 per pt had flu shot 10/2019 [id number] Bill Parker MD [facility] [address] [address] 03/28/2020 10:38:28 03/28/2020 11:15:22 Benign hypertension 39645362 I10 good control under current medslast EKG 07/11/19 \BP 2 weeks Body mass index 25-29 - overweight 610947680 Z68.27 education Coronary arteriosclerosis 63271481 I25.10 No CPsees cardiology on reg basis Diabetes mellitus 365938 09 E11.9 per pt had ophth eval 02/2019last MICHAEL 01/22/20 Migraine 33665960 G43.90 9 stable , no need for rescue meds Mixed hyperlipidemia 267 863301 E78.2 last LDL 01/22/20 Screening for malignant neoplasm of colon 177955414 Z12.11 C scope 2018 , good till 2028 Active or passive immunization 184802736 Z23 per pt had flu shot 10/2019 Benign pro static hyperplasia without outflow obstruction 360424780 N40.0 asymptomat ic [id number] Bill Parker MD [employer], [employer] [address] [facility] [place] [address] 07/03/2020 08:34:30 07/03/2020 09:37:54 Diabetes mellitus 19065196 E11.9 per pt had ophth eval 02/2020 last MICHAEL 01/22/20 last A1c 05/07/20 Coronary arteriosclerosis 45739784 I25.10 No CPsees cardiology on reg basis Benign hypertension 1072 5009 I10 good control under current medslast EKG 07/11/19 \BP 2 weeks Body mass index 25-29 - overweight 512480007 Z68.27 education Migraine 10779447 G43.90 9 stable , no need for rescue meds Mixed hyperlipidemia 267 323644 E78.2 last LDL 01/22/20 Screening for malignant neoplasm of colon 347126603 Z12.11 C scope 2018 , good till 2028 Active or passive immunization 231019380 Z23 up to date Cramp in lower limb 4499 98695 R25.2 [id number] Bill Parker MD [facility] [address] [facility] [address] [place] [address] 10/03/2020 09:40:51 10/03/2020 10:31:50 Benign hypertension 97499154 I10 good control under current medslast EKG 07/11/19 \BP 2 weeks Body mass index 25-29 - overweight 288706092 Z68.27 educationl ost 8 LBs on diet and exercise Coronary arteriosclerosis 43499267 I25.10 No CPsees cardiology on reg basis Diabetes mellitus 675206 09 E11.9 per pt had ophth eval 02/2020 last MICHAEL 01/22/20 last A1c 05/07/20 Long-term current use of opiate analgesic drug 9332545139 22239 Z79.891 educationn o red flags Migraine 54266278 G43.90 9 stable , no need for rescue meds Mixed hyperlipidemia 267 570547 E78.2 last LDL 01/22/20 Vitamin D deficiency 347 97909 E55.9 Cramp in lower limb 4499 09364 R25.2 cardiology is doing [facility] Screening for malignant neoplasm of colon 742276126 Z12.11 C scope 2018 , good till 2028 Active or passive immunization 417033107 Z23 up to date [id number] Bill Parker MD [facility] [address] [facility] [address] [place] [address] 01/03/2021 09:51:02 01/03/2021 11:01:17 Adult health examination 286823614 Z00.01 Benign hypertension 1072 5009 I10 good control under current medslast EKG 07/11/19 \BP 2 weeks Body mass index 25-29 - overweight 845265494 Z68.27 educationd iet and exercise Coronary arteriosclerosis 82262663 I25.10 No CPsees cardiology on reg basis Diabetes mellitus 293387 09 E11.9 per pt had ophth eval 10/2020 last MICHAEL 01/22/20 last A1c 10/03/20 Long-term current use of opiate analgesic drug 7174691826 38427 Z79.891 educationn o red flags Migraine 42991858 G43.90 9 stable , no need for rescue meds Mixed hyperlipidemia 267 276687 E78.2 last LDL 10/03/20 Osteoarthritis 366033313 M19.90 fair control with low dose opiatewill need a letter for need to site every hour to 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 Tattoo of skin 978232073 1 02 L81.8 last hep C -ve 2016 Vitamin D deficiency 347 05553 E55.9 last Level 10/03/20 Plantar fasciitis 323929 003 M72.2 Mixed anxi ety and depressive disorder 059003806 F41.8 No SI , No HI Screening for malignant neoplasm of colon 043041298 Z12.11 C scope 2018 , good till 2028 Active or passive immunization 834075235 Z23 up to date [id number] Bill Parker MD [facility], [employer] [address] Replaced By [facility] ,[address] [address] 04/28/2021 16:22:19 04/28/2021 17:12:30 Benign hypertension 01156219 I10 good control under current medslast EKG 01/03/21BP 2 weeks Body mass index 25-29 - overweight 388815236 Z68.27 educationd iet and exercise Coronary arteriosclerosis 28489929 I25.10 No CPsees cardiology on reg basis Diabetes mellitus 980479 09 E11.9 per pt had ophth eval 10/2020 last MICHAEL 01/03/21 last A1c 10/03/20 Long-term current use of opiate analgesic drug 4309279279 19621 Z79.891 educationn o red flags Mixed anxi ety and depressive disorder 594878243 F41.8 No SI , No HI Mixed hyperlipidemia 267 394256 E78.2 last LDL 10/03/20 Osteoarthritis 342618214 M19.90 fair control with low dose opiatewill need a letter for need to site every hour to 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 Vitamin D deficiency 347 48728 E55.9 last Level 10/03/20 Screening for malignant neoplasm of colon 510178733 Z12.11 C scope 2018 , good till 2028 Active or passive immunization 922209911 Z23 up to date [id number] Bill Parker MD [facility] [address] Replaced By [facility] ,[address] [place] [address] 08/06/2021 14:37:10 08/06/2021 15:57:38 Benign hypertension 94081157 I10 good control under current medslast EKG 01/03/21BP 2 weeks Body mass index 25-29 - overweight 156159666 Z68.27 educationl ost 9 LBs diet and exercise Coronary arteriosclerosis 98360934 I25.10 No CPsees cardiology on reg basis Diabetes mellitus 585226 09 E11.9 per pt had ophth eval 10/2020 last MICHAEL 01/03/21 last A1c 04/29/21 Long-term current use of opiate analgesic drug 2107480288 94282 Z79.891 educationn o red flags Migraine 49056737 G43.90 9 stable , no need for rescue meds 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 No SI , No HI Mixed hyperlipidemia 267 053931 E78.2 last LDL 10/03/20 Plantar fasciitis 262929 003 M72.2 better Vitamin D deficiency 347 59889 E55.9 last Level 10/03/20 Screening for malignant neoplasm of colon 470755006 Z12.11 C scope 2018 , good till 2028 Benign pro static hyperplasia without outflow obstruction 014793216 N40.0 asymptomat ic [id number] Bill Parker MD [employer], [employer] [address] [facility] [place] [address] 12/04/2021 14:20:15 12/04/2021 15:30:17 Diabetes mellitus 48009399 E11.9 per pt had ophth eval 10/2020 last MICHAEL 01/03/21 last A1c 04/29/21 Coronary arteriosclerosis 65105444 I25.10 No CPsees cardiology on reg basis Body mass index 25-29 - overweight 979290721 Z68.27 educationd iet and exercise Benign hypertension 1072 5009 I10 good control under current medslast EKG 07/29/21BP 2 weeks Mixed anxi ety and depressive disorder 803217779 F41.8 No SI , No HI Mixed hyperlipidemia 267 231404 E78.2 last LDL 04/29/21 Vitamin D deficiency 347 71233 E55.9 last Level 10/03/20 Cramp in lower limb 4499 50376 R25.2 cardiology is doing [facility] Hypomagnesemia 482233175 E83.42 Long-term drug therapy 715155898 Z79.899 Screening for malignant neoplasm of colon 156129529 Z12.11 C scope 2018 , good till 2028 Active or passive immunization 199949198 Z23 up to date 084040 Bill Parker MD [employer], [facility] [address] Replaced By [facility] ,[address] [address] 03/12/2022 09:39:50 03/12/2022 10:40:02 Adult health examination 136213547 Z00.01 Benign hypertension 1072 5009 I10 good control under current medslast EKG 07/29/21BP 2 weeks Benign pro static hyperplasia without outflow obstruction 872638518 N40.0 asymptomat ic Body mass index 25-29 - overweight 651624455 Z68.27 educationd iet and exercise Coronary arteriosclerosis 60992712 I25.10 No CPsees cardiology on reg basis Diabetes mellitus 828622 09 E11.9 per pt had ophth eval 12/04/21 last MICHAEL 01/03/21 last A1c 12/08/21 Hypomagnesemia 339241276 E83.42 last level Long-term current use of opiate analgesic drug 5026313230 77769 Z79.891 educationn o red flags Long-term drug therapy 499070415 Z79.899 metformin 12/08/21 Migraine 58473389 G43.90 9 stable , no need for rescue meds Mixed anxi ety and depressive disorder 885101439 F41.8 No SI , No HI Mixed hyperlipidemia 267 603816 E78.2 last LDL 12/08/21 Osteoarthritis 951908702 M19.90 fair control with low dose opiatewill need a letter for need to site every hour to 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 Tattoo of skin 353501538 1 02 L81.8 last hep C -ve 2015 Vitamin D deficiency 347 27714 E55.9 last Level 10/03/20 Plantar fasciitis 402941 003 M72.2 better Primary er ectile dysfunction 180281696 N52.9 Screening for malignant neoplasm of colon 902625886 Z12.11 C scope 2018 , good till 2028 Active or passive immunization 923826658 Z23 up to date Advance di rective discussed with patient 972283483 Z71.89 education [id number] Bill Parker MD [facility] [address] [place] [address] 06/18/2022 10:00:08 06/18/2022 11:06:41 Benign hypertension 11394468 I10 good control under current medslast EKG 07/29/21BP 2 weeks Body mass index 25-29 - overweight 084186212 Z68.27 educationd iet and exercise Diabetes mellitus 786743 09 E11.9 per pt had ophth eval 12/04/21 last MICHAEL 01/03/21 last A1c 12/08/21 Long-term current use of opiate analgesic drug 3626149463 82147 Z79.891 educationn o red flags Mixed anxi ety and depressive disorder 613486962 F41.8 No SI , No HI Mixed hyperlipidemia 267 050595 E78.2 last LDL 12/08/21 Chronic low back pain 27 2828673 M54.50 need letter for work Screening for malignant neoplasm of colon 610956534 Z12.11 C scope 2018 , good till 2028 Active or passive immunization 094650384 Z23 up to date Atypical chest pain 1025 88345 R07.89 [id number] Bill Parker MD [place] [employer], [place] [address] [facility] [address] [place] [address] 09/17/2022 08:39:57 09/17/2022 10:26:05 Benign hypertension 25429797 I10 good control under current medslast EKG 07/29/21BP 2 weeks Body mass index 25-29 - overweight 279338761 Z68.27 educationd iet and exercise Diabetes mellitus 138069 09 E11.9 per pt had ophth eval 12/04/21 last MICHAEL 03/12/22 last A1c 12/08/21 Mixed hyperlipidemia 267 680630 E78.2 last LDL 06/18/22 Vitamin D deficiency 347 87389 E55.9 last Level 10/03/20 Screening for malignant neoplasm of colon 207506430 Z12.11 C scope 2018 , good till 2028 Active or passive immunization 783300437 Z23 up to date Osteoarthritis 129364377 M19.90 fair control with low dose opiatewill need a letter for need to site every hour to 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 [id number] Bill Parker MD [facility] [employer] ,[address] [address] 12/28/2022 15:32:00 12/28/2022 16:20:44 Benign hypertension 20867063 I10 good control under current medslast EKG 09/08/22BP 2 weeks Body mass index 25-29 - overweight 597270824 Z68.27 educationd iet and exercise Diabetes mellitus 973590 09 E11.9 per pt had ophth eval 09/2022 last MICHAEL 03/12/22 last A1c 12/08/21 Long-term current use of opiate analgesic drug 4939919203 54395 Z79.891 educationn o red flags Long-term drug therapy 527880141 Z79.899 metformin 12/08/21 Migraine 71990764 G43.90 9 stable , no need for rescue meds Mixed hyperlipidemia 267 887061 E78.2 last LDL 06/18/22 Fatigue 77139998 R53.83 Screening for malignant neoplasm of colon 016330002 Z12.11 C scope 2018 , good till 2028 Active or passive immunization 583253554 Z23 up to date [id number] Bill Parker MD [employer], [employer] [facility] [address] [place] [address] 03/29/2023 15:20:00 03/29/2023 16:44:31 Adult health examination 047165813 Z00.01 Benign hypertension 1072 5009 I10 good control under current medslast EKG 09/08/22BP 2 weeks Benign pro static hyperplasia without outflow obstruction 431481050 N40.0 asymptomat ic Body mass index 25-29 - overweight 539479843 Z68.27 educationd iet and exercise Coronary arteriosclerosis 94288282 I25.10 No CPsees cardiology on reg basis Diabetes mellitus 819332 09 E11.9 per pt had ophth eval 09/2022 last MICHAEL 03/12/22 last A1c 12/08/21 Hypomagnesemia 501546619 E83.42 last level 12/08/21 Long-term current use of opiate analgesic drug 3110670269 66647 Z79.891 educationn o red flags Long-term drug therapy 457246291 Z79.899 metformin 12/29/22 Primary er ectile dysfunction 202922176 N52.9 Osteoarthritis 672136912 M19.90 fair control with low dose opiatewill need a letter for need to site every hour to 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 Inguinal pain 287492275 R10.2 Allergic r hinitis caused by pollen 64171422 J30.1 Migraine 36324605 G43.90 9 stable , no need for rescue meds Mixed anxi ety and depressive disorder 385259738 F41.8 No SI , No HI Mixed hyperlipidemia 267 160299 E78.2 last LDL 12/29/22 Plantar fasciitis 112266 003 M72.2 better Tattoo of skin 423719325 1 02 L81.8 last hep C -ve 2016 Vitamin D deficiency 347 80028 E55.9 last Level 10/03/20 Screening for malignant neoplasm of colon 567704270 Z12.11 C scope 2018 , good till 2028 Active or passive immunization 740967623 Z23 up to date Advance di rective discussed with patient 530142281 Z71.89 education [id number] Bill Parker MD [employer], [facility] [address] [facility] ,[address] [address] 07/13/2023 14:44:02 07/13/2023 16:16:44 Benign hypertension 83418739 I10 good control under current medslast EKG 23BP 2 weeks Coronary arteriosclerosis 01438799 I25.10 No CPsees cardiology on reg basis Diabetes mellitus 331052 09 E11.9 per pt had ophth eval 09/2022 last MICHAEL 03/29/23 last A1c 03/29/23 Long-term current use of opiate analgesic drug 7935350265 94703 Z79.891 educationn o red flags Mixed anxi ety and depressive disorder 267800421 F41.8 No SI , No HI Mixed hyperlipidemia 267 318530 E78.2 last LDL 12/29/22 Screening for malignant neoplasm of colon 980431937 Z12.11 C scope 2018 , good till 2028 Active or passive immunization 949699548 Z23 up to date Body mass index 25-29 - overweight 268267755 Z68.27 educationd iet and exercise [id number] Bill Parker MD [employer], [employer] [facility] [employer] [address] [place] [address] 10/12/2023 14:21:33 10/12/2023 15:42:05 Long-term current use of opiate analgesic drug 3422751053 66725 Z79.891 educationn o red flags Benign pro static hyperplasia without outflow obstruction 002595001 N40.0 asymptomat ic Diabetes mellitus 210469 09 E11.9 per pt had ophth eval 09/2023 last MICHAEL 03/29/23 last A1c 07/14/23 Coronary arteriosclerosis 83214756 I25.10 No CPsees cardiology on reg basis Benign hypertension 1072 5009 I10 good control under current medslast EKG 23BP 2 weeks Screening for malignant neoplasm of colon 992370057 Z12.11 C scope 2018 , good till 2028 Active or passive immunization 562863767 Z23 up to date [id number] Bill Parker MD [employer], [employer] [facility] [employer] [facility] [address] [place] [address] 01/11/2024 09:58:33 01/11/2024 11:42:35 Benign hypertension 26745475 I10 good control under current medslast EKG 7/18/23BP 2 weeks Body mass index 25-29 - overweight 528036592 Z68.27 educationd iet and exercise Diabetes mellitus 164140 09 E11.9 per pt had ophth eval 09/2023 last MICHAEL 03/29/23 last A1c 07/14/23 Coronary arteriosclerosis 09379489 I25.10 No CPsees cardiology on reg basis Long-term current use of opiate analgesic drug 0893093136 21776 Z79.891 educationn o red flags Long-term drug therapy 620345913 Z79.899 metformin 12/29/22 Mixed anxi ety and depressive disorder 590696629 F41.8 No SI , No HI Mixed hyperlipidemia 267 515677 E78.2 last LDL 07/14/23 Osteoarthritis 993649670 M19.90 fair control with low dose opiatewill need a letter for need to site every hour to 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 Vitamin D deficiency 347 63804 E55.9 last Level 10/03/20 Screening for malignant neoplasm of colon 295180824 Z12.11 C scope 2018 , good till 2028 Active or passive immunization 382457142 Z23 up to date Benign pro static hyperplasia without outflow obstruction 002016348 N40.0 asymptomat ic [id number] Bill Parker MD [facility] [employer], [employer] [address] Replaced By [facility] ,[address] [address] 07/13/2024 11:46:33 07/13/2024 13:38:26 Adult health examination 287363290 Z00.01 7129901 Benign hypertension 1072 5009 I10 good control under current medslast EKG 01/11/24BP 2 weeks Coronary arteriosclerosis 84223645 I25.10 No CPsees cardiology on reg basis Mixed hyperlipidemia 267 329662 E78.2 last LDL 01/01/24 Body mass index 25-29 - overweight 807909959 Z68.27 educationd iet and exercise Diabetes mellitus 672514 09 E11.9 per pt had ophth eval 09/2023 last MICHAEL 03/29/23 last A1c 07/14/23 Benign pro static hyperplasia without outflow obstruction 776735538 N40.0 asymptomat ic Osteoarthritis 932143762 M19.90 fair control with low dose opiatewill need a letter for need to site every hour to 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 Hypomagnesemia 041785478 E83.42 last level 12/08/21 Vitamin D deficiency 347 16558 E55.9 last Level 10/03/20 Long-term current use of opiate analgesic drug 1665709766 06842 Z79.891 educationn o red flags Mixed anxi ety and depressive disorder 925874314 F41.8 No SI , No HI Long-term drug therapy 621728796 Z79.899 metformin 12/29/22 Primary er ectile dysfunction 559047535 N52.9 stable with OTC Migraine 91133743 G43.90 9 stable , no need for rescue meds Tattoo of skin 693336811 1 02 L81.8 last hep C -ve 2016 Eruption 094906188 R21 900415 Screening for malignant neoplasm of colon 925951720 Z12.11 137018 C scope 2018 , good till 2028 Immunization due 8251001 08 Z23 6818114 up to date Counseling 062516668 Z71 .89 949345 education Screening for malignant neoplasm of prostate 108696139 Z12.5 438846 [id number] Bill Parker MD [employer] [employer] [facility] ,[address] [address] 10/13/2024 12:25:58 10/13/2024 13:48:03 Diabetes mellitus 36314824 E11.9 per pt had ophth eval 07/2024 last MICHAEL 07/19/24 last A1c 07/19/24 Benign hypertension 1072 5009 I10 good control under current medslast EKG 01/11/24BP 2 weeks Coronary arteriosclerosis 34092132 I25.10 No CPsees cardiology on reg basis Mixed hyperlipidemia 267 128023 E78.2 last LDL 01/01/24 Long-term current use of opiate analgesic drug 4475278102 84877 Z79.891 educationn o red flags Body mass index 25-29 - overweight 273720144 Z68.27 educationd iet and exercise Lacunar infarction [address] head 10/13/24 Screening for malignant neoplasm of colon 810370054 Z12.11 248000 C scope 2018 , good till 2028 Immunization due 3897502 08 Z23 6748677 up to date [id number] Bill Parker MD [facility], [place] [id number] Replaced By [facility] ,[address] [address] 10/30/2024 09:50:36 10/30/2024 10:43:00 Syncope and collapse 600568243 R55 39565 resolved , has heart monitor on Simple lac eration of scalp 932552374 S01.01XA 62957782 cont' local antibiotic History of fall 77927309 9 Z91.81 2502987 education Lacunar infarction 12079 8000 I63.81 034024 Rt basal ganglion ,on CT head 10/13/24 ,ASA , Statin Thyroid nodule 531429895 E04.1 14375 on D/C summery 10/22/24 Benign hypertension 1072 5009 I10 start losartan , decrease amlodipine to 2.5last EKG 01/11/24BP 2 weeks Benign pro static hyperplasia without outflow obstruction 103142143 N40.0 asymptomat ic Health Concerns Section Related Observation LastModified by Organization Detai ls LastModified Time None Recorded Concern Status LastModified by Organization Details LastModified Time None Recorded Advance Directives Directive N: Payers Insurance Date Sequence Insurance Name Policy Number Policy Good Covered Member ID Good Member ID Guarantor Name 08/23/2017 1 [place] [id number] Cornelia leung [id number] Jorge Edouard 05/22/2024 2 [employer]URANCE [email or web address] (MEDICARE SUPPLEMENT) PLAN G Jorge Edouard [id number] Jorge Edouard 05/22/2024 2 [facility] (MEDICARE SUPPLEMENT) Jorge Edouard 11/24/2024 1 [place] Jorge Edouard [id number] Jorge Edouard 05/22/2024 2 [place] Jorge Edouard [id number] Jorge Edouard 05/22/2024 1 [place] DIRECTACCESS - PATHWAY X (PPO) [id number] Jorge Edouard [id number] Jorge Edouard 04/16/2016 1 *SELF PAY* De ember Edouard Notes Date Note Type Note Provider Name and Address Organization Details Recorded Time 4 text/html Hypertension F/UReported by PatientHPIFor medications, patient reportstaking medications as directedandno side effects from medication. For lifestyle, patient reportsregular exercise,limiting/avoiding salt, andcompliant with low salt diet. For associated symptoms, patient reportsno dizziness,no lightheadedness,no chest pain,no shortness of breath,no palpitations,no edema,no calf pain with exertion, andno headache. Bill Parker MD [address] [place], [place], [address], [facility] 10/12/2023 15:37:59 4 text/html Hypertension F/UReported by PatientHPIFor medications, patient reportstaking medications as directedandno side effects from medication. For lifestyle, patient reportsregular exercise,limiting/avoiding salt, andcompliant with low salt diet. For associated symptoms, patient reportsno dizziness,no lightheadedness,no chest pain,no shortness of breath,no palpitations,no edema,no calf pain with exertion, andno headache. Bill Parker MD [address] [place], [place], [address], [facility] 01/11/2024 11:29:36 5 text/html Medicare Annual Wellness VisitReported by PatientSocial/Behavioral HistoryFor diet and nutrition, patient reportshealthy diet. [...] effects from medication. For lifestyle, patient reportsregular exercise,limiting/avoiding salt, andcompliant with low salt diet. For associated symptoms, patient reportsno dizziness,no lightheadedness,no chest pain,no shortness of breath,no palpitations,no edema,no calf pain with exertion, andno headache. Bill Parker MD [address] [place], [place], [address], [facility] 07/13/2024 13:35:52 5 text/html Hypertension F/UReported by PatientHPIFor medications, patient reportstaking medications as directedandno side effects from medication. For lifestyle, patient reportsregular exercise,limiting/avoiding salt, andcompliant with low salt diet. For associated symptoms, patient reportsno dizziness,no lightheadedness,no chest pain,no shortness of breath,no palpitations,no edema,no calf pain with exertion, andno headache. syncope , standing in the sun , work up @ ER -ve Bill Parker MD [address] [place], [place], [address], [facility] 10/13/2024 13:42:26 5 text/html Hospitalization Contact RecordReported by PatientHospitalization Contact RecordFor follow up, patient reportsdate of discharge: (please enter in format 'mm/dd/yyyy') (10/22/24)anddate of contact: (please enter in format 'mm/dd/yyyy') (10/25/24). Hypertension F/UReported by PatientHPIFor medications, patient reportstaking medications as directedandno side effects from medication. For lifestyle, patient reportsregular exercise,limiting/avoiding salt, andcompliant with low salt diet. For associated symptoms, patient reportsno dizziness,no lightheadedness,no chest pain,no shortness of breath,no palpitations,no edema,no calf pain with exertion, andno headache. went to ER 10/20/24 for syncope , inPt till 10/22/24 Bill Parker MD [address] [place], [place], [address], [facility] 10/30/2024 10:39:02
--- NOTE | 2024-12-03 06:15 | ED.FALL ---
HPI - Fall General Chief Complaint: Fall <DO Dennis Kohler Last Filed: 12/03/24 07:01> Stated Complaint: fall / chest pain <Abner Begum DO - Last Filed: 12/03/24 07:01> Time Seen by Provider: 12/03/24 06:00 <DO Dennis Kohler Last Filed: 12/03/24 07:01> Source: patient <Abner Begum DO - Last Filed: 12/03/24 07:01> Mode of arrival: ambulatory <DO Dennis Kohler Last Filed: 12/03/24 07:01> Limitations: no limitations <Abner Begum DO - Last Filed: 12/03/24 07:01> History of Present Illness HPI Narrative: Patient is a 74-year-old male presents to the emergency department complaining of a fall. 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 it was dark kidney was going to go to the bathroom and tripped over some cords and fell forward hitting his anterior chest wall, right elbow, chin, bilateral wrists. Patient admits to some small scrapes to his bilateral wrists, a small cut to his right elbow and a small scrape to his left elbow. Patient is complaining of pain to his right elbow. Minimal discomfort to his bilateral wrists. Patient denies any history of injuries to this region in the past. Patient notes his tetanus is up-to-date since 1 year ago. Patient notes that when he fell and landed on his anterior chest and knocked the wind out of them and he has some slight discomfort with deep inspiration and is not in much discomfort when he is resting but any time he tries to move it causes a lot of pain in his anterior chest. Patient denies losing consciousness or use of blood thinners. Patient took a [place] for the pain. Patient has ambulatory since the event, denies any lower extremity pain. Patient denies any focal weakness or numbness. Patient denies abdominal pain, back pain, neck pain, headache, nausea, vomiting, urinary incontinence, stool incontinence, cough, fever. <DO Dennis Kohler Last Filed: 12/03/24 07:01> Related Data Allergies/Adverse Reactions: Allergies Allergy/AdvReac Type Severity Reaction Status Date / Time No Known Allergies Allergy Verified 12/03/24 05:43 <Abner Begum DO - Last Filed: 12/03/24 07:01> Review of Systems Review of Systems: A 10 system review of systems was completed on the patient and is negative except for what is stated in the HPI. Nursing and ancillary documentation was reviewed. <Abner Begum DO - Last Filed: 12/03/24 07:01> [facility] Past Medical History Medical History: Medical History BPH (benign prostatic hyperplasia) Hyperlipidemia Hypertension Diabetes <Abner Begum DO - Last Filed: 12/03/24 07:01> Surgical History Surgical History: Surgical History History of orthopedic surgery Lower extremity repair <Abner Begum DO - Last Filed: 12/03/24 07:01> Social History Social History: Social History Smoking status: Never smoker <Abner Begum DO - Last Filed: 12/03/24 07:01> Exam Narrative: CONST: No acute distress. Well nourished. HENMT: Head is normocephalic and atraumatic. Moist mucous membranes. No posterior oropharynx erythema. Midface is stable. Superficial hemostatic abrasion to the chin, no tenderness to palpation, no palpable bony deformities. EYES: No scleral icterus. No conjunctival injection or pallor. PERRL. NECK: No meningeal signs. RESP: Able to speak in full sentences. Normal respiratory effort. CTAB. CARDIO: Regular rate. Regular rhythm. 2+ DP and radial pulses bilaterally. GI: Nondistended. No tenderness to palpation. Soft. : No CVA tenderness to palpation. SKIN: Warm and dry. NEURO: Oriented x3. Moves all extremities. No focal neurological deficits. EXTREM/MSK/BACK: No pedal edema. No midline vertebral tenderness to palpation or palpable step-offs. Mid sternal in the inferior sternal and parasternal tenderness to palpation without overlying breaks in the skin, no palpable deformities, no crepitus, no ecchymosis. Right elbow swelling, mild tenderness to palpation, no palpable deformities, small superficial hemostatic abrasion overlying. Small superficial hemostatic abrasions to the bilateral wrists. No bony tenderness to palpation of the bilateral wrists. No snuffbox tenderness to palpation bilaterally. Superficial hemostatic abrasion to the left elbow, no bony tenderness to palpation. Sensation intact to light touch with the axillary and radial and ulnar and median nerve distributions of the bilateral upper extremities. The bilateral upper extremities patient is able to flex and extend at the wrist, make okay signs, abduct and adduct all of his fingers, make a fist, flex and extend at the elbow. PSYCH: Normal affect. <Abner Begum DO - Last Filed: 12/03/24 07:01> Course Vital Signs Vital signs: Vital Signs Temperature 37.6 C H 12/03/24 05:49 Pulse Rate 87 12/03/24 05:49 Respiratory Rate 26 H 12/03/24 05:49 Blood Pressure 173/100 H 12/03/24 05:49 Pulse Oximetry 93 12/03/24 05:49 Oxygen Delivery Room Air 12/03/24 05:49 Temperature 37.6 C H 12/03/24 05:49 Pulse Rate 82 12/03/24 08:15 Respiratory Rate 19 12/03/24 08:15 Blood Pressure 145/99 H 12/03/24 08:15 Pulse Oximetry 92 12/03/24 08:15 Oxygen Delivery Room Air 12/03/24 05:49 <Abner Begum DO - Last Filed: 12/03/24 07:01> Vital Signs Temperature 37.6 C H 12/03/24 05:49 Pulse Rate 87 12/03/24 05:49 Respiratory Rate 26 H 12/03/24 05:49 Blood Pressure 173/100 H 12/03/24 05:49 Pulse Oximetry 93 12/03/24 05:49 Oxygen Delivery Room Air 12/03/24 05:49 Temperature 37.6 C H 12/03/24 05:49 Pulse Rate 82 12/03/24 08:15 Respiratory Rate 19 12/03/24 08:15 Blood Pressure 145/99 H 12/03/24 08:15 Pulse Oximetry 92 12/03/24 08:15 Oxygen Delivery Room Air 12/03/24 05:49 <Hamlet Sexton MD - Last Filed: 12/03/24 09:11> MDM - Fall MDM Narrative Medical decision making narrative: Patient presents with the above complaint. Physical examination as noted above. Differential diagnosis includes was not limited to: Fracture, contusion, sprain, strain, pneumothorax, pulmonary contusion, cardiac contusion, pneumonia. Plan discussed: Laboratory analysis, EKG, CT chest, right elbow x-ray, bilateral wrist x-rays, ice pack, continues cardiac monitoring, continuous pulse oximetry, Toradol, lidocaine patch, Robaxin, incentive spirometry. 07:00 Patient signed out to oncoming physician Dr. Sexton at shift change. <Abner Begum DO - Last Filed: 12/03/24 07:01> Patient presents with the above complaint. Physical examination as noted above. Differential diagnosis includes was not limited to: Fracture, contusion, sprain, strain, pneumothorax, pulmonary contusion, cardiac contusion, pneumonia. Plan discussed: Laboratory analysis, EKG, CT chest, right elbow x-ray, bilateral wrist x-rays, ice pack, continues cardiac monitoring, continuous pulse oximetry, Toradol, lidocaine patch, Robaxin, incentive spirometry. 07:00 Patient signed out to oncoming physician Dr. Sexton at shift change. CT chest showed no evidence of rib fractures no evidence of pulmonary contusion patient did have cardiomegaly and trace pericardial effusion. There also was a nodule on the thyroid that is recommended a follow-up thyroid ultrasound Rest of the x-ray showed no evidence of fracture cardiac markers were negative patient will be discharged home to follow-up with his primary care provider <Hamlet Sexton MD - Last Filed: 12/03/24 09:11> Lab Data Result diagrams: 12/03/24 07:48 12/03/24 06:53 <Abner Begum DO - Last Filed: 12/03/24 07:01> Labs: Lab Results 12/03/24 12/03/24 12/03/24 Range/Units 06:53 06:53 06:53 WBC (4.5-10.0) K/mm3 RBC (4.6-6.20) M/mm3 Hgb (14.0-18.0) g/dL Hct (42.0-52.0) % MCV (80-100) fl MCH (26-34) pg MCHC (32-36) g/dl RDW (11.5-14.5) % Plt Count (150-375) k/mm3 MPV (7.4-10.4) fl Immature Gran % (Auto) (0-0.5) % Neut % (Auto) (45.5-73.1) % Lymph % (Auto) (18.3-44.2) % Williams % (Auto) (2.6-8.5) % Eos % (Auto) (0-4.4) % Baso % (Auto) (0.2-1.2) % Lymph # (Auto) (0.9-3.2) K/mm3 Williams # (Auto) (0.1-0.6) K/mm3 Eos # (Auto) (0-0.3) K/mm3 Baso # (Auto) (0.0-0.1) K/mm3 Abs Immat Gran (auto) (0.00-0.031) K/mm3 Absolute Neuts (auto) (1.3-6.7) K/mm3 Absolute Nucleated RBC (0.0-0.012) K/mm3 Nucleated RBC % (0.0-0.2) % PT 13.9 (11.1-14.7) Seconds INR 1.1 APTT 22.2 L (22.3-36.8) Seconds Sodium 138 (137-145) mmol/L Potassium 4.2 (3.4-5.0) mmol/L Chloride 103 (98-107) mmol/L Carbon Dioxide 25 (22-30) mmol/L Anion Gap 10 (4-12) mmol/L BUN 14 D (9-20) mg/dL Creatinine 0.69 L (0.7-1.3) mg/dL Estim Creat Clear Calc 91 ml/min Estimated GFR > 60 (59 - ) Glucose 123 H (65-110) mg/dL Calcium 9.0 (8.4-10.2) mg/dL Magnesium 2.0 Cancelled (1.6-2.3) mg/dL Total Bilirubin 0.8 (0.2-1.3) mg/dL AST 28 (17-59) U/L ALT 19 (6-50) U/L Alkaline Phosphatase 63 (38-126) U/L Total Creatine Kinase 82 (55-170) U/L Troponin I < 0.012 Cancelled (0.000-0.034) ng/mL Total Protein 6.5 (6.3-8.2) g/dL Albumin 4.0 (3.5-5.1) g/dL Lipase 55 (23-300) U/L 12/03/24 12/03/24 Range/Units 06:53 07:48 WBC 5.4 (4.5-10.0) K/mm3 RBC 4.89 (4.6-6.20) M/mm3 Hgb 14.6 (14.0-18.0) g/dL Hct 44.7 (42.0-52.0) % MCV 91.4 (80-100) fl MCH 29.9 (26-34) pg MCHC 32.7 (32-36) g/dl RDW 13.2 (11.5-14.5) % Plt Count 161 (150-375) k/mm3 MPV 9.3 (7.4-10.4) fl Immature Gran % (Auto) 0.4 (0-0.5) % Neut % (Auto) 75.1 H (45.5-73.1) % Lymph % (Auto) 13.8 L (18.3-44.2) % Williams % (Auto) 10.1 H (2.6-8.5) % Eos % (Auto) 0.2 (0-4.4) % Baso % (Auto) 0.4 (0.2-1.2) % Lymph # (Auto) 0.74 L (0.9-3.2) K/mm3 Williams # (Auto) 0.5 (0.1-0.6) K/mm3 Eos # (Auto) 0.0 (0-0.3) K/mm3 Baso # (Auto) 0.0 (0.0-0.1) K/mm3 Abs Immat Gran (auto) 0.02 (0.00-0.031) K/mm3 Absolute Neuts (auto) 4.0 (1.3-6.7) K/mm3 Absolute Nucleated RBC 0.000 (0.0-0.012) K/mm3 Nucleated RBC % 0.0 (0.0-0.2) % PT (11.1-14.7) Seconds INR APTT (22.3-36.8) Seconds Sodium (137-145) mmol/L Potassium (3.4-5.0) mmol/L Chloride (98-107) mmol/L Carbon Dioxide (22-30) mmol/L Anion Gap (4-12) mmol/L BUN (9-20) mg/dL Creatinine (0.7-1.3) mg/dL Estim Creat Clear Calc ml/min Estimated GFR (59 - ) Glucose (65-110) mg/dL Calcium (8.4-10.2) mg/dL Magnesium (1.6-2.3) mg/dL Total Bilirubin (0.2-1.3) mg/dL AST (17-59) U/L ALT (6-50) U/L Alkaline Phosphatase (38-126) U/L Total Creatine Kinase (55-170) U/L Troponin I (0.000-0.034) ng/mL Total Protein (6.3-8.2) g/dL Albumin (3.5-5.1) g/dL Lipase Cancelled (23-300) U/L <Abner Begum, DO - Last Filed: 12/03/24 07:01> Lab Results 12/03/24 12/03/24 12/03/24 Range/Units 06:53 06:53 06:53 WBC (4.5-10.0) K/mm3 RBC (4.6-6.20) M/mm3 Hgb (14.0-18.0) g/dL Hct (42.0-52.0) % MCV (80-100) fl MCH (26-34) pg MCHC (32-36) g/dl RDW (11.5-14.5) % Plt Count (150-375) k/mm3 MPV (7.4-10.4) fl Immature Gran % (Auto) (0-0.5) % Neut % (Auto) (45.5-73.1) % Lymph % (Auto) (18.3-44.2) % Williams % (Auto) (2.6-8.5) % Eos % (Auto) (0-4.4) % Baso % (Auto) (0.2-1.2) % Lymph # (Auto) (0.9-3.2) K/mm3 Williams # (Auto) (0.1-0.6) K/mm3 Eos # (Auto) (0-0.3) K/mm3 Baso # (Auto) (0.0-0.1) K/mm3 Abs Immat Gran (auto) (0.00-0.031) K/mm3 Absolute Neuts (auto) (1.3-6.7) K/mm3 Absolute Nucleated RBC (0.0-0.012) K/mm3 Nucleated RBC % (0.0-0.2) % PT 13.9 (11.1-14.7) Seconds INR 1.1 APTT 22.2 L (22.3-36.8) Seconds Sodium 138 (137-145) mmol/L Potassium 4.2 (3.4-5.0) mmol/L Chloride 103 (98-107) mmol/L Carbon Dioxide 25 (22-30) mmol/L Anion Gap 10 (4-12) mmol/L BUN 14 D (9-20) mg/dL Creatinine 0.69 L (0.7-1.3) mg/dL Estim Creat Clear Calc 91 ml/min Estimated GFR > 60 (59 - ) Glucose 123 H (65-110) mg/dL Calcium 9.0 (8.4-10.2) mg/dL Magnesium 2.0 Cancelled (1.6-2.3) mg/dL Total Bilirubin 0.8 (0.2-1.3) mg/dL AST 28 (17-59) U/L ALT 19 (6-50) U/L Alkaline Phosphatase 63 (38-126) U/L Total Creatine Kinase 82 (55-170) U/L Troponin I < 0.012 Cancelled (0.000-0.034) ng/mL Total Protein 6.5 (6.3-8.2) g/dL Albumin 4.0 (3.5-5.1) g/dL Lipase 55 (23-300) U/L 12/03/24 12/03/24 Range/Units 06:53 07:48 WBC 5.4 (4.5-10.0) K/mm3 RBC 4.89 (4.6-6.20) M/mm3 Hgb 14.6 (14.0-18.0) g/dL Hct 44.7 (42.0-52.0) % MCV 91.4 (80-100) fl MCH 29.9 (26-34) pg MCHC 32.7 (32-36) g/dl RDW 13.2 (11.5-14.5) % Plt Count 161 (150-375) k/mm3 MPV 9.3 (7.4-10.4) fl Immature Gran % (Auto) 0.4 (0-0.5) % Neut % (Auto) 75.1 H (45.5-73.1) % Lymph % (Auto) 13.8 L (18.3-44.2) % Williams % (Auto) 10.1 H (2.6-8.5) % Eos % (Auto) 0.2 (0-4.4) % Baso % (Auto) 0.4 (0.2-1.2) % Lymph # (Auto) 0.74 L (0.9-3.2) K/mm3 Williams # (Auto) 0.5 (0.1-0.6) K/mm3 Eos # (Auto) 0.0 (0-0.3) K/mm3 Baso # (Auto) 0.0 (0.0-0.1) K/mm3 Abs Immat Gran (auto) 0.02 (0.00-0.031) K/mm3 Absolute Neuts (auto) 4.0 (1.3-6.7) K/mm3 Absolute Nucleated RBC 0.000 (0.0-0.012) K/mm3 Nucleated RBC % 0.0 (0.0-0.2) % PT (11.1-14.7) Seconds INR APTT (22.3-36.8) Seconds Sodium (137-145) mmol/L Potassium (3.4-5.0) mmol/L Chloride (98-107) mmol/L Carbon Dioxide (22-30) mmol/L Anion Gap (4-12) mmol/L BUN (9-20) mg/dL Creatinine (0.7-1.3) mg/dL Estim Creat Clear Calc ml/min Estimated GFR (59 - ) Glucose (65-110) mg/dL Calcium (8.4-10.2) mg/dL Magnesium (1.6-2.3) mg/dL Total Bilirubin (0.2-1.3) mg/dL AST (17-59) U/L ALT (6-50) U/L Alkaline Phosphatase (38-126) U/L Total Creatine Kinase (55-170) U/L Troponin I (0.000-0.034) ng/mL Total Protein (6.3-8.2) g/dL Albumin (3.5-5.1) g/dL Lipase Cancelled (23-300) U/L <Hamlet Sexton MD - Last Filed: 12/03/24 09:11> Discharge Plan Discharge Clinical Impression: Fall, Contusion, Abrasion, Chest wall contusion, Thyroid nodule <Abner Begum DO - Last Filed: 12/03/24 07:01> Patient Disposition: Home <Abner Begum DO - Last Filed: 12/03/24 07:01> Condition: Stable <Abner Begum DO - Last Filed: 12/03/24 07:01> Instructions: Antibiotic Form <Abner Begum DO - Last Filed: 12/03/24 07:01> Additional Instructions: The CT scan showed that you have a thyroid nodule this will need to be followed up by your primary care provider and will most likely need a thyroid ultrasound Please return to the emergency department if your symptoms worsen. <Abner Begum DO - Last Filed: 12/03/24 07:01> Patient Language: [place] Citizen <DO Dennis Kohler Last Filed: 12/03/24 07:01> Prescriptions: No Action Zyrtec 10 mg capsule 10 mg PO DAILY Qty: 7 0RF albuterol sulfate 90 mcg/actuation HFA aerosol inhaler 4 puff inhalation QID PRN (Reason: shortness of breath or wheezing) Qty: 8.5 0RF fluticasone propionate [Flonase Allergy Relief] 50 mcg/actuation spray,suspension 1 spray intranasal BID Qty: 16 0RF Rx Instructions: administer into each nostril <DO Dennis Kohler Last Filed: 12/03/24 07:01> Follow-up/Referrals: Shari,MD Ronald [Primary Care Provider] <Abner Begum DO - Last Filed: 12/03/24 07:01> Time of Disposition: 09:10 <Abner Begum DO - Last Filed: 12/03/24 07:01> 09:10 <Hamlet Sexton MD - Last Filed: 12/03/24 09:11> Sign Out Sign Out Data: Patient Sign Out occurred on 12/03/24 at 07:25. Patient's care was discussed, and care was transferred from Abner Begum DO to Hamlet Sexton MD. <Abner Begum DO - Last Filed: 12/03/24 07:01>
--- NOTE | 2024-12-03 06:16 | ECG_ITS ---
Test Date: 2024-12-03 07:06:38 Measurements Intervals [place] Rate: 73 P: -25 AL: 171 QRS: -28 QRSD: 97 T: -30 QT: 349 QTc: 387 Interpretive Statements SINUS RHYTHM INFERIOR INFARCT, AGE INDETERMINATE BORDERLINE T WAVE ABNORMALITY- ANTERIOR LEADS ABNORMAL ECG BASELINE ARTIFACT- II Compared to ECG 09/14/2024 21:09:45 No significant changes Electronically Signed On 12-03-2024 07:52:55 CDT by Neel Fowler D.O.
--- OUTSIDE RECORDS SUMMARY | 2024-12-03 06:29 | XMS_ITS | Clinical Summary ---
Author Organization [facility] Address [address] [place] [id number] Care Team Providers Care Real Estate Appraiser Supervisor Name Role Phone Ronald Mccarthy MD Primary Care Provider [phone] Social History Tobacco Use Types Packs/Day Years [...] age to complete this topic Care Teams Real Estate Appraiser Supervisor Relationship Specialty Start Date End Date Ronald Mccarthy MD PCP - General 04/01/11
--- OUTSIDE RECORDS SUMMARY | 2024-12-03 06:29 | XMS_ITS | Clinical Summary ---
Author Organization [facility] Address [address] [place] [address] Phone Care Team Providers Care Batch Analyst Name Role Phone Ronald Mccarthy MD Primary Care Provider [phone] Allergies No known active allergies Medications candesartan-hyd [...] - 10/22/2024 2:57 PM CDT Hospital Encounter [facility] Medical Progressive Care Unit [address] [place] [address] Harman Iqbal, MD Lizett Roldan Ahmer, DO [...] INTERFACE SYSTEM - 11/23/2024 4:31 PM CDT [address] [address] Test Date: 2024-11-20 Pat Name: JORGE EDOUARD Department: Room: [facility] 1 Gender: M 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: : 1950 Requested By: SIMONA Garcia Order Number: [id number] Reading MD: Demar Villagomez Interpretive Statements Patient was monitored for 4 weeks The only patient triggered event was baseline transmission showing sinus rhythm without ectopy There were no atrial fibrillation events, pauses, or advanced AV block Electronically Signed On 11-23-2024 16:31:21 CDT by Demar Villagomez Procedure Note Demar Villagomez MD - 11/23/[address] [address] Test Date: 2024-11-20 Pat Name: JORGE EDOUARD Department: Room: 5078 1 Gender: M 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: : 1950 Requested By: SIMONA Garcia Order Number: [id number] Eli MD: Demar Villagomez Interpretive Statements Patient [...] INTERFACE SYSTEM - 10/22/2024 1:28 PM CDT [address] [address] [email or web address] Transthoracic Echocardiogram Patient: Jorge Edouard Study ID: ECHO COMPLETE - Gender: M : 1950 Age: 74 Race: CAU Height 182.9cm Study Date: 10/22/2024 Weight: 84.3kg Access. #: [id number] BP: *Referring Physician:* Joshua Castillo *Ordering Physician:* Joshua Castillo core assembly supervisor: Nurse: Indications: Syncope. STUDY CONCLUSIONS: SUMMARY: - [...] AM. Prepared and Electronically Authenticated Remington Bustillo [id number]:30 Procedure Note Remington Bustillo MD - 10/22/[address] [address] [email or web address] hospitalD[facility] Transthoracic Echocardiogram Patient: Jorge Edouard Study ID: ECHO COMPLETE - Gender: M : 1950 Age: 74 Race: CAU Height 182.9cm Study Date: 10/22/2024 Weight: 84.3kg Access. #: [id number] BP: *Referring Physician:Joshua Dhillon *Ordering Physician:Joshua Dhillon core assembly supervisor: Nurse: Indications: Syncope. STUDY CONCLUSIONS: SUMMARY: - [...] 10:57 AM. Prepared andElectronically Authenticated Remington Bustillo [id number]:28:30 us Joshua Castillo MD US ORDERABLES Final Result INTERFACE SYSTEM Refer to clinic/hospital department * (ABNORMAL) POC GLUCOSE (10/22/2024 11:30 AM CDT) Only the most recent of7 resultswithin the time period is included. GLUCOSE POC 101(H) 74 - 99 mg/dL 10/22/2024 11:30 AM CDT [facility] Consult [facility] SPECIMEN SOURCE, GLUCOSE POC Whole Blood 10/22/2024 11:30 AM CDT [facility] SERVICES - [facility] Blood, whole 10/22/2024 11:3 0 AM CDT 10/22/2024 11:38 AM CDT us Joshua Castillo MD POINT OF CARE TESTING Final Res ult [facility]ORATORY SERVICES [facility] CLIA# [id number] [address] [place] [address] * NM MYOCARD PERF IMAG SPECT MULT [...] showed sinus rhythm with age indeterminant inferior NC and nonspecific T wave abnormality. The stress [...] showed sinus rhythm with age indeterminant inferior NC and nonspecific T wave abnormality. The stress [...] EJECTION FRACTION (10/22/2024 10:30 AM CDT) Pathologist [facility] EJECTION FRACTION 61 50 - 65 % [facility] Provider HEALTH MAINTENANCE Final Res ult * NM PHARMACOLOGICAL STRESS TEST (10/22/2024 9:26 AM CDT) Narrative 10/22/2024 9:26 AM CDT Order information only. Exam was auto-finalized. Remington SHAH ORDERABLES Final Result * CBC WITH DIFFERENTIAL (10/22/2024 2:01 AM CDT) Only the most recent of3 resultswithin the time period is included. Pathologist [facility] WBC 6.2 4.0 - 9.8 K/uL 10/22/2024 2:57 AM CDT [facility] SERVICES [facility] RBC 4.56 4.50 - 5.40 M/uL 10/22/2024 2:57 AM CDT [facility] HEMOGLOBIN 13.6 13.6 - 16.5 g/dL 10/22/2024 2:57 AM CDT [facility] HEMATOCRIT 41.9 40.0 - 48.0 % 10/22/2024 2:57 AM CDT [facility] MCV 91.9 82.0 - 99.0 fL 10/22/2024 2:57 AM CDT [facility] MCH 29.8 27.2 - 32.6 pg 10/22/2024 2:57 AM CDT [facility] MCHC 32.5 31.5 - 35.5 g/dL 10/22/2024 2:57 AM CDT [facility] RDW 14.0 11.5 - 14.5 % 10/22/2024 2:57 AM CDT [facility] - [facility] RDW-STDEV 47.4 37.1 - 48.7 fL 10/22/2024 2:57 AM CDT [facility] PLATELETS 180 140 - 350 K/uL 10/22/2024 2:57 AM CDT [facility] MPV 9.7 9.3 - 12.4 fL 10/22/2024 2:57 AM CDT [facility] NEUTROPHILS 60 % 10/22/2024 2:57 AM CDT [facility] LYMPHOCYTES 28 % 10/22/2024 2:57 AM CDT [facility] MONOCYTES 9 % 10/22/2024 2:57 AM CDT [facility] EOSINOPHILS 2 % 10/22/2024 2:57 AM CDT [facility] BASOPHILS 1 % 10/22/2024 2:57 AM CDT [facility] IMMATURE GRANULOCYTES 0 % 10/22/2024 2:57 AM CDT [facility] NEUTROPHIL ABSOLUTE 3.72 1.90 - 7.00 K/uL 10/22/2024 2:57 AM CDT [facility] - [facility] [place] LYMPHOCYTE ABSOLUTE 1.75 0.70 - 4.50 K/uL 10/22/2024 2:57 AM CDT [facility] - [facility] MONOCYTE ABSOLUTE 0.55 0.10 - 1.30 K/uL 10/22/2024 2:57 AM CDT [facility] - [facility] EOSINOPHIL ABSOLUTE 0.12 0.00 - 0.70 K/uL 10/22/2024 2:57 AM CDT [facility] - [facility] BASOPHILS ABSOLUTE 0.04 0.00 - 0.20 K/uL 10/22/2024 2:57 AM CDT [facility] IMMATURE GRANULOCYTES ABSOLUTE 0.02 0.00 - 0.03 K/uL 10/22/2024 2:57 AM CDT [facility] Blood Venipuncture / Unknown 10/22/2024 2:01 AM CDT 10/22/2024 2:38 AM CDT us Juan Solis MD HEMATOLOGY ORDERABLES Final Resu lt [facility] - [facility]# [id number] [address] [facility] [address] * (ABNORMAL) BASIC METABOLIC PANEL (10/22/2024 2:01 AM CDT) Only the most recent of2 resultswithin the time period is included. SODIUM 140 136 - 145 mmol/L 10/22/2024 3:14 AM CDT [facility] - [facility] POTASSIUM 4.1 3.5 - 5.0 mmol/L 10/22/2024 3:14 AM CDT [facility] CHLORIDE 105 98 - 107 mmol/L 10/22/2024 3:14 AM CDT [facility] CO2 26 22 - 29 mmol/L 10/22/2024 3:14 AM CDT [facility] CALCIUM 8.7 8.6 - 10.2 mg/dL 10/22/2024 3:14 AM CDT [facility] BUN 14 8 - 23 mg/dL 10/22/2024 3:14 AM CDT [facility] CREATININE 0.91 0.67 - 1.17 mg/dL 10/22/2024 3:14 AM CDT [facility] Comment:The GFR result is no t clinically significant on patients <18 or >70 years of age. GLUCOSE 111(H) 74 - 99 mg/dL 10/22/2024 3:14 AM T [facility] GFR >60 mL/min/1.7 3 sq meter 10/22/2024 3:14 AM T [facility] Consult [facility] Comment:eGFR calculated with 2020 CKD-EPI equation. Vegetarian diet, extremely high or low muscle mass, and may affect results. Cystatin C with Glomerular Filtration Rate is a suitable alternative for these patients. ANION GAP 9 8 - 16 mmol/L 10/22/2024 3:14 AM T [facility] Blood Venipuncture / Unknown 10/22/2024 2:01 AM CDT 10/22/2024 2:38 AM CDT Juan Solis MD CHEMISTRY ORDERABLES Final Resul t [facility] Consult [facility]# [id number] 5 [facility] [place] [address] * TROPONIN 6 HR, 5TH GEN (10/21/2024 1:50 AM CDT) TROPONIN T, 6 HR 5TH GEN 9 <=15 ng/L 10/21/2024 3:00 AM CDT [facility] Consult [facility] DELTA 6HR TROPONIN T 3 See Interp. 10/21/2024 3:00 AM CDT [facility] Consult [facility] Blood Venipuncture / Unknown 10/21/2024 1:50 AM CDT 10/21/2024 2:20 AM CDT Narrative [facility]ORY [facility] - 10/21/2024 3:00 AM CDT Troponin Detectable but normal range. Delta indeterminate. Simona Hammer Jr., MD CHEMISTRY ORDERABLES Final Result [facility] LABORATORY SERVICES [facility]# [id number] [place] [address] * CTA HEAD AND NECK W AND/OR [...] branch vessel occlusion. No aneurysm about the [facility]. CTA of the neck: 1. No hemodynamically significant ICA stenosis. Tortuosity of the carotid vessels. 2. Vertebral arteries are codominant. 3. Please see additional incidental findings noted above. DICTATION LOCATION: Location 1 - [facility] The examination was performed with the adjustment [...] branch vessel occlusion. No aneurysm about the [facility]. CTA of the neck: 1. No hemodynamically significant ICA stenosis. Tortuosity of the carotid vessels. 2. Vertebral arteries are codominant. 3. Please see additional incidental findings noted above. DICTATION LOCATION: Location 1 - [facility] The examination was performed with the adjustment [...] or airspace disease. DICTATION LOCATION: Location 1 [facility] Narrative 10/20/2024 9:42 PM CDT EXAM: XR [...] airspace disease. DICTATION LOCATION: Location 1 - [facility] Simona Hammer Jr., MD DIAGNOSTIC IMAGING ORDERAB LES Final Result * TROPONIN 2 HR, 5TH GEN (10/20/2024 9:18 PM CDT) TROPONIN T, 2 HR 5TH GEN 8 <=15 ng/L 10/20/2024 9:59 PM CDT [facility] DELTA 2HR TROPONIN T 2 See Interp. 10/20/2024 9:59 PM CDT [facility] Blood Venipuncture / Unknown 10/20/2024 9:18 PM CDT 10/20/2024 9:25 PM CDT [facility] LABORATORY [facility] - 10/20/2024 9:59 PM CDT Troponin Detectable but normal range. Delta not changing. Simona Hammer Jr., MD CHEMISTRY ORDERABLES Final Result Performing Organization Address City/[facility] de Phone Number [facility]# [id number] [address] [place] [address] * C-REACTIVE PROTEIN (10/20/2024 9:18 PM CDT) CRP <3.0 <5.0 mg/L 10/21/2024 1:19 AM CDT [facility] Blood Venipuncture / Unknown 10/20/2024 9:18 PM CDT 10/20/2024 9:25 PM CDT us Juan Solis MD CHEMISTRY ORDERABLES Final Resul t Performing Organization Address [facility] de Phone Number [facility] CLIA# [id number] [address] [place] [address] * (ABNORMAL) BRAIN NATRIURETIC PEPTIDE, BNP OR PROBNP (10/20/2024 9:18 PM CDT) PROBNP, N TERMINAL 145(H) <124 pg/mL 10/21/2024 1:19 AM CDT [facility] Comment: INTERPRETIVE COMMENT based on diagnosis: Diagnostic [...] ORDERABLES Final Resul t Performing Organization Address [facility]/ZIP Co de Phone Number [facility] Consult [facility]# [id number] [address] [facility] [place] [address] * MAGNESIUM LEVEL (10/20/2024 9:18 PM CDT) Only the most recent of2 resultswithin the time period is included. MAGNESIUM 2.1 1.6 - 2.4 mg/dL 10/21/2024 1:19 AM CDT [facility] Blood Venipuncture / Unknown 10/20/2024 9:18 PM CDT 10/20/2024 9:25 PM CDT us Juan Solis MD CHEMISTRY ORDERABLES Final Resul t Performing Organization Address [facility] Co de Phone Number [facility] Consult [facility]# [id number] [address] [place] [address] * EKG 12-LEAD (10/20/2024 8:16 PM CDT) 10/20/2024 8:16 PM CDT Narrative INTERFACE SYSTEM - 10/21/2024 6:27 AM CDT [address] [address] Test Date: 2024-10-20 Pat Name: JORGE EDOUARD Department: 37 Room: [facility] Gender: Male 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: [id number] : 1950 Requested By: SIMONA Garcia Order Number: [id number] Reading MD: Fabien Rodriguez Measurements Intervals [place] Rate: 70 P: 3 MT: 175 QRS: 15 QRSD: 99 T: -17 QT: 420 QTc: 454 Interpretive Statements Sinus rhythm Inferior infarct, age indeterminate No previous ECG available for comparison Electronically Signed On 10-21-2024 6:27:25 CDT by Fabien Rodriguez Procedure Note Provider, Historical - 10/21/[address] [place] [address] Test Date: 2024-10-20 Pat Name: JORGE EDOUARD Department: 37 Room: 5078 Gender: Male 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: [id number] : 1950 Requested By: SIMONA Garcia Order Number: [id number] Reading MD: Fabien Rodriguez Measurements Intervals [place] Rate: 70 P: 3 MT: 175 QRS: 15 QRSD: 99 T: -17 [...] - 1.20 mg/dL 10/20/2024 7:53 PM CDT [facility]ORY [facility] Comment:The GFR result is no t clinically significant on patients <18 or >70 years of age. GFR POC >60 mL/min/1.7 3 sq meter 10/20/2024 7:53 PM CDT [facility] LAB[facility]ORY [facility] Comment:eGFR calculated with 2020 CKD-EPI equation. Vegetarian diet, extremely high or low muscle mass, and may affect results. Cystatin C with Glomerular Filtration Rate is a suitable alternative for these patients. Blood, whole 10/20/2024 7:53 PM CDT 10/20/2024 7:57 PM CDT us Simona Hammer Jr., MD POINT OF CARE TESTING Carmen l Result Performing Organization Address City/[facility] Co de Phone Number [facility] Consult [facility] CLIA# [id number] [address] [place] [address] * TROPONIN BASELINE, 5TH GEN (10/20/2024 7:41 PM CDT) TROPONIN T, BASELINE 5TH GEN 6 <=15 ng/L 10/20/2024 9:00 PM CDT [facility]ORY [facility] Blood Venipuncture / Unknown 10/20/2024 7:41 PM CDT 10/20/2024 7:45 PM CDT Narrative [facility] - 10/20/2024 9:00 PM CDT Troponin Detectable but normal range. Simona Hammer Jr., MD CHEMISTRY ORDERABLES Final Result Performing Organization Address City/[facility]/ZIP Co de Phone Number [facility] CLIA# [id number] [address] [place] [address] * TSH (10/20/2024 7:41 PM CDT) [facility] TSH 1.26 0.27 - 4.20 uIU/mL 10/20/2024 9:00 PM CDT [facility] Blood Venipuncture / Unknown 10/20/2024 7:41 PM CDT 10/20/2024 7:45 PM CDT Simona Hammer Jr., MD CHEMISTRY ORDERABLES Final Result Performing Organization Address City/[facility]/ZIP Co de Phone Number [facility]# [id number] [address] [place] [address] * (ABNORMAL) HEMOGLOBIN A1C (10/20/2024 7:41 PM CDT) [facility] HEMOGLOBIN A1C 6.1(H) <5.7 % 10/21/2024 1:20 AM CDT [facility]ORY [facility] EST. AVG GLUCOSE, A1C 128 mg/dL 10/21/2024 1:20 AM CDT [facility]ORY [facility] Blood Venipuncture / Unknown 10/20/2024 7:41 PM CDT 10/20/2024 7:45 PM CDT Narrative [facility]ATORY SERVICES - [facility] - 10/21/2024 1:20 AM CDT HGB A1C INTERPRETATION NORMAL: <5.7% PRE-DIABETES: 5.7 - 6.4% DIABETES: 6.5% OR GREATER us Juan Solis MD CHEMISTRY ORDERABLES Final Resul t [facility] LABORATORY SERVICES [facility] CLIA# [id number] [address] [facility] [place] [address] * (ABNORMAL) COMPREHENSIVE METABOLIC PANEL (10/20/2024 7:41 PM CDT) Pathologist [facility] SODIUM 138 136 - 145 mmol/L 10/20/2024 9:01 PM CDT [facility] LABORATORY SERVICES [facility] POTASSIUM 4.1 3.5 - 5.0 mmol/L 10/20/2024 9:01 PM CDT [facility] LABORATORY SERVICES [facility] Comment:Hemolysis present. R esult may be falsely elevated. CHLORIDE 103 98 - 107 mmol/L 10/20/2024 9:01 PM CDT [facility] LABORATORY SERVICES [facility] CO2 22 22 - 29 mmol/L 10/20/2024 9:01 PM CDT [facility] LABORATORY SERVICES [facility] CALCIUM 8.8 8.6 - 10.2 mg/dL 10/20/2024 9:01 PM CDT [facility] LABORATORY SERVICES [facility] BUN 16 8 - 23 mg/dL 10/20/2024 9:01 PM T [facility] LABORATORY SERVICES [facility] CREATININE 0.87 0.67 - 1.17 mg/dL 10/20/2024 9:01 PM CDT [facility] LABORATORY SERVICES [facility] Comment:The GFR result is no t clinically significant on patients <18 or >70 years of age. GLUCOSE 132(H) 74 - 99 mg/dL 10/20/2024 9:01 PM CDT [facility] LABORATORY SERVICES [facility] TOTAL PROTEIN 6.4(L) 6.7 - 8.6 g/dL 10/20/2024 9:01 PM CDT [facility] ALBUMIN 4.1 3.5 - 5.2 g/dL 10/20/2024 9:01 PM CDT [facility] BILIRUBIN TOTAL 0.4 0.0 - 1.1 mg/dL 10/20/2024 9:01 PM [facility] LABORATORY [facility] ALKALINE PHOSPHATASE 54 40 - 129 U/L 10/20/2024 9:01 PM [facility] LABORATORY [facility] AST 10/20/2024 9:01 PM [facility] LAB[facility]ORY [facility] Comment:Test cannot be perfo rmed. Sample hemolysis interference above limits. Redraw if indicated. ALT 18 <42 U/L 10/20/2024 9:01 PM [facility] LABORATORY [facility] GFR >60 mL/min/1.7 3 sq meter 10/20/2024 9:01 PM [facility] LABORATORY [facility] Comment:eGFR calculated with 2020 CKD-EPI equation. Vegetarian diet, extremely high or low muscle mass, and may affect results. Cystatin C with Glomerular Filtration Rate is a suitable alternative for these patients. ANION GAP 13 8 - 16 mmol/L 10/20/2024 9:01 PM [facility] LABORATORY [facility] Blood Venipuncture / Unknown 10/20/2024 7:41 PM CDT 10/20/2024 7:45 PM CDT Narrative [facility]ORY [facility] - 10/20/2024 9:01 PM CDT Samples containing indocyanine green cause interferences on Total and/or Direct Bilirubin and must not be measured. Simona Hammer Jr., MD CHEMISTRY ORDERABLES Final Result [facility]# [id number] 5 [facility] [place] [id number] from Last 3 Months Insurance MEDICARE PART A AND B RX [facility] Medicare Part D Advance Directives For more information, please contact: [phone] * Full Code (Latest Code Status on File) Date Activated Date Inactivated Comments 10/21/2024 12:21 AM 10/22/2024 4:57 PM Care Teams Batch Analyst Relationship Specialty Start Date End Date Ronald Mccarthy MD [address] [place] [phone] PCP - General Internal Medicine 10/21/24
--- OUTSIDE RECORDS SUMMARY | 2024-12-03 06:29 | XMS_ITS | Clinical Summary ---
Author Organization [facility] Address [address] [place] [address] Phone Care Team Providers Care Coil Winder Strap Name Role Phone Unavailable Primary Care Provider [...]
[2024-12-03] MEDS: LIDOCAINE 5% PATCH 1 PATCH TRANSDERM (06:56)
[2024-12-03] MEDS: KETOROLAC 15 MG/ML VIAL (*BKC) IV PUSH (06:57)
[2024-12-03 07:12] LABS: INR 1.1; Prothrombin Time 13.9 Seconds (11.1-14.7)
[2024-12-03 07:13] LABS: Partial Thromboplastin Time 22.2 Seconds (22.3-36.8)
[2024-12-03 07:20] LABS: Alanine Aminotransferase 19 U/L (6-50); Albumin Level 4.0 g/dL (3.5-5.1); Alkaline Phosphatase 63 U/L (38-126); Anion Gap 10 mmol/L (4-12); Aspartate Amino Transferase 28 U/L (17-59); Bilirubin,Total 0.8 mg/dL (0.2-1.3); Blood Urea Nitrogen 14 mg/dL (9-20); Calcium 9.0 mg/dL (8.4-10.2); Carbon Dioxide 25 mmol/L (22-30); Chloride 103 mmol/L (98-107); Creatine Kinase 82 U/L (55-170); Estimated CRCL calculation 91 ml/min; Estimated Glomerular Filt Rate > 60; Glucose 123 mg/dL (65-110); Lipase 55 U/L (23-300); Magnesium 2.0 mg/dL (1.6-2.3); Potassium 4.2 mmol/L (3.4-5.0); Sodium 138 mmol/L (137-145); Total Protein 6.5 g/dL (6.3-8.2)
[2024-12-03 07:28] LABS: Troponin I < 0.012 ng/mL (0.000-0.034)
[2024-12-03 07:53] LABS: Hematocrit 44.7 % (42.0-52.0); Hemoglobin 14.6 g/dL (14.0-18.0); Immature Granulocyte Percent A 0.4 % (0-0.5); Lymphocytes Absolute Auto 0.74 K/mm3 (0.9-3.2); Mean Corpuscular HGB Conc 32.7 g/dl (32-36); Mean Corpuscular Hemoglobin 29.9 pg (26-34); Mean Corpuscular Volume 91.4 fl (80-100); Nucleated Red Blood Cells Absolute Auto 0.000 K/mm3 (0.0-0.012); Nucleated Red Blood Cells Perc 0.0 % (0.0-0.2); Platelet Count Result 161 k/mm3 (150-375); Red Blood Count 4.89 M/mm3 (4.6-6.20); White Blood Count 5.4 K/mm3 (4.5-10.0)
== END 2024-12-03 10:30 | disposition home or self-care (01) ==
PROVIDERS: Student in an Organized Health Care Education/Training Program; Emergency Provider Emergency Medicine; PCP Internal Medicine
DX: S20.219A Contusion of unspecified front wall of thorax, initial encounter (principal); S50.311A Abrasion of right elbow, initial encounter; S60.812A Abrasion of left wrist, initial encounter; S60.811A Abrasion of right wrist, initial encounter; E04.1 Nontoxic single thyroid nodule; I10 Essential (primary) hypertension; E78.5 Hyperlipidemia, unspecified; E11.9 Type 2 diabetes mellitus without complications; N40.0 Benign prostatic hyperplasia without lower urinary tract symptoms; I49.3 Ventricular premature depolarization; R94.31 Abnormal electrocardiogram [ECG] [EKG]; W18.09XA Striking against other object with subsequent fall, initial encounter
CPT/HCPCS: 36415; 71260; 73080; 73110; 80053; 82550; 83690; 83735; 84484; 85025; 85610; 85730; 93005; 96374; 99284; A9270; J1885; Q9967